=== PATIENT | female | born 1940 | race Caucasian/White ===

== ENCOUNTER 2017-03-09 05:43 | Day surgery (SDC) | payer OTHER ==
--- NOTE | 2017-02-06 14:12 | DIAGNOSTIC IMAGING REPORT ---
CHEST 2 VIEWS ROUTINE HISTORY: 76 years-old Female PAT preoperative exam. No acute chest complaints. COMPARISON: Chest radiographs 10/17/2012, CT abdomen and pelvis 11/22/2011 TECHNIQUE: PA and lateral views of the chest FINDINGS: Cardiomediastinal and hilar silhouettes are within normal limits. Small hiatal hernia. No pneumothorax or pleural effusion. Moderate right hemidiaphragmatic elevation unchanged with subsegmental right basilar atelectasis/scarring. Right shoulder arthroplasty. Increased kyphosis of the spine with demineralized appearance of the bones. IMPRESSION: No acute cardiopulmonary process. The above report was generated using voice recognition software. It may contain grammatical, syntax or spelling errors. Electronically signed by: Leandro Martinez M.D. 02/06/2017 2:10 PM Dictated Date/Time: 02/06/2017 2:09 PM
[2017-02-06 14:14] VITALS: BMI 34.0
[2017-02-06 14:15] LABS: BASO % 0.5 %; BASO ABS # 0.03 K/uL (0-0.2); EOS % 2.4 %; EOS ABS # 0.16 K/uL (0-0.5); HEMATOCRIT 39.7 % (37-47); HEMOGLOBIN 12.8 g/dL (12.0-16.0); IG# 0.02 K/uL (0.00-0.02); LYMPH % 31.1 %; LYMPH ABS # 2.05 K/uL (1.2-3.4); MEAN CORPUSCULAR HEMOGLOBIN 28.4 pg (25-34); MEAN CORPUSCULAR HGB CONC 32.2 g/dl (32-36); MEAN PLATELET VOLUME 10.5 fL (7.4-10.4); MONO % 10.5 %; MONO ABS # 0.69 K/uL (0.11-0.59); NEUT % 55.2 %; NEUT ABS # 3.65 K/uL (1.4-6.5); PLATELET COUNT 176 K/uL (130-400); RED CELL DISTRIBUTION WIDTH CV 15.3 % (11.5-14.5); RED CELL DISTRIBUTION WIDTH SD 49.3 fL (36.4-46.3)
--- NOTE | 2017-02-06 14:47 | PAT Medication Instructions ---
Service Date Feb 06, 2017. Current Home Medication List Amlodipine (Norvasc), 5 MG PO HS Citalopram Hydrobromide (Citalopram Hydrobromide), 40 MG PO QAM Ergocalciferol (Vitamin D 83894 Unit), 50,000 UNIT PO 2XWK Gabapentin (Neurontin), 300 MG PO BID Lisinopril (Lisinopril), 20 MG PO HS Meloxicam (Mobic), 15 MG PO QAM Omeprazole (Prilosec), 40 MG PO BID Oxybutynin Chloride (Oxybutynin Chloride), 5 MG PO BID Ranitidine Hcl (Zantac), 300 MG PO HS Trazodone Hcl (Trazodone), 50 MG PO HS Medication Instructions For Your Scheduled Surgery Continue as directed: Ergocalciferol (Vitamin D 02262 Unit), 50,000 UNIT PO 2XWK - Hold the following medications per your surgeon's instructions: Meloxicam (Mobic), 15 MG PO QAM - Hold the following medications the night before surgery: Lisinopril (Lisinopril), 20 MG PO HS - Take the following medications the morning of surgery with a sip of water: Oxybutynin Chloride (Oxybutynin Chloride), 5 MG PO BID Omeprazole (Prilosec), 40 MG PO BID Gabapentin (Neurontin), 300 MG PO BID Citalopram Hydrobromide (Citalopram Hydrobromide), 40 MG PO QAM - Take the following medications as scheduled the night before surgery: Ranitidine Hcl (Zantac), 300 MG PO HS Trazodone Hcl (Trazodone), 50 MG PO HS Oxybutynin Chloride (Oxybutynin Chloride), 5 MG PO BID Omeprazole (Prilosec), 40 MG PO BID Gabapentin (Neurontin), 300 MG PO BID Amlodipine (Norvasc), 5 MG PO HS If you have any questions please call us at [phone] or [phone] or [phone]
[2017-02-06 15:02] LABS: CALCIUM 8.4 mg/dl (8.5-10.1); CREATININE 0.78 mg/dl (0.60-1.20); POTASSIUM 4.5 mmol/L (3.5-5.1)
[~2017-03-09] VITALS: Ht 157.5 cm; Wt 84.8 kg
[~2017-03-09 05:43] MED LIST: AMLO-110 PO; CITA20TA4 PO; DTR5 PO; ERGO500037 PO; GABA-113 PO; LSN20 PO; MELO7.5T5 PO; PRLSR20 PO; RANI300T PO; TRAZ50TA35 PO
[2017-03-09] MEDS ORDERED: CEFAZOLIN 2000MG IV PUSH 10 ML IV SCH (06:00)
[2017-03-09] MEDS ORDERED: LACTATED RINGER'S 1000ML 1,000 ML IV SCH (06:00)
[2017-03-09 06:12] VITALS: BP 158/67; PULSE 64; TEMP 36.4; O2SAT 98; Ht 157.5 cm; Wt 84.8 kg
[2017-03-09] MEDS ORDERED: MIDAZOLAM HCL 1 MG/ML 2ML VIAL ONE (06:56)
[2017-03-09] MEDS ORDERED: LIDOCAINE HCL 2% 2 ML VIAL (20MG/ML) ONE (06:56)
[2017-03-09] MEDS ORDERED: DEXAMETHASONE SOD INJ 4 MG/ML VIAL ONE ×2 (06:56→09:40)
[2017-03-09] MEDS ORDERED: PROPOFOL IV EMULSION 10 MG/ML 20 ML VIAL IV ONE (06:56)
[2017-03-09] MEDS ORDERED: GLYCOPYRROLATE INJ 0.2 MG/ML VIAL ONE (06:56)
[2017-03-09] MEDS ORDERED: NEOSTIGMINE METHYLSULFATE 1 MG/ML 10ML VIAL ONE (06:56)
[2017-03-09] MEDS ORDERED: ONDANSETRON INJ 2 MG/ML 2 ML VIAL ONE ×2 (06:56→09:58)
[2017-03-09] MEDS ORDERED: FENTANYL CITRATE INJ 50 MCG/1 ML 2 ML VIAL ONE (06:57)
[2017-03-09] MEDS ORDERED: BACITRACIN 50000 UNIT VIAL ONE (07:04)
[2017-03-09] MEDS ORDERED: BUPIVACAINE/EPINEPHRINE 0.25% 1:200,000 30 ML VIAL ONE (07:04)
[2017-03-09] MEDS ORDERED: CEFAZOLIN SOD 2000MG/10 ML IV PUSH IV ONE (07:23)
--- NOTE | 2017-03-09 07:28 | History & Physical Bridge Note ---
H&P Re-Evaluation Bridge Note: I have examined the patient, reviewed the History & Physical and in the interval since the performance of the History & Physical I have noted the following changes of clinical significance: No changes noted
--- NOTE | 2017-03-09 07:29 | History and Physical ---
History & Physical Date Mar 09, 2017. Chief Complaint Right SI joint pain History of Present Illness The patient is a 76 year old female with complaints of chronic persistent right SI joint pain Past Medical/Surgical History Medical Problems: (1) ESOPHAGEAL REFLUX (2) Herpes zoster (3) LUMBAGO Additional History Hepatic Disease: No Endocrine Disorder: No Kidney Disease: No Hypertension: Yes Heart Disease: No Bleeding Tendencies: No Infectious Diseases: No Allergies Coded Allergies: Codeine (Verified Allergy, Intermediate, HIVES, 03/09/17) Tramadol (Verified Allergy, Intermediate, ITCHING, HIVES, 03/09/17) Cephalosporins (Verified Allergy, Unknown, rash, 03/09/17) Morphine (Verified Allergy, Unknown, vomit, 03/09/17) Nitrofurantoin (Verified Allergy, Unknown, rash, 03/09/17) Tetracycline (Verified Allergy, Unknown, rash, 03/09/17) Home Medications Scheduled Amlodipine (Norvasc), 5 MG PO HS Citalopram Hydrobromide (Citalopram Hydrobromide), 40 MG PO QAM Gabapentin (Neurontin), 300 MG PO BID Lisinopril (Lisinopril), 20 MG PO HS Meloxicam (Mobic), 15 MG PO QAM Omeprazole (Prilosec), 40 MG PO BID Oxybutynin Chloride (Oxybutynin Chloride), 5 MG PO BID Ranitidine Hcl (Zantac), 300 MG PO HS Trazodone Hcl (Trazodone), 50 MG PO HS Physical Examination Skin: warm/dry, no rash Eyes: normal inspection, EOMI, sclerae normal ENT: normal ENT inspection, pharynx normal Head: normocephalic, atraumatic Neck: supple, no adenopathy, trachea midline Respiratory/Chest: lungs clear, normal breath sounds, no respiratory distress Cardiovascular: regular rate, rhythm, no edema, no murmur Abdomen / GI: normal bowel sounds, non tender Back: normal inspection Extremities: normal inspection, normal range of motion Neurologic/Psych: no motor/sensory deficits, alert, normal reflexes, oriented x 3 Diagnosis Right sacroiliitis Plan of Treatment Right SI joint fusion
[2017-03-09] MEDS ORDERED: ROCURONIUM BROMIDE 10 MG/ML 5 ML VIAL IV ONE ×2 (08:21→09:57)
[2017-03-09] MEDS ORDERED: EpHEDrine SULFATE 50MG/5ML SYR ONE (08:21)
--- NOTE | 2017-03-09 08:35 | [facility] Operative Report ---
Operative Report Operative Date Mar 09, 2017. Pre-Operative Diagnosis Right sacroiliitis Post-Operative Diagnosis same as preop Procedure(s) Performed Right sacroiliac joint fusion Surgeon Dr. Quesada Chemical Equipment Controller Surgeon(s) Tanner Gutierrez PA-C Estimated Blood Loss 10 ml Findings Findings consistent with sacroiliitis Specimens none Description of Procedure Patient was met with preoperatively case discussed all questions addressed. After informed consent obtained patient was taken to the operative suite underwent intubation placed in a prone position the chest pads and hip bolsters. The right upper buttock was then prepped and draped in normal sterile fashion. With the assistance of fluoroscopy in lateral inlet and outlet views we identified the right SI joint. A incision was made along the right upper buttock in line with the posterior sacral slope. Sharp dissection was performed onto the fascia. The guidewire was then placed in the proximal portion of the SI joint verifying our position with fluoroscopy. Then overdrilled the 10 mm drill. We measured a 45 mm screw. It was then filled with locally harvested autograft and BMP. A 45 mm IRELAND-coated slotted screw was then placed. I felt excellent bite with the screw. The operative guide was then placed in a second distal guidewire was placed across SI joint again verifying our position with fluoroscopy. It was overdrilled and we placed a 40 mm IRELAND-coated slotted screw filled with locally harvested graft and DBM. Again excellent bite was appreciated. A third distal screw was also placed using the same technique. This screw was 35 mm in length. It was also slotted IRELAND-coated filled with locally harvested graft and DBM. It to demonstrated excellent bite along the outer table of the ilium. We final films were taken the Incision was in copious irrigated and closed with subcutaneous pains Vicryl and 4 Monocryl for final skin closure. Steri-Strips sterile dressings placed. Patient we can take PACU stable condition. Please note Zev record was present at the entire procedure involved in patient positioning complex portions of the surgery and final skin closure. I attest to the content of the Intraoperative Record and any orders documented therein. Any exceptions are noted below.
[2017-03-09] MEDS ORDERED: OXYC-57 PO (08:36)
--- NOTE | 2017-03-09 08:37 | Discharge Instructions ---
Discharge Instructions Date of Service Mar 09, 2017. Admission Reason for Admission: Sacroiliac Joint Dysfunction Discharge Discharge Diagnosis / Problem: sacralilitis Discharge Goals Goal(s): Decrease discomfort Activity Recommendations Activity Limitations: as noted below Lifting Limitations: no more than 10 pounds Exercise/Sports Limitations: rest today Shower/Bathe: may shower/bathe in 3 days Driving or Machine Use: resume 3 days after discharge Weightbearing Status: Right toe touch . Instructions / Follow-Up Instructions / Follow-Up Patient is to follow-up in our office in 2 weeks for x-ray. She is to use a walker and toe-touch weightbearing when ambulatory. Current Hospital Diet Patient's current hospital diet: Discharge Diet Recommended Diet: Regular Diet Procedures Procedures Performed: Right sacroiliac joint fusion Pending Studies Studies pending at discharge: no Medical Emergencies . Who to Call and When: Medical Emergencies: If at any time you feel your situation is an emergency, please call 911 immediately. . Non-Emergent Contact Non-Emergency issues call your: Primary Care Provider . "Provider Documentation" section prepared by Roberto Quesada. . VTE Core Measure Inpt VTE Proph given/why not?: Elizabeth Em, SCD's
[2017-03-09] MEDS ORDERED: HYDROmorphone INJ 1 MG/ML SYR IV PRN (08:45)
[2017-03-09] MEDS ORDERED: ACETAMINOPHEN 325 MG TAB PO PRN (08:45)
[2017-03-09] MEDS ORDERED: OXYCODONE/ACETAMINOPHEN 5-325 TAB PO PRN (08:45)
--- NOTE | 2017-03-09 08:53 | DIAGNOSTIC IMAGING REPORT ---
SACRUM CLINICAL HISTORY: RIGHT SACROILIAC JOINT FUSION COMPARISON STUDY: Lumbar spine radiographs July 11, 2014. Fluoroscopy time: 1 minute and 50 seconds. FINDINGS: 3 fluoroscopic images demonstrate 3 cannulated screws which extend across the right sacroiliac joint. Hardware is intact. No fracture or unexpected radiopaque foreign bodies identified. IMPRESSION: Expected findings following right sacroiliac joint fusion. Electronically signed by: Mauricio Rodrigues M.D. 03/09/2017 8:52 AM Dictated Date/Time: 03/09/2017 8:50 AM
[2017-03-09] MEDS ORDERED: ONDANSETRON INJ 2 MG/ML 2 ML VIAL IV PRN (09:00)
[2017-03-09] MEDS ORDERED: HYDROmorphone INJ 2 MG/ML SYR/VIAL IV PRN (09:00)
[2017-03-09] MEDS ORDERED: LABETALOL HCL IV 5 MG/ML 20ML IV PRN (09:00)
[2017-03-09] MEDS ORDERED: ATROPINE SULFATE 0.1 MG/ML 5ML SYR IV PRN (09:00)
[2017-03-09] MEDS ORDERED: HYDROmorphone INJ 0.5 MG/0.5 ML SYR ONE (09:04)
[2017-03-09 09:35] VITALS: BP 113/63; PULSE 79; TEMP 36.7; O2SAT 93
[2017-03-09] MEDS ORDERED: HYDROmorphone INJ 2 MG/ML SYR/VIAL ONE (09:39)
[2017-03-09] MEDS ORDERED: OXYCODONE/ACETAMINOPHEN 5-325 TAB ONE (09:44)
[2017-03-09 10:05] VITALS: BP 105/60; PULSE 70; O2SAT 94
--- NOTE | 2017-03-09 10:09 | Anesthesiology Progress Note ---
Anesthesia Post Op Note Date & Time Mar 09, 2017 at 10:08 Vital Signs Pain Intensity: 5.0 Vital Signs Past 12 Hours Date Time Temp Pulse Resp B/P (MAP) Pulse Ox O2 Delivery O2 Flow Rate FiO2 03/09/17 09:35 36.7 79 18 113/63 93 Room Air 03/09/17 09:26 36.5 03/09/17 09:25 82 20 95 03/09/17 09:25 82 20 03/09/17 09:23 118/62 03/09/17 09:20 84 24 03/09/17 09:20 84 24 95 03/09/17 09:16 122/59 03/09/17 09:15 84 18 93 03/09/17 09:15 86 18 03/09/17 09:12 Nasal Cannula 3 03/09/17 09:12 128/57 03/09/17 09:10 89 21 92 03/09/17 09:10 89 21 03/09/17 09:05 85 24 03/09/17 09:05 85 24 132/57 95 03/09/17 09:00 87 19 03/09/17 09:00 87 19 134/61 96 03/09/17 08:56 134/51 03/09/17 08:55 93 16 03/09/17 08:55 92 16 94 03/09/17 08:50 36.8 92 16 124/80 95 Oxymask 8 03/09/17 06:12 36.4 64 18 158/67 98 Room Air Notes Mental Status: alert / awake / arousable, participated in evaluation Pt Amnestic to Procedure: Yes Nausea / Vomiting: adequately controlled Pain: adequately controlled Airway Patency, RR, SpO2: stable & adequate BP & HR: stable & adequate Hydration State: stable & adequate Anesthetic Complications: no major complications apparent
[2017-03-09 10:35] VITALS: BP 111/50; PULSE 76; TEMP 36.7; O2SAT 94
== END 2017-03-09 11:08 | disposition home or self-care (01) ==
LOC: C.ACU 05:43
PROVIDERS: ATTEND Orthopaedic Surgery Orthopaedic Surgery of the Spine
DX: M46.1 Sacroiliitis, not elsewhere classified (principal); K21.9 Gastro-esophageal reflux disease without esophagitis; Z79.899 Other long term (current) drug therapy

== ENCOUNTER → 2017-05-17 | Outpatient (CLI) | payer OTHER ==
[~2017-05-17] MED LIST changes: -ERGO500037 PO
[2017-05-17 17:15] LABS: BLOOD UREA NITROGEN 24 mg/dl (7-18); CALCIUM 8.7 mg/dl (8.5-10.1); CARBON DIOXIDE 29 mmol/L (21-32); CHOLESTEROL 149 mg/dl (0-200); GLUCOSE 79 mg/dl (70-99); SODIUM 138 mmol/L (136-145)
[2017-05-17 17:18] LABS: LDL CHOLESTEROL CALCULATED 87 mg/dl
== END | disposition home or self-care (01) ==
LOC: C.LABPBG 12:42
PROVIDERS: ATTEND Family Medicine
DX: Z00.00 Encounter for general adult medical examination without abnormal findings (principal); E55.9 Vitamin D deficiency, unspecified; I10 Essential (primary) hypertension; Z13.220 Encounter for screening for lipoid disorders

== ENCOUNTER 2018-04-23 08:22 | Inpatient (IN) ==
--- NOTE | 2018-04-17 10:38 | Anesthesiology Consultation ---
Date of Service April 17, 2018 Assessment & Plan (1) Encounter for pre-operative examination: Chart Review Chart Review: Acceptable Risk for Surgery (PENDING PREOP EKG TO BE DONE AM DOS PER SURGEON) and Patient NOT seen in Pre Admission Testing History Surgery Operation Date: 04/23/18 07:45 Proposed Procedures p Revision Sacroiliac Joint Fusion, Possible Removal fo Sacroiliac Joint Screw - Roberto Quesada DO Height/Weight Height: 5 ft 2.5 in Weight: 83.915 kg Allergies Allergy/AdvReac Type Severity Reaction Status Date / Time codeine Allergy Intermediate HIVES Verified 04/12/18 14:49 tramadol Allergy Intermediate ITCHING, Verified 04/12/18 14:49 HIVES - SEE NOTES Cephalosporins Allergy Unknown rash Verified 04/12/18 14:49 nitrofurantoin Allergy Unknown rash Verified 04/12/18 14:49 tetracycline Allergy Unknown rash Verified 04/12/18 14:49 morphine AdvReac Unknown vomit Verified 04/17/18 10:33 Medications Home Medications Medication Instructions Recorded Confirmed Last Taken amlodipine 5 mg PO HS 04/12/18 04/12/18 04/11/18 celecoxib [Celebrex] 200 mg PO QAM 04/12/18 04/12/18 04/12/18 citalopram 20 mg PO QAM 04/12/18 04/12/18 04/12/18 gabapentin 400 mg PO TID 04/12/18 04/12/18 04/12/18 lisinopril 20 mg PO HS 04/12/18 04/12/18 04/11/18 omeprazole 40 mg PO QAM 04/12/18 04/12/18 04/12/18 ondansetron HCl 4 mg PO UD PRN 04/12/18 04/12/18 Unknown oxybutynin chloride 5 mg PO TID 04/12/18 04/12/18 04/12/18 oxycodone 5 mg PO Q12 PRN 04/12/18 04/12/18 Unknown ranitidine HCl 300 mg PO HS 04/12/18 04/12/18 04/11/18 trazodone 50 mg PO HS 04/12/18 04/12/18 04/11/18 Past Medical History Medical History Acid reflux Back problem DVT (deep venous thrombosis) LLE (CALF) 30+ YEARS AGO FELT 2/2 OCP Depression Hiatal hernia Hypertension Past Family History Family History Mother Family history of pancreatic cancer Father Family history of Hodgkin's lymphoma Past Surgical History Surgical History History of back surgery RIGHT SI JOINT FUSION= 03/09/17= GRADE VIEW 1, MAC 3, ETT 7.0 AT [facility] History of cardiac cath MANY YEARS AGO= NO STENTS History of colonoscopy History of laminectomy History of right shoulder replacement History of total right knee replacement History of PONV Yes (PER RECORDS) Social History Smoking Status: Never smoker Do You Dip or Chew Tobacco: No Hx Alcohol Use: Yes Alcohol type: wine alcohol intake frequency: holidays/special occasions only Hx Substance Use: No substance use type: does not use Testing Laboratory Results 04/16/18 WBC 6.13 H/H 11.9/39.0 PLATELETS 191 SODIUM 140 POTASSIUM 4.1 CHLORIDE 107 CO2 28 BUN 17 CREATININE 0.87 GLUCOSE 89 PT 10.7 INR 1.0 UA negative T&S A+Ab-
[~2018-04-23 08:22] MED LIST changes: +ACETAMINOPHEN 500 MG TAB PO SCH; -AMLO-110 PO; -CITA20TA4 PO; +CeleBREX 200 MG CAP PO SCH; -DTR5 PO; -GABA-113 PO; +GABAPENTIN 300 MG PO SCH; +LR 15ML/HR IV SCH; -LSN20 PO; -MELO7.5T5 PO; -PRLSR20 PO; -RANI300T PO; -TRAZ50TA35 PO
[2018-04-23] MEDS ORDERED: PROPOFOL IV EMULSION 10 MG/ML 20 ML VIAL IV ONE (10:30)
[2018-04-23] MEDS ORDERED: ROCURONIUM BROMIDE 10 MG/ML 5 ML VIAL ONE (10:31)
[2018-04-23] MEDS ORDERED: fentaNYL citrate 100 MCG/2 ML VIAL ONE (10:31)
[2018-04-23] MEDS ORDERED: MIDAZOLAM HCL 1 MG/ML 2ML VIAL ONE (10:31)
[2018-04-23] MEDS ORDERED: ONDANSETRON INJ 2 MG/ML 2 ML VIAL IV PRN (10:35)
[2018-04-23] MEDS ORDERED: ATROPINE SULFATE 0.1 MG/ML 10ML SYR IV PRN (10:35)
[2018-04-23] MEDS ORDERED: ePHEDrine sulfate 50 MG/ML AMP IV PRN (10:35)
[2018-04-23] MEDS ORDERED: HYDROmorphone INJ 1 MG/ML SYRINGE IV PRN (10:35)
--- NOTE | 2018-04-23 10:59 | History & Physical Bridge Note ---
Date of Service April 23, 2018 History & Physical Bridge Note I have examined the patient, reviewed the History & Physical and in the interval since the performance of the History & Physical I have noted the following changes of clinical significance: no changes noted
--- NOTE | 2018-04-23 11:00 | History & Physical Report ---
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 After failing extensive course of nonoperative care prevention. Allergies Allergy/AdvReac Type Severity Reaction Status Date / Time codeine Allergy Intermediate HIVES Verified 04/23/18 08:59 tramadol Allergy Intermediate ITCHING, Verified 04/23/18 08:59 HIVES - SEE NOTES Cephalosporins Allergy Unknown rash Verified 04/23/18 08:59 nitrofurantoin Allergy Unknown rash Verified 04/23/18 08:59 tetracycline Allergy Unknown rash Verified 04/23/18 08:59 morphine AdvReac Unknown vomit Verified 04/23/18 08:59 Home Medications Home Medications Medication Instructions Recorded Confirmed Type amlodipine 5 mg PO HS 04/12/18 04/23/18 History celecoxib [Celebrex] 200 mg PO QAM 04/12/18 04/23/18 History citalopram 20 mg PO QAM 04/12/18 04/23/18 History gabapentin 400 mg PO TID 04/12/18 04/23/18 History lisinopril 20 mg PO HS 04/12/18 04/23/18 History omeprazole 40 mg PO QAM 04/12/18 04/23/18 History ondansetron HCl 4 mg PO UD PRN 04/12/18 04/23/18 History oxybutynin chloride 5 mg PO TID 04/12/18 04/23/18 History oxycodone 5 mg PO Q12 PRN 04/12/18 04/23/18 History ranitidine HCl 300 mg PO HS 04/12/18 04/23/18 History trazodone 50 mg PO HS 04/12/18 04/23/18 History Past Med/Surg History Medical History Hypertension Depression Back problem Acid reflux DVT (deep venous thrombosis) LLE (CALF) 30+ YEARS AGO FELT 2/2 OCP Hiatal hernia Surgical History History of back surgery RIGHT SI JOINT FUSION= 03/09/17= GRADE VIEW 1, MAC 3, ETT 7.0 AT [facility] History of total right knee replacement History of right shoulder replacement History of laminectomy History of colonoscopy History of cardiac cath MANY YEARS AGO= NO STENTS Family History Mother Family history of pancreatic cancer Father Family history of Hodgkin's lymphoma Social History Current Living Situation: Alone Other Information That Helps Us Care for You: No Feels Safe at Home: Yes Smoking Status: Never smoker Do You Dip or Chew Tobacco: No Hx Alcohol Use: Yes Alcohol type: wine Alcohol Intake Frequency: holidays/ special occasions only Hx Substance Use: No Beliefs That Will Affect Care: None Preferred Language: Palestinian Communication Ability: Effective Motor Transport Inspector Required: No Physical Exam 2 Vital Signs (Past 24 Hours): Last Vital Signs Temp 37.3 C 04/23/18 09:08 Pulse 64 04/23/18 09:08 Resp 20 04/23/18 09:08 BP 113/61 04/23/18 09:08 Pulse Ox 94 04/23/18 09:08 Results & Data Medications Administered Acetaminophen (Tylenol) 1,000 mg PO PREOP RANJANA Stop: 04/23/18 18:00 Last Admin: 04/23/18 09:07 Dose: 1,000 mg Celecoxib (Celebrex) 200 mg PO PREOP RANJANA Stop: 04/23/18 18:00 Last Admin: 04/23/18 09:07 Dose: 200 mg Gabapentin (Neurontin) 300 mg PO PREOP RANJANA Stop: 04/23/18 18:00 Last Admin: 04/23/18 09:07 Dose: 300 mg Lactated Ringer's (Lr) 1,000 mls @ 15 mls/hr IV .Q24H RANJANA Stop: 04/24/18 05:59 Last Admin: 04/23/18 08:57 Dose: 15 mls/hr
[2018-04-23] MEDS ORDERED: CLINDAMYCIN 600 MG/54 ML D5W IV ONE (11:05)
[2018-04-23] MEDS ORDERED: BACITRACIN INJ 50,000 UNIT VIAL ONE (11:11)
[2018-04-23] MEDS ORDERED: BUPIVACAINE/EPINEPHRINE 0.5% MPF 1:200,000 30 ML VIAL ONE (11:11)
--- NOTE | 2018-04-23 12:29 | Operative Report ---
Post Operative Report Pre & Post Diagnosis Operation Date: 04/23/18 10:25 Pre-Op Diagnosis: Right Sacroiliac Joint Dysfunction Post-Op Diagnosis: Right Sacroiliac Joint Dysfunction Procedure Operation Date: 04/23/18 10:25 Actual Procedures #1 removal of SI joint screws. #2 open SI joint fusion. #3 placement of Prolixin 20 mm cortical allograft filled with infuse collagen sponge in the right SI joint. #3 placement of globus IRELAND-coated slotted screws across the right SI joint. Surgeon Roberto Quesada, Rubber Mold Maker Deisi Winters Estimated Blood Loss 20 Findings Consistent with Post-Op Diagnosis Specimens None Description of Procedure Patient was met with preoperatively case discussed all questions addressed. After informed consent obtained patient was taken to the operative suite underwent intubation and placed in a prone position on the Liam table chest padded bolsters. The right upper buttock was then prepped and draped in a normal sterile fashion. With the assistance of fluoroscopy identified the middle SI joint screw. It was removed without difficulty. I then proceeded to remove the distal SI joint screw. After this complete lipase a guidewire into the right SI joint with fluoroscopic visualization. Then opened up the joint for direct visualization. I passed a facilities manager into the joint followed by cannulated facilities manager and a box chisel to open up the joint. A 20 mm cortical allograft filled with infuse collagen sponge was then tapped into the SI joint. The working apparatus was removed and then proceeded to the screws and placed a new middle SI joint screw 40 mm in length IRELAND-coated filled with infuse collagen sponge followed by the distal 35 mm IRELAND-coated slotted screw. All screws demonstrated excellent fixation and fit. Verified our first positions with inlet outlet views lateral views and AP views of the SI joint. The incision was then copiously irrigated closed with subcutaneous Vicryl for Monocryl for final closure Steri-Strip sterile dressing placed. Patient will continue to PACU stable condition. These note Deisi Winters was present throughout the entire procedure involved in patient positioning complex portions of the surgery and final skin closure. I attest to the content of the Intraoperative Record and any orders documented therein. Any exceptions are noted below.
[2018-04-23] MEDS: fentaNYL citrate 100 MCG/2 ML VIAL IV PRN ×4 (12:53→13:08)
--- NOTE | 2018-04-23 12:55 | Fluoroscopy Report ---
FL sacrum CLINICAL HISTORY: REVISION SACROILIAC JOINT FUSION POSSIBLE HARDWARE REMOVAL COMPARISON STUDY: 03/09/2017 FLUOROSCOPY TIME: 1 minute 15 seconds NUMBER OF FLUOROSCOPIC IMAGES: 6 FINDINGS: Image intensifier was utilized for sacroiliac bolt revision and graft insertion. IMPRESSION: Sacroiliac bolt revision and graft insertion. The above report was generated using voice recognition software. It may contain grammatical, syntax or spelling errors. Electronically signed by: Romel Melvin M.D. 04/23/2018 12:54 PM
--- NOTE | 2018-04-23 13:20 | Anesthesiology Progress Note ---
Date of Service April 23, 2018 Anesthesia Post Procedure Vital Signs Vital Signs: Temp Pulse Pulse Resp BP BP Pulse Ox 04/23/18 13:15 81 16 115/60 96 04/23/18 13:05 82 16 103/50 L 96 04/23/18 12:55 85 16 107/58 L 98 04/23/18 12:45 36.5 C 96 H 16 145/67 H 96 04/23/18 09:08 37.3 C 64 20 113/61 94 Pain Intensity Right Lower Back: Pain Intensity: 6 Notes Mental Status: alert / awake / arousable and participated in evaluation Patient Amnestic to Procedure: Yes Nausea / Vomiting: adequately controlled Pain: adequately controlled Airway Patency, RR, SpO2: stable & adequate BP & HR: stable & adequate Hydration State: stable & adequate Anesthetic Complications: no major complications apparent and Pt Satisfied with anesthetic care Notes: Pt with some very mild bruising under both eyes - likely from prone positioning in prone view pillow during surgical procedure. Should resolve without intervention. Pt denying any eye pain or vision problems.
[2018-04-23] MEDS ORDERED: LORazepam 1 MG/2 ML VIAL IV PRN (13:55)
[2018-04-23] MEDS ORDERED: PROMETHAZINE HCL 12.5 MG in SODIUM CHLORIDE 0.9% 50 ML IV PRN (13:55)
[2018-04-23] MEDS ORDERED: LORazepam 1 MG TAB PO PRN (13:55)
[2018-04-23] MEDS ORDERED: OXYCODONE HCL IR 5 MG TAB (IMMEDIATE RELEASE) PO PRN (13:55)
[2018-04-23] MEDS ORDERED: ACETAMINOPHEN 325 MG TAB PO PRN (13:55)
[2018-04-23] MEDS ORDERED: ONDANSETRON 4 MG TAB PO PRN (13:55)
[2018-04-23] MEDS ORDERED: CYCLOBENZAPRINE HCL 10 MG TAB PO PRN (13:55)
[2018-04-23] MEDS: LACTATED RINGER'S 1,000 ML IV SCH (15:20)
[2018-04-23] MEDS ORDERED: COUGH DROP (SUGAR FREE) LOZ 24 LOZ/1 BOX BUCCAL PRN (17:23)
[2018-04-23] MEDS: CLINDAMYCIN 600 MG in DEXTROSE 5% 50 ML IV SCH (20:35)
[2018-04-23] MEDS: DOCUSATE SODIUM 100 MG CAP PO SCH (20:39)
[2018-04-23] MEDS: GABAPENTIN 400 MG CAP PO SCH (20:39)
[2018-04-23] MEDS: TRAZODONE HCL 50 MG TAB PO SCH (20:39)
[2018-04-23] MEDS: OXYBUTYNIN CHLORIDE 5 MG TAB PO SCH (20:40)
[2018-04-23] MEDS: LISINOPRIL 20 MG TAB PO SCH (20:40)
[2018-04-23] MEDS: AMLODIPINE BESYLATE 5 MG TAB PO SCH (20:40)
[2018-04-23] MEDS: OXYCODONE/ACETAMINOPHEN 5mg/325mg TAB PO PRN (20:44)
[2018-04-23] MEDS: ONDANSETRON INJ 2 MG/ML 2 ML VIAL IV PRN (20:44)
[2018-04-24] MEDS: CLINDAMYCIN 600 MG in DEXTROSE 5% 50 ML IV SCH ×2 (04:11→11:57)
[2018-04-24] MEDS: LACTATED RINGER'S 1,000 ML IV SCH ×2 (04:11→17:43)
[2018-04-24] MEDS ORDERED: CLINDAMYCIN 600 MG/54 ML BAG IV SCH (06:00)
--- NOTE | 2018-04-24 07:40 | Anesthesiology Progress Note ---
Date of Service April 24, 2018 Anesthesia Post Procedure Vital Signs Vital Signs: Temp Pulse Pulse Pulse Resp BP BP 04/24/18 04:32 37.6 C H 76 14 125/71 04/23/18 23:25 36.9 C 71 14 119/56 L 04/23/18 19:17 36.6 C 71 17 130/96 04/23/18 16:26 36.6 C 94 H 22 102/77 04/23/18 15:26 36.4 C L 72 22 98/76 L 04/23/18 14:55 36.4 C L 70 20 95/47 L 04/23/18 13:55 36.5 C 80 18 113/70 04/23/18 13:45 76 16 117/62 04/23/18 13:35 75 16 118/59 L 04/23/18 13:25 36.6 C 77 16 124/56 L 04/23/18 13:15 81 16 115/60 04/23/18 13:05 82 16 103/50 L 04/23/18 12:55 85 16 107/58 L 04/23/18 12:45 36.5 C 96 H 16 145/67 H 04/23/18 09:08 37.3 C 64 20 113/61 Pulse Ox 04/24/18 04:32 92 04/23/18 23:25 93 04/23/18 19:17 94 04/23/18 16:26 94 04/23/18 15:26 97 04/23/18 14:55 97 04/23/18 13:55 94 04/23/18 13:45 96 04/23/18 13:35 96 04/23/18 13:25 96 04/23/18 13:15 96 04/23/18 13:05 96 04/23/18 12:55 98 04/23/18 12:45 96 04/23/18 09:08 94 Pain Intensity Right Lower Back: Pain Intensity: 2 Notes Mental Status: alert / awake / arousable and participated in evaluation Nausea / Vomiting: adequately controlled Pain: adequately controlled Airway Patency, RR, SpO2: stable & adequate BP & HR: stable & adequate Hydration State: stable & adequate
[2018-04-24] MEDS: OXYCODONE/ACETAMINOPHEN 5mg/325mg TAB PO PRN ×3 (08:43→19:17)
[2018-04-24] MEDS: ONDANSETRON INJ 2 MG/ML 2 ML VIAL IV PRN ×2 (08:45→15:15)
[2018-04-24] MEDS: CITALOPRAM 20 MG TAB PO SCH (08:48)
[2018-04-24] MEDS: GABAPENTIN 400 MG CAP PO SCH ×3 (08:49→21:23)
[2018-04-24] MEDS: CeleBREX 200 MG CAP PO SCH (08:49)
[2018-04-24] MEDS: OXYBUTYNIN CHLORIDE 5 MG TAB PO SCH ×3 (08:49→21:23)
[2018-04-24] MEDS: DOCUSATE SODIUM 100 MG CAP PO SCH ×2 (08:50→21:23)
[2018-04-24] MEDS: PANTOprazole 40 MG TAB PO SCH (08:50)
--- NOTE | 2018-04-24 16:33 | Orthopedic Progress Note ---
Date of Service April 24, 2018 Assessment & Plan (1) Sacroiliitis: This time we will continue to monitor her pain and work with her ambulation and toe-touch weightbearing to the right lower extremity. Anticipate possible discharge home tomorrow. Present on Admission?: Yes Subjective Patient is quite comfortable. Preop symptoms are markedly improved. Physical Exam Vital Signs (Past 24 Hours): Last Vital Signs Temp 36.8 C 04/24/18 15:24 Pulse 77 04/24/18 15:24 Resp 17 04/24/18 15:24 BP 129/66 04/24/18 15:24 Pulse Ox 94 04/24/18 15:24 Physical Exam: On exam she is in the chair at the bedside. She is neurologically intact. She appears comfortable.
[2018-04-24] MEDS: LISINOPRIL 20 MG TAB PO SCH (21:22)
[2018-04-24] MEDS: AMLODIPINE BESYLATE 5 MG TAB PO SCH (21:23)
[2018-04-24] MEDS: TRAZODONE HCL 50 MG TAB PO SCH (21:31)
[2018-04-25] MEDS: LACTATED RINGER'S 1,000 ML IV SCH (05:23)
[2018-04-25 06:30] VITALS: BP 108/70; PULSE 78; TEMP 98.6; O2SAT 91
[2018-04-25] MEDS: CeleBREX 200 MG CAP PO SCH (08:24)
[2018-04-25] MEDS: PANTOprazole 40 MG TAB PO SCH (08:24)
[2018-04-25] MEDS: GABAPENTIN 400 MG CAP PO SCH ×2 (08:24→15:06)
[2018-04-25] MEDS: CITALOPRAM 20 MG TAB PO SCH (08:24)
[2018-04-25] MEDS: OXYBUTYNIN CHLORIDE 5 MG TAB PO SCH ×2 (08:24→15:06)
[2018-04-25] MEDS: DOCUSATE SODIUM 100 MG CAP PO SCH (08:24)
--- NOTE | 2018-04-25 14:51 | Discharge Summary ---
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 After failing extensive course of nonoperative care prevention. Principal Diagnosis Sacroiliitis Discharge Data Allergies Allergy/AdvReac Type Severity Reaction Status Date / Time codeine Allergy Intermediate HIVES Verified 04/23/18 08:59 tramadol Allergy Intermediate ITCHING, Verified 04/23/18 08:59 HIVES - SEE NOTES Cephalosporins Allergy Unknown rash Verified 04/23/18 08:59 nitrofurantoin Allergy Unknown rash Verified 04/23/18 08:59 tetracycline Allergy Unknown rash Verified 04/23/18 08:59 morphine AdvReac Unknown vomit Verified 04/23/18 08:59 Procedures Performed Operation Date: 04/23/18 10:25 Actual Procedures p Revision Right Sacroiliac Joint Fusion,(Right) - Roberto Quesada DO s Removal of Right Sacroiliac Joint Screw(Right) - Roberto Quesada DO Ordered Studies 04/23/18 10:25 FL fluoroscopy <1hr Routine FL sacrum Routine Hospital Course (1) Sacroiliitis: Patient underwent revision right SI joint fusion. She tolerated as well as taken the orthopedic floor postoperative. Postop day 1 she was tolerating physical therapy symptoms improved. She progressed appropriately through postop day #2 no subsequently discharged home. Discharge orders and instructions from the chart for further review. Total Time Total Time Spent Total Time Spent (In Minutes): Not applicable Discharge Plan Discharge Items Patient Disposition: Home - Self-Care Reason For Visit: SI Joint Dysfunction Discharge Diagnosis: SI joint dysfunction Discharge Goals: Decrease discomfort Activity: As commented below Lifting: No more than 5 pounds Bathing: May shower/bathe in 3 days Weightbearing: Right toe touch Non-emergency contact: Primary Care Provider Call non-emergency contact if: you have any medication questions Follow-up/Referrals: Zeynep Dawn MD [Primary Care Provider] - Diet: Regular Addtl Provider Instructions: Follow-up in 2 weeks as scheduled. Prescriptions: New oxycodone-acetaminophen [Percocet] 5-325 mg Tablet 1 tab PO Q4H PRN (Reason: Pain, Moderate) Qty: 20 RF: 0 Continued celecoxib [Celebrex] 200 mg Capsule 200 mg PO QAM RF: 0 citalopram 40 mg Tablet 20 mg PO QAM RF: 0 trazodone 50 mg Tablet 50 mg PO HS RF: 0 lisinopril 20 mg Tablet 20 mg PO HS RF: 0 gabapentin 400 mg Capsule 400 mg PO TID RF: 0 amlodipine 5 mg Tablet 5 mg PO HS RF: 0 omeprazole 40 mg Capsule,Delayed Release(Dr/Ec) 40 mg PO QAM RF: 0 ranitidine HCl 300 mg Capsule 300 mg PO HS RF: 0 oxybutynin chloride 5 mg Tablet 5 mg PO TID RF: 0 ondansetron HCl 4 mg Tablet 4 mg PO UD PRN (Reason: Nausea) RF: 0 oxycodone 5 mg Tablet 5 mg PO Q12 PRN (Reason: Pain) RF: 0 Stand-Alone Forms: [facility], [facility] Discharge Orders: Discharge Order (Routine); Ordered 04/25/18 Ordered By: Roberto Quesada Admission Data Admit Date/Time: 04/23/18 13:58 Attending Provider: Roberto Quesada Admit Provider: Roberto Quesada Primary Care Provider: Zeynep Dawn Service: Surgical Services Other Interventions: Discharge Summary Assessment (RN) Last Done: 04/25/18 14:04
== END 2018-04-25 15:15 | disposition home or self-care (01) | DRG 460 ==
LOC: ASU 08:22 → 3E 13:58

== ENCOUNTER 2021-01-28 10:09 | Inpatient (IN) ==
[2021-01-28] MEDS ORDERED: ACETAMINOPHEN 1,000 MG/100 ML VIAL IV STA (10:40)
[2021-01-28] MEDS ORDERED: ONDANSETRON INJ 2 MG/ML 2 ML VIAL IV STA (10:40)
--- NOTE | 2021-01-28 10:47 | Emergency Department Note ---
History of Present Illness General Chief complaint: Back Injury/Pain Stated complaint: FALL, LOWER BACK PAIN Time Seen by Provider: 01/28/21 10:21 Source: patient Mode of arrival: ambulatory Limitations: no limitations History of Present Illness Provider complaint: back pain, fall Onset (ago): hour(s) Location: back Radiation: non-radiation Maximum Pain Intensity: 9 Relieved By: + none Exacerbated By: + movement Associated symptoms: + denies other symptoms Treatments prior to arrival: other This is a 80-year-old female brought in by EMS due to increased back pain and fall this morning. Patient states she has a history of chronic low back pain and has had multiple surgeries. She states she is supposed to use a cane or a walker however this morning when she got up to go to the bathroom she did not. She states she became unsteady/off balance and fell landing on her back. Patient states she has most pain at the posterior aspect of her left hip. She states she was able to get back up and got back into bed, however pain is persistent. She did take a hydrocodone/acetaminophen which she has at home without any significant relief. Patient does already use topical agents as well as daily gabapentin. Patient does not routinely follow with Dr. Quesada or other pain management practitioners. Patient denies striking her head or losing consciousness. Denies any other concern for injury subsequent to the fall. Pt seen during a time of high acuity and national emergency pandemic while wearing PPE. Home Medications Medication Instructions Recorded Confirmed Type gabapentin 400 mg capsule 400 mg PO TID #270 cap 05/14/20 01/28/21 Rx celecoxib 200 mg capsule (Celebrex) 200 mg PO BID #180 cap 10/06/20 01/28/21 Rx amlodipine 5 mg tablet 5 mg PO HS #90 tab 11/03/20 01/28/21 Rx omeprazole 40 mg capsule,delayed 40 mg PO BID #180 cap 11/04/20 01/28/21 Rx release hydrocodone 5 mg-acetaminophen 325 1 tab PO Q6H PRN #30 tab 01/13/21 01/28/21 Rx mg tablet oxybutynin chloride 5 mg tablet 5 mg PO TID #90 tab 01/17/21 01/28/21 Rx citalopram 40 mg tablet 40 mg PO QAM 01/28/21 01/28/21 History lisinopril 20 mg tablet 20 mg PO QAM 01/28/21 01/28/21 History trazodone 50 mg tablet 50 mg PO HS 01/28/21 01/28/21 History Allergies Allergy/AdvReac Type Severity Reaction Status Date / Time Cephalosporins Allergy Mild rash Verified 01/28/21 12:23 codeine Allergy Mild Rash Verified 01/28/21 12:23 erythromycin base Allergy Mild Rash Verified 01/28/21 12:23 nitrofurantoin Allergy Mild rash Verified 01/28/21 12:23 tetracycline Allergy Mild rash Verified 01/28/21 12:23 morphine AdvReac Mild SICK TO Verified 01/28/21 12:23 STOMACH Past Med/Surg History Medical History Acid reflux Arthritis Depression DVT (deep venous thrombosis) LLE (CALF) 40+ YEARS AGO (WAS TAKING CONTROL PILLS) Foraminal stenosis of lumbar region Hamstring tear RT (KAT [facility]) History of vertebral compression fracture Hypertension Insomnia Overactive bladder Polio DX A CHILD Spinal stenosis of 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 neurogenic claudication Surgical History Family history of reaction to anesthesia SON>SLOW TO WAKE UP H/O hand surgery History of back surgery RIGHT SI JOINT FUSION= 03/09/17= GRADE VIEW 1, MAC 3, ETT 7.0 AT [facility] 2 TOTAL BACK SURGERIES History of bilateral tubal ligation History of breast biopsy History of cardiac cath OVER 12 YEARS AGO/NO STENTS History of carpal tunnel release LEFT History of cataract surgery RT/LEFT History of colonoscopy History of dilatation and curettage History of esophagogastroduodenoscopy (EGD) History of laminectomy X 2 (LUMBAR REGION) History of right shoulder replacement History of tooth extraction History of total right knee replacement Family History Mother Family history of pancreatic cancer Alcohol abuse Depression Father Family history of Hodgkin's lymphoma Hypertension Grandfather (Paternal) Myocardial infarction Sister Depression Hypertension Grandfather (Maternal) Myocardial infarction Denies family history of Ovarian cancer Prostate cancer Breast cancer Colorectal cancer Social History Smoking Status: Never smoker Second Hand Exposure: Yes ( A CHILD); Hx Alcohol Use: No Hx Substance Use: No Preferred Language: Polish Communication Ability: Effective Visual Impairment: No Limitations Hearing Ability: Normal Director Business Integration Required: No Beliefs That Will Affect Care: None marital status: / Current Living Situation: Alone current occupational status: retired Other Information That Helps Us Care for You: No Feels Safe at Home: Yes Safety Concerns: Feels Safe At This Time Dental Care, Regularly: No Physical Activity Frequency: Does not Exercise Seatbelt Use: sometimes Assistive Devices: None Review of Systems A total of 10 systems reviewed and were otherwise negative All systems reviewed & are unremarkable except as noted in HPI & below Physical Exam Vital Signs Vital Signs - 24 hr 01/28/21 10:09 01/28/21 13:00 Temperature 36.7 C Temperature Source Oral Pulse Rate 63 Pulse Rate [Finger] 85 Respiratory Rate 16 16 Blood Pressure 174/93 H Blood Pressure [Left Arm] 150/72 H Blood Pressure Mean 120 Blood Pressure Mean [Left Arm] 98 Pulse Oximetry 91 98 Oxygen Delivery Method Room Air Room Air Sepsis Recent Fever Within 48 Hours No Sepsis New/Unexplained Change in Mental Status No Sepsis Action Taken by Nursing No Action Required GENERAL: alert, well appearing, well nourished, no distress, non-toxic EYE EXAM: normal conjunctiva, PERRL and EOM's grossly intact OROPHARYNX: no exudate, no erythema, lips, buccal mucosa, and tongue normal and mucous membranes are moist NECK: supple, no nuchal rigidity, no adenopathy, non-tender LUNGS: Clear to auscultation. Normal chest wall mechanics, no w/r/r HEART: no murmurs, S1 normal and S2 normal ABDOMEN: abdomen soft, non-tender, normo-active bowel sounds, no masses, no rebound or guarding. BACK: Back is symmetrical on inspection and there is no deformity, no midline tenderness, no CVA tenderness. SKIN: no rashes and no bruising UPPER EXTREMITIES: upper extremities are grossly normal. FROM, nml pulses b/l. LOWER EXTREMITIES: No pitting edema. FROM, nml pulses b/l. NEURO EXAM: Normal sensorium, cranial nerves II-XII grossly intact, normal speech, no gross weakness of arms, no gross weakness of legs. Gross sensation intact. Course Course 1215: Patient updated on results. Pain is improved after medication. Daughter now bedside. 1322: Discussed with Dr. Quesada. 1336: Pt unable to even stand at bedside with assistance. Has increased pain and feels unsteady per her report. Administered Medications Hydrocodone Bitart/Acetaminophen (Hydrocodone/Acetaminophen 7.5/325mg Tab) 1 tab PO Q4H PRN PRN Reason: Pain Stop: 02/12/21 10:22 Last Admin: 01/29/21 14:13 Dose: 1 tab Documented by: [id number] Amlodipine Besylate (Amlodipine Besylate 5 Mg Tab) 5 mg PO HS RANJANA Stop: 02/27/21 22:44 Last Admin: 01/28/21 22:52 Dose: 5 mg Documented by: [id number] Calcitonin Kinzers (Calcitonin Kinzers Na 200 Iu/Ac 3.7 Ml Btl) 1 sprays NA DAILY RANJANA Stop: 02/28/21 10:29 Last Admin: 01/29/21 13:06 Dose: 1 sprays Documented by: [id number] Celecoxib (Celebrex 200 Mg Cap) 200 mg PO BID RANJANA Stop: 02/27/21 22:44 Last Admin: 01/29/21 08:58 Dose: 200 mg Documented by: [id number] Admin: 01/28/21 22:52 Dose: 200 mg Documented by: [id number] Citalopram Hydrobromide (Citalopram 40 Mg Tab) 40 mg PO QAM RANJANA Stop: 02/28/21 08:59 Last Admin: 01/29/21 08:59 Dose: 40 mg Documented by: [id number] Enoxaparin Sodium (Enoxaparin Inj 30 Mg/0.3 Ml Syr) 30 mg SQ HS RANJANA Stop: 02/27/21 22:59 Last Admin: 01/28/21 22:50 Dose: 30 mg Documented by: [id number] Gabapentin (Gabapentin 400 Mg Cap) 400 mg PO TID RANJANA Stop: 02/27/21 22:44 Last Admin: 01/29/21 14:13 Dose: 400 mg Documented by: [id number] Admin: 01/29/21 08:59 Dose: 400 mg Documented by: [id number] Admin: 01/28/21 22:51 Dose: 400 mg Documented by: [id number] Hydromorphone HCl (Hydromorphone Inj 0.5 Mg/0.5 Ml Syr) 0.5 mg IV Q1H PRN PRN Reason: Pain rated 7 to 10 Stop: 02/11/21 22:02 Last Admin: 01/29/21 13:03 Dose: 0.5 mg Documented by: [id number] Admin: 01/29/21 11:01 Dose: 0.5 mg Documented by: [id number] Admin: 01/29/21 08:03 Dose: 0.5 mg Documented by: [id number] Admin: 01/29/21 01:22 Dose: 0.5 mg Documented by: [id number] Admin: 01/28/21 22:39 Dose: 0.5 mg Documented by: [id number] Lidocaine (Lidocaine 5% 1 Patch) 1 patch TD [facility] Stop: 02/28/21 10:29 Last Admin: 01/29/21 13:06 Dose: 1 patch Documented by: [id number] Lisinopril (Lisinopril 20 Mg Tab) 20 mg PO [facility] Stop: 02/28/21 08:59 Last Admin: 01/29/21 08:58 Dose: 20 mg Documented by: [id number] Ondansetron HCl (Ondansetron Inj 2 Mg/Ml 2 Ml Vial) 4 mg IV Q6H PRN PRN Reason: Nausea Stop: 02/27/21 22:02 Last Admin: 01/29/21 12:58 Dose: 4 mg Documented by: [id number] Oxybutynin Chloride (Oxybutynin Chloride 5 Mg Tab) 5 mg PO TID [facility] Stop: 02/27/21 22:44 Last Admin: 01/29/21 14:13 Dose: 5 mg Documented by: [id number] Admin: 01/29/21 09:00 Dose: 5 mg Documented by: [id number] Admin: 01/28/21 22:52 Dose: 5 mg Documented by: [id number] Pantoprazole Sodium (Pantoprazole 40 Mg Tab) 40 mg PO BID [facility]; Protocol Stop: 02/27/21 22:44 Last Admin: 01/29/21 09:01 Dose: 40 mg Documented by: [id number] Admin: 01/28/21 22:51 Dose: 40 mg Documented by: [id number] Trazodone HCl (Trazodone Hcl 50 Mg Tab) 50 mg PO HS [facility] Stop: 02/27/21 22:44 Last Admin: 01/28/21 22:51 Dose: 50 mg Documented by: [id number] Discontinued Medications Hydrocodone Bitart/Acetaminophen (Hydrocodone/Acetamophen 5/325mg Tab) 1 tab PO NOW STA Stop: 01/28/21 12:19 Last Admin: 01/28/21 12:52 Dose: 1 tab Documented by: [id number] Fentanyl Citrate (Fentanyl Citrate 100 Mcg/2 Ml Vial) 50 mcg IV Q15M PRN PRN Reason: Pain Stop: 02/11/21 10:39 Last Admin: 01/28/21 20:15 Dose: 50 mcg Documented by: [id number] Admin: 01/28/21 15:17 Dose: 50 mcg Documented by: [id number] Sodium Chloride (Nss) 500 mls @ 125 mls/hr IV .Q4H RANJANA Stop: 02/27/21 10:44 Last Infusion: 01/28/21 22:30 Dose: 0 mls/hr Documented by: [id number] Admin: 01/28/21 19:22 Dose: 125 mls/hr Documented by: [id number] Infusion: 01/28/21 19:17 Dose: 125 mls/hr Documented by: [id number] Admin: 01/28/21 15:17 Dose: 125 mls/hr Documented by: [id number] Infusion: 01/28/21 15:03 Dose: 125 mls/hr Documented by: [id number] Admin: 01/28/21 11:03 Dose: 125 mls/hr Documented by: [id number] Acetaminophen (Ofirmev) 1,000 mg in 100 mls @ 400 mls/hr IV NOW STA Stop: 01/28/21 10:54 Last Infusion: 01/28/21 11:18 Dose: 0 mls/hr Documented by: [id number] Admin: 01/28/21 11:03 Dose: 400 mls/hr Documented by: [id number] Ondansetron HCl (Ondansetron Inj 2 Mg/Ml 2 Ml Vial) 4 mg IV NOW STA Stop: 01/28/21 10:41 Last Admin: 01/28/21 11:03 Dose: 4 mg Documented by: [id number] Medical Decision Making Differential Diagnosis Differential diagnoses include major intracranial, cervical, spinal, thoracic, abdominal, pelvic and neurologic injury. Fracture, contusion, sprain, strain, laceration, abrasions included as well. Medical Records Attestation: I reviewed the patient's medical records. Home Medications Current Medication List: was personally reviewed by me Laboratory Data Attestation: I reviewed the patient's lab results. Result diagrams: 01/29/21 06:11 01/29/21 06:11 Imaging Data Radiologist's Impression: Lumbar Spine CT 01/28/21 10:40 CT OF THE LUMBAR SPINE CLINICAL HISTORY: pain, trauma COMPARISON STUDY: Lumbar spine radiographs July 11, 2014. TECHNIQUE: Helical axial images of the lumbar spine were obtained. Sagittal and coronal reconstructions were viewed. Automated exposure control was utilized for the study. A dose lowering technique was utilized adhering to the principles of ALARA. FINDINGS: For purposes of numbering on this exam, the L5-S1 disc space is assigned to axial image [id number]. There is mild dextroscoliosis of the lumbar spine. Right sacroiliac joint fusion is noted. Bilateral sacral ala insufficiency fractures are noted. There is associated sclerosis. Fracture lines remains evident. There is subtle irregularity of the superior endplate of L2 with minimal loss of vertebral body height. This suggests an acute fracture. There is also wedging of the L1 vertebral body with loss of height of the inferior endplate. This is age indeterminate. Central canal and neural foramen are suboptimally assessed by CT. There is severe multilevel facet arthrosis. Note is made of moderate to severe multilevel disc space narrowing and oste ophytosis with vacuum disc phenomenon at several levels. IMPRESSION: 1. Suspected acute L2 compression fracture involving the superior endplate with minimal loss of vertebral body height. 2. Age indeterminate compression fracture of the inferior endplate of L1. 3. Bilateral sacral ala fractures which are likely subacute. These favor insufficiency fractures. 4. Severe multilevel facet arthrosis and moderate multilevel degenerative disc disease within the lumbar spine. ACT 112: Negative or not required by law. Electronically signed by: Mauricio Rodrigues M.D. 01/28/2021 11:[address] 01/28/21 10:40 CT pelvis wo con CLINICAL HISTORY: pain, trauma COMPARISON: 03/18/2018 TECHNIQUE: Standard CT of the Pelvis without intravenous contrast was performed. This CT exam was performed using one or more of the following dose reduction techniques: Automated exposure control, adjustment of the mA and/or kV according to patient size, or use of iterative reconstruction technique. CONTRAST: No nonionic intravenous contrast. The patient received oral contrast. FINDINGS: Osseous structures:Compared to the previous examination, the patient is again status post internal fixation of the right hemipelvis and SI joint related to o ld trauma. The bones are osteopenic with no acute trauma identified. Bowel: The bowel gas pattern is within normal limits without evidence for dilatation or obstruction.. There is sigmoid diverticulosis without evidence for diverticulitis. Bladder: There is distention of the urinary bladder with no focal bladder wall abnormality or calculus identified. : There is no evidence for pelvic mass or adenopathy. IMPRESSION: 1. Osteopenia of the bones with previous internal fixation from old pelvic trauma. No acute abnormality. 2. Diverticulosis without evidence for diverticulitis. 3. Distention of the urinary bladder. ACT 112: Negative or not required by law. Electronically signed by: Delgado Hardin M.D. 01/28/2021 11:43 AM MDM Narrative This is a 80-year-old female presents following a fall and increased low back pain and left hip pain at home. Patient with a history of chronic back problems multiple prior surgeries. Has previously seen Dr. Quesada. No anticoagulation, no other concern for injury. Patient sent for CT imaging which revealed L2 compression fracture. Radiology read chronic appearing sacral ala fractures however upon discussion with Dr. Quesada who knows the patient, he felt these were likely sacral insufficiency fractures contributing to her acute pain. Patient was given pain medication here both IV and then tried to transition to oral. At rest patient's pain is controlled but with any movement patient feels significant increase in pain and is unable to even stand at bedside to try and walk. Discussed with Dr. Quesada again and he was in agreement with plan for additional inpatient evaluation. Discussed with hospitalist. I do not suspect any acute spinal cord pathology. I do not suspect occult infection accompanying. I have a low suspicion for any additional occult traumatic injury. An order was placed for continuous cardiac monitoring. The monitor shows a rate of _80_ with _normal sinus__ rhythm. Impression & Plan Low back pain, Compression fx, lumbar spine, Fall Discharge Plan Visit Data Chief Complaint: Back Injury/Pain Stated Complaint: FALL, LOWER BACK PAIN ED Provider: Mónica Siddiqui Discharge Problem: Low back pain, Compression fx, lumbar spine, Fall Patient Disposition: Admitted As Inpatient Condition: Good Discharge Instructions Interventions: ED Discharge Assessment Last Done: 01/28/21 21:19 Discharge Problem: Low back pain Qualifiers: Chronicity: chronic Back pain laterality: bilateral Sciatica presence: without sciatica Qualified Code(s): M54.50 - Low back pain, unspecified Compression fx, lumbar spine Qualifiers: Encounter type: initial encounter Lumbar vertebra fracture level: L2 Qualified Code(s): S32.020A - Wedge compression fracture of second lumbar vertebra, initial encounter for closed fracture Fall Qualifiers: Encounter type: initial encounter Qualified Code(s): W19.XXXA - Unspecified fall, initial encounter
[2021-01-28] MEDS: SODIUM CHLORIDE 0.9% 500 ML IV SCH ×3 (11:03→19:22)
--- NOTE | 2021-01-28 11:44 | CT Scan Report ---
CT pelvis wo con CLINICAL HISTORY: pain, trauma COMPARISON: 03/18/2018 TECHNIQUE: Standard CT of the Pelvis without intravenous contrast was performed. This CT exam was performed using one or more of the following dose reduction techniques: Automated ex posure control, adjustment of the mA and/or kV according to patient size, or use of iterative reconst ruction technique. CONTRAST: No nonionic intravenous contrast. The patient received oral contrast. FINDINGS: Osseous structures:Compared to the previous examination, the patient is again status post internal fi xation of the right hemipelvis and SI joint related to old trauma. The bones are osteopenic with no a cute trauma identified. Bowel: The bowel gas pattern is within normal limits without evidence for dilatation or obstruction. . There is sigmoid diverticulosis without evidence for diverticulitis. Bladder: There is distention of the urinary bladder with no focal bladder wall abnormality or calculu s identified. : There is no evidence for pelvic mass or adenopathy. IMPRESSION: 1. Osteopenia of the bones with previous internal fixation from old pelvic trauma. No acute abnormali ty. 2. Diverticulosis without evidence for diverticulitis. 3. Distention of the urinary bladder. ACT 112: Negative or not required by law. Electronically signed by: Delgado Hardin M.D. 01/28/2021 11:43 AM
--- NOTE | 2021-01-28 11:52 | CT Scan Report ---
CT OF THE LUMBAR SPINE CLINICAL HISTORY: pain, trauma COMPARISON STUDY: Lumbar spine radiographs July 11, 2014. TECHNIQUE: Helical axial images of the lumbar spine were obtained. Sagittal and coronal reconstruct ions were viewed. Automated exposure control was utilized for the study. A dose lowering technique was utilized adhering to the principles of ALARA. FINDINGS: For purposes of numbering on this exam, the L5-S1 disc space is assigned to axial image [id number]. There is mild dextroscoliosis of the lumbar spine. Right sacroiliac joint fusion is noted. Bila teral sacral ala insufficiency fractures are noted. There is associated sclerosis. Fracture lines rem ains evident. There is subtle irregularity of the superior endplate of L2 with minimal loss of verteb ral body height. This suggests an acute fracture. There is also wedging of the L1 vertebral body with loss of height of the inferior endplate. This is age indeterminate. Central canal and neural foramen are suboptimally assessed by CT. There is severe multilevel facet arthrosis. Note is made of moderat e to severe multilevel disc space narrowing and osteophytosis with vacuum disc phenomenon at several levels. IMPRESSION: 1. Suspected acute L2 compression fracture involving the superior endplate with minimal loss of verte bral body height. 2. Age indeterminate compression fracture of the inferior endplate of L1. 3. Bilateral sacral ala fractures which are likely subacute. These favor insufficiency fractures. 4. Severe multilevel facet arthrosis and moderate multilevel degenerative disc disease within the lum bar spine. ACT 112: Negative or not required by law. Electronically signed by: Mauricio Rodrigues M.D. 01/28/2021 11:50 AM
[2021-01-28] MEDS ORDERED: HYDROCODONE/ACETAMOPHEN 5/325MG TAB PO STA (12:18)
[2021-01-28] MEDS: fentaNYL citrate 100 MCG/2 ML VIAL IV PRN ×2 (15:17→20:15)
--- NOTE | 2021-01-28 16:17 | History & Physical Report ---
Date of Service January 28, 2021 Assessment & Plan (1) Intractable low back pain: (2) Compression fracture of L2: (3) Spinal stenosis of 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 neurogenic claudication: (4) Foraminal stenosis of lumbar region: (5) Fall: Plan: Mrs. Brown is a 80 year old female with a history of Hypertension, GERD, Osteoarthritis, Overactive Bladder, Lumbar Spinal Stenosis s/p Multiple Lumbar Spinal Surgeries, and Foraminal Stenoses of Lumbar Spine who presents to the ER complaining of a Fall this morning resulting in an acute L2 compression fracture and she has bilateral sacral ala fractures and she now has Intractable Low Back Pain. She is too painful to attempt to get out of bed. She is unable to take care of herself in her home. She is being admitted for pain management, ortho consult with Dr. Frederick Quesada(patient well known to Dr. Quesada), and OT/PT evaluations. Recommend the following: -- Admit to Med-Surg Floor to Dr. Cummings's service. -- Opiate analgesics for pain control. -- Consult Dr. Quesada. -- Consult [facility] Pain Management. -- PT and OT evaluations. -- Ice packs. -- DVT prophylaxis with Lovenox 30 mg SQ inj q 24 hours, compression stockings. -- Case Management consult. History of Present Illness Chief Complaint: -- Intractable Back Pain. -- Fall. -- Acute L2 Compression Fracture. -- Bilateral Sacral Ala Fractures. Primary Care Provider: Zeynep Dawn MD Mrs. Brown is a 80 year old female with a history of Hypertension, GERD, Osteoarthritis, Overactive Bladder, Lumbar Spinal Stenosis s/p Multiple Lumbar Spinal Surgeries, and Foraminal Stenoses of Lumbar Spine who presents to the ER complaining of a Fall resulting in Intractable Low Back Pain. Patient has a history of chronic low back pain and has had multiple surgeries. She is supposed to use a cane or a walker to ambulate but this morning when she got up to go to the bathroom she did not use either accessory. She became somewhat unsteady and felt off balance and fell landing on her back. The majority of the pain is at the posterior aspect of her left hip. She was able to get back up and got back into bed -- however the pain persisted and then worsened. Patient denies any radiation of the pain into her legs or buttocks. She denies any focal weakness, numbness or tingling of her lower extremities. She always has some urinary incontinence and that has not changed or worsened. She denies any fecal incontinence. She denies any other injuries associated with this fall, She did not injure her head or neck. Patient took a Hydrocodone/Acetaminophen (which she has available at home) but did not achieve any significant relief. Patient is maintained on topical analgesics, NSAID, and Gabapentin. Allergies Allergy/AdvReac Type Severity Reaction Status Date / Time Cephalosporins Allergy Mild rash Verified 01/28/21 12:23 codeine Allergy Mild Rash Verified 01/28/21 12:23 erythromycin base Allergy Mild Rash Verified 01/28/21 12:23 nitrofurantoin Allergy Mild rash Verified 01/28/21 12:23 tetracycline Allergy Mild rash Verified 01/28/21 12:23 morphine AdvReac Mild SICK TO Verified 01/28/21 12:23 STOMACH Home Medications Medication Instructions Recorded Confirmed Type gabapentin 400 mg capsule 400 mg PO TID #270 cap 05/14/20 01/28/21 Rx celecoxib 200 mg capsule (Celebrex) 200 mg PO BID #180 cap 10/06/20 01/28/21 Rx amlodipine 5 mg tablet 5 mg PO HS #90 tab 11/03/20 01/28/21 Rx omeprazole 40 mg capsule,delayed 40 mg PO BID #180 cap 11/04/20 01/28/21 Rx release hydrocodone 5 mg-acetaminophen 325 1 tab PO Q6H PRN #30 tab 01/13/21 01/28/21 Rx mg tablet oxybutynin chloride 5 mg tablet 5 mg PO TID #90 tab 01/17/21 01/28/21 Rx citalopram 40 mg tablet 40 mg PO QAM 01/28/21 01/28/21 History lisinopril 20 mg tablet 20 mg PO QAM 01/28/21 01/28/21 History trazodone 50 mg tablet 50 mg PO HS 01/28/21 01/28/21 History Past Med/Surg History Medical History Acid reflux Arthritis Depression DVT (deep venous thrombosis) LLE (CALF) 40+ YEARS AGO (WAS TAKING CONTROL PILLS) Foraminal stenosis of lumbar region Hamstring tear RT (RENETTALTY GETTING PHYSICAL THERAPY) History of vertebral compression fracture Hypertension Insomnia Overactive bladder Polio DX A CHILD Spinal stenosis of 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 neurogenic claudication Surgical History Family history of reaction to anesthesia SON>SLOW TO WAKE UP H/O hand surgery History of back surgery RIGHT SI JOINT FUSION= 03/09/17= GRADE VIEW 1, MAC 3, ETT 7.0 AT [facility] 2 TOTAL BACK SURGERIES History of bilateral tubal ligation History of breast biopsy History of cardiac cath OVER 12 YEARS AGO/NO STENTS History of carpal tunnel release LEFT History of cataract surgery RT/LEFT History of colonoscopy History of dilatation and curettage History of esophagogastroduodenoscopy (EGD) History of laminectomy X 2 (LUMBAR REGION) History of right shoulder replacement History of tooth extraction History of total right knee replacement Family History Mother Family history of pancreatic cancer Alcohol abuse Depression Father Family history of Hodgkin's lymphoma Hypertension Grandfather (Paternal) Myocardial infarction Sister Depression Hypertension Grandfather (Maternal) Myocardial infarction Denies family history of Ovarian cancer Prostate cancer Breast cancer Colorectal cancer Social History Smoking Status: Never smoker Second Hand Exposure: Yes ( A CHILD); Hx Alcohol Use: No Hx Substance Use: No Preferred Language: Korean Communication Ability: Effective Visual Impairment: No Limitations Hearing Ability: Normal Tool Planner Required: No Beliefs That Will Affect Care: None marital status: / Current Living Situation: Alone current occupational status: retired Other Information That Helps Us Care for You: No Feels Safe at Home: Yes Safety Concerns: Feels Safe At This Time Dental Care, Regularly: No Physical Activity Frequency: Does not Exercise Seatbelt Use: sometimes Assistive Devices: Cane and Walker Review of Systems Review of Systems: All systems reviewed & are unremarkable except as noted in HPI & below Physical Exam Physical Exam: GENERAL: Patient appears uncomfortable, difficulty finding a comfortable position. HEENT: Head is atraumatic, normocephalic. EOM's intact. Facies symmetric. No perioral cyanosis. NECK: No JVD. Carotid upstrokes are + 2 bilaterally without bruits. CHEST/LUNGS: Clear to auscultation throughout all lung medina. No wheezes, rales, or crackles. CVS: S1 and S2 are regular without obvious murmurs, gallops, or rubs. PMI is nonpalpable. No lifts, heaves, or thrills. No abdominal aortic or renal bruits. ABDOMINAL EXAM: Bowel sounds are present. No masses, organomegaly, or tenderness. EXTREMITIES: No clubbing or cyanosis. No edema. Intact posterior tibial and radial pulses bilaterally. NEUROLOGIC EXAM: Patient is awake, alert, and oriented. Pleasant and cooperative. Answers questions appropriately. Speech is clear. Sensation intact to light touch over bilateral lower extremities. Strength equal and normal in the major muscle groups of bilateral lower extremities. MUSCULOSKELETAL EXAM: Lumbar spine without gross deformity, mildly tender to palpation over SI joints. Results & Data Results & Data ([facility]) Vital Signs (Past 12 Hours) Vital Signs Temp Pulse Pulse Resp BP BP Pulse Ox 01/28/21 15:30 70 21 150/92 H 97 01/28/21 15:16 62 22 88 L 01/28/21 13:00 85 16 150/72 H 98 01/28/21 10:09 36.7 C 63 16 174/93 H 91 Laboratory Results CBC with Diff and BMP are pending. Diagnostic Findings CT SCAN LUMBAR SPINE 01/28/21: FINDINGS: For purposes of numbering on this exam, the L5-S1 disc space is assigned to axial image [id number]. There is mild dextroscoliosis of the lumbar spine. Right sacroiliac joint fusion is noted. Bilateral sacral ala insufficiency fractures are noted. There is associated sclerosis. Fracture lines remains evident. There is subtle irregularity of the superior endplate of L2 with minimal loss of vertebral body height. This suggests an acute fracture. There is also wedging of the L1 vertebral body with loss of height of the inferior endplate. This is age indeterminate. Central canal and neural foramen are suboptimally assessed by CT. There is severe multilevel facet arthrosis. Note is made of moderate to severe multilevel disc space narrowing and osteophytosis with vacuum disc phenomenon at several levels. IMPRESSION: 1. Suspected acute L2 compression fracture involving the superior endplate with minimal loss of vertebral body height. 2. Age indeterminate compression fracture of the inferior endplate of L1. 3. Bilateral sacral ala fractures which are likely subacute. These favor insufficiency fractures. 4. Severe multilevel facet arthrosis and moderate multilevel degenerative disc disease within the lumbar spine. CT SCAN PELVIS 01/28/21: 1. Osteopenia of the bones with previous internal fixation from old pelvic tra uday. No acute abnormality. 2. Diverticulosis without evidence for diverticulitis. 3. Distention of the urinary bladder. . Medications Administered Medications gabapentin 400 mg capsule 400 mg PO TID #270 cap 05/14/20 [Rx Confirmed 01/28/21] celecoxib 200 mg capsule (Celebrex) 200 mg PO BID #180 cap 10/06/20 [Rx Confirmed 01/28/21] amlodipine 5 mg tablet 5 mg PO HS #90 tab 11/03/20 [Rx Confirmed 01/28/21] omeprazole 40 mg capsule,delayed release 40 mg PO BID #180 cap 11/04/20 [Rx Confirmed 01/28/21] hydrocodone 5 mg-acetaminophen 325 mg tablet 1 tab PO Q6H PRN #30 tab 01/13/21 [Rx Confirmed 01/28/21] oxybutynin chloride 5 mg tablet 5 mg PO TID #90 tab 01/17/21 [Rx Confirmed 01/28/21] citalopram 40 mg tablet 40 mg PO QAM 01/28/21 [History Confirmed 01/28/21] lisinopril 20 mg tablet 20 mg PO QAM 01/28/21 [History Confirmed 01/28/21] trazodone 50 mg tablet 50 mg PO HS 01/28/21 [History Confirmed 01/28/21] Home Medications Fentanyl Citrate (Fentanyl Citrate 100 Mcg/2 Ml Vial) 50 mcg IV Q15M PRN PRN Reason: Pain Stop: 02/11/21 10:39 Last Admin: 01/28/21 15:17 Dose: 50 mcg Documented by: Sodium Chloride (Nss) 500 mls @ 125 mls/hr IV .Q4H RANJANA Stop: 02/27/21 10:44 Last Admin: 01/28/21 15:17 Dose: 125 mls/hr Documented by: Code Status & VTE Plan Code Status DNR/DNI VTE Prophylaxis Plan VTE Prophylaxis will be ordered: Yes Supervising Physician Co-Signing Physician Notes During face to face encounter, a history and physical examination was obtained. I discussed plan of care with patient and ABHILASH Arango. All of patient's questions were answered. Reviewed above note and agree with it. Patient will have an ortho consult for back pain. Continue pain medicine as above. PG Care Time/CCT Total # of Minutes Spent Total Time Spent with Patient: Total time spent is greater than 50% in coordination of care (as documented) at patient's floor/unit and/or counseling patient:35 Coding Level of Care Code 49385 Initial Inpt Care Lvl 3 Diagnoses Intractable low back pain M54.59 Compression fracture of L2 S32.020A Spinal stenosis of 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 neurogenic claudication M48.061 Foraminal stenosis of lumbar region M99.83 Fall W19.XXXA Encounter type: initial encounter Time Spent (min) 60 (1) Fall Encounter type: initial encounter Qualified Code(s): W19.XXXA - Unspecified fall, initial encounter
[2021-01-28] MEDS ORDERED: MAGNESIUM HYDROXIDE SUSP 30 ML UDC PO PRN (22:03)
[2021-01-28] MEDS ORDERED: oxyCODONE HCL IR 5 MG TAB (IMMEDIATE RELEASE) PO PRN (22:03)
[2021-01-28] MEDS ORDERED: ALUMINUM/MAGNESIUM SUSP 30 ML UDC PO PRN (22:03)
[2021-01-28] MEDS ORDERED: HYDROCODONE/ACETAMOPHEN 5/325MG TAB PO PRN (22:03)
[2021-01-28] MEDS ORDERED: ZOLPIDEM TARTRATE 5 MG TAB PO PRN (22:03)
[2021-01-28] MEDS ORDERED: POLYETHYLENE (MIRALAX) 17 GM PACK PO PRN (22:03)
[2021-01-28] MEDS: HYDROmorphone INJ 0.5 MG/0.5 ML SYR IV PRN (22:39)
[2021-01-28] MEDS: ENOXAPARIN INJ 30 MG/0.3 ML SYR SQ SCH (22:50)
[2021-01-28] MEDS: traZODone HCL 50 MG TAB PO SCH (22:51)
[2021-01-28] MEDS: GABAPENTIN 400 MG CAP PO SCH (22:51)
[2021-01-28] MEDS: PANTOprazole 40 MG TAB PO SCH (22:51)
[2021-01-28] MEDS: CeleBREX 200 MG CAP PO SCH (22:52)
[2021-01-28] MEDS: amLODIPine BESYLATE 5 MG TAB PO SCH (22:52)
[2021-01-28] MEDS: OXYBUTYNIN CHLORIDE 5 MG TAB PO SCH (22:52)
[2021-01-29] MEDS: HYDROmorphone INJ 0.5 MG/0.5 ML SYR IV PRN ×4 (01:22→13:03)
[2021-01-29 06:34] LABS: Basophils # (auto) 0.02 K/uL (0-0.2); Basophils % (auto) 0.4 %; Eosinophils # (auto) 0.16 K/uL (0-0.5); Eosinophils % (auto) 3.1 %; Hematocrit (blood only) 38.4 % (37-47); Hemoglobin 11.7 g/dL (12.0-16.0); Immature Granulocytes # (auto) 0.01 K/uL (0.00-0.02); Immature Granulocytes % (auto) 0.2 %; Lymphocytes % (auto) 31.1 %; Mean Corpuscular Hgb Conc 30.5 g/dL (32-36); Mean Corpuscular Volume 88.5 fL (80-100); Mean Platelet Volume 10.3 fL (7.4-10.4); Monocytes % (auto) 9.7 %; Neutrophils # (auto) 2.86 K/uL (1.4-6.5); Neutrophils % (auto) 55.5 %; Platelet Count 150 K/uL (130-400); RDW Coefficient of Variation 14.4 % (11.5-14.5); RDW Standard Deviation 46.5 fL (36.4-46.3); Red Blood Count 4.34 M/uL (4.2-5.4); White Blood Count 5.15 K/uL (4.8-10.8)
[2021-01-29] MEDS ORDERED: [UNRECOGNIZED DRUG - OTHER] TOP SCH (07:00)
[2021-01-29 07:06] LABS: BUN Creatinine Ratio 14.8 (10-20); Calcium 8.4 mg/dl (8.5-10.1); Creatinine Clr Calc Pharmacy 80.4 ml/min; Est GFR (African American) 100.1 ml/min; Est GFR (Non-African American) 86.4 ml/min
[2021-01-29] MEDS: lisinopril 20 MG TAB PO SCH (08:58)
[2021-01-29] MEDS: CeleBREX 200 MG CAP PO SCH ×2 (08:58→20:40)
[2021-01-29] MEDS: GABAPENTIN 400 MG CAP PO SCH ×3 (08:59→20:39)
[2021-01-29] MEDS: CITALOPRAM 40 MG TAB PO SCH (08:59)
[2021-01-29] MEDS: OXYBUTYNIN CHLORIDE 5 MG TAB PO SCH ×3 (09:00→20:39)
[2021-01-29] MEDS: PANTOprazole 40 MG TAB PO SCH ×2 (09:01→20:39)
--- NOTE | 2021-01-29 09:05 | Orthopedic Consultation ---
Date of Consultation January 29, 2021 Assessment & Plan (1) Sacral insufficiency fracture: At this time would like to obtain an MRI of the pelvis. I suspect she has a sacral insufficiency fracture but I also like to rule out any other pathology. Make further conditions after review of scans. At this time bedrest is reasonable. History of Present Illness Reason for Consultation: Back and pelvic pain Attending Physician: Ata Yeung MD History of Present Illness This is a 72-year-old female known to me that unfortunately a fall yesterday morning. She was unable to ambulate and taken to the emergency room. She describes most of her pain on the left side of her lumbosacral junction. She denies any radicular complaints. Denies any numbness or tingling into the legs. She has been unable to ambulate secondary to pain. Attempt was made emergency room after a course of narcotic medication but she failed to tolerate any weightbearing. Allergies Allergy/AdvReac Type Severity Reaction Status Date / Time Cephalosporins Allergy Mild rash Verified 01/28/21 12:23 codeine Allergy Mild Rash Verified 01/28/21 12:23 erythromycin base Allergy Mild Rash Verified 01/28/21 12:23 nitrofurantoin Allergy Mild rash Verified 01/28/21 12:23 tetracycline Allergy Mild rash Verified 01/28/21 12:23 morphine AdvReac Mild SICK TO Verified 01/28/21 12:23 STOMACH Home Medications Medication Instructions Recorded Confirmed Type gabapentin 400 mg capsule 400 mg PO TID #270 cap 05/14/20 01/28/21 Rx celecoxib 200 mg capsule (Celebrex) 200 mg PO BID #180 cap 10/06/20 01/28/21 Rx amlodipine 5 mg tablet 5 mg PO HS #90 tab 11/03/20 01/28/21 Rx omeprazole 40 mg capsule,delayed 40 mg PO BID #180 cap 11/04/20 01/28/21 Rx release hydrocodone 5 mg-acetaminophen 325 1 tab PO Q6H PRN #30 tab 01/13/21 01/28/21 Rx mg tablet oxybutynin chloride 5 mg tablet 5 mg PO TID #90 tab 01/17/21 01/28/21 Rx citalopram 40 mg tablet 40 mg PO QAM 01/28/21 01/28/21 History lisinopril 20 mg tablet 20 mg PO QAM 01/28/21 01/28/21 History trazodone 50 mg tablet 50 mg PO HS 01/28/21 01/28/21 History Patient History Medical History Acid reflux Arthritis Depression DVT (deep venous thrombosis) LLE (CALF) 40+ YEARS AGO (WAS TAKING CONTROL PILLS) Foraminal stenosis of lumbar region Hamstring tear RT (CURRENLTY GETTING PHYSICAL THERAPY) History of vertebral compression fracture Hypertension Insomnia Overactive bladder Polio DX A CHILD Spinal stenosis of 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 neurogenic claudication Surgical History Family history of reaction to anesthesia SON>SLOW TO WAKE UP H/O hand surgery History of back surgery RIGHT SI JOINT FUSION= 03/09/17= GRADE VIEW 1, MAC 3, ETT 7.0 AT [facility] 2 TOTAL BACK SURGERIES History of bilateral tubal ligation History of breast biopsy History of cardiac cath OVER 12 YEARS AGO/NO STENTS History of carpal tunnel release LEFT History of cataract surgery RT/LEFT History of colonoscopy History of dilatation and curettage History of esophagogastroduodenoscopy (EGD) History of laminectomy X 2 (LUMBAR REGION) History of right shoulder replacement History of tooth extraction History of total right knee replacement Family History Mother Family history of pancreatic cancer Alcohol abuse Depression Father Family history of Hodgkin's lymphoma Hypertension Grandfather (Paternal) Myocardial infarction Sister Depression Hypertension Grandfather (Maternal) Myocardial infarction Denies family history of Ovarian cancer Prostate cancer Breast cancer Colorectal cancer Social History Smoking Status: Never smoker Second Hand Exposure: Yes ( A CHILD); Hx Alcohol Use: No Hx Substance Use: No Preferred Language: Bolivian Communication Ability: Effective Visual Impairment: No Limitations Hearing Ability: Normal Private Branch Exchange Repairer Required: No Beliefs That Will Affect Care: None marital status: / Current Living Situation: Alone current occupational status: retired Other Information That Helps Us Care for You: No Feels Safe at Home: Yes Safety Concerns: Feels Safe At This Time Dental Care, Regularly: No Physical Activity Frequency: Does not Exercise Seatbelt Use: sometimes Assistive Devices: None Physical Exam Physical Exam: On exam she prefers to lie supine. She has negative logroll. Has reasonable plantar flexion dorsiflexion bilateral extremities with sensory intact. She is exquisitely tender to palpation over the left SI joint. Nontender on the right. Results & Data ([facility]) Vital Signs (Past 12 Hours) Vital Signs Temp Pulse Resp BP Pulse Ox 01/29/21 07:38 36.8 C 70 18 138/71 90 01/28/21 22:00 36.9 C 64 16 146/50 H 92
[2021-01-29] MEDS ORDERED: bisacodyL 5 MG TABEC PO PRN (10:23)
--- NOTE | 2021-01-29 10:52 | Pain Management Consultation ---
Date of Consultation January 29, 2021 Assessment & Plan (1) Compression fracture of L2: (2) Sacral insufficiency fracture: (3) Fall: Encounter type: initial encounter Qualified Code(s): W19.XXXA - Unspecified fall, initial encounter (4) Spinal stenosis of 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 neurogenic claudication: (5) Foraminal stenosis of lumbar region: (6) Depression: (7) Intractable low back pain: 1. In addition to pelvis MRI recommend lumbar spine MRI to better delineate anatomy and assess for retropulsion and stenosis. Orders are written 2. Recommend utilization of Lidoderm patches, calcitonin 1 spray alternating nares every other day, increasing hydrocodone to 7.5/325 mg 1 every 4 hours as needed for pain. This was discussed with the patient and orders are written 3. Will consult orthotics for lumbar support brace. 4. No current role for interventional pain management at this time. 5. Thank you very much for this consultation. History of Present Illness Attending Physician: Ata Yeung MD History of Present Illness 80-year-old female with longstanding history of lumbar spinal stenosis status post 2 lumbar fusion surgeries and a right sacroiliac joint fusion who sustained a fall in the bathroom while not utilizing her walker. She states that her pain is 80% left sacral region to 20% axial low back pain. She denies distal radicular symptoms or true motor weakness at this time. She admits to small amount of perceived weakness. She states that her pain is deep aching cramping stabbing rating at 7 out of 10 at rest with escalation to 9-10 out of 10 with movement. She reports she is unable to stand secondary to extreme pain. She is however able to logroll in the bed with minimal discomfort. She states that her current regimen of hydrocodone 5/325 mg 1 every 6 hours is not sufficiently controlling her pain at this time. She previously utilized oxycodone with significant nausea and does not wish to utilize this medication. She denies s steven effects including constipation or mental sedation with her current opiate regimen. She denies saddle anesthesia, bowel or bladder incontinence, fever, chills, night sweats, and foot drop. In regards to her longstanding axial low back pain she reports she is currently a patient of Dr. Allen. He most recently performed sacroiliac joint injections in October 2020. She is previously had ischial bursa injections, lumbar medial branch radiofrequency ablations, trigger point injections. Pain Assessment Full Body Front + Back: 1. 2. [facility] Combined Pain Scale: 7-Severe - Pain prevents productive activity. Impossible to tolerate. Allergies Allergy/AdvReac Type Severity Reaction Status Date / Time Cephalosporins Allergy Mild rash Verified 01/28/21 12:23 codeine Allergy Mild Rash Verified 01/28/21 12:23 erythromycin base Allergy Mild Rash Verified 01/28/21 12:23 nitrofurantoin Allergy Mild rash Verified 01/28/21 12:23 tetracycline Allergy Mild rash Verified 01/28/21 12:23 morphine AdvReac Mild SICK TO Verified 01/28/21 12:23 STOMACH Home Medications Medication Instructions Recorded Confirmed Type gabapentin 400 mg capsule 400 mg PO TID #270 cap 05/14/20 01/28/21 Rx celecoxib 200 mg capsule (Celebrex) 200 mg PO BID #180 cap 10/06/20 01/28/21 Rx amlodipine 5 mg tablet 5 mg PO HS #90 tab 11/03/20 01/28/21 Rx omeprazole 40 mg capsule,delayed 40 mg PO BID #180 cap 11/04/20 01/28/21 Rx release hydrocodone 5 mg-acetaminophen 325 1 tab PO Q6H PRN #30 tab 01/13/21 01/28/21 Rx mg tablet oxybutynin chloride 5 mg tablet 5 mg PO TID #90 tab 01/17/21 01/28/21 Rx citalopram 40 mg tablet 40 mg PO QAM 01/28/21 01/28/21 History lisinopril 20 mg tablet 20 mg PO QAM 01/28/21 01/28/21 History trazodone 50 mg tablet 50 mg PO HS 01/28/21 01/28/21 History Patient History Medical History Acid reflux Arthritis Depression DVT (deep venous thrombosis) LLE (CALF) 40+ YEARS AGO (WAS TAKING CONTROL PILLS) Foraminal stenosis of lumbar region Hamstring tear RT (CURRENLTY GETTING PHYSICAL THERAPY) History of vertebral compression fracture Hypertension Insomnia Overactive bladder Polio DX A CHILD Spinal stenosis of 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 neurogenic claudication Surgical History Family history of reaction to anesthesia SON>SLOW TO WAKE UP H/O hand surgery History of back surgery RIGHT SI JOINT FUSION= 03/09/17= GRADE VIEW 1, MAC 3, ETT 7.0 AT [facility] 2 TOTAL BACK SURGERIES History of bilateral tubal ligation History of breast biopsy History of cardiac cath OVER 12 YEARS AGO/NO STENTS History of carpal tunnel release LEFT History of cataract surgery RT/LEFT History of colonoscopy History of dilatation and curettage History of esophagogastroduodenoscopy (EGD) History of laminectomy X 2 (LUMBAR REGION) History of right shoulder replacement History of tooth extraction History of total right knee replacement Family History Mother Family history of pancreatic cancer Alcohol abuse Depression Father Family history of Hodgkin's lymphoma Hypertension Grandfather (Paternal) Myocardial infarction Sister Depression Hypertension Grandfather (Maternal) Myocardial infarction Denies family history of Ovarian cancer Prostate cancer Breast cancer Colorectal cancer Social History Smoking Status: Never smoker Second Hand Exposure: Yes ( A CHILD); Hx Alcohol Use: No Hx Substance Use: No Preferred Language: Scottish Communication Ability: Effective Visual Impairment: No Limitations Hearing Ability: Normal 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 Recent memory appears grossly intact Eyes: Pupils are equally round and reactive to light with normal size pupils, eyelids appear normal Ear, nose, mouth, and throat: Moist nasal and oral membranes, lips and tongues appear normal, no external ear abnormalities are noted Neck: The trachea is midline without deviation and no thyromegaly is noted Respiratory: Normal respiratory effort without distress, no audible wheezes or rhonchi CV: Normal S1 and S2 Chest: Deferred Musculoskeletal: Head is normocephalic and atraumatic, patient is able to log roll in bed with minimal assistance. Gait was not observed Cervical: Lordotic curve: Normal Range of motion is normal with extension, flexion, side-bending, rotation Strength: Strength is grossly equal bilaterally with 5 out of 5 strength in all planes Thoracic: Kyphotic curve: Normal Range of motion is normal with extension, flexion, side-bending, rotation Myofascial spasm: No appreciable spasm. No discrete trigger points noted Lumbar: Lordotic curve: Complete loss of lumbar lordosis with a well-healed midline incision and incision over her right sacroiliac joint Range of motion is significantly decreased in all planes Tenderness: Mildly tender over the axial midline around L2-3 Facet provocation: Marginally positive bilaterally Straight leg raise: Negative bilaterally not worse with Achilles stretch Step-off injuries: None Strength: Strength is equal bilaterally with 5 out of 5 strength in all planes Sensation of lower extremities: Intact bilaterally Deep tendon reflexes: Rated at 2+ in left L4 and S1 and right S1, no appreciable reflex in right L4 secondary to prior TKA Myofascial spasm: Mild global spasm. No discrete trigger points noted Greater trochanters: Nontender bilaterally Sacroiliac joints: Exquisitely tender on the left negative on the right Fabere and Gaenslens: Not tested secondary to bilateral sacral ala fracture Pathologic reflexes noted: None Skin: No rashes, lesions, ulcers, or induration noted Neuro: No nystagmus noted, the tongue is midline, the patient is able to rotate their head bilaterally : Deferred Results (Pain Clinic) Diagnostic Review CT: non enhanced, reports reviewed and findings discussed with patient CT Findings: 01/28/21 CT OF THE LUMBAR SPINE CLINICAL HISTORY: pain, trauma COMPARISON STUDY: Lumbar spine radiographs July 11, 2014. TECHNIQUE: Helical axial images of the lumbar spine were obtained. Sagittal and coronal reconstructions were viewed. Automated exposure control was utilized for the study. A dose lowering technique was utilized adhering to the principles of ALARA. FINDINGS: For purposes of numbering on this exam, the L5-S1 disc space is assigned to axial image [id number]. There is mild dextroscoliosis of the lumbar spine. Right sacroiliac joint fusion is noted. Bilateral sacral ala insufficiency fractures are noted. There is associated sclerosis. Fracture lines remains evident. There is subtle irregularity of the superior endplate of L2 with minimal loss of vertebral body height. This suggests an acute fracture. There is also wedging of the L1 vertebral body with loss of height of the inferior endplate. This is age indeterminate. Central canal and neural foramen are suboptimally assessed by CT. There is severe multilevel facet arthrosis. Note is made of moderate to severe multilevel disc space narrowing and osteophytosis with vacuum disc phenomenon at several levels. IMPRESSION: 1. Suspected acute L2 compression fracture involving the superior endplate with minimal loss of vertebral body height. 2. Age indeterminate compression fracture of the inferior endplate of L1. 3. Bilateral sacral ala fractures which are likely subacute. These favor insufficiency fractures. 4. Severe multilevel facet arthrosis and moderate multilevel degenerative disc disease within the lumbar spine. 01/28/21 CT pelvis wo con CLINICAL HISTORY: pain, trauma COMPARISON: 03/18/2018 TECHNIQUE: Standard CT of the Pelvis without intravenous contrast was performed. This CT exam was performed using one or more of the following dose reduction techniques: Automated exposure control, adjustment of the mA and/or kV according to patient size, or use of iterative reconstruction technique. CONTRAST: No nonionic intravenous contrast. The patient received oral contrast. FINDINGS: Osseous structures:Compared to the previous examination, the patient is again status post internal fixation of the right hemipelvis and SI joint related to old trauma. The bones are osteopenic with no acute trauma identified. Bowel: The bowel gas pattern is within normal limits without evidence for dilatation or obstruction.. There is sigmoid diverticulosis without evidence for diverticulitis. Bladder: There is distention of the urinary bladder with no focal bladder wall abnormality or calculus identified. : There is no evidence for pelvic mass or adenopathy. IMPRESSION: 1. Osteopenia of the bones with previous internal fixation from old pelvic trauma. No acute abnormality. 2. Diverticulosis without evidence for diverticulitis. 3. Distention of the urinary bladder. Previous Records Review Previous Records: personally reviewed by pa Opioid Risk Assessment Opioid Risk Assessment: risk assessment performed and no issues identified
[2021-01-29] MEDS: ONDANSETRON INJ 2 MG/ML 2 ML VIAL IV PRN (12:58)
[2021-01-29] MEDS: LIDOCAINE 5% 1 PATCH TD SCH (13:06)
[2021-01-29] MEDS: CALCITONIN SALMON NA 200 IU/AC 3.7 ML BTL SCH (13:06)
--- NOTE | 2021-01-29 13:18 | Magnetic Resonance Report ---
MRI OF THE LUMBAR SPINE WITHOUT CONTRAST CLINICAL HISTORY: s/p fall, acute L2 comp fx assess for retropulsion COMPARISON STUDY: Lumbar spine CT January 28, 2021. TECHNIQUE: Utilizing a 1.5 Fabi magnet and dedicated coil, multiplanar, multiecho imaging of the [facility] spine was performed without IV contrast. FINDINGS: For purposes of numbering on this exam, the L5-S1 disc space is assigned to axial image 10 of 13 of t he lower T1 and T2 sequences. There is mild dextroscoliosis of the lumbar spine. Note is made of an a cute transverse fracture through the superior aspect of the L2 vertebral body which extends to the carrera perior endplate. There is minimal loss of vertebral body height. There is no retropulsion due to the fracture. No additional acute fractures are present. There is anterior wedging of L1 with mild loss o f height of the inferior endplate which is chronic. Right sacroiliac joint fusion is partially imaged . There is no intracanalicular mass or fluid collection. Conus terminates at the mid L1 level. Parave rtebral soft tissues are unremarkable. Moderate multilevel degenerative changes within the lumbar spi ne are present. L1-2: There is disc space narrowing with disc osteophyte complex. Facet arthrosis is present. The fin dings result in mild to moderate central canal stenosis as well as narrowing of both lateral recesses . There is moderate left and mild right neural foraminal stenosis. L2-3: There is marked disc space narrowing. There is facet arthrosis with ligamentous hypertrophy. Mi ld narrowing of the central canal and neural foramen is noted. L3-4: Disc space narrowing is noted. There is facet arthrosis and ligamentous hypertrophy. There is n o significant central canal stenosis. Moderate left and mild right neural foraminal stenosis is prese nt L4-5: There is disc space narrowing and central canal is patent. There is mild bilateral neural rocio inal stenosis L5-S1: Facet arthrosis is present. The disc space narrowing. Central canal is patent. There is mild t o moderate bilateral neural foraminal stenosis. IMPRESSION: 1. Acute transverse fracture through the superior aspect of the L2 vertebral body which extends to th e superior endplate. Slight loss of vertebral body height. No retropulsion. No additional acute lumba r spine fracture. 2. Moderate multilevel degenerative disc disease and facet arthrosis within the lumbar spine. Mild to moderate central canal stenosis at L1-L2. 3. Multilevel neural foraminal stenosis, as described above. ACT 112: Negative or not required by law. Electronically signed by: Mauricio Rodrigues M.D. 01/29/2021 1:17 PM
--- NOTE | 2021-01-29 13:24 | Magnetic Resonance Report ---
MR pelvis wo con CLINICAL HISTORY: Pelvic pain. COMPARISON STUDY: CT of the pelvis January 28, 2021. TECHNIQUE: Utilizing a 1.5 Fabi magnet and dedicated coil, multiplanar, multiecho imaging of the pel vis and hips was performed without intravenous contrast. FINDINGS: A right sacroiliac joint fusion is noted. There are bilateral sacral insufficiency fracture s. These are probably subacute. No additional fractures within the pelvis or hips are identified alth ough sensitivity is diminished on this examination given artifact. There is no edema identified withi n the proximal femurs. There is no evidence for avascular necrosis of the femoral heads. Trace bilate ral hip joint effusions are present. Bladder wall is irregular and trabeculated. No pelvic hematoma i s identified. Sigmoid diverticulosis is noted without evidence for acute diverticulitis within visual ized portions of the colon. The symphysis pubis is intact. IMPRESSION: 1. Bilateral sacral insufficiency fractures, likely subacute. 2. No additional fractures identified within the pelvis or hips although sensitivity diminished on th is exam due to artifact. No proximal femoral edema. 3. Status post right sacroiliac joint fusion. ACT 112: Negative or not required by law. Electronically signed by: Mauricio Rodrigues M.D. 01/29/2021 1:23 PM
[2021-01-29] MEDS: HYDROCODONE/ACETAMINOPHEN 7.5/325MG TAB PO PRN (14:13)
--- NOTE | 2021-01-29 15:15 | Hospitalist Progress Note ---
Date of Service January 29, 2021 Assessment & Plan (1) Intractable low back pain: Plan: Mrs. Brown is a 80 year old female with a history of Hypertension, GERD, Osteoarthritis, Overactive Bladder, Lumbar Spinal Stenosis s/p Multiple Lumbar Spinal Surgeries, and Foraminal Stenoses of Lumbar Spine who presents to the ER complaining of a Fall this morning resulting in an acute L2 compression fracture and she has bilateral sacral ala fractures and she now has Intractable Low Back Pain. She is too painful to attempt to get out of bed. She is unable to take care of herself in her home. She is being admitted for pain management, ortho consult with Dr. Frederick Quesada(patient well known to Dr. Quesada), and OT/PT evaluations. Intractable low back pain 2/2 compression fracture of L2 Orthopedics consulted. Recommend MRI of pelvis, suspect sacral insufficiency fracture. Additional recommendations pending, appreciate recommendations Pain management consulted. Recommend lumbar spine MRI in addition to pelvis MRI as above. Recommend addition of Lidoderm patches, calcitonin alternating spray, increase hydrocodone to 7.5 mg / 325 mg every 4 hours as needed. No role for interventional pain management at this time. Appreciate recommendations Discussed calcitonin with patient at bedside, agreeable, orders written by pain management Lumbar support brace Bedrest at this time DVT prophylaxis Lovenox Compression stockings Additional recommendations/planning based on imaging above (2) Anxiety with depression: Plan: Continue home citalopram 40 mg p.o. every morning Continue home trazodone 50 mg p.o. nightly as needed for sleep (3) Hypertension: Plan: Continue home lisinopril 20 mg p.o. every morning Continue amlodipine 5 mg p.o. nightly (4) Compression fracture of L2: Plan: See above (5) Spinal stenosis of 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 neurogenic claudication: Plan: See above (6) Foraminal stenosis of lumbar region: Plan: See above (7) Fall: Plan: See above Admission and Anticipated Discharge Date Admission Date: January 28, 2021 Subjective Patient seen at bedside. Patient reports she is continued to have severe pain in her low back and pelvis which is mostly left-sided. She is not able to move in bed or ambulate as the pain quickly jumps to a 10 out of 10. Has not been able to tolerate any weightbearing activity. OT saw prior to bedside visit, patient reported tolerated very poorly due to her pain. Denies saddle anesthesia, numbness, tingling. Patient concerned about pain in her back, otherwise no questions or concerns. Reports she has not had problems voiding. Review of Systems Review of Systems: 10 point review systems negative except as previously documented and in subjective Physical Exam Physical Exam: General: A&Ox3. NAD. Cooperative. HEENT: Atraumatic, normocephalic. Vision and hearing grossly intact. Pulm: CTAB A&P. -wheezes, -rales, -rhonchi. Symmetrical chest rise. No increase work of breathing. No respiratory distress. Cardiac: RRR, -mrg. Radial pulses intact and symmetrical. Abdominal: Nontender, nondistended, soft. BS present. Extremities: Tender to palpation at left hip, left lower mid back. Exam limited by patient discomfort with moving. Sensation to soft touch/temperature intact in feet bilaterally. Ankle dorsiflexion/plantar flexion 5/5 bilaterally. Surfboard Designer strength intact. Results & Data Results & Data ([facility]) Vital Signs (Past 12 Hours) Vital Signs Temp Pulse Resp BP Pulse Ox 01/29/21 07:38 36.8 C 70 18 138/71 90 PG Care Time/CCT Total # of Minutes Spent Total Time Spent with Patient: Total time spent is greater than 50% in coordination of care (as documented) at patient's floor/unit and/or counseling patient: Coding Level of Care Code 63521 Subseq Hosp Care Lvl 2 Diagnoses Intractable low back pain M54.59 Compression fracture of L2 S32.020A Spinal stenosis of 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 neurogenic claudication M48.061 Foraminal stenosis of lumbar region M99.83 Fall W19.XXXA Encounter type: initial encounter Anxiety with depression F41.8 Hypertension I10 (1) Fall Encounter type: initial encounter Qualified Code(s): W19.XXXA - Unspecified fall, initial encounter
[2021-01-29] MEDS: DOCUSATE SODIUM 100 MG CAP PO PRN (17:10)
[2021-01-29] MEDS: ACETAMINOPHEN 325 MG TAB PO PRN ×2 (17:49→22:33)
[2021-01-29] MEDS: ENOXAPARIN INJ 30 MG/0.3 ML SYR SQ SCH (20:38)
[2021-01-29] MEDS: amLODIPine BESYLATE 5 MG TAB PO SCH (20:40)
[2021-01-29] MEDS: traZODone HCL 50 MG TAB PO SCH (20:40)
[2021-01-30] MEDS: LIDOCAINE 5% 1 PATCH TD SCH (08:55)
[2021-01-30] MEDS: DOCUSATE SODIUM 100 MG CAP PO PRN (08:55)
[2021-01-30] MEDS: CALCITONIN SALMON NA 200 IU/AC 3.7 ML BTL SCH (08:55)
[2021-01-30] MEDS: GABAPENTIN 400 MG CAP PO SCH ×3 (08:56→20:16)
[2021-01-30] MEDS: PANTOprazole 40 MG TAB PO SCH ×2 (08:56→20:16)
[2021-01-30] MEDS: OXYBUTYNIN CHLORIDE 5 MG TAB PO SCH ×3 (08:57→20:15)
[2021-01-30] MEDS: CeleBREX 200 MG CAP PO SCH ×2 (08:57→20:15)
[2021-01-30] MEDS: CITALOPRAM 40 MG TAB PO SCH (08:58)
[2021-01-30] MEDS: lisinopril 20 MG TAB PO SCH (08:58)
[2021-01-30] MEDS: ACETAMINOPHEN 325 MG TAB PO PRN ×2 (10:40→16:57)
[2021-01-30 11:28] LABS: Basophils # (auto) 0.01 K/uL (0-0.2); Basophils % (auto) 0.2 %; Eosinophils # (auto) 0.12 K/uL (0-0.5); Eosinophils % (auto) 2.5 %; Hematocrit (blood only) 38.4 % (37-47); Hemoglobin 11.5 g/dL (12.0-16.0); Immature Granulocytes # (auto) 0.01 K/uL (0.00-0.02); Immature Granulocytes % (auto) 0.2 %; Lymphocytes # (auto) 0.99 K/uL (1.2-3.4); Lymphocytes % (auto) 20.4 %; Mean Corpuscular Hemoglobin 26.5 pg (25-34); Mean Corpuscular Hgb Conc 29.9 g/dL (32-36); Mean Corpuscular Volume 88.5 fL (80-100); Mean Platelet Volume 10.3 fL (7.4-10.4); Monocytes # (auto) 0.48 K/uL (0.11-0.59); Monocytes % (auto) 9.9 %; Neutrophils # (auto) 3.25 K/uL (1.4-6.5); Neutrophils % (auto) 66.8 %; Platelet Count 138 K/uL (130-400); RDW Coefficient of Variation 14.3 % (11.5-14.5); RDW Standard Deviation 47.1 fL (36.4-46.3); Red Blood Count 4.34 M/uL (4.2-5.4); White Blood Count 4.86 K/uL (4.8-10.8)
[2021-01-30 11:59] LABS: BUN Creatinine Ratio 19.3 (10-20); Calcium 8.4 mg/dl (8.5-10.1); Est GFR (African American) 103.5 ml/min; Est GFR (Non-African American) 89.3 ml/min; Potassium 3.9 mmol/L (3.5-5.1)
--- NOTE | 2021-01-30 12:33 | Orthopedic Progress Note ---
Date of Service January 30, 2021 Assessment & Plan (1) Sacral insufficiency fracture: Plan: LateralMRIs of the lumbar spine and pelvis available for review. They do demonstrate sacral insufficiency fractures as well as evidence of acute L2 lumbar fracture. On exam it does not appear that lumbar fractures contributing to her discomfort. It appears to be mostly in the pelvis related to the insufficiency fracture. I discussed with her again attempting transfers to the chair. We will see how she progresses today. Ultimately I think she would be a candidate for rehab once her pain is controlled. At this time I would have her ambulate with a walker if possible with limited weightbearing to the left lower extremity. Admission and Anticipated Discharge Date Admission Date: January 28, 2021 Subjective Patient continues to have significant pain. She did attempt to get to a chair yesterday but was not able to tolerate the discomfort. This morning she feels somewhat improved. Again she denies any numbness or tingling lower extremities or radicular complaints. Physical Exam Physical Exam: On exam she is able to roll over in bed on her own without marked discomfort. She is continues to have severe discomfort to palpation over the left SI joint. Palpation and percussion over the lumbar spine particularly at the L2 level demonstrates no pain or discomfort. She is excellent strength testing lower extremity and a negative logroll bilaterally. Results & Data ([facility]) Vital Signs (Past 12 Hours) Vital Signs Temp Pulse Resp BP Pulse Ox 01/30/21 07:58 37.2 C 66 18 152/76 H 95
--- NOTE | 2021-01-30 14:31 | Hospitalist Progress Note ---
Date of Service January 30, 2021 Assessment & Plan (1) Intractable low back pain: Plan: Mrs. Brown is a 80 year old female with a history of Hypertension, GERD, Osteoarthritis, Overactive Bladder, Lumbar Spinal Stenosis s/p Multiple Lumbar Spinal Surgeries, and Foraminal Stenoses of Lumbar Spine who presents to the ER complaining of a Fall this morning resulting in an acute L2 compression fracture and she has bilateral sacral ala fractures and she now has Intractable Low Back Pain. Patient reports severe pain which limits her ability to take care of herself at home. She was admitted for pain management with orthopedic consultation. She is known to Dr. Quesada in the past. Intractable low back pain 2/2 sacral insufficiency fractures, additionally noted compression fracture of L2 Orthopedics consulted. MRI:Acute transverse fracture through the superior aspect of the L2 vertebral body which extends to the superior endplate. Slight loss of vertebral body height. No retropulsion. No additional acute lumbar spine fracture. Bilateral sacral insufficiency fractures, likely subacute. Suspect pain is more from pelvic involvement then from a lumbar fracture. We will continue to follow for pain control and ultimately target rehab. Ambulate with walker, limited weightbearing to left lower extremity at this time. No surgical intervention recommended at this time. Pain management consulted. Recommend lumbar spine MRI in addition to pelvis MRI as above. Recommend addition of Lidoderm patches, calcitonin alternating spray, increase hydrocodone to 7.5 mg / 325 mg every 4 hours as needed. No role for interventional pain management at this time. Appreciate recommendations. Discussed calcitonin with patient at bedside, agreeable, orders written by pain management Lumbar support brace pending PT/OT consulted, anticipate rehab needs. PT saw 01/30, awaiting back brace for use when out of bed. Continue PT/OT with limited weightbearing of left lower extremity, continue to follow DVT prophylaxis Lovenox Compression stockings Vitamin D level 33, lower limit of normal. Vitamin D plus calcium supplementation added (2) Anxiety with depression: Plan: Continue home citalopram 40 mg p.o. every morning Continue home trazodone 50 mg p.o. nightly as needed for sleep (3) Hypertension: Plan: Continue home lisinopril 20 mg p.o. every morning Continue amlodipine 5 mg p.o. nightly (4) Compression fracture of L2: Plan: See above (5) Spinal stenosis of 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 neurogenic claudication: Plan: See above (6) Foraminal stenosis of lumbar region: Plan: See above (7) Fall: Plan: See above Admission and Anticipated Discharge Date Admission Date: January 28, 2021 Subjective Patient seen at the bedside today. Laying in bed, reports she worked to try to get up to the edge of the bed/commode and this quickly flared her pain to a near intolerable 10/10. She reports otherwise her pain ranges from painful but tolerable and about a 7/10 at rest. She reports it feels "good after sleeping, better in the morning ". She is not sure the medications from yesterday are helping, but notes that she does feel improved overall from yesterday. Reviewed MRI of the lumbar spine and pelvis with patient, to be seen by orthopedics today. Patient denies fever/chills/sweats/lower extremity numbness/tingling. No additional questions or concerns at time of visit. Peeing well today, no dysuria or difficulty voiding. Review of Systems Review of Systems: 10 point review systems negative except as otherwise noted in subjective. Physical Exam Physical Exam: General: A&Ox3. NAD. Cooperative. HEENT: Atraumatic, normocephalic. Pulm: CTAB A&P. -wheezes, -rales, -rhonchi. Symmetrical chest rise. No increase work of breathing. No respiratory distress. Cardiac: RRR, -mrg. Radial pulses intact and symmetrical. Abdominal: Nontender, nondistended, soft. BS present. Extremities: Tender palpation of left SI joint, mildly at left lateral hip, no midline spinal tenderness. Ankle dorsiflexion/plantarflexion intact bilaterally without asymmetry. Sensation to soft touch intact in feet. Results & Data Results & Data ([facility]) Vital Signs (Past 12 Hours) Vital Signs Temp Pulse Resp BP Pulse Ox 01/30/21 07:58 37.2 C 66 18 152/76 H 95 PG Care Time/CCT Total # of Minutes Spent Total Time Spent with Patient: Total time spent is greater than 50% in coordination of care (as documented) at patient's floor/unit and/or counseling patient: Coding Level of Care Code 80459 Subseq Hosp Care Lvl 2 Diagnoses Intractable low back pain M54.59 Anxiety with depression F41.8 Hypertension I10 Compression fracture of L2 S32.020A Spinal stenosis of 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 neurogenic claudication M48.061 Foraminal stenosis of lumbar region M99.83 Fall W19.XXXA Encounter type: initial encounter (1) Fall Encounter type: initial encounter Qualified Code(s): W19.XXXA - Unspecified fall, initial encounter
[2021-01-30] MEDS: ONDANSETRON INJ 2 MG/ML 2 ML VIAL IV PRN (20:14)
[2021-01-30] MEDS: HYDROCODONE/ACETAMINOPHEN 7.5/325MG TAB PO PRN (20:14)
[2021-01-30] MEDS: amLODIPine BESYLATE 5 MG TAB PO SCH (20:16)
[2021-01-30] MEDS: CALCIUM 600MG + VIT D 400 IU TAB PO SCH (20:16)
[2021-01-30] MEDS: traZODone HCL 50 MG TAB PO SCH (20:16)
[2021-01-30] MEDS: ENOXAPARIN INJ 30 MG/0.3 ML SYR SQ SCH (20:17)
[2021-01-31] MEDS: HYDROmorphone INJ 0.5 MG/0.5 ML SYR IV PRN ×3 (09:34→19:38)
[2021-01-31] MEDS: ONDANSETRON INJ 2 MG/ML 2 ML VIAL IV PRN (09:35)
[2021-01-31] MEDS: CALCITONIN SALMON NA 200 IU/AC 3.7 ML BTL SCH (09:35)
[2021-01-31] MEDS: PANTOprazole 40 MG TAB PO SCH ×2 (09:36→20:41)
[2021-01-31] MEDS: CALCIUM 600MG + VIT D 400 IU TAB PO SCH ×2 (09:36→20:42)
[2021-01-31] MEDS: CITALOPRAM 40 MG TAB PO SCH (09:36)
[2021-01-31] MEDS: CHOLECALCIFEROL 1,000 UNITS 25 MCG TAB PO SCH (09:36)
[2021-01-31] MEDS: lisinopril 20 MG TAB PO SCH (09:36)
[2021-01-31] MEDS: GABAPENTIN 400 MG CAP PO SCH ×3 (09:37→20:41)
[2021-01-31] MEDS: CeleBREX 200 MG CAP PO SCH ×2 (09:37→20:42)
[2021-01-31] MEDS: OXYBUTYNIN CHLORIDE 5 MG TAB PO SCH ×3 (09:38→20:40)
[2021-01-31] MEDS: LIDOCAINE 5% 1 PATCH TD SCH (09:38)
--- NOTE | 2021-01-31 11:12 | Orthopedic Progress Note ---
Date of Service January 31, 2021 Assessment & Plan (1) Sacral insufficiency fracture: Plan: At this time the patient's failed to improve despite attempt at therapy and pain management. Very concerned that this prolonged bedrest will just further exacerbate her weakness. Subsequently I am recommending an L2 and sacral kyphoplasty. Risk benefits pros cons alternatives were outlined in detail with the patient. At this time she elects proceed with surgery. We will make her n.p.o. after midnight plan for surgery tomorrow. Admission and Anticipated Discharge Date Admission Date: January 28, 2021 Subjective Patient continues to complain of incapacitating lumbosacral back pain. The only comfortable position is lying supine. Any transfers to the chair or attempt to stand produce significant pain. She continues to deny radiculopathy. Physical Exam Physical Exam: Patient is most comfortable supine. She continues to have marked tenderness palpation over the left SI joint. She is neurologically intact. Results & Data ([facility]) Vital Signs (Past 12 Hours) Vital Signs Temp Pulse Resp BP BP Pulse Ox 01/31/21 11:01 36.9 C 69 18 103/61 93 01/31/21 09:27 37 C 72 16 133/74 96
--- NOTE | 2021-01-31 17:56 | Hospitalist Progress Note ---
Date of Service January 31, 2021 Assessment & Plan (1) Intractable low back pain: Plan: Mrs. Brown is a 80 year old female with a history of Hypertension, GERD, Osteoarthritis, Overactive Bladder, Lumbar Spinal Stenosis s/p Multiple Lumbar Spinal Surgeries, and Foraminal Stenoses of Lumbar Spine who presents to the ER complaining of a Fall this morning resulting in an acute L2 compression fracture and she has bilateral sacral ala fractures and she now has Intractable Low Back Pain. Patient reports severe pain which limits her ability to take care of herself at home. She was admitted for pain management with orthopedic consultation. She is known to Dr. Quesada in the past. Intractable low back pain 2/2 sacral insufficiency fractures, additionally noted compression fracture of L2 Orthopedics consulted. MRI:Acute transverse fracture through the superior aspect of the L2 vertebral body which extends to the superior endplate. Slight loss of vertebral body height. No retropulsion. No additional acute lumbar spine fracture. Bilateral sacral insufficiency fractures, likely subacute. Suspect pain is more from pelvic involvement then from a lumbar fracture. We will continue to follow for pain control and ultimately target rehab. Pain management consulted. Recommended lumbar spine MRI in addition to pelvis MRI as above. Recommend addition of Lidoderm patches, calcitonin alternating spray, increase hydrocodone to 7.5 mg / 325 mg every 4 hours as needed. No role for interventional pain management at this time. Appreciate recommendations. Discussed calcitonin with patient at bedside, agreeable, orders written by pain management Lumbar support brace in room-patient unable to use severe pain DVT prophylaxis Lovenox Compression stockings Vitamin D level 33, lower limit of normal. Vitamin D plus calcium supplementation added Revisited by orthopedics today, patient with inadequate venous symptoms with therapy and pain management and with worsening anticipated due to bedrest. Her/benefits of surgical intervention were discussed between patient and orthopedic surgery, anticipate L2 and sacral kyphoplasty. Patient to be made n.p.o. at midnight. (2) Anxiety with depression: Plan: Continue home citalopram 40 mg p.o. every morning Continue home trazodone 50 mg p.o. nightly as needed for sleep (3) Hypertension: Plan: Lisinopril held in anticipation of surgery. Resume postop. Continue amlodipine 5 mg p.o. nightly (4) Compression fracture of L2: Plan: See above (5) Spinal stenosis of 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 neurogenic claudication: Plan: See above (6) Foraminal stenosis of lumbar region: Plan: See above (7) Fall: Plan: See above Admission and Anticipated Discharge Date Admission Date: January 28, 2021 Subjective Patient seen at bedside. She continues to have severe low back/left-sided hip pain which seems to worsen this morning. Severely limiting to her ability to roll in bed, transfer, and ambulate. Patient is part of her today, has not been able to attempt to use due to severe pain. Denies numbness/tingling/weakness/urinary symptoms, but is tearful and extremely frustrated by her pain and limitation. Patient reports discussed with Dr. Quesada today, may consider surgical intervention due to failure of therapy and pain management. 10/10 pain to palpation at left SI, 5/10 on right Review of Systems Review of Systems: 10 point review systems negative except as otherwise noted in subjective. Physical Exam Physical Exam: General: A&Ox3. NAD. Cooperative. HEENT: Atraumatic, normocephalic. Pulm: CTAB A&P. -wheezes, -rales, -rhonchi. Symmetrical chest rise. No increase work of breathing. No respiratory distress. Cardiac: RRR, -mrg. Radial pulses intact and symmetrical. Abdominal: Nontender, nondistended, soft. BS present. Extremities: Exquisitely tender at left SI joint, mildly at left lateral hip, no midline spinal tenderness. Ankle dorsiflexion/plantarflexion intact bilaterally without asymmetry. Sensation to soft touch intact in feet. Results & Data Results & Data ([facility]) Vital Signs (Past 12 Hours) Vital Signs Temp Pulse Resp BP BP Pulse Ox 01/31/21 15:37 36.6 C 63 18 130/65 95 01/31/21 11:01 36.9 C 69 18 103/61 93 01/31/21 09:27 37 C 72 16 133/74 96 PG Care Time/CCT Total # of Minutes Spent Total Time Spent with Patient: Total time spent is greater than 50% in coordination of care (as documented) at patient's floor/unit and/or counseling patient: Coding Level of Care Code 67171 Subseq Hosp Care Lvl 2 Diagnoses Intractable low back pain M54.59 Anxiety with depression F41.8 Hypertension I10 Compression fracture of L2 S32.020A Spinal stenosis of 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 neurogenic claudication M48.061 Foraminal stenosis of lumbar region M99.83 Fall W19.XXXA Encounter type: initial encounter (1) Fall Encounter type: initial encounter Qualified Code(s): W19.XXXA - Unspecified fall, initial encounter
[2021-01-31] MEDS: amLODIPine BESYLATE 5 MG TAB PO SCH (20:40)
[2021-01-31] MEDS: traZODone HCL 50 MG TAB PO SCH (20:42)
[2021-01-31] MEDS: ENOXAPARIN INJ 30 MG/0.3 ML SYR SQ SCH (20:43)
--- NOTE | 2021-02-01 07:01 | Anesthesiology Consultation ---
Date of Service February 01, 2021 Assessment & Plan Chart Review Chart Review: Acceptable Risk for Surgery and Patient NOT seen in Pre Admission Testing History Surgery Operation Date: 02/01/21 09:20 Proposed Procedures p L2 and S1 Kyphoplasty - Roberto Quesada DO Height/Weight Height: 5 ft 5 in Weight: 84.822 kg Allergies Allergy/AdvReac Type Severity Reaction Status Date / Time Cephalosporins Allergy Mild rash Verified 01/28/21 12:23 codeine Allergy Mild Rash Verified 01/28/21 12:23 erythromycin base Allergy Mild Rash Verified 01/28/21 12:23 nitrofurantoin Allergy Mild rash Verified 01/28/21 12:23 tetracycline Allergy Mild rash Verified 01/28/21 12:23 morphine AdvReac Mild SICK TO Verified 01/28/21 12:23 STOMACH Medications Home Medications Medication Instructions Recorded Confirmed Last Taken gabapentin 400 mg capsule 400 mg PO TID #270 cap 05/14/20 01/28/21 01/27/21 celecoxib 200 mg capsule (Celebrex) 200 mg PO BID #180 cap 10/06/20 01/28/21 01/27/21 amlodipine 5 mg tablet 5 mg PO HS #90 tab 11/03/20 01/28/21 01/27/21 omeprazole 40 mg capsule,delayed 40 mg PO BID #180 cap 11/04/20 01/28/21 01/27/21 release hydrocodone 5 mg-acetaminophen 325 1 tab PO Q6H PRN #30 tab 01/13/21 01/28/21 01/28/21 mg tablet oxybutynin chloride 5 mg tablet 5 mg PO TID #90 tab 01/17/21 01/28/21 01/27/21 citalopram 40 mg tablet 40 mg PO QAM 01/28/21 01/28/21 01/27/21 lisinopril 20 mg tablet 20 mg PO QAM 01/28/21 01/28/21 01/27/21 trazodone 50 mg tablet 50 mg PO HS 01/28/21 01/28/21 01/27/21 Active Medications Generic Name Dose Route Start Last Admin Trade Name Freq PRN Reason Stop Dose Admin Acetaminophen 650 mg 01/28/21 22:03 01/30/21 16:57 Acetaminophen 325 Mg Tab PO 02/27/21 22:02 650 mg Q4H PRN Administration pain/fever Hydrocodone Bitart/Acetaminophen 1 tab 01/29/21 10:23 01/30/21 20:14 Hydrocodone/Acetaminophen 7.5/325mg Tab PO 02/12/21 10:22 1 tab Q4H PRN Administration Pain Amlodipine Besylate 5 mg 01/28/21 22:45 01/31/21 20:40 Amlodipine Besylate 5 Mg Tab PO 02/27/21 22:44 5 mg HS RANJANA Administration Calcitonin [place] 1 sprays 01/29/21 10:30 01/31/21 09:35 Calcitonin [place] Na 200 Iu/Ac 3.7 Ml Btl NA 02/28/21 10:29 1 sprays DAILY RANJANA Administration Celecoxib 200 mg 01/28/21 22:45 01/31/21 20:42 Celebrex 200 Mg Cap PO 02/27/21 22:44 200 mg BID RANJANA Administration Citalopram Hydrobromide 40 mg 01/29/21 09:00 01/31/21 09:36 Citalopram 40 Mg Tab PO 02/28/21 08:59 40 mg QAM RANJANA Administration Docusate Sodium 100 mg 01/29/21 10:23 01/30/21 08:55 Docusate Sodium 100 Mg Cap PO 02/28/21 20:59 100 mg BID PRN Administration Constipation Enoxaparin Sodium 30 mg 01/28/21 23:00 01/31/21 20:43 Enoxaparin Inj 30 Mg/0.3 Ml Syr SQ 02/27/21 22:59 30 mg HS RANJANA Administration Gabapentin 400 mg 01/28/21 22:45 01/31/21 20:41 Gabapentin 400 Mg Cap PO 02/27/21 22:44 400 mg TID RANJANA Administration Hydromorphone HCl 0.5 mg 01/28/21 22:03 01/31/21 19:38 Hydromorphone Inj 0.5 Mg/0.5 Ml Syr IV 02/11/21 22:02 0.5 mg Q1H PRN Administration Pain rated 7 to 10 Lidocaine 1 patch 01/29/21 10:30 01/31/21 09:38 Lidocaine 5% 1 Patch TD 02/28/21 10:29 1 patch QAM RANJANA Administration Lisinopril 20 mg 01/29/21 09:00 01/31/21 09:36 Lisinopril 20 Mg Tab PO 02/28/21 08:59 20 mg QAM RANJANA Administration Miscellaneous 1 ea 01/29/21 21:00 01/31/21 20:43 Remove Lidoderm Patch N/A 02/28/21 20:59 1 ea DAILY@2100 RANJANA Administration Multivitamins/Minerals 1 tab 01/30/21 21:00 01/31/21 20:42 Calcium 600mg + Vit D 400 Iu Tab PO 03/01/21 20:59 1 tab BID RANJANA Administration Ondansetron HCl 4 mg 01/28/21 22:03 01/31/21 09:35 Ondansetron Inj 2 Mg/Ml 2 Ml Vial IV 02/27/21 22:02 4 mg Q6H PRN Administration Nausea Oxybutynin Chloride 5 mg 01/28/21 22:45 01/31/21 20:40 Oxybutynin Chloride 5 Mg Tab PO 02/27/21 22:44 5 mg TID RANJANA Administration Pantoprazole Sodium 40 mg 01/28/21 22:45 01/31/21 20:41 Pantoprazole 40 Mg Tab PO 02/27/21 22:44 40 mg BID RANJANA Administration Protocol Trazodone HCl 50 mg 01/28/21 22:45 01/31/21 20:42 Trazodone Hcl 50 Mg Tab PO 02/27/21 22:44 50 mg HS RANJANA Administration Vitamin D 1,000 units 01/31/21 09:00 01/31/21 09:36 Cholecalciferol 1,000 Units 25 Mcg Tab PO 03/02/21 08:59 1,000 units QAM RANJANA Administration NPO Date Last Intake of Fluids: 02/01/21 Time Last Intake of Fluids: 00:00 Past Medical History Medical History Acid reflux Arthritis Depression DVT (deep venous thrombosis) LLE (CALF) 40+ YEARS AGO (WAS TAKING CONTROL PILLS) Foraminal stenosis of lumbar region Hamstring tear RT [facility]) History of vertebral compression fracture Hypertension Insomnia Overactive bladder Polio DX A CHILD Spinal stenosis of 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 neurogenic claudication Past Family History Family History Mother Family history of pancreatic cancer Alcohol abuse Depression Father Family history of Hodgkin's lymphoma Hypertension Grandfather (Paternal) Myocardial infarction Sister Depression Hypertension Grandfather (Maternal) Myocardial infarction Denies family history of Ovarian cancer Prostate cancer Breast cancer Colorectal cancer Past Surgical History Surgical History Family history of reaction to anesthesia SON>SLOW TO WAKE UP H/O hand surgery History of back surgery RIGHT SI JOINT FUSION= 03/09/17= GRADE VIEW 1, MAC 3, ETT 7.0 AT [facility] 2 TOTAL BACK SURGERIES History of bilateral tubal ligation History of breast biopsy History of cardiac cath OVER 12 YEARS AGO/NO STENTS History of carpal tunnel release LEFT History of cataract surgery RT/LEFT History of colonoscopy History of dilatation and curettage History of esophagogastroduodenoscopy (EGD) History of laminectomy X 2 (LUMBAR REGION) History of right shoulder replacement History of tooth extraction History of total right knee replacement Social History Smoking Status: Never smoker Hx Alcohol Use: No Alcohol type: wine alcohol intake frequency: holidays/special occasions only Hx Substance Use: No substance use type: does not use Physical Exam Vital Signs Last Vital Signs Temp 36.6 C 01/31/21 22:24 Pulse 62 01/31/21 22:24 Resp 17 01/31/21 22:24 BP 113/56 L 01/31/21 22:24 Pulse Ox 95 01/31/21 22:24 Testing Laboratory Results 01/30/21 11:02 01/30/21 11:02 Electrocardiogram Date: 07/09/20 Findings: + NSR @
[2021-02-01 07:53] LABS: Basophils # (auto) 0.02 K/uL (0-0.2); Basophils % (auto) 0.5 %; Eosinophils # (auto) 0.18 K/uL (0-0.5); Eosinophils % (auto) 4.6 %; Hematocrit (blood only) 39.9 % (37-47); Hemoglobin 11.7 g/dL (12.0-16.0); Immature Granulocytes # (auto) 0.02 K/uL (0.00-0.02); Immature Granulocytes % (auto) 0.5 %; Lymphocytes # (auto) 1.22 K/uL (1.2-3.4); Lymphocytes % (auto) 31.2 %; Mean Corpuscular Hemoglobin 26.5 pg (25-34); Mean Corpuscular Hgb Conc 29.3 g/dL (32-36); Mean Corpuscular Volume 90.5 fL (80-100); Mean Platelet Volume 10.3 fL (7.4-10.4); Monocytes # (auto) 0.51 K/uL (0.11-0.59); Neutrophils # (auto) 1.96 K/uL (1.4-6.5); Neutrophils % (auto) 50.2 %; Platelet Count 144 K/uL (130-400); RDW Coefficient of Variation 14.4 % (11.5-14.5); RDW Standard Deviation 47.6 fL (36.4-46.3); Red Blood Count 4.41 M/uL (4.2-5.4); White Blood Count 3.91 K/uL (4.8-10.8)
[2021-02-01 08:25] LABS: BUN Creatinine Ratio 19.7 (10-20); Calcium 8.5 mg/dl (8.5-10.1); Creatinine Clr Calc Pharmacy 92.3 ml/min; Est GFR (African American) 104.8 ml/min; Est GFR (Non-African American) 90.4 ml/min; Potassium 4.2 mmol/L (3.5-5.1)
[2021-02-01] MEDS ORDERED: ONDANSETRON INJ 2 MG/ML 2 ML VIAL ONE (10:02)
[2021-02-01] MEDS ORDERED: GLYCOPYRROLATE 0.2 MG/ML VIAL ONE ×2 (10:02→12:27)
[2021-02-01] MEDS ORDERED: LIDOCAINE 2% 2 ML VIAL/AMP(20MG/ML) INFIL ONE (10:02)
[2021-02-01] MEDS ORDERED: fentaNYL citrate 100 MCG/2 ML VIAL ONE ×2 (10:02→11:55)
[2021-02-01] MEDS ORDERED: NEOSTIGMINE METHYLSULFATE 1 MG/ML 10ML VIAL ONE (10:02)
[2021-02-01] MEDS ORDERED: PROPOFOL IV EMULSION 10 MG/ML 20 ML VIAL IV ONE (10:02)
[2021-02-01] MEDS ORDERED: MIDAZOLAM HCL 1 MG/ML 2ML VIAL ONE (10:02)
[2021-02-01] MEDS ORDERED: DEXAMETHASONE SOD INJ 4 MG/ML VIAL ONE (10:02)
[2021-02-01] MEDS ORDERED: ROCURONIUM BROMIDE 10 MG/ML 5 ML VIAL IV ONE (10:03)
[2021-02-01] MEDS ORDERED: LARYING-O-JET KIT (LTA) ONE (10:03)
[2021-02-01] MEDS ORDERED: LACTATED RINGER'S 1,000 ML IV SCH (10:15)
--- NOTE | 2021-02-01 10:33 | History & Physical Bridge Note ---
Date of Service February 01, 2021 History & Physical Bridge Note I have examined the patient, reviewed the History & Physical and in the interval since the performance of the History & Physical I have noted the following changes of clinical significance: no changes noted Kyphoplasty with biopsy L2 and S1
[2021-02-01] MEDS ORDERED: ceFAZolin 2,000 MG/15 ML IV PUSH IV ONE (10:40)
[2021-02-01] MEDS ORDERED: ceFAZolin 2000MG 2,000 MG/15 ML SYR IV ONE (10:40)
[2021-02-01] MEDS ORDERED: EPINEPHrine INJ 1 MG/ML AMP ONE (10:52)
[2021-02-01] MEDS ORDERED: BUPIVACAINE 0.5 % 5 MG/1 ML MPF 30ML VIAL ONE (10:52)
[2021-02-01] MEDS ORDERED: ePHEDrine sulfate 50 MG/ML AMP ONE (11:54)
--- NOTE | 2021-02-01 12:19 | Operative Report ---
Post Operative Report Pre & Post Diagnosis Operation Date: 02/01/21 09:20 Pre-Op Diagnosis: L2 compression fracture with left sided sacral insufficiency fracture Post-Op Diagnosis: Same I identified the patient and participated in the time-out.: Yes Procedure Operation Date: 02/01/21 09:20 Actual Procedures #1 kyphoplasty of L2 vertebral body. #2 biopsy of L2 vertebral body. #3 left- sided sacral plasty Surgeon Roberto Quesada, [employer] Deisi Winters Estimated Blood Loss 5 Findings Consistent with Post-Op Diagnosis Specimens L2 vertebral body biopsy Indications This is a 72-year-old female presents with severe back pain status post fall. Despite attempts at pain management and physical therapy her pain is incapacita ting she is unable to ambulate. Subsequently elected undergo the above- mentioned procedure. Description of Procedure Patient was met with identified informed consent obtained. Patient was then taken to the operative suite underwent a patient placed in a prone position on the Liam table with chest padded bolsters. All bony prominences well-padded eyes inspected to ensure no external pressure placed upon them. At this point the thoracolumbar spine was prepped and draped in normal sterile fashion. The assistance of fluoroscopy in AP and lateral planes identified the L2 vertebral body and pedicles. 2 small incisions were created and 2 Kyphon working cannulas were placed by way of a transpedicular approach into the L2 vertebral body. 2 core biopsies were obtained and then inserted to 15 mm Kyphon balloons within the L2 vertebral body. These were sequentially inflated with fluoroscopic visualization. They were subsequently removed and I injected approximately 6 cc of Kyphon cement into the vertebral body. Demonstrated excellent interdigitation. After this complete the working apparatus was removed and I proceeded to place a small incision over the left posterior aspect of the sacral ala. I then placed a working cannula within the left sacral ala verifying position with AP and lateral planes. A 15 mm balloon was inserted and sequentially inflated. I then injected approximately 3 cc of Kyphon cement within the left sacral ala with fluoroscopic visualization. It again demonstrated excellent interdigitation and placement. The working apparatus was removed and all incisions closed with subcutaneous Monocryl Steri-Strips and a sterile dressing placed. Patient was awakened taken back in stable condition. Please note Deisi Winters was present at the entire procedure involved in patient positioning complex portions of the surgery and final skin closure. I attest to the content of the Intraoperative Record and any orders documented therein. Any exceptions are noted below.
--- NOTE | 2021-02-01 12:57 | Anesthesiology Progress Note ---
Date of Service February 01, 2021 Anesthesia Post Procedure Vital Signs Vital Signs: Temp Pulse Resp BP BP Pulse Ox 02/01/21 09:52 36.4 C L 66 20 145/65 H 96 02/01/21 07:55 37.0 C 77 16 157/75 H 99 01/31/21 22:24 36.6 C 62 17 113/56 L 95 01/31/21 15:37 36.6 C 63 18 130/65 95 Pain Intensity Back: Pain Intensity: 8 Transfer of Care Handoff Completed per policy Notes Mental Status: alert / awake / arousable and participated in evaluation Patient Amnestic to Procedure: Yes Nausea / Vomiting: adequately controlled Pain: adequately controlled Airway Patency, RR, SpO2: stable & adequate BP & HR: stable & adequate Hydration State: stable & adequate Anesthetic Complications: no major complications apparent and Pt Satisfied with anesthetic care
--- NOTE | 2021-02-01 13:09 | Fluoroscopy Report ---
FL lumbar spine 2-3V CLINICAL HISTORY: L2 AND S1 KYPHOPLASTY COMPARISON STUDY: MRI lumbar spine from 01/29/2021 FLUOROSCOPY TIME: 12 seconds. FLUOROSCOPIC IMAGES: 4 FINDINGS: Localization images were obtained for vertebral plasties. IMPRESSION: Status post vertebroplasty ACT 112: Negative or not required by law. Electronically signed by: Delgado Hardin M.D. 02/01/2021 1:08 PM
[2021-02-01] MEDS ORDERED: LORazepam 0.5 MG/1 ML VIAL IV PRN (13:36)
[2021-02-01] MEDS ORDERED: MAGNESIUM HYDROXIDE SUSP 30 ML UDC PO PRN (13:36)
[2021-02-01] MEDS ORDERED: ACETAMINOPHEN 1,000 MG/100 ML VIAL IV PRN (13:36)
[2021-02-01] MEDS ORDERED: hydrOXYzine HCl 25 MG TAB PO PRN (13:36)
[2021-02-01] MEDS ORDERED: DO NOT ADMINISTER PNEUMOCOCCAL VACCINE PRN (13:36)
[2021-02-01] MEDS ORDERED: bisacodyL 10 MG SUPP PR PRN (13:36)
[2021-02-01] MEDS ORDERED: HYDROCODONE/ACETAMOPHEN 5/325MG TAB PO PRN (13:36)
[2021-02-01] MEDS ORDERED: NALOXONE HCL 0.4 MG/1 ML VIAL/CARP IV PRN (13:36)
[2021-02-01] MEDS ORDERED: SOD PHOSPHATE/SOD BIPHOSPHATE ENEMA 132 ML BTL PR PRN (13:36)
[2021-02-01] MEDS ORDERED: FAMOTIDINE 20 MG TAB PO PRN (13:36)
[2021-02-01] MEDS ORDERED: LORazepam 0.5 MG TAB PO PRN (13:36)
[2021-02-01] MEDS ORDERED: ONDANSETRON INJ 2 MG/ML 2 ML VIAL IV PRN (13:36)
[2021-02-01] MEDS ORDERED: HYDROmorphone INJ 0.5 MG/0.5 ML SYR IV PRN (13:36)
[2021-02-01] MEDS ORDERED: ALUMINUM/MAGNESIUM SUSP 30 ML UDC PO PRN (13:36)
[2021-02-01] MEDS ORDERED: diphenhydrAMINE Capsule 25 MG CAP PO PRN (13:36)
[2021-02-01] MEDS ORDERED: DO NOT ADMINISTER FLU VACCINE PRN (13:36)
[2021-02-01] MEDS ORDERED: PROMETHAZINE HCL 12.5 MG in SODIUM CHLORIDE 0.9% 50 ML IV PRN (13:36)
[2021-02-01] MEDS ORDERED: METOCLOPRAMIDE HCL INJ 5 MG/ML 2 ML VIAL IV PRN (13:36)
[2021-02-01] MEDS ORDERED: ONDANSETRON 4 MG OD TAB PO PRN (13:36)
[2021-02-01] MEDS: CALCITONIN SALMON NA 200 IU/AC 3.7 ML BTL SCH (14:27)
[2021-02-01] MEDS: CITALOPRAM 40 MG TAB PO SCH (14:27)
[2021-02-01] MEDS: CeleBREX 200 MG CAP PO SCH ×2 (14:28→22:01)
[2021-02-01] MEDS: CALCIUM 600MG + VIT D 400 IU TAB PO SCH ×2 (14:28→22:01)
[2021-02-01] MEDS: GABAPENTIN 400 MG CAP PO SCH ×3 (14:29→22:02)
[2021-02-01] MEDS: LIDOCAINE 5% 1 PATCH TD SCH (14:30)
[2021-02-01] MEDS: PANTOprazole 40 MG TAB PO SCH ×2 (14:30→22:02)
[2021-02-01] MEDS: CHOLECALCIFEROL 1,000 UNITS 25 MCG TAB PO SCH (14:31)
[2021-02-01] MEDS: OXYBUTYNIN CHLORIDE 5 MG TAB PO SCH ×3 (14:31→22:02)
[2021-02-01] MEDS: LACTATED RINGER'S 1,000 ML IV SCH (14:32)
--- NOTE | 2021-02-01 17:15 | Hospitalist Progress Note ---
Date of Service February 01, 2021 Assessment & Plan (1) Intractable low back pain: Plan: Mrs. Brown is a 80 year old female with a history of Hypertension, GERD, Osteoarthritis, Overactive Bladder, Lumbar Spinal Stenosis s/p Multiple Lumbar Spinal Surgeries, and Foraminal Stenoses of Lumbar Spine who presents to the ER complaining of a Fall this morning resulting in an acute L2 compression fracture and she has bilateral sacral ala fractures and she now has Intractable Low Back Pain. Patient reports severe pain which limits her ability to take care of herself at home. She was admitted for pain management with orthopedic consultation. She is known to Dr. Quesada in the past. Intractable low back pain 2/2 sacral insufficiency fractures, additionally noted compression fracture of L2 Orthopedics consulted. MRI:Acute transverse fracture through the superior aspect of the L2 vertebral body which extends to the superior endplate. Slight loss of vertebral body height. No retropulsion. No additional acute lumbar spine fracture. Bilateral sacral insufficiency fractures, likely subacute. Suspect pain is more from pelvic involvement then from a lumbar fracture. We will continue to follow for pain control and ultimately target rehab. Pain management consulted. Recommended lumbar spine MRI in addition to pelvis MRI as above. Recommend addition of Lidoderm patches, calcitonin alternating spray, hydrocodone to 7.5 mg / 325 mg every 4 hours as needed. No role for interventional pain management at this time. Appreciate recommendations. continue calcitonin DVT prophylaxis Lovenox postoperative Compression stockings Vitamin D level 33, lower limit of normal. To need vitamin D plus calcium supplementation Status post kyphoplasty of L2, biopsy of L2 vertebral body, left-sided sacral plasty on 02/01 (2) Anxiety with depression: Plan: Continue home citalopram 40 mg p.o. every morning Continue home trazodone 50 mg p.o. nightly as needed for sleep (3) Hypertension: Plan: Lisinopril to be resumed postop if creatinine remains normal Continue amlodipine 5 mg p.o. nightly (4) Compression fracture of L2: Plan: See above (5) Spinal stenosis of 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 neurogenic claudication: Plan: See above (6) Foraminal stenosis of lumbar region: Plan: See above (7) Fall: Plan: See above Admission and Anticipated Discharge Date Admission Date: January 28, 2021 Subjective Patient seen briefly in route to ER. Patient on way to have kyphoplasty for co mpression fracture and left-sided insufficiency fracture. Patient continued to have discomfort/pain no clinical change. To follow-up following surgical intervention. Review of Systems Review of Systems: Brief review of systems negative as patient on way to our. Physical Exam Physical Exam: General: A&Ox3. NAD. Cooperative. HEENT: Atraumatic, normocephalic. Pulm: Symmetrical chest rise. No increase work of breathing. No respiratory distress. Cardiac: Radial pulses intact and symmetrical. Extremities: Sensation to soft touch intact in feet. Results & Data Results & Data ([facility]) Vital Signs (Past 12 Hours) Vital Signs Temp Pulse Pulse Resp BP BP Pulse Ox 02/01/21 16:30 36.9 C 77 16 131/62 91 02/01/21 15:30 36.6 C 77 16 135/72 94 02/01/21 14:34 36.6 C 71 16 128/56 L 91 02/01/21 14:00 37 C 69 16 132/72 92 02/01/21 13:30 37.2 C 93 H 16 133/76 3 L 02/01/21 13:20 72 16 135/63 95 02/01/21 13:10 36.5 C 74 15 134/59 L 94 02/01/21 13:00 79 18 141/73 H 93 02/01/21 12:50 84 17 120/79 95 02/01/21 12:41 36.5 C 88 18 157/66 H 94 02/01/21 09:52 36.4 C L 66 20 145/65 H 96 02/01/21 07:55 37.0 C 77 16 157/75 H 99 PG Care Time/CCT Total # of Minutes Spent Total Time Spent with Patient: Total time spent is greater than 50% in coordination of care (as documented) at patient's floor/unit and/or counseling patient: Coding Level of Care Code 12170 Subseq Hosp Care Lvl 1 Diagnoses Intractable low back pain M54.59 Anxiety with depression F41.8 Hypertension I10 Compression fracture of L2 S32.020A Spinal stenosis of 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 neurogenic claudication M48.061 Foraminal stenosis of lumbar region M99.83 Fall W19.XXXA Encounter type: initial encounter (1) Fall Encounter type: initial encounter Qualified Code(s): W19.XXXA - Unspecified fall, initial encounter
[2021-02-01] MEDS: CLINDAMYCIN 600 MG in DEXTROSE 5% 50 ML IV SCH (18:19)
[2021-02-01] MEDS: amLODIPine BESYLATE 5 MG TAB PO SCH (22:00)
[2021-02-01] MEDS: DOCUSATE SODIUM/SENNA 50/8.6MG TAB PO SCH (22:01)
[2021-02-01] MEDS: ENOXAPARIN INJ 30 MG/0.3 ML SYR SQ SCH (22:01)
[2021-02-01] MEDS: traZODone HCL 50 MG TAB PO SCH (22:03)
[2021-02-02] MEDS: LACTATED RINGER'S 1,000 ML IV SCH (03:19)
[2021-02-02] MEDS: CLINDAMYCIN 600 MG in DEXTROSE 5% 50 ML IV SCH (03:24)
[2021-02-02] MEDS: POLYETHYLENE (MIRALAX) 17 GM PACK PO SCH ×4 (05:44→23:03)
[2021-02-02 06:12] LABS: Basophils # (auto) 0.01 K/uL (0-0.2); Basophils % (auto) 0.2 %; Eosinophils # (auto) 0.02 K/uL (0-0.5); Eosinophils % (auto) 0.4 %; Hematocrit (blood only) 36.4 % (37-47); Immature Granulocytes # (auto) 0.01 K/uL (0.00-0.02); Immature Granulocytes % (auto) 0.2 %; Lymphocytes # (auto) 0.57 K/uL (1.2-3.4); Lymphocytes % (auto) 12.5 %; Mean Corpuscular Hemoglobin 26.8 pg (25-34); Mean Corpuscular Hgb Conc 30.2 g/dL (32-36); Mean Corpuscular Volume 88.6 fL (80-100); Mean Platelet Volume 10.3 fL (7.4-10.4); Monocytes # (auto) 0.43 K/uL (0.11-0.59); Monocytes % (auto) 9.4 %; Neutrophils # (auto) 3.53 K/uL (1.4-6.5); Neutrophils % (auto) 77.3 %; Platelet Count 150 K/uL (130-400); RDW Coefficient of Variation 14.5 % (11.5-14.5); RDW Standard Deviation 46.6 fL (36.4-46.3); Red Blood Count 4.11 M/uL (4.2-5.4); White Blood Count 4.57 K/uL (4.8-10.8)
[2021-02-02 06:45] LABS: BUN Creatinine Ratio 19.4 (10-20); Calcium 8.9 mg/dl (8.5-10.1); Creatinine Clr Calc Pharmacy 101.8 ml/min; Est GFR (African American) 108.2 ml/min; Est GFR (Non-African American) 93.3 ml/min; Potassium 3.9 mmol/L (3.5-5.1)
[2021-02-02] MEDS: CALCITONIN SALMON NA 200 IU/AC 3.7 ML BTL SCH (08:46)
[2021-02-02] MEDS: PANTOprazole 40 MG TAB PO SCH ×2 (08:47→22:07)
[2021-02-02] MEDS: CALCIUM 600MG + VIT D 400 IU TAB PO SCH ×2 (08:47→22:05)
[2021-02-02] MEDS: CeleBREX 200 MG CAP PO SCH ×2 (08:47→22:06)
[2021-02-02] MEDS: GABAPENTIN 400 MG CAP PO SCH ×3 (08:47→22:07)
[2021-02-02] MEDS: CITALOPRAM 40 MG TAB PO SCH (08:47)
[2021-02-02] MEDS: CHOLECALCIFEROL 1,000 UNITS 25 MCG TAB PO SCH (08:47)
[2021-02-02] MEDS: OXYBUTYNIN CHLORIDE 5 MG TAB PO SCH ×3 (08:47→22:07)
[2021-02-02] MEDS: LIDOCAINE 5% 1 PATCH TD SCH (12:42)
--- NOTE | 2021-02-02 15:46 | Orthopedic Progress Note ---
Date of Service February 02, 2021 Assessment & Plan (1) Sacral insufficiency fracture: Plan: At this time she seems to have some improvement of her bony pain but now some proximal gluteal pain. I will start a course of steroids to see if this calms down a component of inflammation. Like to begin transfers to a chair tomorrow if possible. Admission and Anticipated Discharge Date Admission Date: January 28, 2021 Subjective Patient notes some improvement of her back and sacroiliac pain but still markedly limited with sitting up secondary to left gluteal pain. Again she denies any radicular component to her pain any numbness or tingling into the lower extremities. Physical Exam Physical Exam: On exam she longer has any tenderness over the sacrum. She does have a significant tenderness palpation over the left upper buttock. She has no tension signs. She has excellent strength testing lower extremities. Negative logroll. Results & Data ([facility]) Vital Signs (Past 12 Hours) Vital Signs Temp Pulse Resp BP Pulse Ox 02/02/21 15:14 36.5 C 71 18 166/94 H 83 L
--- NOTE | 2021-02-02 17:01 | Hospitalist Progress Note ---
Date of Service February 02, 2021 Assessment & Plan (1) Intractable low back pain: Plan: Mrs. Brown is a 80 year old female with a history of Hypertension, GERD, Osteoarthritis, Overactive Bladder, Lumbar Spinal Stenosis s/p Multiple Lumbar Spinal Surgeries, and Foraminal Stenoses of Lumbar Spine who presents to the ER complaining of a Fall this morning resulting in an acute L2 compression fracture and she has bilateral sacral ala fractures and she now has Intractable Low Back Pain. Patient reports severe pain which limits her ability to take care of herself at home. She was admitted for pain management with orthopedic consultation. She is known to Dr. Quesada in the past. Intractable low back pain 2/2 sacral insufficiency fractures, additionally noted compression fracture of L2 Orthopedics consulted. MRI:Acute transverse fracture through the superior aspect of the L2 vertebral body which extends to the superior endplate. Slight loss of vertebral body height. No retropulsion. No additional acute lumbar spine fracture. Bilateral sacral insufficiency fractures, likely subacute. Suspect pain is more from pelvic involvement then from a lumbar fracture. We will continue to follow for pain control and ultimately target rehab. Pain management consulted. Recommended lumbar spine MRI in addition to pelvis MRI as above. Recommend addition of Lidoderm patches, calcitonin alternating spray, hydrocodone to 7.5 mg / 325 mg every 4 hours as needed. No role for interventional pain management at this time. Appreciate recommendations. continue calcitonin DVT prophylaxis Lovenox postoperative Compression stockings Vitamin D level 33, lower limit of normal. -Continue vitamin D and calcium Status post kyphoplasty of L2, biopsy of L2 vertebral body, left-sided sacral plasty on 02/01 Patient work with OT today, note that patient desires to return home but this is not feasible or safe at this time. Rehab is recommended, patient request she would like home health although this would require 18/09 care of a physically capable and competent caregiver if she were to return home without rehab. On follow-up with case management patient is agreeable to rehab at [facility]. Referral/placement pending -Patient without follow-up in several days. Docusate/senna plus MiraLAX added. Patient does not want a [place] formulation at this time. Continue to follow. (2) Anxiety with depression: Plan: Continue home citalopram 40 mg p.o. every morning Continue home trazodone 50 mg p.o. nightly as needed for sleep (3) Hypertension: Plan: Lisinopril to be resumed postop if creatinine remains normal Continue amlodipine 5 mg p.o. nightly (4) Compression fracture of L2: Plan: See above (5) Spinal stenosis of 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 neurogenic claudication: Plan: See above (6) Foraminal stenosis of lumbar region: Plan: See above (7) Fall: Plan: See above Admission and Anticipated Discharge Date Admission Date: January 28, 2021 Subjective Seen at bedside. Patient reports her pain is approximately 70% better, and she feels much better after surgery. She has some pain when moving, this is improved with Tylenol. She would like oxycodone rather than [place] so that she can use the maximum of Tylenol and then only use narcotics for breakthrough pain. Otherwise feels her strength in both legs is good/better. No chest pain, chest pressure, difficulty breathing, N/V. +constipation (does not want [place] meds, would like to continue Senna/Docusate and Miralax) Review of Systems Review of Systems: All systems reviewed & are unremarkable except as noted in Subjective Physical Exam Physical Exam: General: A&Ox3. NAD. Cooperative. HEENT: Atraumatic, normocephalic. Visual acuity and hearing grossly intact. Pulm: CTAB. Symmetrical chest rise. No increase work of breathing. No respiratory distress. Cardiac: Radial pulses intact and symmetrical. Regular rate and rhythm. Extremities: Sensation to soft touch intact in feet. Ankle dorsiflexion/plantar flexion intact with full strength. Results & Data Results & Data ([facility]) Vital Signs (Past 12 Hours) Vital Signs Temp Pulse Pulse Resp BP Pulse Ox 02/02/21 16:32 70 131/74 95 02/02/21 15:14 36.5 C 71 18 166/94 H 83 L PG Care Time/CCT Total # of Minutes Spent Total Time Spent with Patient: Total time spent is greater than 50% in coordination of care (as documented) at patient's floor/unit and/or counseling patient: Coding Level of Care Code 57343 Subseq Hosp Care Lvl 2 Diagnoses Intractable low back pain M54.59 Anxiety with depression F41.8 Hypertension I10 Compression fracture of L2 S32.020A Spinal stenosis of 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 neurogenic claudication M48.061 Foraminal stenosis of lumbar region M99.83 Fall W19.XXXA Encounter type: initial encounter (1) Fall Encounter type: initial encounter Qualified Code(s): W19.XXXA - Unspecified fall, initial encounter
[2021-02-02] MEDS: oxyCODONE HCL IR 5 MG TAB (IMMEDIATE RELEASE) PO PRN (17:13)
[2021-02-02] MEDS: dexAMETHasone 8 MG in SYRINGE 0 ML IV SCH (17:26)
[2021-02-02] MEDS: amLODIPine BESYLATE 5 MG TAB PO SCH (22:05)
[2021-02-02] MEDS: ENOXAPARIN INJ 30 MG/0.3 ML SYR SQ SCH (22:06)
[2021-02-02] MEDS: DOCUSATE SODIUM/SENNA 50/8.6MG TAB PO SCH (22:06)
[2021-02-02] MEDS: traZODone HCL 50 MG TAB PO SCH (22:08)
[2021-02-03] MEDS: oxyCODONE HCL IR 5 MG TAB (IMMEDIATE RELEASE) PO PRN ×2 (02:46→22:10)
[2021-02-03] MEDS: dexAMETHasone 8 MG in SYRINGE 0 ML IV SCH ×3 (05:48→21:44)
[2021-02-03] MEDS: POLYETHYLENE (MIRALAX) 17 GM PACK PO SCH ×3 (05:48→17:54)
[2021-02-03] MEDS: PANTOprazole 40 MG TAB PO SCH ×2 (08:09→21:43)
[2021-02-03] MEDS: CHOLECALCIFEROL 1,000 UNITS 25 MCG TAB PO SCH (08:09)
[2021-02-03] MEDS: OXYBUTYNIN CHLORIDE 5 MG TAB PO SCH ×3 (08:09→21:43)
[2021-02-03] MEDS: CALCITONIN SALMON NA 200 IU/AC 3.7 ML BTL SCH (08:09)
[2021-02-03] MEDS: CITALOPRAM 40 MG TAB PO SCH (08:09)
[2021-02-03] MEDS: GABAPENTIN 400 MG CAP PO SCH ×3 (08:10→21:43)
[2021-02-03] MEDS: CALCIUM 600MG + VIT D 400 IU TAB PO SCH ×2 (08:11→21:41)
[2021-02-03] MEDS: CeleBREX 200 MG CAP PO SCH ×2 (08:11→21:41)
[2021-02-03] MEDS: LIDOCAINE 5% 1 PATCH TD SCH (08:11)
[2021-02-03 08:24] LABS: Basophils # (auto) 0.01 K/uL (0-0.2); Basophils % (auto) 0.4 %; Eosinophils # (auto) 0.02 K/uL (0-0.5); Eosinophils % (auto) 0.7 %; Hematocrit (blood only) 37.6 % (37-47); Hemoglobin 11.4 g/dL (12.0-16.0); Immature Granulocytes # (auto) 0.01 K/uL (0.00-0.02); Immature Granulocytes % (auto) 0.4 %; Lymphocytes # (auto) 0.34 K/uL (1.2-3.4); Lymphocytes % (auto) 12.2 %; Mean Corpuscular Hemoglobin 26.9 pg (25-34); Mean Corpuscular Hgb Conc 30.3 g/dL (32-36); Mean Corpuscular Volume 88.7 fL (80-100); Mean Platelet Volume 10.1 fL (7.4-10.4); Monocytes # (auto) 0.22 K/uL (0.11-0.59); Monocytes % (auto) 7.9 %; Neutrophils # (auto) 2.19 K/uL (1.4-6.5); Neutrophils % (auto) 78.4 %; Platelet Count 139 K/uL (130-400); RDW Coefficient of Variation 14.8 % (11.5-14.5); RDW Standard Deviation 47.6 fL (36.4-46.3); Red Blood Count 4.24 M/uL (4.2-5.4); White Blood Count 2.79 K/uL (4.8-10.8)
[2021-02-03 08:42] LABS: Calcium 8.4 mg/dl (8.5-10.1); Est GFR (African American) 103.5 ml/min; Est GFR (Non-African American) 89.3 ml/min; Potassium 4.2 mmol/L (3.5-5.1)
[2021-02-03] MEDS: HYDROmorphone INJ 1 MG/ML SYRINGE IV PRN ×2 (10:05→18:12)
--- NOTE | 2021-02-03 11:23 | Orthopedic Progress Note ---
Date of Service February 03, 2021 Assessment & Plan (1) Sacral insufficiency fracture: Plan: At this time we will continue to advance physical therapy. Hopefully should be a candidate for [facility]. I believe she struggling with both muscular strain sprain as well as sacroiliitis contributing to her symptom complex. Admission and Anticipated Discharge Date Admission Date: January 28, 2021 Subjective Patient's left upper buttock pain is present but somewhat improved. She is able to tolerate sitting and standing to some but better degree today. Physical Exam Physical Exam: On exam she still has tenderness over the left SI joint and upper buttock. She was able to stand for me with assistance. She is excellent strength testing. Results & Data ([facility]) Vital Signs (Past 12 Hours) Vital Signs Temp Pulse Resp BP Pulse Ox 02/03/21 07:57 36.5 C 58 L 22 146/66 H 96
[2021-02-03] MEDS: ACETAMINOPHEN 500 MG TAB PO PRN (11:49)
--- NOTE | 2021-02-03 19:02 | Hospitalist Progress Note ---
Date of Service February 03, 2021 Assessment & Plan (1) Intractable low back pain: Plan: Mrs. Brown is a 80 year old female with a history of Hypertension, GERD, Osteoarthritis, Overactive Bladder, Lumbar Spinal Stenosis s/p Multiple Lumbar Spinal Surgeries, and Foraminal Stenoses of Lumbar Spine who presents to the ER complaining of a Fall this morning resulting in an acute L2 compression fracture and she has bilateral sacral ala fractures and she now has Intractable Low Back Pain. Patient reports severe pain which limits her ability to take care of herself at home. She was admitted for pain management with orthopedic consultation. She is known to Dr. Quesada in the past. Intractable low back pain 2/2 sacral insufficiency fractures, additionally noted compression fracture of L2 status post surgical intervention Orthopedics consulted. MRI:Acute transverse fracture through the superior aspect of the L2 vertebral body which extends to the superior endplate. Slight loss of vertebral body height. No retropulsion. No additional acute lumbar spine fracture. Bilateral sacral insufficiency fractures, likely subacute. Suspect pain is more from pelvic involvement then from a lumbar fracture. We will continue to follow for pain control and ultimately target rehab. Pain management consulted. Recommended lumbar spine MRI in addition to pelvis MRI as above. Recommend addition of Lidoderm patches, calcitonin alternating spray, hydrocodone to 7.5 mg / 325 mg every 4 hours as needed. No role for interventional pain management at this time. Appreciate recommendations. Calcitonin discontinued DVT prophylaxis Lovenox postoperative Compression stockings Vitamin D level 33, lower limit of normal. -Continue vitamin D and calcium Status post kyphoplasty of L2, biopsy of L2 vertebral body, left-sided sacral plasty on 02/01 Patient would prefer home, but understands potential need for rehab. Agreeable for several days of rehab with ultimate goal of returning home. Advancing physical therapy, per surgery candidate for [facility] doing well. Suspected muscular strain sprain contributing to her symptoms. Appreciate recommendations. Continue Tylenol with breakthrough oxycodone. Patient prefers to maximize Tylenol and minimize narcotics if possible, encouraged to continue this approach (2) Anxiety with depression: Plan: Continue home citalopram 40 mg p.o. every morning Continue home trazodone 50 mg p.o. nightly as needed for sleep (3) Hypertension: Plan: Lisinopril to be resumed postop if creatinine remains normal Continue amlodipine 5 mg p.o. nightly (4) Compression fracture of L2: Plan: See above (5) Spinal stenosis of 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 neurogenic claudication: Plan: See above (6) Foraminal stenosis of lumbar region: Plan: See above (7) Fall: Plan: See above Admission and Anticipated Discharge Date Admission Date: January 28, 2021 Subjective She continues to feel improved today. Some pain in the hip with movement/PT but vastly improved from prior. She reports her strength is good, and has no numbness or tingling. Urinating well. She would like to go home at discharge, but understands the need for a couple of days of short-term rehab. Anticipate being clear from a surgical perspective tomorrow. Review of Systems Review of Systems: Review of systems negative except as noted in subjective. Physical Exam Physical Exam: General: A&Ox3. NAD. Cooperative. HEENT: Atraumatic, normocephalic. Visual acuity and hearing grossly intact. Pulm: CTAB. Symmetrical chest rise. No increase work of breathing. No respiratory distress. Cardiac: Radial pulses intact and symmetrical. Regular rate and rhythm. Extremities: Sensation to soft touch intact in feet. Ankle dorsiflexion/plantar flexion intact with full strength. Results & Data Results & Data ([facility]) Vital Signs (Past 12 Hours) Vital Signs Temp Pulse Resp BP Pulse Ox 02/03/21 15:00 37.0 C 66 20 144/75 H 90 02/03/21 07:57 36.5 C 58 L 22 146/66 H 96 PG Care Time/CCT Total # of Minutes Spent Total Time Spent with Patient: Total time spent is greater than 50% in coordination of care (as documented) at patient's floor/unit and/or counseling patient: Coding Level of Care Code 47238 Subseq Hosp Care Lvl 1 Diagnoses Intractable low back pain M54.59 Anxiety with depression F41.8 Hypertension I10 Compression fracture of L2 S32.020A Spinal stenosis of 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 neurogenic claudication M48.061 Foraminal stenosis of lumbar region M99.83 Fall W19.XXXA Encounter type: initial encounter (1) Fall Encounter type: initial encounter Qualified Code(s): W19.XXXA - Unspecified fall, initial encounter
[2021-02-03] MEDS: amLODIPine BESYLATE 5 MG TAB PO SCH (21:41)
[2021-02-03] MEDS: ENOXAPARIN INJ 30 MG/0.3 ML SYR SQ SCH (21:42)
[2021-02-03] MEDS: DOCUSATE SODIUM/SENNA 50/8.6MG TAB PO SCH (21:42)
[2021-02-03] MEDS: traZODone HCL 50 MG TAB PO SCH (21:48)
[2021-02-04] MEDS: POLYETHYLENE (MIRALAX) 17 GM PACK PO SCH ×2 (01:04→06:06)
[2021-02-04] MEDS: dexAMETHasone 8 MG in SYRINGE 0 ML IV SCH ×2 (06:06→13:26)
[2021-02-04] MEDS: oxyCODONE HCL IR 5 MG TAB (IMMEDIATE RELEASE) PO PRN ×2 (09:13→18:02)
[2021-02-04] MEDS: ACETAMINOPHEN 500 MG TAB PO PRN ×2 (09:13→19:41)
[2021-02-04] MEDS: CeleBREX 200 MG CAP PO SCH ×2 (09:15→20:51)
[2021-02-04] MEDS: CALCITONIN SALMON NA 200 IU/AC 3.7 ML BTL SCH (09:15)
[2021-02-04] MEDS: PANTOprazole 40 MG TAB PO SCH ×2 (09:16→20:52)
[2021-02-04] MEDS: GABAPENTIN 400 MG CAP PO SCH ×3 (09:16→20:52)
[2021-02-04] MEDS: OXYBUTYNIN CHLORIDE 5 MG TAB PO SCH ×3 (09:16→20:53)
[2021-02-04] MEDS: CALCIUM 600MG + VIT D 400 IU TAB PO SCH ×2 (09:16→20:51)
[2021-02-04] MEDS: CITALOPRAM 40 MG TAB PO SCH (09:17)
[2021-02-04] MEDS: CHOLECALCIFEROL 1,000 UNITS 25 MCG TAB PO SCH (09:17)
[2021-02-04] MEDS: LIDOCAINE 5% 1 PATCH TD SCH (09:17)
[2021-02-04] MEDS: traMADol HCL 50 MG TABLET PO PRN ×2 (12:12→19:33)
--- NOTE | 2021-02-04 13:46 | Orthopedic Progress Note ---
Date of Service February 04, 2021 Assessment & Plan (1) Sacral insufficiency fracture: Plan: At this time she is failed to improve despite kyphoplasty and IV steroids. I suspect she has acute exacerbation of pre-existing sacroiliitis. We will consider interventional pain management recommendation for injection. Admission and Anticipated Discharge Date Admission Date: January 28, 2021 Subjective Patient complaining of severe left lumbosacral back pain. She is barely able to tolerate a few steps with physical therapy secondary to incapacitating pain. She denies any radicular component to this pain. Denies any lower extremity numbness tingling or weakness. Physical Exam Physical Exam: On exam she continues to demonstrate severe tenderness palpation of left SI joint. No tension signs extra strength testing and negative logroll. Results & Data ([facility]) Vital Signs (Past 12 Hours) Vital Signs Temp Pulse Resp BP Pulse Ox 02/04/21 12:16 91 02/04/21 07:00 37.0 C 58 L 20 190/81 H 88 L
--- NOTE | 2021-02-04 19:00 | Hospitalist Progress Note ---
Date of Service February 04, 2021 Assessment & Plan (1) Intractable low back pain: Plan: Mrs. Brown is a 80 year old female with a history of Hypertension, GERD, Osteoarthritis, Overactive Bladder, Lumbar Spinal Stenosis s/p Multiple Lumbar Spinal Surgeries, and Foraminal Stenoses of Lumbar Spine who presents to the ER complaining of a Fall this morning resulting in an acute L2 compression fracture and she has bilateral sacral ala fractures and she now has Intractable Low Back Pain. Patient reports severe pain which limits her ability to take care of herself at home. She was admitted for pain management with orthopedic consultation. She is known to Dr. Quesada in the past. Intractable low back pain 2/2 sacral insufficiency fractures, additionally noted compression fracture of L2 status post surgical intervention Orthopedics consulted. MRI:Acute transverse fracture through the superior aspect of the L2 vertebral body which extends to the superior endplate. Slight loss of vertebral body height. No retropulsion. No additional acute lumbar spine fracture. Bilateral sacral insufficiency fractures, likely subacute. Suspect pain is more from pelvic involvement then from a lumbar fracture. We will continue to follow for pain control and ultimately target rehab. Pain management consulted. Recommended lumbar spine MRI in addition to pelvis MRI as above. Recommend addition of Lidoderm patches, calcitonin alternating spray, hydrocodone to 7.5 mg / 325 mg every 4 hours as needed. No role for interventional pain management at this time. Appreciate recommendations. Calcitonin discontinued DVT prophylaxis Lovenox postoperative Compression stockings Vitamin D level 33, lower limit of normal. -Continue vitamin D and calcium Status post kyphoplasty of L2, biopsy of L2 vertebral body, left-sided sacral plasty on 02/01 Patient would prefer home, but understands potential need for rehab. Agreeable for several days of rehab with ultimate goal of returning home. Advancing physical therapy, per surgery candidate for [facility]. Suspected muscular strain sprain contributing to her symptoms. Appreciate recommendations. 02/04 continues to have severe pain which limits her ability to ambulate, interventional pain management consulted and anticipate injection tomorrow. (2) Anxiety with depression: Plan: Continue home citalopram 40 mg p.o. every morning Continue home trazodone 50 mg p.o. nightly as needed for sleep (3) Hypertension: Plan: Lisinopril resumed postoperatively, BMP daily Continue amlodipine 5 mg p.o. nightly (4) Compression fracture of L2: Plan: See above (5) Spinal stenosis of 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 neurogenic claudication: Plan: See above (6) Foraminal stenosis of lumbar region: Plan: See above (7) Fall: Plan: See above Admission and Anticipated Discharge Date Admission Date: January 28, 2021 Subjective Adequate pain control today. Continues to have pain focused in her left lower back, "tolerable "at rest, but which is intolerable with exertion and limits her ability to move. No radiating pain into the legs. No numbness/tingling. Denies other pain. Review of Systems Review of Systems: Review of systems negative except as noted in subjective. Physical Exam Physical Exam: General: A&Ox3. NAD. Cooperative. HEENT: Atraumatic, normocephalic. Visual acuity and hearing grossly intact. Pulm: CTAB. Symmetrical chest rise. No increase work of breathing. No respiratory distress. Cardiac: Radial pulses intact and symmetrical. Regular rate and rhythm. Extremities: Sensation to soft touch intact in feet. Ankle dorsiflexion/plantar flexion intact with full strength. Results & Data Results & Data ([facility]) Vital Signs (Past 12 Hours) Vital Signs Temp Pulse Resp BP Pulse Ox 02/04/21 15:00 37.1 C 57 L 20 159/78 H 90 02/04/21 12:16 91 02/04/21 07:00 37.0 C 58 L 20 190/81 H 88 L PG Care Time/CCT Total # of Minutes Spent Total Time Spent with Patient: Total time spent is greater than 50% in coordination of care (as documented) at patient's floor/unit and/or counseling patient: Coding Level of Care Code 00820 Subseq Hosp Care Lvl 1 Diagnoses Intractable low back pain M54.59 Anxiety with depression F41.8 Hypertension I10 Compression fracture of L2 S32.020A Spinal stenosis of 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 neurogenic claudication M48.061 Foraminal stenosis of lumbar region M99.83 Fall W19.XXXA Encounter type: initial encounter (1) Fall Encounter type: initial encounter Qualified Code(s): W19.XXXA - Unspecified fall, initial encounter
[2021-02-04] MEDS: amLODIPine BESYLATE 5 MG TAB PO SCH (20:51)
[2021-02-04] MEDS: traZODone HCL 50 MG TAB PO SCH (20:52)
[2021-02-04] MEDS: DOCUSATE SODIUM/SENNA 50/8.6MG TAB PO SCH (20:52)
[2021-02-04] MEDS: ENOXAPARIN INJ 30 MG/0.3 ML SYR SQ SCH (20:52)
[2021-02-05] MEDS: ACETAMINOPHEN 500 MG TAB PO PRN (04:30)
[2021-02-05] MEDS: oxyCODONE HCL IR 5 MG TAB (IMMEDIATE RELEASE) PO PRN ×2 (04:30→10:17)
[2021-02-05] MEDS: traMADol HCL 50 MG TABLET PO PRN ×3 (05:46→19:36)
[2021-02-05 06:45] LABS: BUN Creatinine Ratio 34.4 (10-20); Calcium 8.8 mg/dl (8.5-10.1); Creatinine Clr Calc Pharmacy 75.6 ml/min; Est GFR (African American) 98.1 ml/min; Est GFR (Non-African American) 84.6 ml/min; Potassium 4.3 mmol/L (3.5-5.1)
--- NOTE | 2021-02-05 08:31 | Orthopedic Progress Note ---
Date of Service February 05, 2021 Assessment & Plan (1) Sacral insufficiency fracture: Plan: At this time I believe she is struggling with severe sacroiliitis affecting the left side. I discussed this with pain management. We will trial a diagnostic therapeutic SI joint injection soon as possible. Admission and Anticipated Discharge Date Admission Date: January 28, 2021 Subjective Patient slept well last night. Continues to have left-sided lumbosacral back pain Physical Exam Physical Exam: Patient prefers to lie on her side. She is neurologically intact. Results & Data ([facility]) Vital Signs (Past 12 Hours) Vital Signs Temp Pulse Resp BP Pulse Ox 02/05/21 07:25 36.8 C 55 L 16 135/70 91 02/04/21 22:11 36.6 C 50 L 18 144/81 H 95
--- NOTE | 2021-02-05 08:54 | Hospitalist Progress Note ---
Date of Service February 05, 2021 Assessment & Plan (1) Intractable low back pain: Plan: Mrs. Bennett is a 80 year old female with a history of Hypertension, GERD, Osteoarthritis, Overactive Bladder, Lumbar Spinal Stenosis s/p Multiple Lumbar Spinal Surgeries, and Foraminal Stenoses of Lumbar Spine who presents to the ER complaining of a Fall this morning resulting in an acute L2 compression fracture and she has bilateral sacral ala fractures and she resents with intractable Low Back Pain. Patient reports severe pain which limits her ability to take care of herself at home. She was admitted for pain management with orthopedic consultation. She is known to Dr. Quesada in the past. Intractable low back pain 2/2 sacral insufficiency fractures, additionally noted compression fracture of L2 status post surgical intervention Orthopedics consulted. MRI:Acute transverse fracture through the superior aspect of the L2 vertebral body which extends to the superior endplate. Slight loss of vertebral body height. No retropulsion. No additional acute lumbar spine fracture. Bilateral sacral insufficiency fractures, likely subacute. Suspect pain is more from pelvic involvement then from a lumbar fracture. We will continue to follow for pain control and ultimately target rehab. Pain management consulted. Recommended lumbar spine MRI in addition to pelvis MRI as above. Recommend addition of Lidoderm patches, hydrocodone to 7.5 mg / 325 mg every 4 hours as needed. No role for interventional pain management at this time. Appreciate recommendations. Calcitonin discontinued DVT prophylaxis Lovenox postoperative Compression stockings Vitamin D level 33, lower limit of normal. -Continue vitamin D and calcium Status post kyphoplasty of L2, biopsy of L2 vertebral body, left-sided sacral plasty on 02/01 Patient would prefer home, but understands potential need for rehab. Agreeable for several days of rehab with ultimate goal of returning home. Advancing physical therapy, per surgery candidate for [facility] tomorrow [facility] if doing well. Suspected muscular strain sprain contributing to her symptoms. Appreciate recommendations. 02/04 continues to have severe pain which limits her ability to ambulate, interventional pain management consulted and anticipate injection tomorrow. (2) Anxiety with depression: Plan: Continue home citalopram 40 mg p.o. every morning Continue home trazodone 50 mg p.o. nightly as needed for sleep (3) Hypertension: Plan: Lisinopril resumed postoperatively, BMP daily Continue amlodipine 5 mg p.o. nightly (4) Compression fracture of L2: Plan: See above (5) Spinal stenosis of 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 neurogenic claudication: Plan: See above (6) Foraminal stenosis of lumbar region: Plan: See above (7) Fall: Plan: See above Admission and Anticipated Discharge Date Admission Date: January 28, 2021 Subjective pt with improved pain with increase oxycodone Review of Systems Review of Systems: Mild distress and fatigue moderate back pain no headache, no visual changes no speech or swallowing issues no chest pain, pressure or palpitations no shortness of breath, cough or wheezes no abdominal pain, nausea or vomiting, diarrhea or constipation no dysuria, hematuria or frequency no focal joint pain or swelling Nonradicular back pain but with positional back pain no bruising, bleeding or rashes no focal signs of weakness or numbness or altered sensation no complaints of anxiety or depression.. Physical Exam Physical Exam: The patient appeared well nourished and normally developed. Vital signs as documented. Head exam is normocephalic atraumatic Neck is without JVD, thyromegaly, or carotid bruits. Lungs are clear to auscultation, no focal loss of breath sounds Cardiac exam, Rhythm is regular.. Systolic ejection murmur Abdominal exam reveals normal bowel sounds, soft non tender, no masses Extremities are nonedematous and both pedal pulses are present Neurologic exam is alert and oriented, no focal loss of strength or sensation Skin is without bruises or rashes Psychologically is without concerns for anxiety or depression.. Results & Data Results & Data ([facility]) Vital Signs (Past 12 Hours) Vital Signs Temp Pulse Resp BP Pulse Ox 02/05/21 07:25 98.2 F 55 L 16 135/70 91 02/04/21 22:11 97.9 F 50 L 18 144/81 H 95 PG Care Time/CCT Total # of Minutes Spent Total Time Spent with Patient: Total time spent is greater than 50% in coordination of care (as documented) at patient's floor/unit and/or counseling patient: Coding Level of Care Code 77949 Subseq Hosp Care Lvl 2 Diagnoses Intractable low back pain M54.59 Anxiety with depression F41.8 Hypertension I10 Compression fracture of L2 S32.020A Spinal stenosis of 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 neurogenic claudication M48.061 Foraminal stenosis of lumbar region M99.83 Fall W19.XXXA Encounter type: initial encounter (1) Fall Encounter type: initial encounter Qualified Code(s): W19.XXXA - Unspecified fall, initial encounter
[2021-02-05] MEDS ORDERED: dexAMETHasone 8 MG in SYRINGE 0 ML IV SCH (09:00)
[2021-02-05] MEDS: CITALOPRAM 40 MG TAB PO SCH (09:07)
[2021-02-05] MEDS: CeleBREX 200 MG CAP PO SCH ×2 (09:07→20:48)
[2021-02-05] MEDS: lisinopril 20 MG TAB PO SCH (09:07)
[2021-02-05] MEDS: OXYBUTYNIN CHLORIDE 5 MG TAB PO SCH ×3 (09:08→20:49)
[2021-02-05] MEDS: PANTOprazole 40 MG TAB PO SCH ×2 (09:08→20:48)
[2021-02-05] MEDS: CALCIUM 600MG + VIT D 400 IU TAB PO SCH ×2 (09:08→20:49)
[2021-02-05] MEDS: CHOLECALCIFEROL 1,000 UNITS 25 MCG TAB PO SCH (09:09)
[2021-02-05] MEDS: LIDOCAINE 5% 1 PATCH TD SCH (09:09)
[2021-02-05] MEDS: GABAPENTIN 400 MG CAP PO SCH ×3 (09:09→20:47)
[2021-02-05] MEDS: CALCITONIN SALMON NA 200 IU/AC 3.7 ML BTL SCH (09:12)
[2021-02-05] MEDS: HYDROmorphone INJ 1 MG/ML SYRINGE IV PRN (09:26)
[2021-02-05] MEDS: dexAMETHasone 6 MG in SYRINGE 0 ML IV SCH (10:12)
[2021-02-05] MEDS: ACETAMINOPHEN 500 MG TAB PO SCH ×2 (13:21→21:32)
[2021-02-05] MEDS: ENOXAPARIN INJ 30 MG/0.3 ML SYR SQ SCH (20:48)
[2021-02-05] MEDS: traZODone HCL 50 MG TAB PO SCH (20:49)
[2021-02-05] MEDS: DOCUSATE SODIUM/SENNA 50/8.6MG TAB PO SCH (20:49)
[2021-02-05] MEDS: amLODIPine BESYLATE 5 MG TAB PO SCH (20:49)
[2021-02-06] MEDS: oxyCODONE HCL IR 5 MG TAB (IMMEDIATE RELEASE) PO PRN ×3 (04:59→23:15)
[2021-02-06] MEDS: ACETAMINOPHEN 500 MG TAB PO SCH ×3 (05:00→21:37)
--- NOTE | 2021-02-06 08:25 | Pain Management Progress Note ---
Date of Service February 06, 2021 Assessment & Plan (1) Sacroiliitis: (2) Sacral insufficiency fracture: (3) Compression fx, lumbar spine: Encounter type: initial encounter Lumbar vertebra fracture level: L2 Qualified Code(s): S32.020A - Wedge compression fracture of second lumbar vertebra, initial encounter for closed fracture (4) Intractable low back pain: (5) Spinal stenosis of 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 neurogenic claudication: (6) Anxiety with depression: Plan: 1. Patient has failed conservative measures and has persistent pain over her left sacroiliac joint status post L2 and S1 kyphoplasties on 02/01/2021. At this point recommend left sacroiliac joint injection to minimize pain and allow for improvement in ambulation. We discussed the risk, benefits, expectations and patient agrees to proceed. Patient will be made n.p.o. for injection. 2. Recommend continued utilization of Lidoderm patches, LSO support brace, calcitonin 1 spray alternating nares every other day, oxycodone, tramadol, IV Dilaudid. 3. We will continue to follow with the patient. Admission and Anticipated Discharge Date Admission Date: January 28, 2021 Subjective 80-year-old female with longstanding history of lumbar spinal stenosis status post 2 lumbar fusion surgeries and a right sacroiliac joint fusion who sustained a fall in the bathroom while not utilizing her walker on 01/28/2021. She was noted to have an acute L2 compression fracture and subacute bilateral sacral insufficiency fractures. She was seen by pain management on 01/29/2021 and subsequently had a L2 and S1 kyphoplasty performed by Dr. Quesada on 02/01/2021. She reports that her current pain is 90% left sacral region to 10% axial low back pain worse with standing and turning in bed and improved with rest. Prior to her kyphoplasty she was unable to stand for even short periods of time. She is now able to stand for short periods of times but she states she has extreme pain over her left buttock when standing. Pain is characterized as deep aching, sharp shooting radiating towards her left groin ranging between 0-9 out of 10. She denies further distal radicular symptoms. She has utilize oxycodone 10 mg x 2, tramadol 100 mg x 2, and hydromorphone 1 mg IV x1 over the last 24 hours without significant relief of her pain. She has an LSO support brace at bedside but states it is too painful yet to put on her body. She denies side effects including constipation or mental sedation with her current opiate regimen. She denies saddle anesthesia, motor weakness bowel or bladder incontinence, fever, chills, night sweats, and foot drop. In regards to her longstanding axial low back pain she reports she is currently a patient of Dr. Allen. He most recently performed sacroiliac joint injections in October 2020. She is previously had ischial bursa injections, lumbar medial branch radiofrequency ablations, trigger point injections, L2 and S1 kyphoplasty. Pain Assessment Pain Assessment Full Body Front + Back: 1. 2. 3. [facility] Combined Pain Scale: 9-Agonizing - Cannot function. Uncontrolled screaming. Pain scale - at its best (0-10): 0 Pain scale - at its worst (0-10): 10 Physical Exam Physical Exam: Constitutional: Well-developed, well-nourished, healthy-appearing, normal weight Psych: Awake, alert, and oriented 3 with normal affect and mood. Recent memory appears grossly intact Eyes: Pupils are equally round and reactive to light with normal size pupils, eyelids appear normal Ear, nose, mouth, and throat: Moist nasal and oral membranes, lips and tongues appear normal, no external ear abnormalities are noted Neck: The trachea is midline without deviation and no thyromegaly is noted Respiratory: Normal respiratory effort without distress, no audible wheezes or rhonchi CV: Normal S1 and S2 Chest: Deferred Musculoskeletal: Head is normocephalic and atraumatic, patient is able to logroll in bed with minimal assistance. Gait was not observed Cervical: Lordotic curve: Normal Range of motion is normal with extension, flexion, side-bending, rotation Strength: Strength is grossly equal bilaterally with 5 out of 5 strength in all planes Thoracic: Kyphotic curve: Normal Range of motion is normal with extension, flexion, side-bending, rotation Myofascial spasm: No appreciable spasm. No discrete trigger points noted Lumbar: Lordotic curve: Complete loss of lumbar lordosis with a well-healed midline incision and incision over her right sacroiliac joint Range of motion is significantly decreased in all planes Tenderness: Non tender over the axial midline, kyphoplasty incisions healing well Facet provocation: Marginally positive bilaterally Straight leg raise: Negative bilaterally not worse with Achilles stretch Step-off injuries: None Strength: Strength is equal bilaterally with 5 out of 5 strength in all planes Sensation of lower extremities: Intact bilaterally Deep tendon reflexes: Rated at 2+ in left L4 and S1 and right S1, no appreciable reflex in right L4 secondary to prior TKA Myofascial spasm: Mild global spasm. No discrete trigger points noted Greater trochanters: Nontender bilaterally Sacroiliac joints: Exquisitely tender on the left negative on the right Thigh thrust, Fabere and Gaenslens: Positive on the left negative on the right Pathologic reflexes noted: None Skin: No rashes, lesions, ulcers, or induration noted Neuro: No nystagmus noted, the tongue is midline, the patient is able to rotate their head bilaterally : Deferred Results ([facility]) Diagnostic Review MRI: non enhanced, reports reviewed and findings discussed with patient MRI Findings: 01/29/21 MRI OF THE LUMBAR SPINE WITHOUT CONTRAST CLINICAL HISTORY: s/p fall, acute L2 comp fx assess for retropulsion COMPARISON STUDY: Lumbar spine CT January 28, 2021. TECHNIQUE: Utilizing a 1.5 Fabi magnet and dedicated coil, multiplanar, multiecho imaging of the lumbar spine was performed without IV contrast. FINDINGS: For purposes of numbering on this exam, the L5-S1 disc space is assigned to axial image 10 of 13 of the lower T1 and T2 sequences. There is mild dextroscol iosis of the lumbar spine. Note is made of an acute transverse fracture through the superior aspect of the L2 vertebral body which extends to the superior endplate. There is minimal loss of vertebral body height. There is no retropulsion due to the fracture. No additional acute fractures are present. There is anterior wedging of L1 with mild loss of height of the inferior endplate which is chronic. Right sacroiliac joint fusion is partially imaged. There is no intracanalicular mass or fluid collection. Conus terminates at the mid L1 level. Paravertebral soft tissues are unremarkable. Moderate multilevel degenerative changes within the lumbar spine are present. L1-2: There is disc space narrowing with disc osteophyte complex. Facet arthrosis is present. The findings result in mild to moderate central canal stenosis as well as narrowing of both lateral recesses. There is moderate left and mild right neural foraminal stenosis. L2-3: There is marked disc space narrowing. There is facet arthrosis with ligamentous hypertrophy. Mild narrowing of the central canal and neural foramen is noted. L3-4: Disc space narrowing is noted. There is facet arthrosis and ligamentous hypertrophy. There is no significant central canal stenosis. Moderate left and mild right neural foraminal stenosis is present L4-5: There is disc space narrowing and central canal is patent. There is mild bilateral neural foraminal stenosis L5-S1: Facet arthrosis is present. The disc space narrowing. Central canal is patent. There is mild to moderate bilateral neural foraminal stenosis. IMPRESSION: 1. Acute transverse fracture through the superior aspect of the L2 vertebral body which extends to the superior endplate. Slight loss of vertebral body height. No retropulsion. No additional acute lumbar spine fracture. 2. Moderate multilevel degenerative disc disease and facet arthrosis within the lumbar spine. Mild to moderate central canal stenosis at L1-L2. 3. Multilevel neural foraminal stenosis, as described above MR pelvis wo con CLINICAL HISTORY: Pelvic pain. COMPARISON STUDY: CT of the pelvis January 28, 2021. TECHNIQUE: Utilizing a 1.5 Fabi magnet and dedicated coil, multiplanar, mul tiecho imaging of the pelvis and hips was performed without intravenous contrast. FINDINGS: A right sacroiliac joint fusion is noted. There are bilateral sacral insufficiency fractures. These are probably subacute. No additional fractures within the pelvis or hips are identified although sensitivity is diminished on this examination given artifact. There is no edema identified within the proximal femurs. There is no evidence for avascular necrosis of the femoral heads. Trace bilateral hip joint effusions are present. Bladder wall is irregular and trabeculated. No pelvic hematoma is identified. Sigmoid diverticulosis is noted without evidence for acute diverticulitis within visualized portions of the colon. The symphysis pubis is intact. IMPRESSION: 1. Bilateral sacral insufficiency fractures, likely subacute. 2. No additional fractures identified within the pelvis or hips although s ensitivity diminished on this exam due to artifact. No proximal femoral edema. 3. Status post right sacroiliac joint fusion.
--- NOTE | 2021-02-06 08:40 | Orthopedic Progress Note ---
Date of Service February 06, 2021 Assessment & Plan (1) Sacroiliitis: Plan: Agree with pain management consult and recommendations. (2) Compression fracture of L2: Plan: Ambulate ad robles. Continue with pain control Admission and Anticipated Discharge Date Admission Date: January 28, 2021 Subjective He is status post left-sided sacral plasty and L2 kyphoplasty performed by Dr. Quesada on February 01. Postoperatively she has had a bout of left-sided sacroiliitis. Dr. Puri from pain management consulted on the patient this morning. LSO bracing has been ordered by Dr. Puri.The patient is hopeful she is able to have a left-sided SI joint injection by Dr. Puri. There is no radicular component to this. Review of Systems Review of Systems: All systems reviewed & are unremarkable except as noted in HPI & below Physical Exam Physical Exam: Patient is in bed lying on her right side. Surgical dressings are clean dry and intact Alert and oriented x3 No acute distress Well-healed midline lumbar incision She is tender to palpation over the left sciatic notch Strength is intact bilateral lower extremities Results & Data ([facility]) Vital Signs (Past 12 Hours) Vital Signs Temp Pulse Resp BP Pulse Ox 02/06/21 07:28 36.7 C 54 L 16 158/89 H 94 02/05/21 22:18 36.9 C 54 L 16 133/74 95
[2021-02-06] MEDS ORDERED: LIDOCAINE 2% LOCAL 50 ML VIAL ONE (08:52)
[2021-02-06] MEDS ORDERED: TRIAMCINOLONE ACET 40 MG/ML VIAL ONE (08:52)
[2021-02-06] MEDS: CITALOPRAM 40 MG TAB PO SCH (08:53)
[2021-02-06] MEDS: CeleBREX 200 MG CAP PO SCH (08:53)
[2021-02-06] MEDS: OXYBUTYNIN CHLORIDE 5 MG TAB PO SCH ×3 (08:53→19:50)
[2021-02-06] MEDS ORDERED: LIDOCAINE 2% MPF LOCAL 5 ML VIAL INFIL ONE ×2 (08:53→09:49)
[2021-02-06] MEDS: CALCITONIN SALMON NA 200 IU/AC 3.7 ML BTL SCH (08:53)
[2021-02-06] MEDS: CALCIUM 600MG + VIT D 400 IU TAB PO SCH ×2 (08:53→19:48)
[2021-02-06] MEDS: lisinopril 20 MG TAB PO SCH (08:53)
[2021-02-06] MEDS ORDERED: ROPIVACAINE 0.5% 5 MG/ML 30 ML VIAL ONE (08:53)
[2021-02-06] MEDS: CHOLECALCIFEROL 1,000 UNITS 25 MCG TAB PO SCH (08:53)
[2021-02-06] MEDS: LIDOCAINE 5% 1 PATCH TD SCH (08:54)
[2021-02-06] MEDS: dexAMETHasone 6 MG in SYRINGE 0 ML IV SCH (08:54)
[2021-02-06] MEDS: GABAPENTIN 400 MG CAP PO SCH ×3 (08:54→19:48)
[2021-02-06] MEDS: PANTOprazole 40 MG TAB PO SCH ×2 (08:54→19:48)
--- NOTE | 2021-02-06 09:07 | History & Physical Bridge Note ---
Date of Service February 06, 2021 History & Physical Bridge Note I have examined the patient, reviewed the History & Physical and in the interval since the performance of the History & Physical I have noted the following changes of clinical significance: no changes noted
--- NOTE | 2021-02-06 09:33 | Operative Report ---
Post Operative Report Pre & Post Diagnosis Operation Date: 02/01/21 09:20 Pre-Op Diagnosis: FALL, HIP PAIN, sacroiliitis Post-Op Diagnosis: FALL, HIP PAIN, sacroiliitis Operation Date: 02/06/21 09:00 <No data on this case meets the specified criteria> I identified the patient and participated in the time-out.: Yes Procedure Operation Date: 02/06/21 09:00 Left sacroiliac joint injection Surgeon Bisi Puri DO Program Director [employer]outing None Estimated Blood Loss 0 Findings Consistent with Post-Op Diagnosis Fluids None Specimens None Drains None Anesthesia Type Local Complications none Disposition Accompanied Patient To Recovery: No Disposition: Recovery Room (Patient went back to hospital room. Report given to floor RN) Indications Sacroiliitis Description of Procedure SACROILIAC JOINT INJECTION Diagnosis: Inflammatory Sacroiliitis and Lumbago Side: Left Anesthesia: local Material forwarded to lab: none Prior to starting, the Patients diagnosis and the procedure were reviewed with the patient in detail. Possible risks, complications and alternative therapies were also reviewed. Diagnostic nature of the procedure was discussed. Patients questions were answered. Informed consent was obtained. Allergies and medication list was reviewed. The patient was brought to the operating room and placed in prone position on the table. Immediately prior to starting the procedure, a ``time out was conducted with the staff and the patient where the patient was identified, proposed procedure was verified, consent was reviewed and the proper site for the planned procedure was identified. Fluoroscopy was utilized in performing the procedure to assist in placement of the needle, to evaluate the final position on the needle prior to injection and to avoid intravascular injection. Monitors used included intermittent blood pressure with an automated device, continuous pulse oximetry and level of consciousness. Patient was not given any intravenous sedation and constant verbal contact was maintained throughout the procedure. The sacral area was cleansed with duraprep and sterile drapes were applied. Posterior superior iliac spine was identified by palpation and under fluoroscopy. Fluoroscope was rotated in the axial plane to obtain an ideal view if the inferior portion of the posterior aspect of the sacroiliac joint. Fluoroscope was then angled in a slight caudal direction. Skin and subcutaneous tissues were infiltrated with 3 mL of 2% lidocaine and a 22 gauge 3.5 inch Quincke point spinal needle with approximately 15 degree curve was advanced through the skin and subcutaneous tissues towards the sacroiliac joint under direct fluoroscopic guidance into the affected joint. Needle position was verified to be in the joint in a lateral view. 0.5 cc of Isovue nonionic contrast was injected via the needle and the contrast was noted to confirm intra-articular needle placement. Next, a solution containing 40 mg of Kenalog and 1.5cc of 0.5% Ropivacaine-MPF was injected. Needle was then flushed with 0.5 cc of the local anesthetic and withdrawn. Adequate hemostasis was noted. A sterile band aid was applied at the injection site. The patient was taken back to her floor bed and report was given to the floor RN. I attest to the content of the Intraoperative Record and any orders documented therein. Any exceptions are noted below.
[2021-02-06] MEDS ORDERED: ROPIVACAINE 0.5% 5 MG/ML 30 ML VIAL INFIL ONE (09:50)
[2021-02-06] MEDS ORDERED: IOPAMIDOL INJ 61% 15 ML VIAL INJ ONE (09:55)
--- NOTE | 2021-02-06 18:37 | Hospitalist Progress Note ---
Date of Service February 06, 2021 Assessment & Plan (1) Intractable low back pain: Plan: Mrs. Bennett is a 80 year old female with a history of Hypertension, GERD, Osteoarthritis, Overactive Bladder, Lumbar Spinal Stenosis s/p Multiple Lumbar Spinal Surgeries, and Foraminal Stenoses of Lumbar Spine who presents to the ER complaining of a Fall this morning resulting in an acute L2 compression fracture and she has bilateral sacral ala fractures and she resents with intractable Low Back Pain. Patient reports severe pain which limits her ability to take care of herself at home. She was admitted for pain management with orthopedic consultation. She is known to Dr. Quesada in the past. Intractable low back pain 2/2 sacral insufficiency fractures, additionally noted compression fracture of L2 status post surgical intervention Orthopedics consulted. MRI:Acute transverse fracture through the superior aspect of the L2 vertebral body which extends to the superior endplate. Slight loss of vertebral body height. No retropulsion. No additional acute lumbar spine fracture. Bilateral sacral insufficiency fractures, likely subacute. Suspect pain is more from pelvic involvement then from a lumbar fracture. We will continue to follow for pain control and ultimately target rehab. Pain management consulted. R Current pain medicine included, Lidoderm patches, oxycodone celebrex, and scheduled tylenol Calcitonin nasal spray DVT prophylaxis Lovenox postoperative Compression stockings Vitamin D level 33, lower limit of normal. -Continue vitamin D and calcium Status post kyphoplasty of L2, biopsy of L2 vertebral body, left-sided sacral plasty on 02/01 Patient would prefer home, but understands potential need for rehab. Agreeable for several days of rehab with ultimate goal of returning home. Advancing physical therapy, per surgery candidate for [facility] tomorrow [facility] if doing well. Suspected muscular strain sprain contributing to her symptoms 02/04 continues to have severe pain which limits her ability to ambulate, interventional pain management consulted and injection SI area 02/06/21 (2) Anxiety with depression: Plan: Continue home citalopram 40 mg p.o. every morning Continue home trazodone 50 mg p.o. nightly as needed for sleep (3) Hypertension: Plan: Lisinopril resumed postoperatively, Continue amlodipine 5 mg p.o. nightly (4) Compression fracture of L2: Plan: See above (5) Spinal stenosis of 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 neurogenic claudication: Plan: See above (6) Foraminal stenosis of lumbar region: Plan: See above (7) Fall: Plan: See above Admission and Anticipated Discharge Date Admission Date: January 28, 2021 Subjective He is status post left-sided sacral plasty and L2 kyphoplasty performed by Dr. Quesada on February 01. Postoperatively she has had a bout of left-sided sacroiliitis. Dr. Puri from pain management consulted on the patient this morning. LSO bracing has been ordered by Dr. Puri.The patient now s/p left- sided SI joint injection by Dr. Puri. There is no radicular component to her pain at this time but significant pain with movement Review of Systems Review of Systems: Mild distress and fatigue moderate back pain no headache, no visual changes no speech or swallowing issues no chest pain, pressure or palpitations no shortness of breath, cough or wheezes no abdominal pain, nausea or vomiting, diarrhea or constipation no dysuria, hematuria or frequency no focal joint pain or swelling Nonradicular back pain but with positional back pain no bruising, bleeding or rashes no focal signs of weakness or numbness or altered sensation no complaints of anxiety or depression.. Physical Exam Physical Exam: The patient appeared well nourished and normally developed. Vital signs as documented. Head exam is normocephalic atraumatic Neck is without JVD, thyromegaly, or carotid bruits. Lungs are clear to auscultation, no focal loss of breath sounds Cardiac exam, Rhythm is regular.. Systolic ejection murmur Abdominal exam reveals normal bowel sounds, soft non tender, no masses Extremities are nonedematous and both pedal pulses are present Neurologic exam is alert and oriented, no focal loss of strength or sensation Skin is without bruises or rashes Psychologically is without concerns for anxiety or depression.. Results & Data Results & [facility] Vital Signs (Past 12 Hours) Vital Signs Temp Pulse Resp BP BP Pulse Ox 02/06/21 14:38 98.1 F 59 L 16 164/67 H 91 02/06/21 09:22 55 L 16 160/72 H 93 02/06/21 09:19 55 L 18 160/76 H 94 02/06/21 09:16 54 L 16 156/77 H 94 02/06/21 09:13 56 L 16 159/70 H 92 02/06/21 07:28 98.1 F 54 L 16 158/89 H 94 PG Care Time/CCT Total # of Minutes Spent Total Time Spent with Patient: Total time spent is greater than 50% in coordination of care (as documented) at patient's floor/unit and/or counseling patient: Coding Level of Care Code 29264 Subseq Hosp Care Lvl 2 Diagnoses Intractable low back pain M54.59 Anxiety with depression F41.8 Hypertension I10 Compression fracture of L2 S32.020A Spinal stenosis of 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 neurogenic claudication M48.061 Foraminal stenosis of lumbar region M99.83 Fall W19.XXXA Encounter type: initial encounter (1) Fall Encounter type: initial encounter Qualified Code(s): W19.XXXA - Unspecified fall, initial encounter
[2021-02-06] MEDS: amLODIPine BESYLATE 5 MG TAB PO SCH (19:48)
[2021-02-06] MEDS: FAMOTIDINE 20 MG TAB PO SCH (19:48)
[2021-02-06] MEDS: DOCUSATE SODIUM/SENNA 50/8.6MG TAB PO SCH (19:49)
[2021-02-06] MEDS: ENOXAPARIN INJ 30 MG/0.3 ML SYR SQ SCH (19:49)
[2021-02-06] MEDS: CELECOXIB 100 MG CAP PO SCH (19:51)
[2021-02-06] MEDS: traZODone HCL 50 MG TAB PO SCH (20:29)
[2021-02-06] MEDS: traMADol HCL 50 MG TABLET PO PRN (20:30)
[2021-02-07] MEDS: ACETAMINOPHEN 500 MG TAB PO SCH ×3 (05:02→20:35)
[2021-02-07] MEDS: FAMOTIDINE 20 MG TAB PO SCH ×2 (06:01→18:46)
[2021-02-07] MEDS: DOCUSATE SODIUM 100 MG CAP PO PRN (08:23)
[2021-02-07] MEDS: CITALOPRAM 40 MG TAB PO SCH (08:24)
[2021-02-07] MEDS: CELECOXIB 100 MG CAP PO SCH ×2 (08:24→20:26)
[2021-02-07] MEDS: PANTOprazole 40 MG TAB PO SCH ×2 (08:24→20:28)
[2021-02-07] MEDS: CALCIUM 600MG + VIT D 400 IU TAB PO SCH ×2 (08:24→20:28)
[2021-02-07] MEDS: lisinopril 20 MG TAB PO SCH (08:25)
[2021-02-07] MEDS: OXYBUTYNIN CHLORIDE 5 MG TAB PO SCH ×3 (08:25→20:28)
[2021-02-07] MEDS: CHOLECALCIFEROL 1,000 UNITS 25 MCG TAB PO SCH (08:25)
[2021-02-07] MEDS: LIDOCAINE 5% 1 PATCH TD SCH (08:26)
--- NOTE | 2021-02-07 08:26 | Pain Management Progress Note ---
Date of Service February 07, 2021 Assessment & Plan (1) Sacroiliitis: (2) Sacral insufficiency fracture: (3) Compression fx, lumbar spine: Encounter type: initial encounter Lumbar vertebra fracture level: L2 Qualified Code(s): S32.020A - Wedge compression fracture of second lumbar vertebra, initial encounter for closed fracture (4) Intractable low back pain: (5) Spinal stenosis of 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 neurogenic claudication: (6) Anxiety with depression: Plan: 1. Discussed with the patient that it can take up to 10 to 14 days for maximal effect after a sacroiliac joint injection. 2. Recommend continued utilization of Lidoderm patches, LSO support brace, calcitonin 1 spray alternating nares every other day, oxycodone, tramadol, judicious IV Dilaudid. Will increase gabapentin to 600 mg p.o. 3 times daily. 3. Feel that patient has reached maximal benefit from pain management at this time. Recommend consideration of short-term rehab post discharge. 4. We will sign off at this time. Please call with any questions. Admission and Anticipated Discharge Date Admission Date: January 28, 2021 Subjective 80-year-old female with longstanding history of lumbar spinal stenosis status post 2 lumbar fusion surgeries and a right sacroiliac joint fusion who sustained a fall in the bathroom while not utilizing her walker on 01/28/2021. She was noted to have an acute L2 compression fracture and subacute bilateral sacral insufficiency fractures. She had a L2 and S1 kyphoplasty performed by Dr. Quesada on 02/01/2021. She reports that her current pain is 100% left sacral region with standing and turning in bed and improved with rest. Prior to her kyphoplasty she was unable to stand for even short periods of time. She is now able to stand for short periods of time and pivot for personal care. Pain is characterized as deep aching, sharp ranging between 0-7 out of 10. She denies further distal radicular symptoms. She has utilized oxycodone 10 mg x 2 and tramadol 100 mg x 1 since her injection. She has an LSO support brace at bedside. She denies side effects including constipation or mental sedation with her current opiate regimen. She denies saddle anesthesia, motor weakness bowel or bladder incontinence, fever, chills, night sweats, and foot drop. In regards to her longstanding axial low back pain she reports she is currently a patient of Dr. Allen. She has previously had sacroiliac joint injections, ischial bursa injections, lumbar medial branch radiofrequency ablations, trigger point injections, L2 and S1 kyphoplasty. Pain Assessment Pain Assessment Full Body Front + Back: 1. [facility] Combined Pain Scale: 7-Severe - Pain prevents productive activity. Impossible to tolerate. Pain scale - at its best (0-10): 0 Pain scale - at its worst (0-10): 7 Physical Exam Physical Exam: Constitutional: Well-developed, well-nourished, healthy- appearing, normal weight Psych: Awake, alert, and oriented 3 with normal affect and mood. Slightly confused this morning Eyes: Pupils are equally round and reactive to light with normal size pupils, eyelids appear normal Ear, nose, mouth, and throat: Moist nasal and oral membranes, lips and tongues appear normal, no external ear abnormalities are noted Neck: The trachea is midline without deviation and no thyromegaly is noted Respiratory: Normal respiratory effort without distress, no audible wheezes or rhonchi CV: Normal S1 and S2 Chest: Deferred Musculoskeletal: Head is normocephalic and atraumatic, patient is able to logroll in bed without assistance. Gait was not observed Cervical: Lordotic curve: Normal Range of motion is normal with extension, flexion, side-bending, rotation Strength: Strength is grossly equal bilaterally with 5 out of 5 strength in all planes Thoracic: Kyphotic curve: Normal Range of motion is normal with extension, flexion, side-bending, rotation Myofascial spasm: No appreciable spasm. No discrete trigger points noted Lumbar: Lordotic curve: Complete loss of lumbar lordosis with a well-healed midline incision and incision over her right sacroiliac joint Range of motion is significantly decreased in all planes Tenderness: Non tender over the axial midline, kyphoplasty incisions healing we ll Facet provocation: Marginally positive bilaterally Straight leg raise: Negative bilaterally Step-off injuries: None Strength: Strength is equal bilaterally with 5 out of 5 strength in all planes Sensation of lower extremities: Intact bilaterally Myofascial spasm: No spasm. No discrete trigger points noted Greater trochanters: Nontender bilaterally Sacroiliac joints: Moderately on the left negative on the right Pathologic reflexes noted: None Skin: No rashes, lesions, ulcers, or induration noted. Injection site well- healed Neuro: No nystagmus noted, the tongue is midline, the patient is able to rotate their head bilaterally : Deferred
[2021-02-07] MEDS: CALCITONIN SALMON NA 200 IU/AC 3.7 ML BTL SCH (08:27)
--- NOTE | 2021-02-07 08:33 | Orthopedic Progress Note ---
Date of Service February 07, 2021 Assessment & Plan (1) Sacroiliitis: Plan: At this time she is successfully undergone an injection. We are still waiting for results. She is a candidate for rehab and hopefully be able to be discharged to rehab today. Admission and Anticipated Discharge Date Admission Date: January 28, 2021 Subjective Patient still noting some discomfort at the left SI joint. She is status post left SI joint injection yesterday. Physical Exam Physical Exam: On exam she does move about the bed with out gross discomfort. She back tender fourdrinier to palpation over the left SI joint. No tension signs bilaterally. Excellent strength testing. Results & Data ([facility]) Vital Signs (Past 12 Hours) Vital Signs Temp Pulse Resp BP BP Pulse Ox 02/07/21 07:35 36.9 C 56 L 18 173/79 H 94 02/06/21 23:10 36.8 C 52 L 18 167/96 H
[2021-02-07] MEDS: HYDROmorphone INJ 1 MG/ML SYRINGE IV PRN (08:44)
[2021-02-07] MEDS: GABAPENTIN 600 MG TAB PO SCH ×3 (10:55→20:27)
[2021-02-07] MEDS ORDERED: HYDROmorphone INJ 0.5 MG/0.5 ML SYR IV STA (12:32)
[2021-02-07] MEDS ORDERED: LORazepam 0.5 MG/1 ML VIAL IV STA (13:37)
[2021-02-07] MEDS: amLODIPine BESYLATE 5 MG TAB PO SCH (20:26)
[2021-02-07] MEDS: ENOXAPARIN INJ 30 MG/0.3 ML SYR SQ SCH (20:27)
[2021-02-07] MEDS: traZODone HCL 50 MG TAB PO SCH (20:35)
[2021-02-07] MEDS: DOCUSATE SODIUM/SENNA 50/8.6MG TAB PO SCH (20:35)
[2021-02-08] MEDS: ACETAMINOPHEN 500 MG TAB PO SCH ×2 (04:42→14:21)
[2021-02-08] MEDS: FAMOTIDINE 20 MG TAB PO SCH (06:24)
[2021-02-08] MEDS: CALCIUM 600MG + VIT D 400 IU TAB PO SCH (08:12)
[2021-02-08] MEDS: PANTOprazole 40 MG TAB PO SCH (08:12)
[2021-02-08] MEDS: GABAPENTIN 600 MG TAB PO SCH ×2 (08:13→14:19)
[2021-02-08] MEDS: lisinopril 20 MG TAB PO SCH (08:13)
[2021-02-08] MEDS: OXYBUTYNIN CHLORIDE 5 MG TAB PO SCH ×2 (08:13→14:19)
[2021-02-08] MEDS: CITALOPRAM 40 MG TAB PO SCH (08:14)
[2021-02-08] MEDS: CHOLECALCIFEROL 1,000 UNITS 25 MCG TAB PO SCH (08:14)
[2021-02-08] MEDS: CELECOXIB 100 MG CAP PO SCH (08:14)
[2021-02-08] MEDS: LIDOCAINE 5% 1 PATCH TD SCH (08:15)
[2021-02-08] MEDS: CALCITONIN SALMON NA 200 IU/AC 3.7 ML BTL SCH (08:15)
--- NOTE | 2021-02-08 08:33 | Orthopedic Progress Note ---
Date of Service February 08, 2021 Assessment & Plan (1) Sacroiliitis: Plan: Patient continues to have significant sacroiliitis but seems to be improving status post injection and Lidoderm patch over the affected area. There is been some concern regarding her narcotic utilization and recommended that she avoid oxycodone and Dilaudid and stick with tramadol only. Patient stands agrees. Hopefully she will transfer to [facility] today. Admission and Anticipated Discharge Date Admission Date: January 28, 2021 Subjective Patient is in the chair at the bedside. She does believe her symptoms have improved. Physical Exam Physical Exam: Patient is in the chair at the bedside. She has good strength testing. Results & Data ([facility]) Vital Signs (Past 12 Hours) Vital Signs Temp Pulse Pulse Resp BP Pulse Ox 02/08/21 06:56 37.0 C 61 18 181/78 H 92 02/07/21 23:40 36.8 C 64 16 133/77 91
[2021-02-08] MEDS ORDERED: traMADol HCL 50 MG TABLET PO SCH (09:00)
--- NOTE | 2021-02-08 19:40 | Discharge Summary ---
Date of Service February 08, 2021 Admission HPI Per Admitting Provider Mrs. Brown is a 80 year old female with a history of Hypertension, GERD, Osteoarthritis, Overactive Bladder, Lumbar Spinal Stenosis s/p Multiple Lumbar Spinal Surgeries, and Foraminal Stenoses of Lumbar Spine who presents to the ER complaining of a Fall resulting in Intractable Low Back Pain. Patient has a history of chronic low back pain and has had multiple surgeries. She is supposed to use a cane or a walker to ambulate but this morning when she got up to go to the bathroom she did not use either accessory. She became somewhat unsteady and felt off balance and fell landing on her back. The majority of the pain is at the posterior aspect of her left hip. She was able to get back up and got back into bed -- however the pain persisted and then worsened. Patient denies any radiation of the pain into her legs or buttocks. She denies any focal weakness, numbness or tingling of her lower extremities. She always has some urinary incontinence and that has not changed or worsened. She denies any fecal incontinence. She denies any other injuries associated with this fall, She did not injure her head or neck. Patient took a Hydrocodone/Acetaminophen (which she has available at home) but did not achieve any significant relief. Patient is maintained on topical analgesics, NSAID, and Gabapentin. Principal Diagnosis l2, S1 kyphoplasty, s/p kyphoplasty sacroiliitis sacroiliac joint injection Discharge Exam The patient appeared with reasonable pain control Vital signs as documented. Lungs are clear to auscultation and appear unlabored Cardiac exam, Rhythm is regular.. No murmurs, rubs or gallops. Abdominal exam reveals normal bowel sounds, soft non tender, no masses Extremities are nonedematous and both pedal pulses are normal. Neurologic exam is alert and oriented, no focal loss of strength or sensation no radicular loss of strength or sensation Persistent positional back pain does achieve pain control at rest Skin is without bruises or rashes Psychologically is without concerns for anxiety or depression. Discharge Data Allergies Allergy/AdvReac Type Severity Reaction Status Date / Time Cephalosporins Allergy Mild rash Verified 01/28/21 12:23 codeine Allergy Mild Rash Verified 01/28/21 12:23 erythromycin base Allergy Mild Rash Verified 01/28/21 12:23 nitrofurantoin Allergy Mild rash Verified 01/28/21 12:23 tetracycline Allergy Mild rash Verified 01/28/21 12:23 morphine AdvReac Mild SICK TO Verified 01/28/21 12:23 STOMACH Consultations 01/28/21 15:24 ED Decision to Admit Stat 01/28/21 22:03 Consult Orthopedic Surgery Routine Consult Pain Management Routine 02/05/21 08:29 Consult Pain Management Routine Procedures Performed Operation Date: 02/01/21 09:20 Actual Procedures p L2 and S1 Kyphoplasty(Left) - Roberto Quesada DO Operation Date: 02/06/21 09:00 Actual Procedures p Left Sacroiliac Joint Injection(Left) - Bisi Puri DO Ordered Studies 01/28/21 10:40 CT lumbar spine wo con Stat CT pelvis wo con Stat 01/29/21 09:03 MR pelvis wo con Routine 01/29/21 10:21 MR lumbar spine wo con Routine 02/01/21 FL lumbar spine 2-3V Routine 02/06/21 09:00 FL fluoro for pain procedure Routine 02/06/21 09:34 FL fluoro for pain procedure Routine Hospital Course (1) Intractable low back pain: Mrs. Bennett is a 80 year old female with a history of Hypertension, GERD, Osteoarthritis, Overactive Bladder, Lumbar Spinal Stenosis s/p Multiple Lumbar Spinal Surgeries, and Foraminal Stenoses of Lumbar Spine who presents to the ER complaining of a Fall this morning resulting in an acute L2 compression fracture and she has bilateral sacral ala fractures and she resents with intractable Low Back Pain. Patient reports severe pain which limits her ability to take care of herself at home. She was admitted for pain management with orthopedic consultation. She is known to Dr. Quesada in the past. Intractable low back pain 2/2 sacral insufficiency fractures, additionally noted compression fracture of L2 status post surgical intervention Orthopedics consulted. MRI:Acute transverse fracture through the superior aspect of the L2 vertebral body which extends to the superior endplate. Slight loss of vertebral body height. No retropulsion. No additional acute lumbar spine fracture. Bilateral sacral insufficiency fractures, likely subacute. Suspect pain is more from pelvic involvement then from a lumbar fracture. We will continue to follow for pain control and ultimately target rehab. Pain management consulted. Follow-up as an outpatient with Dr. Sánchez Current pain medicine included, Lidoderm patches, oxycodone celebrex, and scheduled tylenol Calcitonin nasal spray DVT prophylaxis Lovenox postoperative may consider continue this at the rehab center Status post kyphoplasty of L2, biopsy of L2 vertebral body, left-sided sacral plasty on 02/01 Patient would prefer home, but understands potential need for rehab. Agreeable for several days of rehab with ultimate goal of returning home. (2) Anxiety with depression: Continue home citalopram 40 mg p.o. every morning Continue home trazodone 50 mg p.o. nightly as needed for sleep (3) Hypertension: Lisinopril resumed postoperatively, Continue amlodipine 5 mg p.o. nightly (4) Compression fracture of L2: See above (5) Spinal stenosis of 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 neurogenic claudication: See above (6) Foraminal stenosis of lumbar region: See above (7) Fall: See above Total Time Total Time Spent Total Time Spent (In Minutes): It required greater than 30 minutes to prepare this patient for discharge Discharge Plan Discharge Items Patient Disposition: Transfer Inpatient Rehab Fac Reason For Visit: FALL, HIP PAIN Discharge Diagnosis: L2-S1 fracture s/p kyphoplasty 02/01/21 Sacroiliitis, s/p pain management injection 02/06/21 Condition on Discharge: Good Activity: Per Instructions section Activity Comment: Per PT/OT evaluation Non-emergency contact: Primary Care Provider, Surgeon and Specialist Call non-emergency contact if: your symptoms worsen and you have a fever Follow-up/Referrals: Zeynep Dawn MD [Primary Care Provider] - Diet: Regular Addtl Attending Provider Instructions: please continue to work on pain control, at the time of discharge her bid ultram will be reduced due to drowsiness from 100 bid to 50 bid but certainly her pain may increase with increased PT and meds may need adjustment Pending Studies at Discharge: No Stand-Alone Forms: My [facility] [employer] Skilled Items Patient informed of condition?: Yes DNR: Yes Discharge Level of Care: Acute rehab Communicable Disease: No Discharge Prognosis: Improving Lines: None Urinary Catheter: No Medications and DC Order Prescriptions: New sennosides-docusate sodium [Senokot-S] 8.6-50 mg Tablet 2 tab PO HS Qty: 60 RF: 0 tramadol 50 mg Tablet 50 mg PO BID Qty: 30 RF: 0 acetaminophen [Tylenol Extra Strength] 500 mg Tablet 1,000 mg PO Q8 Qty: 90 RF: 0 calcitonin (salmon) 200 unit/actuation [place],Non-Aerosol 1 spray NA DAILY Qty: 1 RF: 0 lidocaine 5 % Adhesive Patch,Medicated 1 patch transdermal QAM Qty: 10 RF: 0 oxycodone 5 mg Tablet 10 mg PO Q6H PRN (Reason: pain) Qty: 20 RF: 0 cholecalciferol (vitamin D3) 25 mcg (1,000 unit) Capsule 1,000 unit PO QAM Qty: 30 RF: 0 enoxaparin [Lovenox] 30 mg/0.3 mL Syringe 30 mg subcut HS Qty: 30 RF: 0 Continued gabapentin 400 mg capsule 400 mg PO TID Qty: 270 RF: 1 celecoxib [Celebrex] 200 mg capsule 200 mg PO BID Qty: 180 RF: 3 amlodipine 5 mg tablet 5 mg PO HS Qty: 90 RF: 3 omeprazole 40 mg capsule,delayed release(DR/EC) 40 mg PO BID Qty: 180 RF: 1 oxybutynin chloride 5 mg tablet 5 mg PO TID Qty: 90 RF: 2 citalopram 40 mg tablet 40 mg PO QAM RF: 0 trazodone 50 mg tablet 50 mg PO HS RF: 0 lisinopril 20 mg tablet 20 mg PO QAM RF: 0 Discontinued hydrocodone-acetaminophen 5-325 mg tablet 1 tab PO Q6H PRN (Reason: pain) Qty: 30 RF: 0 Discharge Orders: Discharge Order (Routine); Ordered 02/08/21 Ordered By: Sanford De La Cruz/Other Patient Handouts: Preventing Falls Moving Safely ... Admission Data Admit Date/Time: 01/28/21 16:12 Attending Provider: Sanford Fleming Admit Provider: Rober Cummings Primary Care Provider: Zeynep Dawn Other Providers: [facility] ; Rober Cummings ; Roberto Quesada ; Damon Bills ; Bisi Puri ; Alexsander Yoon ; Ct Dow Other Interventions: Discharge Summary Assessment (RN) Last Done: 02/08/21 12:45 Coding Level of Care Code D/C DAY MANAGEMENT >30 MINS Diagnoses Intractable low back pain M54.59 Anxiety with depression F41.8 Hypertension I10 Compression fracture of L2 S32.020A Spinal stenosis of 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 neurogenic claudication M48.061 Foraminal stenosis of lumbar region M99.83 Fall W19.XXXA Encounter type: initial encounter
== END 2021-02-08 15:09 | DRG 478 ==
LOC: ED 10:09 → SUATTDRO 16:12 → 3W 16:12 → 3E 02-04 15:44 → 3N 02-06 20:25
DX: N32.81 Overactive bladder; Y92.009 Unspecified place in unspecified non-institutional (private) residence as the place of occurrence of the external cause; F41.8 Other specified anxiety disorders; Z86.718 Personal history of other venous thrombosis and embolism; M46.1 Sacroiliitis, not elsewhere classified; Z88.5 Allergy status to narcotic agent; Z86.12 Personal history of poliomyelitis; Z96.619 Presence of unspecified artificial shoulder joint; Z88.1 Allergy status to other antibiotic agents; S32.020A Wedge compression fracture of second lumbar vertebra, initial encounter for closed fracture; W19.XXXA Unspecified fall, initial encounter; Z96.659 Presence of unspecified artificial knee joint; I10 Essential (primary) hypertension; M80.08XA Age-related osteoporosis with current pathological fracture, vertebra(e), initial encounter for fracture; M48.061 Spinal stenosis, 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 neurogenic claudication

== ENCOUNTER 2023-06-27 06:20 | Observation (INO) ==
--- NOTE | 2023-06-08 11:46 | History & Physical Report ---
Date of Service June 08, 2023 date of surgery: 06/27/23 Procedure: Left Total Knee Arthroplasty Surgeon: Sanford Eubanks, Assessment & Plan (1) Arthritis of knee, left: Plan: Patient presented for preop evaluation prior to upcoming left total knee arthroplasty, Patient is however states her daughter will be coming to stay with her for a few weeks after the surgery. Risk and benefits of the procedure were discussed she wishes to proceed with left total knee arthroplasty. Will place her on aspirin 81 mg twice a day for 1 month postop DVT prophylaxis. Follow-up in the office 2 weeks after surgery or sooner if she had any issues. The risks and benefits have been discussed including, but not limited to, risk of infection, nerve injury, stiffness, loss of motion, failure to improve, etc. Reasonable outcomes and options of treatment were discussed. An explanation of appropriate alternatives to the procedure that may be advantageous were discussed and their risks and benefits, as well as the risks and benefits of not proceeding with treatment. I offered to answer any additional inquiries concerning the treatment involved. All the patient's questions were answered. The patient is agreeable, understanding of the treatment plan and alternatives, and wishes to proceed with the treatment plan. History of Present Illness Chief Complaint: left knee pain Primary Care Provider: Zeynep Dawn MD Patti is an 82-year-old female who presented for preop evaluation prior to upcoming left total knee replacement. She is a longstanding history of left knee pain which gradually worsened and is now affecting her daily activities including walking standing using stairs. She has tried oral anti-inflammatories and Tylenol with no improvement. She is undergone previous injections including corticosteroid and viscosupplementation. At this point time she has failed conservative measures and wishes to proceed with a left total knee replacement Allergies Allergy/AdvReac Type Severity Reaction Status Date / Time Cephalosporins Allergy Mild rash Verified 06/07/23 12:47 codeine Allergy Mild Rash Verified 06/07/23 12:47 erythromycin base Allergy Mild Rash Verified 06/07/23 12:47 nitrofurantoin Allergy Mild rash Verified 06/07/23 12:47 tetracycline Allergy Mild rash Verified 06/07/23 12:47 hydromorphone [From Dilaudid] AdvReac Intermediate mental Verified 06/07/23 12:47 change morphine AdvReac Mild SICK TO Verified 06/07/23 12:47 STOMACH Home Medications Medication Instructions Recorded Confirmed Type cholecalciferol (vitamin D3) 25 1,000 unit PO QAM #30 caps 02/08/21 06/07/23 Rx mcg (1,000 unit) capsule lisinopril 20 mg tablet 20 mg PO QPM 09/15/22 06/07/23 History trazodone 50 mg tablet See Rx Instructions .Route 03/05/23 06/07/23 Rx .COMPLEX #90 tabs citalopram 40 mg tablet See Rx Instructions .Route 04/30/23 06/07/23 Rx .COMPLEX #90 tabs gabapentin 600 mg tablet See Rx Instructions .Route 04/30/23 06/07/23 Rx .COMPLEX #270 tabs celecoxib 200 mg capsule See Rx Instructions .Route 05/07/23 06/07/23 Rx .COMPLEX #180 caps omeprazole 40 mg capsule,delayed See Rx Instructions .Route 05/14/23 06/07/23 Rx release .COMPLEX #180 caps multivitamin 1 tab PO QAM 06/07/23 06/07/23 History Past Med/Surg History Medical History Anxiety Arthritis 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 Liver lesion, left lobe to have MRI done 06/07/23 @ [place] Torn rotator cuff left; steroid injection Q 3 mos, last one 04/2023 w/ Dr Laws Meningioma determined by biopsy of brain s/p craniotomy and meningioma resection 08/03/22 (frontal lobe resection); stable meningioma long the left anteroinferior interhemispheric falx/roxana reji per most recent brain MRI 08/12/22 History of DVT (deep vein thrombosis) LLE (CALF) 40+ YEARS AGO (WAS TAKING CONTROL PILLS) Polio DX A CHILD Spinal stenosis of 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 neurogenic claudication Overactive bladder Insomnia History of vertebral compression fracture Acid reflux Depression Hypertension Surgical History History of partial mastectomy of right breast (09/15/22) Right 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(Right) - Gladys Woods DO S/P craniotomy 07/2022- [facility] History of kyphoplasty L2 and S1 02/01/2021 H/O hand surgery left Family history of reaction to anesthesia SON>SLOW TO WAKE UP History of cataract surgery RT/LEFT History of bilateral tubal ligation History of dilatation and curettage History of breast biopsy left negative > right/ reason for up coming procedure History of carpal tunnel release bilat History of esophagogastroduodenoscopy (EGD) History of tooth extraction History of cardiac cath OVER 14 YEARS AGO/NO STENTS History of colonoscopy History of laminectomy X 2 (LUMBAR REGION) History of right shoulder replacement History of total right knee replacement History of back surgery RIGHT SI JOINT FUSION= 03/09/17= GRADE VIEW 1, MAC 3, ETT 7.0 AT [facility] 2 TOTAL BACK SURGERIES Family History Mother Family history of pancreatic cancer Alcohol abuse Depression Father Family history of Hodgkin's lymphoma Hypertension Grandfather (Paternal) Myocardial infarction Sister Depression Hypertension Grandfather (Maternal) Myocardial infarction Denies family history of Ovarian cancer Prostate cancer Breast cancer Colorectal cancer Social History Smoking Status: Never smoker Second Hand Exposure: Yes (as child); Do You Dip or Chew Tobacco: No; Hx Alcohol Use: Yes (~once at year) Alcohol type: wine Hx Substance Use: No Preferred Language: Gibraltarian Communication Ability: Effective Visual Impairment: No Limitations Hearing Ability: Normal 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 Beliefs That Will Affect Care: None marital status: / Current Living Situation: Alone current occupational status: retired Feels Safe at Home: Yes Childhood Exposure to Second-Hand Smoke: Yes Diet: regular Dental Care, Regularly: No Physical Activity Frequency: Does not Exercise Seatbelt Use: sometimes Sunscreen Use: No Assistive Devices: Cane, Denture - Upper, Denture - Lower, Glasses and Walker Review of Systems Review of Systems: All systems reviewed & are unremarkable except as noted in HPI & below Constitutional: no fever, no chills and no sweats Respiratory: no cough and no dyspnea Cardiovascular: no chest pain, no dyspnea and no orthopnea Gastrointestinal: no abdominal pain, no nausea and no vomiting Musculoskeletal: as per Subjective / HPI Physical Exam Physical Exam: HT: 5ft 1in WT: 80.74kg Constitutional: WD/WN, vitals as above no acute distress Respiratory: normal respiratory effort, lungs clear to auscultation no respiratory distress, no labored breathing and does not use accessory muscles Cardiovascular: RRR, no murmur, no edema Gastrointestinal (Abdomen): normal bowel sounds, soft, nontender, no hepatosplenomegaly Musculoskeletal: Knee: + knee abnormal to inspection (LEFT KNEE), + effusion (+1 effusion), + limited ROM of knee (ROM 0/3/110), + knee ROM with crepitation, + joint line tenderness (medial joint line) and + Celso's sign positive; no deformity, no skin erythema, no ecchymosis, no valgus laxity, no varus laxity, anterior drawer test negative, Carmen's sign negative and pivot shift test negative Results & Data Results & Data Diagnostic Findings Left Knee X-ray: left knee series confirm advanced degenerative changes to the left knee, greatest medial compartments and patellofemoral joint, showing joint space narrowing, osteophyte formation and subchondral sclerosis. no acute bony pathology noted.
--- NOTE | 2023-06-12 09:19 | PAT Medication Instructions ---
Medication Instructions Date of Service June 12, 2023 Home Medications Medication Instructions Recorded cholecalciferol (vitamin D3) 25 1,000 unit PO QAM #30 caps 02/08/ mcg (1,000 unit) capsule trazodone 50 mg tablet See Rx Instructions .Route 03/05/23 .COMPLEX #90 tabs citalopram 40 mg tablet See Rx Instructions .Route 04/30/23 .COMPLEX #90 tabs gabapentin 600 mg tablet See Rx Instructions .Route 04/30/23 .COMPLEX #270 tabs celecoxib 200 mg capsule See Rx Instructions .Route 05/07/23 .COMPLEX #180 caps omeprazole 40 mg capsule,delayed See Rx Instructions .Route 05/14/23 release .COMPLEX #180 caps cholecalciferol (vitamin D3) 25 mcg (1,000 unit) capsule 1,000 unit PO QAM lisinopril 20 mg tablet 20 mg PO QPM trazodone 50 mg tablet See Rx Instructions .Route .COMPLEX citalopram 40 mg tablet See Rx Instructions .Route .COMPLEX gabapentin 600 mg tablet See Rx Instructions .Route .COMPLEX celecoxib 200 mg capsule See Rx Instructions .Route .COMPLEX omeprazole 40 mg capsule,delayed release See Rx Instructions .Route .COMPLEX multivitamin 1 tab PO QAM Continue as directed trazodone 50 mg tablet See Rx Instructions .Route .COMPLEX citalopram 40 mg tablet See Rx Instructions .Route .COMPLEX gabapentin 600 mg tablet See Rx Instructions .Route .COMPLEX omeprazole 40 mg capsule,delayed release See Rx Instructions .Route .COMPLEX ASK your surgeon for instructions celecoxib 200 mg capsule See Rx Instructions .Route .COMPLEX DO NOT take the morning of surgery cholecalciferol (vitamin D3) 25 mcg (1,000 unit) capsule 1,000 unit PO QAM multivitamin 1 tab PO QAM Take evening before surgery lisinopril 20 mg tablet 20 mg PO QPM Other Notes NOTHING TO EAT OR DRINK AFTER MIDNIGHT. If you have any questions please call us at [phone] or [phone] or [phone] or [phone]
--- NOTE | 2023-06-13 10:50 | Anesthesiology Consultation ---
Date of Service June 13, 2023 Assessment & Plan (1) Encounter for pre-operative examination: Chart Review Chart Review: Acceptable Risk for Surgery and Patient seen in Pre Admission Testing - Patient is NOT an OPJ candidate; patient states she is scheduled as 23 hour observation (surgeon's office informed) Per PAT appt on 06/13/23, no recent illness/disease exposures, illness related symptoms, or recent illness/disease positive tests. Will leave to surgeon's discretion if preop Covid testing needed Patient seen by neurosurgery 03/01/23= patient seen for follow up. Patient having issues with back affecting quality of life. Getting headaches similar prior to tumor removal. Had MRI scan done 02/22/23. Denies any other new neurological symptoms. Reviewed MRI. Patient is s/p right craniotomy for small symptomatic small atypical meningioma. No recurrence. Not clear what her current headache syndrome is from. No adjuvant XRT was done. Will observe with new scan in six months. (Headaches improved as of PAT visit 06/13/23) Right Breast Partial Mastectomy with Liyah 09/15/22= Done under [facility] with LMA #4. Teaching & Discussion Pre-Anesthesia Teaching/Discussion Notes: Instructed NPO after midnight before surgery,except medications with 15 cc of water. Medication instructions provided according to the PAT guidelines. History Surgery Operation Date: 06/27/23 10:10 Proposed Procedures p Left Total Knee Arthroplasty - Sanford Eubanks DO Height/Weight Height: 5 ft 1 in Weight: 79.2 kg Allergies Allergy/AdvReac Type Severity Reaction Status Date / Time Cephalosporins Allergy Mild rash Verified 06/07/23 12:47 codeine Allergy Mild Rash Verified 06/07/23 12:47 erythromycin base Allergy Mild Rash Verified 06/07/23 12:47 nitrofurantoin Allergy Mild rash Verified 06/07/23 12:47 tetracycline Allergy Mild rash Verified 06/07/23 12:47 hydromorphone [From Dilaudid] AdvReac Intermediate mental Verified 06/07/23 12:47 change morphine AdvReac Mild SICK TO Verified 06/07/23 12:47 STOMACH Medications Home Medications Medication Instructions Recorded Confirmed Last Taken cholecalciferol (vitamin D3) 25 1,000 unit PO QAM #30 caps 02/08/21 06/07/23 09/14/22 08:00 mcg (1,000 unit) capsule lisinopril 20 mg tablet 20 mg PO QPM 09/15/22 06/07/23 09/14/22 20:00 trazodone 50 mg tablet See Rx Instructions .Route 03/05/23 06/07/23 Unknown .COMPLEX #90 tabs citalopram 40 mg tablet See Rx Instructions .Route 04/30/23 06/07/23 Unknown .COMPLEX #90 tabs gabapentin 600 mg tablet See Rx Instructions .Route 04/30/23 06/07/23 Unknown .COMPLEX #270 tabs celecoxib 200 mg capsule See Rx Instructions .Route 05/07/23 06/07/23 Unknown .COMPLEX #180 caps omeprazole 40 mg capsule,delayed See Rx Instructions .Route 05/14/23 06/07/23 Unknown release .COMPLEX #180 caps multivitamin 1 tab PO QAM 06/07/23 06/07/23 Unknown Past Medical History Medical History (Updated 06/13/23 @ 16:10 by Luz Maria Eller PA-C) Acid reflux Well controlled and stable Anxiety Depression Hiatal hernia History of DVT (deep vein thrombosis) LLE (CALF) 40+ YEARS AGO (WAS TAKING CONTROL PILLS) History of vertebral compression fracture Around - s/p kyphoplasty Hypertension Insomnia 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 Liver lesion, left lobe MRI 06/07/23 showed liver to be unremarkable; probable liver cyst (4mm hyperintense lesion (too small to characterize) Meningioma determined by biopsy of brain Symptomatic small atypical meningioma (s/p craniotomy- 07/2022) Last seen by neuro surgery 02/2023 (stable at that time- no evidence of recurrence of operated tumor) Headache significantly improved Overactive bladder Polio During childhood 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 Spinal stenosis of 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 neurogenic claudication Torn rotator cuff left; steroid injection Q 3 mos, last one 04/2023 w/ Dr Laws Exercise / Class Metabolic Activity III < 4 Walking/Shop/Light housework (no chest pain or SOB with flat surface, short distance ambulation - uses cane/walker ) Past Family History Family History Mother Family history of pancreatic cancer Alcohol abuse Depression Father Family history of Hodgkin's lymphoma Hypertension Grandfather (Paternal) Myocardial infarction Sister Depression Hypertension Grandfather (Maternal) Myocardial infarction Denies family history of Ovarian cancer Prostate cancer Breast cancer Colorectal cancer Past Surgical History Surgical History Family history of reaction to anesthesia SON>SLOW TO WAKE UP H/O hand surgery left History of back surgery RIGHT SI JOINT FUSION= 03/09/17= GRADE VIEW 1, MAC 3, ETT 7.0 AT [facility] 2 TOTAL BACK SURGERIES History of bilateral tubal ligation History of breast biopsy left negative > right/ reason for up coming procedure History of cardiac cath OVER 14 YEARS AGO/NO STENTS History of carpal tunnel release bilat History of cataract surgery RT/LEFT History of colonoscopy History of dilatation and curettage History of esophagogastroduodenoscopy (EGD) History of kyphoplasty L2 and S1 02/01/2021 History of laminectomy X 2 (LUMBAR REGION) History of partial mastectomy of right breast (09/15/22) 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(Right) - Gladys Woods DO History of right shoulder replacement History of tooth extraction History of total right knee replacement S/P craniotomy 07/2022- [facility] Past Anesthesia History No Hx of Anesthesia Complications and No Family Hx of Anesthesia Complications (with exception to son- slow to wake - just groggy - no reintubation or ICU stay ) History of PONV No Hx of PONV and Hx of Motion Sickness Social History Smoking Status: Never smoker Do You Dip or Chew Tobacco: No Hx Alcohol Use: Yes (~once at year) Alcohol type: wine alcohol intake frequency: holidays/special occasions only Hx Substance Use: No substance use type: does not use Review of Systems - Hx of blood transfusion (s/p shoulder transfusion- around 2007) Patient denies chest pain, shortness of breath at rest, cough, wheezing, palpitations. No hx of seizures, stroke, OR, apnea/snoring. Physical Exam VITALS BP 145/79 P 56 TEMP 98.2 SP02 95% RESP 16 Constitutional no acute distress ENMT Mouth: no TMJ clicking Thyromental Distance: > or= 3.5 Finger Breadths (3.5) Mallampati Class: III Full dentures on top and bottom Neck + limited neck extension Respiratory normal respiratory effort; no respiratory distress Auscultation: lungs clear to auscultation bilaterally; no wheezes Cardiovascular Rate/Rhythm: regular rate and regular rhythm Heart Sounds: no murmur Vessels: no carotid bruit Heart sounds mildly diminished throughout Musculoskeletal Spine: + pain with cervical ROM Extremities: extremities normal to inspection Psychiatric Orientation: alert Lab Results Anesthesia Preop Results Results Anesthesia Widget: WBC 5.00 K/ul (4.8-10.8) 06/13/23 Hgb 12.2 g/dl (12.0-16.0) 06/13/23 Hct 40.3 % (37.0-47.0) 06/13/23 Plt 191 K/uL (130-400) 06/13/23 Na 140 mmol/L (136-145) 06/13/23 K 4.9 mmol/L (3.5-5.1) 06/13/23 Cl 104 mmol/L (98-107) 06/13/23 CO2 33 mmol/L (21-32) H 06/13/23 BUN 14 mg/dl (6-23) 06/13/23 Creat 0.66 mg/dl (0.6-1.2) 06/13/23 Glucose Level 89 mg/dl (70-99(Fasting)) 06/13/23 PT 10.9 Seconds (9.0-12.0) 06/13/23 PTT 30 Seconds (21-31) 06/13/23 INR 1.0 (0.9-1.1) 06/13/23 HA1c 5.8 % (4.5-5.6) H 06/13/23 Blood Type A Positive 06/13/23 Antibody Screen NEGATIVE 06/13/23 Testing Electrocardiogram Date: 04/12/23 Findings: + NSR @ (61bpm) Low voltage QRS When compared to EKG from May 26, 2022- questionable change in QRS axis per cardio Stress Test Date: 03/20/23 Type: DSE Resting EF: 69.3% Negative DSE and stress EKG for myocardial ischemia at MPHR 93%. No Dobutamine induced chest pain Baseline ECHO notes normal LV function. Mild MR. Other Testing Brain MRI 02/22/23= No evidence of recurrent or residual meningioma underlying previous right craniotomy with stable small amount of overlying right frontal encephalomalacia. Unchanged size of additional presumed meningioma along the floor of the anterior cranial fossa. No acute intracranial abnormality. Chronic white matter changes and parenchymal volume loss are similar to prior imaging.
[~2023-06-27 06:20] MED LIST changes: -ACETAMINOPHEN 500 MG TAB PO SCH; +BUPIVACAINE 0.5 % 5 MG/1 ML PF 10ML VIAL ONE; -CeleBREX 200 MG CAP PO SCH; -GABAPENTIN 300 MG PO SCH; -LR 15ML/HR IV SCH; +ROPIVACAINE 0.5% 5 MG/ML 30 ML VIAL ONE
--- NOTE | 2023-06-27 07:04 | History & Physical Bridge Note ---
Date of Service June 27, 2023 History & Physical Bridge Note I have examined the patient, reviewed the History & Physical and in the interval since the performance of the History & Physical I have noted the following changes of clinical significance: no changes noted
[2023-06-27] MEDS: CeleBREX 200 MG CAP PO SCH (07:15)
[2023-06-27] MEDS: ACETAMINOPHEN 500 MG TAB PO SCH ×2 (07:15→14:13)
[2023-06-27] MEDS: dexAMETHasone**PF** 10 MG/ML VIAL IV SCH (07:15)
[2023-06-27] MEDS: LR 500ML BOLUS, THEN 15ML/HR IV SCH (07:16)
[2023-06-27] MEDS: LR 60ML/HR IV SCH (07:16)
[2023-06-27] MEDS: GABAPENTIN 300 MG CAP PO SCH (07:16)
[2023-06-27] MEDS: oxyCODONE HCL 10 MG TABCR (OxyCONTIN) PO SCH (07:16)
[2023-06-27] MEDS: METOCLOPRAMIDE HCL 10 MG TABLET PO SCH (07:16)
[2023-06-27] MEDS: FAMOTIDINE 20 MG TAB PO SCH (07:16)
[2023-06-27] MEDS ORDERED: ATROPINE SULFATE 0.1 MG/ML 10ML SYR IV PRN (07:34)
[2023-06-27] MEDS ORDERED: HYDROmorphone INJ 2 MG/ML SYR/VIAL IV PRN (07:34)
[2023-06-27] MEDS ORDERED: fentaNYL citrate PF 100 MCG/2 ML VIAL IV PRN (07:34)
[2023-06-27] MEDS ORDERED: ONDANSETRON INJ 2 MG/ML 2 ML VIAL IV PRN ×2 (07:34→11:40)
[2023-06-27] MEDS ORDERED: ePHEDrine sulfate 50 MG/ML AMP IV PRN (07:34)
[2023-06-27] MEDS ORDERED: PROMETHAZINE HCL 6.25 MG in SODIUM CHLORIDE 0.9% 50 ML IV PRN (07:34)
[2023-06-27] MEDS ORDERED: LIDOCAINE 2% 2 ML VIAL/AMP(20MG/ML) INFIL ONE (07:47)
[2023-06-27] MEDS ORDERED: PROPOFOL IV EMULSION 10 MG/ML 20 ML VIAL IV ONE ×6 (07:47→07:48)
[2023-06-27] MEDS ORDERED: MIDAZOLAM HCL 1 MG/ML 2ML VIAL ONE (07:47)
[2023-06-27] MEDS: TRANEXAMIC ACID 1,000 MG **IV Pre-op IV SCH (08:05)
[2023-06-27] MEDS ORDERED: CLINDAMYCIN/D5W 300 MG/50 ML BAG IV ONE (08:35)
[2023-06-27] MEDS: CLINDA 900 MG **Premixed Bag IV SCH (08:45)
[2023-06-27] MEDS: ceFAZolin 2000MG 2,000 MG/15 ML SYR IV SCH (08:46)
[2023-06-27] MEDS: TRANEXAMIC ACID 1,000 MG **IV Intra-op IV SCH (09:22)
[2023-06-27] MEDS: ROPIV 0.5% 246mg, Ketorolac 30mg, EPINEPHrine 0.5mg in NSS INFIL SCH (09:30)
[2023-06-27] MEDS: ORTHO JOINT ANESTHETIC ONE (09:35)
--- NOTE | 2023-06-27 09:35 | Operative Report ---
Post Operative Report Pre & Post Diagnosis Operation Date: 06/27/23 08:00 Pre-Op Diagnosis: Left Knee Osteoarthritis Post-Op Diagnosis: Left Knee Osteoarthritis I identified the patient and participated in the time-out.: Yes Procedure Operation Date: 06/27/23 08:00 Actual Procedures p Left Total Knee Arthroplasty(Left)Utilizing utilizing [employer] journey 2 patient-matched femur 6 tibia 4 poly 11 patella 29 quoc - Sanford Eubanks DO Surgeon Sanford Eubanks DO Test Director Romel KILPATRICK Estimated Blood Loss 5 Findings Consistent with Post-Op Diagnosis Patient presents with severe end-stage tricompartmental degenerative joint disease varus alignment subchondral sclerosis marginal osteophytes eburnated [id number] subchondral cystic changes with a moderate to large effusion Specimens Bone and cartilage Drains Medium bore Hemovac Anesthesia Type MAC Spinal Regional Complications none Disposition Accompanied Patient To Recovery: No Disposition: Recovery Room Indications Patient presents with severe end-stage tricompartmental DJD eburnated [id number] after failed attempted corticosteroid injection viscosupplementation relative rest activity modification above intraoperative findings were noted Description of Procedure After proper prepping and draping of the left lower extremity anterior midline incision was made over the region of the extensor extensor mechanism after meticulous hemostasis was obtained and maintained in subcutaneous tissues a medial parapatellar incision was made The patella was subluxed lateralward the medial lateral gutter were cleaned from any hypertrophic synovitis and scar tissue of the distal femoral block was placed and the distal femoral osteotomy cut was made subsequently the chamfers anterior and posterior osteotomy cuts were made utilizing the 4-in-1 block the tibia was subsequently subluxed anteriorward medial and ateral meniscal remnants were excised in their entirety remnants of the anterior and posterior cruciate ligaments were excised in their entirety excellent exposure of the proximal tibia was obtained the tibial o steotomy guide was placed on the proximal tibial osteotomy cut was made once again the knee was irrigated with copious amounts of sterile saline solution the patella was subsequently everted lateralward thickened scar tissue around the patella was removed the patella was subsequently cut utilizing a freehand technique and was drilled prepared for final preparation and placement of patella socially flexion-extension gaps were checked and the equal and symmetric trials were placed to the appropriate femoral and tibial trials with poly-spacer being placed for equal flexion and extension gaps and full range of motion including extension to 0 and flexion to 140 the trial components after having been taken to recovery range of motion was subsequently removed meticulous hemostasis was obtained and maintained subsequently a knee block injection of joint cocktail including ropivacaine 0.5% 150 mg. Bupivacaine 0.5% epinephrine 1-200,030 mL's toradol 30 mg dexamethasone 4 mg ketamine 10 mg clonidine 100 micrograms normal saline solution 30 mg was infiltrated into the soft tissues of the posterior knee medial lateral gutters and periosteal synovium special attention was paid to protect neurovascular structures at all times subsequently trial components having been removed the knee was irrigated with sterile saline solution. debris was removed the proximal tibia was subsequently prepared and was made ready for the placement of the tibial component tibial component was also cemented and tamped into position the femoral component was subsequently placed and cemented in the position the patellar component was subsequently cemented in position because hemostasis once again obtained and maintained wound having been thoroughly irrigated with debridement and debridement lavage was performed as well as a medial parapatellar incision closed with #1 Vicryl in interrupted fashion subcutaneous was closed with #2 Vicryl skin was closed with skin clips. PA-C was necessary for prepping and drapping as well as wound closure of deep fascia Sub cutaneous tissue and skin and was necessary for the case. A sterile compressive dressing was placed patient was taken to recovery in stable condition of report dictated by Raimundo I attest to the content of the Intraoperative Record and any orders documented therein. Any exceptions are noted below.Due to the complex nature of the p rocedure, the entire surgery was performed with the operational assistance ofSHONNA Kitchen. The assistant art director, under direct supervision, was involved in the actual performance of all aspects of the surgical procedure including hemostasis, tissue retraction and incision, instrument management, patient positioning, and wound closure. I attest to the content of the Intraoperative Record and any orders documented therein. Any exceptions are noted below.
[2023-06-27] MEDS ORDERED: MEPERIDINE HCL 25 MG/ML CARP/VIAL IV PRN (10:08)
--- NOTE | 2023-06-27 11:09 | Anesthesiology Progress Note ---
Date of Service June 27, 2023 Anesthesia Post Procedure Vital Signs Vital Signs: Temp Pulse Pulse Resp BP Pulse Ox O2 Del Method 06/27/23 11:00 64 19 142/77 H 94 Nasal Cannula 06/27/23 10:50 63 16 138/71 94 Nasal Cannula 06/27/23 10:40 63 15 109/55 L 96 Nasal Cannula 06/27/23 10:30 63 13 131/56 L 93 Nasal Cannula 06/27/23 10:20 61 18 123/78 94 Room Air 06/27/23 10:10 64 19 114/60 99 Oxymask 06/27/23 10:00 36.2 C L 70 13 115/57 L 94 Oxymask 06/27/23 06:52 36.5 C 65 20 165/73 H 95 Room Air O2 Flow Rate 06/27/23 11:00 2 06/27/23 10:50 2 06/27/23 10:40 2 06/27/23 10:30 2 06/27/23 10:20 06/27/23 10:10 14 06/27/23 10:00 14 06/27/23 06:52 Pain Intensity Back: Pain Intensity: 3 Transfer of Care Handoff Completed per policy Notes Mental Status: alert / awake / arousable and participated in evaluation Nausea / Vomiting: adequately controlled Pain: adequately controlled Airway Patency, RR, SpO2: stable & adequate BP & HR: stable & adequate Hydration State: stable & adequate Neuraxial Anesthesia: was administered and sensory block is resolving Anesthetic Complications: no major complications apparent and Pt Satisfied with anesthetic care
--- NOTE | 2023-06-27 11:24 | XRay Report ---
LEFT KNEE 2 VIEWS History: Left total knee arthroplasty. Degenerative arthritis. Postop. FINDINGS: The patient is status post a left total knee arthroplasty. The hardware is intact. No fract ure or dislocation. Skin christina and surgical drains are in place. IMPRESSION: Left total knee arthroplasty. No evidence for hardware complication. ACT 112: Negative or not required by law. Electronically signed by: Radhames Bruno M.D. 06/27/2023 11:22 AM
[2023-06-27] MEDS ORDERED: traMADol HCL 50 MG TABLET PO PRN (11:40)
[2023-06-27] MEDS ORDERED: MAGNESIUM HYDROXIDE SUSP 30 ML UDC PO PRN (11:40)
[2023-06-27] MEDS ORDERED: bisacodyL 10 MG SUPP PR PRN (11:40)
[2023-06-27] MEDS ORDERED: METOCLOPRAMIDE HCL INJ 5 MG/ML 2 ML VIAL IV PRN (11:40)
[2023-06-27] MEDS ORDERED: diphenhydrAMINE Capsule 25 MG CAP PO PRN (11:40)
[2023-06-27] MEDS ORDERED: NALOXONE HCL 0.4 MG/1 ML VIAL/CARP IV PRN (11:40)
[2023-06-27] MEDS: SODIUM CHLORIDE 0.9% 1,000 ML IV SCH (12:21)
[2023-06-27] MEDS: GABAPENTIN 600 MG TAB PO SCH (14:13)
[2023-06-27] MEDS ORDERED: oxyCODONE HCL IR 5 MG TAB (IMMEDIATE RELEASE) PO PRN (14:27)
[2023-06-27] MEDS: oxyCODONE HCL IR 5 MG TAB (IMMEDIATE RELEASE) PO PRN (15:52)
[2023-06-27] MEDS: CLINDAMYCIN/D5W 600 MG/50 ML BAG IV SCH (15:54)
[2023-06-27] MEDS: SENNA 8.6 MG TAB PO SCH (19:47)
[2023-06-27] MEDS: lisinopril 20 MG TAB PO SCH (19:47)
[2023-06-27] MEDS: PANTOprazole 40 MG TAB PO SCH (19:48)
[2023-06-27] MEDS: DOCUSATE SODIUM 100 MG CAP PO SCH (19:49)
[2023-06-27] MEDS: traZODone HCL 50 MG TAB PO PRN (21:08)
[2023-06-28 06:18] LABS: Hematocrit (blood only) 31.7 % (37.0-47.0); Hemoglobin 10.2 g/dl (12.0-16.0); Mean Corpuscular Hemoglobin 27.6 pg (25.0-34.0); Mean Corpuscular Hgb Conc 32.2 g/dL (32.0-36.0); Mean Corpuscular Volume 85.9 fL (80.0-100.0); Platelet Count 162 K/uL (130-400); RDW Coefficient of Variation 15.9 % (11.5-14.5); RDW Standard Deviation 49.8 fL (36.4-46.3); Red Blood Count 3.69 M/uL (4.20-5.40); White Blood Count 8.86 K/ul (4.8-10.8)
--- NOTE | 2023-06-28 06:51 | Orthopedic Progress Note ---
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 will start her on ASA for dvt proph CM consult for poss rehab placement Admission and Anticipated Discharge Date Admission Date: June 27, 2023 Subjective POD #1 s/p Left TKA Review of Systems Constitutional: no fever, no chills and no sweats Respiratory: no cough and no dyspnea Cardiovascular: no chest pain and no dyspnea Gastrointestinal: no abdominal pain, no nausea and no vomiting Physical Exam Physical Exam: Vital Signs Temp Pulse Pulse Resp BP Pulse Ox O2 Del Method 06/28/23 04:17 36.5 C 61 16 147/71 H 91 Room Air 06/27/23 23:10 36.6 C 57 L 123/63 92 Room Air 06/27/23 19:08 36.7 C 60 16 132/70 92 Room Air 06/27/23 14:43 36.4 C L 72 16 134/67 93 Room Air 06/27/23 13:22 36.6 C 73 14 142/73 H 94 Room Air 06/27/23 11:55 36.4 C L 67 16 147/81 H 95 Nasal Cannula 06/27/23 11:25 36.3 C L 70 14 134/65 92 Nasal Cannula 06/27/23 11:25 Nasal Cannula 06/27/23 11:10 36.3 C L 63 12 125/67 94 Nasal Cannula 06/27/23 11:00 64 19 142/77 H 94 Nasal Cannula 06/27/23 10:50 63 16 138/71 94 Nasal Cannula 06/27/23 10:40 63 15 109/55 L 96 Nasal Cannula 06/27/23 10:30 63 13 131/56 L 93 Nasal Cannula 06/27/23 10:20 61 18 123/78 94 Room Air 06/27/23 10:10 64 19 114/60 99 Oxymask 06/27/23 10:00 36.2 C L 70 13 115/57 L 94 Oxymask 06/27/23 06:52 36.5 C 65 20 165/73 H 95 Room Air O2 Flow Rate 06/28/23 04:17 06/27/23 23:10 06/27/23 19:08 06/27/23 14:43 06/27/23 13:22 06/27/23 11:55 06/27/23 11:25 2 06/27/23 11:25 2 06/27/23 11:10 2 06/27/23 11:00 2 06/27/23 10:50 2 06/27/23 10:40 2 06/27/23 10:30 2 06/27/23 10:20 06/27/23 10:10 14 06/27/23 10:00 14 06/27/23 06:52 Intake and Output 06/27/23 06/27/23 06/28/23 14:59 22:59 06:59 Intake Total 1200 / 2826.667 926.667 / 2826.667 700 / 2826.667 Output Total 85 / 95 10 / 95 Balance 1115 / 2731.667 926.667 / 2731.667 690 / 2731.667 Intake: IV 250 / 1226.667 926.667 / 1226.667 50 / 1226.667 Clindamycin/D5 w 600 mg In 50 ml 50 / 100 50 / 100 @ 100 mls/hr I V Q8H RANJANA Rx#: [id number] Clindamycin/D5 w 900 mg In 50 ml 50 / 50 @ 100 mls/hr I V PREOP RANJANA Rx#: [id number] Lactated Ringe r's 1,000 ml @ 15 0 / 0 mls/hr IV .Q24 H RANJANA Rx#: [id number] Sodium Chlorid e 0.9% 1,000 ml @ 876.667 / 876.667 100 mls/hr IV .Q10H RANJANA Rx#: [id number] Tranexamic Aci d / 0.7% NaCl 1, 200 / 200 000 mg In 100 ml @ 600 mls/hr IV TODAY@0600 RANJANA Rx#:[id number] IV Perioperative 950 / 950 Oral 650 / 650 Output: Estimated Blood Loss 5 / 5 Drain Output 80 / 90 10 / 90 Left Knee Hemo vac 80 / 90 10 / 90 Other: # Unmeasured Voi ds 1 1 Weight 80 kg Patient Weight 06/28/23 06:59 Weight 80 kg Musculoskeletal: Left Leg: NVDI, calf SNT, negative armen sign. DP palpable, + foot drop, 5/5 plantar flexion Results & Data Vital Signs (Past 12 Hours) Vital Signs Temp Pulse Resp BP Pulse Ox O2 Del Method 06/28/23 04:17 36.5 C 61 16 147/71 H 91 Room Air 06/27/23 23:10 36.6 C 57 L 123/63 92 Room Air 06/27/23 19:08 36.7 C 60 16 132/70 92 Room Air
[2023-06-28 07:17] LABS: BUN Creatinine Ratio 27.3 (10-20); Calcium 8.3 mg/dl (8.6-10.3); Creatinine Clr Calc Pharmacy 65.1 ml/min; Est GFR (African American) 96.7 ml/min; Est GFR (Non-African American) 83.4 ml/min; Potassium 4.2 mmol/L (3.5-5.1)
[2023-06-28] MEDS: MULTIVITAMIN TAB PO SCH (08:58)
[2023-06-28] MEDS: CITALOPRAM 40 MG TAB PO SCH (08:58)
[2023-06-28] MEDS: CHOLECALCIFEROL 25 MCG (1000 UNITS) TAB PO SCH (08:58)
[2023-06-28] MEDS ORDERED: RIVAROXABAN 10 MG TABLET PO SCH (09:00)
[2023-06-28] MEDS: ASPIRIN 81 MG ECTAB PO SCH (12:20)
--- NOTE | 2023-06-30 13:23 | Discharge Summary ---
Date of Service date of discharge: June 28, 2023 date of admission: 06/27/23 Admission HPI Per Admitting Provider Patti is an 82-year-old female who presented for preop evaluation prior to upcoming left total knee replacement. She is a longstanding history of left knee pain which gradually worsened and is now affecting her daily activities including walking standing using stairs. She has tried oral anti-inflammatories and Tylenol with no improvement. She is undergone previous injections including corticosteroid and viscosupplementation. At this point time she has failed conservative measures and wishes to proceed with a left total knee replacement Principal Diagnosis left total knee replacement Discharge Exam Musculoskeletal Left Knee: NVDI, calf SNT, negative armen sign. DP palpable, able to wiggle toes/ankle movement without difficulty. JOSE dressing clean dry and intact. expected post-operative bruising noted. Discharge Data Allergies Allergy/AdvReac Type Severity Reaction Status Date / Time Cephalosporins Allergy Mild rash Verified 06/27/23 06:48 codeine Allergy Mild Rash Verified 06/27/23 06:48 erythromycin base Allergy Mild Rash Verified 06/27/23 06:48 nitrofurantoin Allergy Mild rash Verified 06/27/23 06:48 tetracycline Allergy Mild rash Verified 06/27/23 06:48 tramadol Allergy Mild Itching Verified 06/27/23 14:32 hydromorphone [From Dilaudid] AdvReac Intermediate mental Verified 06/27/23 06:48 change morphine AdvReac Mild SICK TO Verified 06/27/23 06:48 STOMACH Procedures Performed Operation Date: 06/27/23 08:00 Actual Procedures p Left Total Knee Arthroplasty(Left) - Sanford Redmond DO Ordered Studies 06/27/23 05:00 US - OR guided needle placemen Routine Hospital Course (1) History of total left knee replacement: POD #1 s/p Left TKA pt/ot dvt proph with JANE/SCD/ASA, 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 will start her on ASA for dvt proph CM consult for poss rehab placement Total Time Total Time Spent Total Time Spent (In Minutes): 20 Discharge Plan Discharge Items Patient Disposition: Transfer Inpatient Rehab Fac Reason For Visit: Left Knee Osteoarthritis Discharge Diagnosis: LEFT TOTAL KNEE REPLACEMENT Activity: Per Instructions section Weightbearing Comment: WBAT WITH WALKER Non-emergency contact: Surgeon Call non-emergency contact if: you have any medication questions, your temperature is above 101, your wound has increased redness, your wound has increased drainage and your wound pain has increased Follow-up/Referrals: Zeynep Dawn MD [Primary Care Provider] - Diet: Regular Addtl Attending Provider Instructions: ACTIVITY RECOMMENDATIONS: SELF CARE INSTRUCTIONS AFTER TOTAL KNEE REPLACEMENT A. You may need to continue a physical therapy program after discharge from the hospital. There are several options available to you. Your doctor will assist you in selecting the best one for you. 1. An out-patient facility 2 to 3 times a week for therapy or home therapy. 2. Continue working on all exercises taught to you in the hospital. Your goals should be to increase bending of your knee to 90 degrees and beyond and to fully straighten your knee. B. You may progress at your own pace from walking with a walker or crutches to a cane; then to no assistive devices. C. Make walking a part of your daily routine. Be up as much as comfortable with rest periods throughout the day. Rest with leg elevation is very important. Use the ice wrap frequently for the first 3-4 weeks. D. There are no restrictions on activities. You may ride in a car, shop, participate in shank skinner and all social activities. E. Wear the long elastic stockings (JANE hose) 20 hours a day for 2 weeks after surgery. They can be removed several times a day for laundering and for a bath. F. You may shower, no tub baths until cleared by your doctor. SPECIAL CARE INSTRUCTIONS: VERY IMPORTANT TO READ AND REVIEW A. There are a few signs you need to watch for after you are home. Call [facility] if you notice any of the followin. Increased severe knee pain. Some pain is expected especially when you exercise. 2. Increased swelling in your leg or knee; pain or swelling of the calf muscle in either lower leg. 3. Any fluid drainage from the incision. 4. Shortness of breath or chest pain. B. Please call [facility] at if you have any concerns or questions about your operation or recovery. The doctor or his nurse will return your call promptly. C. You must take antibiotics before dental work, bladder, bowel or other surgery. Your doctor will provide you with a permanent care to carry describing this precaution. IMPORTANT: * REMEMBER TO TAKE ASPIRIN, 81 MG, TWICE DAILY FOR 4 WEEKS UNLESS OTHERWISE DIRECTED. THIS IS YOUR BLOOD THINNER. * HIGH RISK PATIENTS MAY BE PRESCRIBED A STRONGER BLOOD THINNER. THIS WILL BE PROVIDED AT DISCHARGE. * CALL IF INCREASED PAIN, REDNESS, DRAINAGE OR FEVER GREATER THAT 101. * WEAR JANE HOSE 20 HOURS PER DAY FOR 2 WEEKS. JOSE Dressing- This is a large suction dressing covering your incision. This will help pull any excess drainage from the wound and allow your incision to heal properly. You may shower with this if you can keep the unit outside of the shower. If any bleeding or leakage is noted please call your doctor's office. This will remain on your incision for 7 days and then should be removed. This can be done yourself or by the home nursing staff if applicable. The entire unit is disposable once removed. Once removed, keep incision clean and dry. If redness or drainage is noted, please call your surgeon. FOLLOW UP VISIT: If appointment is not already scheduled: Please call [facility] to make a follow-up appointment for 2 weeks after your surgery at . Pending Studies at Discharge: No Stand-Alone Forms: My [facility] Skilled Items Patient informed of condition?: Yes DNR: No Discharge Level of Care: Acute rehab Communicable Disease: No Discharge Prognosis: Stable Lines: None Urinary Catheter: No Medications and DC Order Prescriptions: New aspirin 81 mg Tablet,Delayed Release (Dr/Ec) 81 mg PO BID 30 Days Qty: 60 0RF acetaminophen 500 mg tablet 1,000 mg PO Q8 21 Days Qty: 126 0RF clindamycin HCl 300 mg capsule 300 mg PO TID 7 Days Qty: 21 0RF oxycodone 5 mg tablet 5 - 10 mg PO Q6H PRN (Reason: pain) Qty: 30 0RF Rx Instructions: ongoing therapy, supervising dr micky redmond. max 6 tabs in 24 hours Continued trazodone 50 mg tablet See Rx Instructions .ROUTE .COMPLEX Qty: 90 1RF Dose Instruction: TAKE 1 TABLET AT BEDTIME NEEDED FOR INSOMNIA Rx Instructions: TAKE 1 TABLET AT BEDTIME NEEDED FOR INSOMNIA- pt stated takes one every evening gabapentin 600 mg tablet See Rx Instructions .ROUTE .COMPLEX Qty: 270 3RF Dose Instruction: TAKE 1 TABLET THREE TIMES DAILY Rx Instructions: TAKE 1 TABLET THREE TIMES DAILY citalopram 40 mg tablet See Rx Instructions .ROUTE .COMPLEX Qty: 90 3RF Dose Instruction: TAKE 1 TABLET EVERY MORNING Rx Instructions: TAKE 1 TABLET EVERY MORNING celecoxib 200 mg capsule See Rx Instructions .ROUTE .COMPLEX Qty: 180 3RF Dose Instruction: TAKE 1 CAPSULE TWICE DAILY Rx Instructions: TAKE 1 CAPSULE TWICE DAILY omeprazole 40 mg capsule,delayed release(DR/EC) See Rx Instructions .ROUTE .COMPLEX Qty: 180 1RF Dose Instruction: TAKE 1 CAPSULE TWICE DAILY Rx Instructions: TAKE 1 CAPSULE TWICE DAILY cholecalciferol (vitamin D3) 25 mcg (1,000 unit) Capsule 1,000 unit PO QAM Qty: 30 0RF lisinopril 20 mg tablet 20 mg PO QPM Patient Comments: QHS multivitamin Tablet 1 tab PO QAM Discharge Orders: Discharge Order (Routine); Ordered 06/28/23 Ordered By: Romel De La Cruz/Other Patient Handouts: Oxycodone Oral Tablet, Knee Replacement Total Dc Admission Data Admit Date/Time: 06/27/23 10:04 Attending Provider: Sanford Redmond Admit Provider: Sanford Redmond Primary Care Provider: Zeynep Dawn Other Providers: [facility] Other Interventions: Discharge Summary Assessment (RN) Last Done: 06/28/23 12:27
== END 2023-06-28 14:46 ==
LOC: 3E 06:20 → ASU 06:20

== ENCOUNTER 2023-07-25 16:08 | Inpatient (IN) ==
--- NOTE | 2023-07-25 16:43 | Emergency Department Note ---
Impression & Plan Postoperative infection of knee ADMIT ED Provider Note HPI: History obtained from patient and daughter at bedside The patient is a 82-year-old female who presents the emergency department with her daughter at the bedside over concern for left knee pain. Patient had knee replacement surgery done with Dr. Eubanks of orthopedics on 06/26. She was subsequently seen in the emergency department by myself on 07/17 and diagnosed with serosanguineous drainage from the proximal aspect of her left knee surgical wound. Patient states that she did contact the orthopedic office, and per patient she was told that they did not need to see her for wound evaluation as this type of drainage was normal postoperatively. Patient states she had been doing fine at home up until 2 days ago when she got up and bumped her knee against a kitchen table. According to her daughter there was some bloody drainage at that time that did not appear serosanguineous. Patient had some pain in her knee since then and then today had some redness around her wound and some yellow-tinged drainage from the proximal aspect of the wound. On arrival here to the ED, the patient is hemodynamically stable. She is afebrile on arrival. Patient states that she has pain in her left knee to the point where she cannot ambulate on it today. ROS: - Per HPI Differential Diagnosis: Septic arthritis/infected prosthesis, superficial wound cellulitis, abscess, seroma, DVT, amongst other potential pathologies. *Outpatient medications and allergy history reviewed. PE: General: Alert HEENT: Normocephalic, trachea midline Eyes: Extraocular eye movement is intact, no scleral erythema Pulmonary: Clear to auscultation bilaterally, no wheezing Cardio: Regular rate and rhythm GI: Abdomen is soft to palpation : No suprapubic tenderness MSK: Mild swelling of the left knee with overlying surgical wound with surrounding erythema and proximal dehiscence of the wound with some overlying crusting without active drainage from the wound, range of motion is limited secondary to pain Skin: No evidence of rash Neuro: Alert, no focal deficits Psychiatric: Cooperative INDEPENDENT INTERPRETATIONS: An order was placed for continuous cardiac monitoring: -Per my interpretation patient was noted to be in sinus rhythm with a rate of 90 Interventions provided in ED: -IV morphine, IV Zofran, IV ceftriaxone, IV vancomycin Medical Decision Making: IV was established and lab work obtained, patient was placed on assistant district attorney. Lab work shows no leukocytosis, hemoglobin is stable at 10.1, platelet count is normal, CMP does not show any critical findings. X-ray imaging of the prosthesis does not show any evidence of fracture or dislocation, joint effusion is noted by the interpreting radiologist. Ultrasound imaging does not show any evidence of DVT. Nonspecific fluid collection is noted consistent with either Dickinson's cyst or postsurgical seroma/hematoma. Stability cannot be assessed by ultrasound imaging per the interpreting radiologist. I discussed the patient's presentation with on-call orthopedics, Dr. Cotton, who did evaluate the patient at the bedside. Aspiration of the joint was performed by Dr. Cotton, recommendation was made for initiation of IV antibiotics and admission. Patient was in agreement to this plan as were her 2 daughters at the bedside. Patient was started on IV vancomycin and IV ceftriaxone. Case was discussed with the on-call hospitalist, Dr. Baires, and the patient was placed for admission in stable condition for further care. Consultants/Discussions held with other healthcare providers: -Orthopedics, Dr. Cotton -Hospitalist, Dr. Baires Disposition discussion held by myself with: -Patient and daughters at bedside Diagnosis: 1. Postoperative wound infection, left knee, acute 2. Wound dehiscence, left knee, subacute 3. 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, estrogen receptor positive (Chronic 08/02/22) Lumbar facet joint syndrome Urge incontinence Carpal tunnel syndrome of right wrist Anxiety with depression Sacral insufficiency fracture Status post kyphoplasty 02/01/2021 Compression fracture of L2 Status post kyphoplasty 02/01/2021 Low back pain (Acute) CMC arthritis Rotator cuff tear, left Impingement syndrome of left shoulder Foraminal stenosis of lumbar region (Chronic) Arthritis (Chronic) 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 Liver lesion, left lobe MRI 06/07/23 showed liver to be unremarkable; probable liver cyst (4mm hyperintense lesion (too small to characterize) History of back surgery RIGHT SI JOINT FUSION= 03/09/17= GR[facility] 1, MAC 3, ETT 7.0 AT [facility] 2 TOTAL BACK SURGERIES 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) Overactive bladder (Chronic) Insomnia (Chronic) Hypertension (Chronic) Depression (Chronic) Acid reflux (Chronic) Well controlled and stable Medical History (Updated 07/25/23 @ 22:38 by Romel Westbrook DO) Arthritis of knee, left Hiatal hernia Anxiety Torn rotator cuff left; steroid injection Q 3 mos, last one 04/2023 w/ Dr Laws Meningioma determined by biopsy of brain Symptomatic small atypical meningioma (s/p craniotomy- 07/2022) Last seen by neuro surgery 02/2023 (stable at that time- no evidence of recurrence of operated tumor) Headache significantly improved History of DVT (deep vein thrombosis) LLE (CALF) 40+ YEARS AGO (WAS TAKING CONTROL PILLS) Polio During childhood 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 History of vertebral compression fracture Around - s/p kyphoplasty Surgical History (Updated 07/08/23 @ 00:08 by Bety Petty) History of partial mastectomy of right breast (09/15/22) Right Breast Partial Mastectomy with [facility] [employer] Helper Localization(Right) - Gladys Woods DO S/P craniotomy 07/2022- STEFANIE Mercer History of kyphoplasty L2 and S1 02/01/2021 H/O hand surgery left Family history of reaction to anesthesia SON>SLOW TO WAKE UP History of cataract surgery RT/LEFT History of bilateral tubal ligation History of dilatation and curettage History of breast biopsy left negative > right/ reason for up coming procedure History of carpal tunnel release bilat History of esophagogastroduodenoscopy (EGD) History of tooth extraction History of cardiac cath OVER 14 YEARS AGO/NO STENTS History of colonoscopy History of laminectomy X 2 (LUMBAR REGION) History of right shoulder replacement History of total right knee replacement Family History Mother Family history of pancreatic cancer Alcohol abuse Depression Father Family history of Hodgkin's lymphoma Hypertension Grandfather (Paternal) Myocardial infarction Sister Depression Hypertension Grandfather (Maternal) Myocardial infarction Denies family history of Ovarian cancer Prostate cancer Breast cancer Colorectal cancer Social History Smoking Status: Never smoker Second Hand Exposure: Yes (as child); Do You Dip or Chew Tobacco: No; Hx Alcohol Use: Yes (~once at year) Alcohol type: wine Hx Substance Use: No Preferred Language: [place] Communication Ability: Effective Visual Impairment: No Limitations Hearing Ability: Normal Assistant Required: No Beliefs That Will Affect Care: None marital status: / Current Living Situation: Alone current occupational status: retired Feels Safe at Home: Yes Childhood Exposure to Second-Hand Smoke: Yes Diet: regular Dental Care, Regularly: No Physical Activity Frequency: Does not Exercise Seatbelt Use: sometimes Sunscreen Use: No Assistive Devices: Walker Allergies Allergies Allergy/AdvReac Type Severity Reaction Status Date / Time Cephalosporins Allergy Mild rash Verified 07/18/23 23:46 codeine Allergy Mild Rash Verified 07/18/23 23:46 erythromycin base Allergy Mild Rash Verified 07/18/23 23:46 nitrofurantoin Allergy Mild rash Verified 07/18/23 23:46 tetracycline Allergy Mild rash Verified 07/18/23 23:46 tramadol Allergy Mild Itching Verified 07/18/23 23:46 hydromorphone [From Dilaudid] AdvReac Intermediate mental Verified 07/18/23 23:46 change morphine AdvReac Mild SICK TO Verified 07/18/23 23:46 STOMACH Home Meds Home Medications Medication Instructions Recorded Confirmed lisinopril 20 mg tablet 20 mg PO QPM 09/15/22 07/25/23 multivitamin 1 tab PO QAM 06/07/23 07/25/23 celecoxib 200 mg capsule 200 mg PO BID 07/18/23 07/25/23 citalopram 40 mg tablet 40 mg PO QAM 07/18/23 07/25/23 gabapentin 600 mg tablet 600 mg PO TID 07/18/23 07/25/23 omeprazole 40 mg capsule,delayed 40 mg PO BID 07/18/23 07/25/23 release trazodone 50 mg tablet 50 mg PO HS PRN Insomnia 07/18/23 07/25/23 Previous Rx's Medication Instructions Recorded cholecalciferol (vitamin D3) 25 1,000 unit PO QAM #30 caps 02/08/21 mcg (1,000 unit) capsule oxycodone 5 mg tablet 5 - 10 mg (1 - 2 x 5 mg) PO Q6H 06/28/23 PRN pain #30 tabs fesoterodine 4 mg tablet,extended 4 mg PO DAILY #90 tabs 07/24/23 release 24 hr ([place]) Results & Data (ED) Vital Signs Vital Signs - 24 hr 07/25/23 16:15 07/25/23 16:19 07/25/23 16:23 Temperature 36.5 C Temperature Source Temporal Artery Scan Pulse Rate 82 Pulse Rate [Apical] Respiratory Rate 17 Blood Pressure 119/47 L Blood Pressure [Left Arm] Blood Pressure Mean 71 Blood Pressure Mean [Left Arm] Pulse Oximetry 88 L 94 Oxygen Delivery Method Room Air Nasal Cannula Oxygen Flow Rate 2 Sepsis Recent Fever Within 48 Hours No Sepsis New/Unexplained Change in Mental Status N/A Sepsis Action Taken by Nursing No Action Required 07/25/23 16:52 07/25/23 17:19 07/25/23 18:33 Temperature Temperature Source Pulse Rate 83 Pulse Rate [Apical] 80 Respiratory Rate 17 Blood Pressure Blood Pressure [Left Arm] 114/98 Blood Pressure Mean Blood Pressure Mean [Left Arm] 103 Pulse Oximetry 95 99 Oxygen Delivery Method Nasal Cannula Nasal Cannula Oxygen Flow Rate 2 2 Sepsis Recent Fever Within 48 Hours Sepsis New/Unexplained Change in Mental Status Sepsis Action Taken by Nursing Laboratory Data 07/25/23 16:53 07/25/23 16:53 Lab Results 07/25/23 07/25/23 Range/Units 16:53 17:49 WBC 6.30 (4.8-10.8) K/ul RBC 3.74 L (4.20-5.40) M/uL Hgb 10.1 L (12.0-16.0) g/dl Hct 32.7 L (37.0-47.0) % MCV 87.4 (80.0-100.0) fL MCH 27.0 (25.0-34.0) pg MCHC 30.9 L (32.0-36.0) g/dL RDW Std Deviation 50.8 H (36.4-46.3) fL RDW Coeff of [place] 15.9 H (11.5-14.5) % Plt Count 195 (130-400) K/uL MPV 9.6 (9.4-12.4) fL Immature Gran % (Auto) 0.5 % Neut % (Auto) 71.7 % Lymph % (Auto) 12.9 % Colbert % (Auto) 13.3 % Eos % (Auto) 1.3 % Baso % (Auto) 0.3 % Neut # (Auto) 4.52 (1.40-6.50) K/uL Lymph # (Auto) 0.81 L (1.20-3.40) K/uL Colbert # (Auto) 0.84 H (0.11-0.59) K/uL Eos # (Auto) 0.08 (0.00-0.50) K/uL Baso # (Auto) 0.02 (0.00-0.20) K/uL Immature Gran # (Auto) 0.03 (0.01-0.20) K/uL ESR 29 (0-30) mm/hr Sodium 136 (136-145) mmol/L Potassium 4.1 (3.5-5.1) mmol/L Chloride 103 (98-107) mmol/L Carbon Dioxide 29 (21-32) mmol/L Anion Gap 4 (3-11) BUN 14 (6-23) mg/dl Creatinine 0.57 L (0.6-1.2) mg/dl Est Cr Clr Drug Dosing 84.0 ml/min Est GFR ( Amer) 101.5 ml/min Est GFR (Non-Af Amer) 87.6 ml/min BUN/Creatinine Ratio 24.6 H (10-20) Glucose 102 H (70-99(Fasting)) mg/dl Calcium 8.8 (8.6-10.3) mg/dl Total Bilirubin 0.6 (0.2-1.0) mg/dl AST 18 (13-39) U/L ALT 10 (7-52) U/L Alkaline Phosphatase 58 (34-104) U/L C-Reactive Protein 6.33 H (0-0.5) mg/dl Total Protein 6.2 (6.0-8.3) gm/dl Albumin 3.6 (3.4-5.0) gm/dl Globulin 2.6 (2.5-4.0) gm/dl Albumin/Globulin Ratio 1.4 (0.9-2) Fluid Comment Synovial Source Knee Synovial Color Katarzyna Synovial Appearance Cloudy Synovial WBC (Auto) 67561 H (0-200) /ul Synovial RBC (Auto) 21343 /uL Synovial Polynuclear % 94.8 % Synovial Mononuclear % 5.2 % Administered Medications Potassium Chloride/Sodium Chloride (Normal Saline W/20 Meq Kcl) 20 meq in 1,000 mls @ 80 mls/hr IV .[id number] [facility]; Protocol Stop: 07/26/23 21:14 Last Admin: 07/25/23 21:08 Dose: 80 mls/hr Documented By: NAHUN Discontinued Medications Gabapentin (Gabapentin 600 Mg Tab) 600 mg PO NOW STA Stop: 07/25/23 20:10 Last Admin: 07/25/23 21:08 Dose: 600 mg Documented By: NAHUN Cefepime HCl 1,000 mg/ Syringe 10 mls @ 5 mls/min IV NOW STA; Protocol Stop: 07/25/23 16:51 Last Admin: 07/25/23 17:13 Dose: Not Given Documented By: NJ Ceftriaxone Sodium (Rocephin) 2,000 mg in 50 mls @ 100 mls/hr IV NOW STA Stop: 07/25/23 18:54 Last Infusion: 07/25/23 19:04 Dose: Infused Documented By: Admin: 07/25/23 18:33 Dose: 100 mls/hr Documented By: NJ Vancomycin HCl 1,500 mg/ (Sodium Chloride) 530 mls @ 200 mls/hr IV NOW ONE Stop: 07/25/23 21:03 Last Infusion: 07/25/23 22:02 Dose: Infused Documented By: Admin: 07/25/23 19:14 Dose: 200 mls/hr Documented By: NAHUN Pantoprazole Sodium 40 mg/ (Syringe) 10 mls @ 5 mls/min IV NOW ONE Stop: 07/25/23 20:28 Last Admin: 07/25/23 21:08 Dose: 5 mls/min Documented By: NAHUN Morphine Sulfate (Morphine Sulfate 4 Mg/Ml 1 Ml Carp\Vial) 4 mg IV NOW STA Stop: 07/25/23 16:42 Last Admin: 07/25/23 17:05 Dose: 4 mg Documented By: NJ Morphine Sulfate (Morphine Sulfate 4 Mg/Ml 1 Ml Carp\Vial) 4 mg IV NOW STA Stop: 07/25/23 20:02 Last Admin: 07/25/23 20:06 Dose: 4 mg Documented By: NAHUN Ondansetron HCl (Ondansetron Inj 2 Mg/Ml 2 Ml Vial) 4 mg IV NOW STA Stop: 07/25/23 16:42 Last Admin: 07/25/23 17:05 Dose: 4 mg Documented By: NJ Imaging Data Radiologist's Impression: Knee X-Ray 07/25/23 16:41 LEFT KNEE 3 VIEWS CLINICAL HISTORY: Left knee pain. Infection. FINDINGS: AP, lateral, and sunrise views of the left knee are compared to study dated 06/27/2023. The skeletal structures are osteopenic. No fracture is seen. A left knee arthroplasty is in near anatomic alignment. There has been undersurface remodeling of the patella. There is a joint effusion. Soft tissue edema is seen around the knee. Atherosclerotic calcification is noted in the popliteal artery. IMPRESSION: 1. Soft tissue swelling and joint effusion with no acute bony abnormality identified. 2. A left knee arthroplasty is in near anatomic alignment. Electronically signed by: Joe Lowe M.D. 07/25/2023 6:21 PM Venous Doppler Study 07/25/23 16:44 ULTRASOUND LEFT LOWER EXTREMITY VENOUS CLINICAL HISTORY: Left leg swelling. Recent surgery. COMPARISON STUDY: No priors. TECHNIQUE: Real-time, grayscale, and color Doppler sonography of the deep veins of the left lower extremity was performed from the inguinal crease to the calf. Compression and augmentation were utilized. FINDINGS: There is no sonographic evidence of deep venous thrombosis identified in the left lower extremity. The common femoral, superficial femoral, and popliteal veins are patent and normally compressible. The greater saphenous vein and the profunda femoris vein at the junction with the common femoral vein are clear. The visualized calf veins are patent. A complex nonvascular fluid collection in the popliteal fossa measures up to 6.7 cm. IMPRESSION: 1. There is no sonographic evidence of deep venous thrombosis identified in the left lower extremity. 2. A complex nonvascular fluid collection within the medial popliteal fossa measures up to 6.7 cm. This could represent a Dickinson's cyst or postsurgical seroma/hematoma. The sterility of this fluid cannot be assessed by imaging and clinical correlation will be required. ACT 112: Negative or not required by law. Electronically signed by: Joe Lowe M.D. 07/25/2023 6:34 PM Discharge Plan Visit Data Chief Complaint: Knee Injury/Pain ED Provider: Romel Westbrook Discharge Problem: Postoperative infection of knee Discharge Instructions Interventions: ED Discharge Assessment Last Done: 07/25/23 22:41
[2023-07-25] MEDS: MoRPHine SULFATE 4 MG/ML 1 ML CARP\\VIAL IV STA ×2 (17:05→20:06)
[2023-07-25] MEDS: ONDANSETRON INJ 2 MG/ML 2 ML VIAL IV STA (17:05)
[2023-07-25] MEDS: CEFEPIME 1,000 MG in SYRINGE 0 ML IV STA (17:13)
[2023-07-25 17:21] LABS: Basophils # (auto) 0.02 K/uL (0.00-0.20); Basophils % (auto) 0.3 %; Eosinophils # (auto) 0.08 K/uL (0.00-0.50); Eosinophils % (auto) 1.3 %; Hematocrit (blood only) 32.7 % (37.0-47.0); Hemoglobin 10.1 g/dl (12.0-16.0); Immature Granulocytes # (auto) 0.03 K/uL (0.01-0.20); Immature Granulocytes % (auto) 0.5 %; Lymphocytes # (auto) 0.81 K/uL (1.20-3.40); Lymphocytes % (auto) 12.9 %; Mean Corpuscular Hgb Conc 30.9 g/dL (32.0-36.0); Mean Corpuscular Volume 87.4 fL (80.0-100.0); Mean Platelet Volume 9.6 fL (9.4-12.4); Monocytes # (auto) 0.84 K/uL (0.11-0.59); Monocytes % (auto) 13.3 %; Neutrophils # (auto) 4.52 K/uL (1.40-6.50); Neutrophils % (auto) 71.7 %; Platelet Count 195 K/uL (130-400); RDW Coefficient of Variation 15.9 % (11.5-14.5); RDW Standard Deviation 50.8 fL (36.4-46.3); Red Blood Count 3.74 M/uL (4.20-5.40)
[2023-07-25 17:36] LABS: Albumin Globulin Ratio 1.4 (0.9-2); Albumin Level 3.6 gm/dl (3.4-5.0); BUN Creatinine Ratio 24.6 (10-20); Bilirubin,Total 0.6 mg/dl (0.2-1.0); Calcium 8.8 mg/dl (8.6-10.3); Est GFR (African American) 101.5 ml/min; Est GFR (Non-African American) 87.6 ml/min; Globulin 2.6 gm/dl (2.5-4.0); Potassium 4.1 mmol/L (3.5-5.1); Total Protein 6.2 gm/dl (6.0-8.3)
[2023-07-25 18:24] LABS: C Reactive Protein 6.33 mg/dl (0-0.5)
--- NOTE | 2023-07-25 18:24 | XRay Report ---
LEFT KNEE 3 VIEWS CLINICAL HISTORY: Left knee pain. Infection. FINDINGS: AP, lateral, and sunrise views of the left knee are compared to study dated 06/27/2023. The s keletal structures are osteopenic. No fracture is seen. A left knee arthroplasty is in near anatomic alignment. There has been undersurface remodeling of the patella. There is a joint effusion. Soft tis emile edema is seen around the knee. Atherosclerotic calcification is noted in the popliteal artery. IMPRESSION: 1. Soft tissue swelling and joint effusion with no acute bony abnormality identified. 2. A left knee arthroplasty is in near anatomic alignment. Electronically signed by: Joe Lowe M.D. 07/25/2023 6:21 PM
[2023-07-25] MEDS ORDERED: VANCOMYCIN CONSULT ACTIVE PRN (18:25)
[2023-07-25] MEDS: cefTRIAXone SODIUM 2,000 MG/50 ML BAG IV STA (18:33)
--- NOTE | 2023-07-25 18:35 | Ultrasound Report ---
ULTRASOUND LEFT LOWER EXTREMITY VENOUS CLINICAL HISTORY: Left leg swelling. Recent surgery. COMPARISON STUDY: No priors. TECHNIQUE: Real-time, grayscale, and color Doppler sonography of the deep veins of the left lower ext remity was performed from the inguinal crease to the calf. Compression and augmentation were utilized . FINDINGS: There is no sonographic evidence of deep venous thrombosis identified in the left lower ext remity. The common femoral, superficial femoral, and popliteal veins are patent and normally compress ible. The greater saphenous vein and the profunda femoris vein at the junction with the common femora l vein are clear. The visualized calf veins are patent. A complex nonvascular fluid collection in the popliteal fossa measures up to 6.7 cm. IMPRESSION: 1. There is no sonographic evidence of deep venous thrombosis identified in the left lower extremity. 2. A complex nonvascular fluid collection within the medial popliteal fossa measures up to 6.7 cm. Th is could represent a Dickinson's cyst or postsurgical seroma/hematoma. The sterility of this fluid cannot be assessed by imaging and clinical correlation will be required. ACT 112: Negative or not required by law. Electronically signed by: Joe Lowe M.D. 07/25/2023 6:34 PM
[2023-07-25] MEDS: VANCOMYCIN HCL 1,500 MG in SODIUM CHLORIDE 0.9% 500 ML IV ONE (19:14)
--- NOTE | 2023-07-25 19:21 | Orthopedic Consultation ---
Date of Consultation July 25, 2023 Assessment & Plan (1) History of total left knee replacement: Findings discussed with patient and daughters. Recommend aspiration of the knee joint to evaluate for the possibility of deep infection. Also a culture superficially. She should be admitted to the hospital and placed on intravenous antibiotics. She was on Bactrim until about a week ago. She has not been started on any IV antibiotics here. N.p.o. after midnight. Will inform Dr. Eubanks and hopefully he can assume her care tomorrow. With patient's permission I prepped the lateral knee with alcohol and ChloraPrep away from any erythema and marked the area with my initials and in the presence of the nurse and after doing a verbal timeout I aspirated 10 cc of serosanguineous fluid from the knee joint. I could feel the metal with the needle. This was sent for periprosthetic culture and a cell count differential. I then in a likewise fashion prepped the open area of the proximal incision and inserted a culture swab and sent this for routine C&S. The intra-articular fluid is labeled #1. The wound culture was labeled #2. Upon entering the wound approximately 15 cc of serosanguineous fluid was spontaneously expressed. Treatment options risks benefits reviewed. (2) Wound cellulitis after surgery: History of Present Illness History of Present Illness Patti is [address] Eubanks did a left total knee replacement on her June 26. She reported some problems with her wound and came to the ER July 17. She was felt to have a seroma and was to return to see her surgeon. She has had some intermittent drainage over the past week. In the last day or 2 she has noted some chills. No fever. Increased left knee pain with difficulty bending and increased pain and redness and swelling. Allergies Allergy/AdvReac Type Severity Reaction Status Date / Time Cephalosporins Allergy Mild rash Verified 07/18/23 23:46 codeine Allergy Mild Rash Verified 07/18/23 23:46 erythromycin base Allergy Mild Rash Verified 07/18/23 23:46 nitrofurantoin Allergy Mild rash Verified 07/18/23 23:46 tetracycline Allergy Mild rash Verified 07/18/23 23:46 tramadol Allergy Mild Itching Verified 07/18/23 23:46 hydromorphone [From Dilaudid] AdvReac Intermediate mental Verified 07/18/23 23:46 change morphine AdvReac Mild SICK TO Verified 07/18/23 23:46 STOMACH Home Medications Medication Instructions Recorded Confirmed Type cholecalciferol (vitamin D3) 25 1,000 unit PO QAM #30 caps 02/08/21 07/25/23 Rx mcg (1,000 unit) capsule lisinopril 20 mg tablet 20 mg PO QPM 09/15/22 07/25/23 History multivitamin 1 tab PO QAM 06/07/23 07/25/23 History oxycodone 5 mg tablet 5 - 10 mg (1 - 2 x 5 mg) PO Q6H 06/28/23 07/25/23 Rx PRN pain #30 tabs celecoxib 200 mg capsule 200 mg PO BID 07/18/23 07/25/23 History citalopram 40 mg tablet 40 mg PO QAM 07/18/23 07/25/23 History gabapentin 600 mg tablet 600 mg PO TID 07/18/23 07/25/23 History omeprazole 40 mg capsule,delayed 40 mg PO BID 07/18/23 07/25/23 History release trazodone 50 mg tablet 50 mg PO HS PRN Insomnia 07/18/23 07/25/23 History fesoterodine 4 mg tablet,extended 4 mg PO DAILY #90 tabs 07/24/23 07/25/23 Rx release 24 hr (Toviaz) Patient History Medical History (Updated 07/25/23 @ 19:20 by Ata Cotton MD) Arthritis of knee, left Hiatal hernia Anxiety Torn rotator cuff left; steroid injection Q 3 mos, last one 04/2023 w/ Dr Laws Meningioma determined by biopsy of brain Symptomatic small atypical meningioma (s/p craniotomy- 07/2022) Last seen by neuro surgery 02/2023 (stable at that time- no evidence of recurrence of operated tumor) Headache significantly improved History of DVT (deep vein thrombosis) LLE (CALF) 40+ YEARS AGO (WAS TAKING CONTROL PILLS) Polio During childhood 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 History of vertebral compression fracture Around - s/p kyphoplasty Surgical History (Updated 07/08/23 @ 00:08 by Bety Petty) History of partial mastectomy of right breast (09/15/22) Right Breast Partial Mastectomy with Liyah Test Specialist Localization(Right) - Gladys Woods DO S/P craniotomy 07/2022- Narinder Sylvie History of kyphoplasty L2 and S1 02/01/2021 H/O hand surgery left Family history of reaction to anesthesia SON>SLOW TO WAKE UP History of cataract surgery RT/LEFT History of bilateral tubal ligation History of dilatation and curettage History of breast biopsy left negative > right/ reason for up coming procedure History of carpal tunnel release bilat History of esophagogastroduodenoscopy (EGD) History of tooth extraction History of cardiac cath OVER 14 YEARS AGO/NO STENTS History of colonoscopy History of laminectomy X 2 (LUMBAR REGION) History of right shoulder replacement History of total right knee replacement Family History Mother Family history of pancreatic cancer Alcohol abuse Depression Father Family history of Hodgkin's lymphoma Hypertension Grandfather (Paternal) Myocardial infarction Sister Depression Hypertension Grandfather (Maternal) Myocardial infarction Denies family history of Ovarian cancer Prostate cancer Breast cancer Colorectal cancer Social History Smoking Status: Never smoker Second Hand Exposure: Yes (as child); Do You Dip or Chew Tobacco: No; Hx Alcohol Use: Yes (~once at year) Alcohol type: wine Hx Substance Use: No Preferred Language: Kyrgyz Communication Ability: Effective Visual Impairment: No Limitations Hearing Ability: Normal Cartography Supervisor Required: No Beliefs That Will Affect Care: None marital status: / Current Living Situation: Alone current occupational status: retired Feels Safe at Home: Yes Childhood Exposure to Second-Hand Smoke: Yes Diet: regular Dental Care, Regularly: No Physical Activity Frequency: Does not Exercise Seatbelt Use: sometimes Sunscreen Use: No Assistive Devices: Walker Physical Exam Physical Exam: Her DP is 1+. She has 5 out of 5 ankle and toe plantarflexion and dorsiflexion strength. She can do an active straight leg raise. Her knee motion is about 0 to 60 degrees and is painful. There is a 1 cm area at the proximal extent of her wound which is marginally open with some fibrinous exudate over top of it. The rest of the incision looks to be healed. There is some erythema down along her incision which extends slightly inferior and lateral to the incision. There is a small amount of fluid within the knee joint itself and possibly some fluid in the area above the patella underneath the skin but outside the knee joint in the region of the open incision. This is open about 2 mm wide by about a centimeter long. There is some active clear serous drainage there but nothing can be expressed. There is tenderness along the incision as well as inferior and lateral where there is some erythema. Her PT pulse is not palpable. She reports intact sensation. Results & Data Vital Signs (Past 12 Hours) Vital Signs Temp Pulse Pulse Resp BP BP Pulse Ox 07/25/23 18:33 80 17 114/98 99 07/25/23 17:19 83 07/25/23 16:52 95 07/25/23 16:23 36.5 C 07/25/23 16:19 94 07/25/23 16:15 82 17 119/47 L 88 L O2 Del Method O2 Flow Rate 07/25/23 18:33 Nasal Cannula 2 07/25/23 17:19 07/25/23 16:52 Nasal Cannula 2 07/25/23 16:23 07/25/23 16:19 Nasal Cannula 2 07/25/23 16:15 Room Air Laboratory Results Laboratory Results WBC 6.30 K/ul (4.8-10.8) 07/25/23 16:53 RBC 3.74 M/uL (4.20-5.40) L 07/25/23 16:53 Hgb 10.1 g/dl (12.0-16.0) L 07/25/23 16:53 Hct 32.7 % (37.0-47.0) L 07/25/23 16:53 MCV 87.4 fL (80.0-100.0) 07/25/23 16:53 MCH 27.0 pg (25.0-34.0) 07/25/23 16:53 MCHC 30.9 g/dL (32.0-36.0) L 07/25/23 16:53 RDW Std Deviation 50.8 fL (36.4-46.3) H 07/25/23 16:53 RDW Coeff of [place] 15.9 % (11.5-14.5) H 07/25/23 16:53 Plt Count 195 K/uL (130-400) 07/25/23 16:53 MPV 9.6 fL (9.4-12.4) 07/25/23 16:53 Immature Gran % (Auto) 0.5 % 07/25/23 16:53 Neut % (Auto) 71.7 % 07/25/23 16:53 Lymph % (Auto) 12.9 % 07/25/23 16:53 [place] % (Auto) 13.3 % 07/25/23 16:53 Eos % (Auto) 1.3 % 07/25/23 16:53 Baso % (Auto) 0.3 % 07/25/23 16:53 Neut # (Auto) 4.52 K/uL (1.40-6.50) 07/25/23 16:53 Lymph # (Auto) 0.81 K/uL (1.20-3.40) L 07/25/23 16:53 [place] # (Auto) 0.84 K/uL (0.11-0.59) H 07/25/23 16:53 Eos # (Auto) 0.08 K/uL (0.00-0.50) 07/25/23 16:53 Baso # (Auto) 0.02 K/uL (0.00-0.20) 07/25/23 16:53 Immature Gran # (Auto) 0.03 K/uL (0.01-0.20) 07/25/23 16:53 ESR 29 mm/hr (0-30) 07/25/23 16:53 Sodium 136 mmol/L (136-145) 07/25/23 16:53 Potassium 4.1 mmol/L (3.5-5.1) 07/25/23 16:53 Chloride 103 mmol/L (98-107) 07/25/23 16:53 Carbon Dioxide 29 mmol/L (21-32) 07/25/23 16:53 Anion Gap 4 (3-11) 07/25/23 16:53 BUN 14 mg/dl (6-23) 07/25/23 16:53 Creatinine 0.57 mg/dl (0.6-1.2) L 07/25/23 16:53 Est Cr Clr Drug Dosing 84.0 ml/min 07/25/23 16:53 Est GFR ( Amer) 101.5 ml/min 07/25/23 16:53 Est GFR (Non-Af Amer) 87.6 ml/min 07/25/23 16:53 BUN/Creatinine Ratio 24.6 (10-20) H 07/25/23 16:53 Glucose 102 mg/dl (70-99(Fasting)) H 07/25/23 16:53 Calcium 8.8 mg/dl (8.6-10.3) 07/25/23 16:53 Total Bilirubin 0.6 mg/dl (0.2-1.0) 07/25/23 16:53 AST 18 U/L (13-39) 07/25/23 16:53 ALT 10 U/L (7-52) 07/25/23 16:53 Alkaline Phosphatase 58 U/L (34-104) 07/25/23 16:53 C-Reactive Protein 6.33 mg/dl (0-0.5) H 07/25/23 16:53 Total Protein 6.2 gm/dl (6.0-8.3) 07/25/23 16:53 Albumin 3.6 gm/dl (3.4-5.0) 07/25/23 16:53 Globulin 2.6 gm/dl (2.5-4.0) 07/25/23 16:53 Albumin/Globulin Ratio 1.4 (0.9-2) 07/25/23 16:53 Fluid Comment 07/25/23 17:49 Impressions Knee X-Ray 07/25/23 16:41 LEFT KNEE 3 VIEWS CLINICAL HISTORY: Left knee pain. Infection. FINDINGS: AP, lateral, and sunrise views of the left knee are compared to study dated 06/27/2023. The skeletal structures are osteopenic. No fracture is seen. A left knee arthroplasty is in near anatomic alignment. There has been undersurface remodeling of the patella. There is a joint effusion. Soft tissue edema is seen around the knee. Atherosclerotic calcification is noted in the popliteal artery. IMPRESSION: 1. Soft tissue swelling and joint effusion with no acute bony abnormality identified. 2. A left knee arthroplasty is in near anatomic alignment. Electronically signed by: Joe Lowe M.D. 07/25/2023 6:21 PM Venous Doppler Study 07/25/23 16:44 ULTRASOUND LEFT LOWER EXTREMITY VENOUS CLINICAL HISTORY: Left leg swelling. Recent surgery. COMPARISON STUDY: No priors. TECHNIQUE: Real-time, grayscale, and color Doppler sonography of the deep veins of the left lower extremity was performed from the inguinal crease to the calf. Compression and augmentation were utilized. FINDINGS: There is no sonographic evidence of deep venous thrombosis identified in the left lower extremity. The common femoral, superficial femoral, and popliteal veins are patent and normally compressible. The greater saphenous vein and the profunda femoris vein at the junction with the common femoral vein are clear. The visualized calf veins are patent. A complex nonvascular fluid collection in the popliteal fossa measures up to 6.7 cm. IMPRESSION: 1. There is no sonographic evidence of deep venous thrombosis identified in the left lower extremity. 2. A complex nonvascular fluid collection within the medial popliteal fossa measures up to 6.7 cm. This could represent a Dickinson's cyst or postsurgical seroma/hematoma. The sterility of this fluid cannot be assessed by imaging and clinical correlation will be required. ACT 112: Negative or not required by law. Electronically signed by: Joe Lowe M.D. 07/25/2023 6:34 PM Diagnostic Findings CRP 6. Sed rate 29. White blood cell count 6. X-rays show total knee arthroplasty in place with some swelling above the knee joint. There is no fracture or dislocation or evidence of loosening.Ultrasound results are noted. No DVT but there is a fluid collection in the medial popliteal area.
[2023-07-25 19:41] LABS: Appearance Synovial Fluid Cloudy; Color Synovial Fluid Amber; Mononuclear WBC Synovial 5.2 %; Polynuclear WBC Synovial 94.8 %; RBC Synovial Fluid Auto 50000 /uL; Source Synovial Fluid Knee; WBC Synovial Fluid Auto 59490 /ul (0-200)
--- NOTE | 2023-07-25 20:31 | History & Physical Report ---
Date of Service July 25, 2023 Assessment & Plan (1) Postoperative infection of knee: (2) Septic joint of left knee joint: (3) Wound cellulitis after surgery: (4) Seroma of musculoskeletal structure after musculoskeletal system procedure: (5) History of total left knee replacement: (6) Anxiety with depression: (7) Invasive ductal carcinoma of right breast: (8) Overactive bladder: (9) Acid reflux: (10) Hypertension: Plan Postoperative septic left TKA joint- N.p.o. after midnight Follow drainage from left knee joint for culture and sensitivity Continue vancomycin IV Hold further cephalosporins due to history of rash Zosyn 4.5 g IV every 8 hours NSS + KCl 20 mill equivalents at 80 mL/h x 2 L Acetaminophen 1 g IV every 8 hours as needed for mild pain or fever Morphine sulfate 2 mg IV every 3 hours as needed for moderate pain Morphine sulfate 4 mg IV every 3 hours as needed for severe pain Pantoprazole 40 mg IV daily Orthopedic surgery already consulted by the emergency department GERD- Hold oral omeprazole for now, and continue as pantoprazole 40 mg IV daily Hypertension- Hold lisinopril Hydralazine 10 mg IV every 4 hours as needed for systolic blood pressure above 160 Anxiety with depression- Resume citalopram postoperatively History of Present Illness Chief Complaint: The patient presents to the emergency department with her daughter with history of left TKA on 06/26. She has concerns of severe left knee worsening pain over the past couple days, that she reports occurred after having bumped her left knee on a table. She had been seen on 07/17 in the emergency department for serosanguineous drainage at that time. Today she also developed redness around the surgical wound site, with some yellow-tinged drainage, and presented to ED for further assessment. Primary Care Provider: Zeynep Dawn MD The patient is an 82-year-old female with a past medical history including lumbar facet joint syndrome, urge incontinence, sacral insufficiency fracture, L2 compression fracture, CMC arthritis, invasive ductal carcinoma of right breast, depression and acid reflux. She underwent a left TKA on 06/26, and had been doing well until being seen in the emergency department 07/17 for serosanguineous drainage. She bumped her knee a couple days ago, and had a return of the drainage, and today was noted to have redness around the surgical wound site and some yellow-tinged drainage. She was seen in the emergency department by orthopedic surgery Dr. Cotton, covering for Dr. Eubanks, who performed an I&D, with drainage WBCs, with presumed septic. She was started on vancomycin and cefepime IV given ceftriaxone IV, and was then referred for evaluation for admission. Patient will be made n.p.o. after midnight, for possible surgical drainage in the OR tomorrow. Allergies Allergy/AdvReac Type Severity Reaction Status Date / Time Cephalosporins Allergy Mild rash Verified 07/18/23 23:46 codeine Allergy Mild Rash Verified 07/18/23 23:46 erythromycin base Allergy Mild Rash Verified 07/18/23 23:46 nitrofurantoin Allergy Mild rash Verified 07/18/23 23:46 tetracycline Allergy Mild rash Verified 07/18/23 23:46 tramadol Allergy Mild Itching Verified 07/18/23 23:46 hydromorphone [From Dilaudid] AdvReac Intermediate mental Verified 07/18/23 23:46 change morphine AdvReac Mild SICK TO Verified 07/18/23 23:46 STOMACH Home Medications Medication Instructions Recorded Confirmed Type cholecalciferol (vitamin D3) 25 1,000 unit PO QAM #30 caps 02/08/21 07/25/23 Rx mcg (1,000 unit) capsule lisinopril 20 mg tablet 20 mg PO QPM 09/15/22 07/25/23 History multivitamin 1 tab PO QAM 06/07/23 07/25/23 History oxycodone 5 mg tablet 5 - 10 mg (1 - 2 x 5 mg) PO Q6H 06/28/23 07/25/23 Rx PRN pain #30 tabs celecoxib 200 mg capsule 200 mg PO BID 07/18/23 07/25/23 History citalopram 40 mg tablet 40 mg PO QAM 07/18/23 07/25/23 History gabapentin 600 mg tablet 600 mg PO TID 07/18/23 07/25/23 History omeprazole 40 mg capsule,delayed 40 mg PO BID 07/18/23 07/25/23 History release trazodone 50 mg tablet 50 mg PO HS PRN Insomnia 07/18/23 07/25/23 History fesoterodine 4 mg tablet,extended 4 mg PO DAILY #90 tabs 07/24/23 07/25/23 Rx release 24 hr (Toviaz) Past Med/Surg History Problem List (Updated 07/26/23 @ 00:26 by Teto Baires MD) Septic joint of left knee joint Postoperative infection of knee (Acute) Wound cellulitis after surgery Seroma of musculoskeletal structure after musculoskeletal system procedure (Acute) 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, estrogen receptor positive (Chronic 08/02/22) Lumbar facet joint syndrome Urge incontinence Carpal tunnel syndrome of right wrist Anxiety with depression Sacral insufficiency fracture Status post kyphoplasty 02/01/2021 Compression fracture of L2 Status post kyphoplasty 02/01/2021 Low back pain (Acute) CMC arthritis Rotator cuff tear, left Impingement syndrome of left shoulder Foraminal stenosis of lumbar region (Chronic) Arthritis (Chronic) 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 Liver lesion, left lobe MRI 06/07/23 showed liver to be unremarkable; probable liver cyst (4mm hyperintense lesion (too small to characterize) History of back surgery RIGHT SI JOINT FUSION= 03/09/17= [facility] 1, MAC 3, ETT 7.0 AT [facility] 2 TOTAL BACK SURGERIES 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) Overactive bladder (Chronic) Insomnia (Chronic) Hypertension (Chronic) Depression (Chronic) Acid reflux (Chronic) Well controlled and stable Medical History (Updated 07/26/23 @ 00:26 by Teto Baires MD) Arthritis of knee, left Hiatal hernia Anxiety Torn rotator cuff left; steroid injection Q 3 mos, last one 04/2023 w/ Dr Laws Meningioma determined by biopsy of brain Symptomatic small atypical meningioma (s/p craniotomy- 07/2022) Last seen by neuro surgery 02/2023 (stable at that time- no evidence of recurrence of operated tumor) Headache significantly improved History of DVT (deep vein thrombosis) LLE (CALF) 40+ YEARS AGO (WAS TAKING CONTROL PILLS) Polio During childhood 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 History of vertebral compression fracture Around - s/p kyphoplasty Surgical History (Updated 07/08/23 @ 00:08 by Bety Petty) History of partial mastectomy of right breast (09/15/22) Right Breast Partial Mastectomy with Liyah Extruding Department Supervisor Localization(Right) - Gladys Woods DO S/P craniotomy 07/2022- STEFANIE Mercer History of kyphoplasty L2 and S1 02/01/2021 H/O hand surgery left Family history of reaction to anesthesia SON>SLOW TO WAKE UP History of cataract surgery RT/LEFT History of bilateral tubal ligation History of dilatation and curettage History of breast biopsy left negative > right/ reason for up coming procedure History of carpal tunnel release bilat History of esophagogastroduodenoscopy (EGD) History of tooth extraction History of cardiac cath OVER 14 YEARS AGO/NO STENTS History of colonoscopy History of laminectomy X 2 (LUMBAR REGION) History of right shoulder replacement History of total right knee replacement Family History Mother Family history of pancreatic cancer Alcohol abuse Depression Father Family history of Hodgkin's lymphoma Hypertension Grandfather (Paternal) Myocardial infarction Sister Depression Hypertension Grandfather (Maternal) Myocardial infarction Denies family history of Ovarian cancer Prostate cancer Breast cancer Colorectal cancer Social History Smoking Status: Never smoker Second Hand Exposure: Yes (as child); Do You Dip or Chew Tobacco: No; Hx Alcohol Use: Yes (~once at year) Alcohol type: wine Hx Substance Use: No Preferred Language: Ukrainian Communication Ability: Effective Visual Impairment: No Limitations Hearing Ability: Normal Sox Analyst Required: No Beliefs That Will Affect Care: None marital status: / Current Living Situation: Alone current occupational status: retired Feels Safe at Home: Yes Childhood Exposure to Second-Hand Smoke: Yes Diet: regular Dental Care, Regularly: No Physical Activity Frequency: Does not Exercise Seatbelt Use: sometimes Sunscreen Use: No Assistive Devices: Walker Review of Systems Review of Systems: The patient denies chest pain, palpitations, shortness of breath, dyspnea on exertion, cough, sore throat, fevers, chills, sweats, nausea, vomiting, diarrhea , constipation, abdominal pain, pelvic pain, blood in urine or stool, dysuria, urinary frequency or urgency, memory loss, focal or generalized weakness, numbness or tingling in arms or right leg, generalized arthralgias or myalgias, back or neck pain, or night sweats. The review of systems is otherwise negative other than for that already noted above, and at least 10 systems have been reviewed. Physical Exam Physical Exam: The patient is awake, alert and oriented 3, well developed and well nourished, normocephalic and atraumatic, lying in bed and in moderately severe distress secondary to left knee pain HEENT--PERRL, EOMI, mucous membranes and oropharynx dry. Neck--supple. No JVD. No bruits. Thyroid normal, trachea midline, no adenopathy. Heart--normal S1 and S2. No murmurs, rubs or gallops. Lungs--clear bilaterally, no respiratory distress, no accessory muscle use. Abdomen--normal bowel sounds and soft. Nontender. Nondistended, no hernias or masses, no organomegaly. Extremities--trace to 1+ bilateral pretibial pitting edema. Left lower extremity wrapped Dermatologic--as above Neurologic--cranial nerves II through XII grossly intact. Rheumatologic--limited exam due to severe left knee pain Psychiatric--normal affect. Results & Data Results & Data Vital Signs (Past 12 Hours) Vital Signs Temp Pulse Pulse Resp BP BP Pulse Ox 07/25/23 18:33 80 17 114/98 99 07/25/23 17:19 83 07/25/23 16:52 95 07/25/23 16:23 36.5 C 07/25/23 16:19 94 07/25/23 16:15 82 17 119/47 L 88 L O2 Del Method O2 Flow Rate 07/25/23 18:33 Nasal Cannula 2 07/25/23 17:19 07/25/23 16:52 Nasal Cannula 2 07/25/23 16:23 07/25/23 16:19 Nasal Cannula 2 07/25/23 16:15 Room Air Laboratory Results Laboratory Results WBC 6.30 K/ul (4.8-10.8) 07/25/23 16:53 RBC 3.74 M/uL (4.20-5.40) L 07/25/23 16:53 Hgb 10.1 g/dl (12.0-16.0) L 07/25/23 16:53 Hct 32.7 % (37.0-47.0) L 07/25/23 16:53 MCV 87.4 fL (80.0-100.0) 07/25/23 16:53 MCH 27.0 pg (25.0-34.0) 07/25/23 16:53 MCHC 30.9 g/dL (32.0-36.0) L 07/25/23 16:53 RDW Std Deviation 50.8 fL (36.4-46.3) H 07/25/23 16:53 RDW Coeff of [place] 15.9 % (11.5-14.5) H 07/25/23 16:53 Plt Count 195 K/uL (130-400) 07/25/23 16:53 MPV 9.6 fL (9.4-12.4) 07/25/23 16:53 Immature Gran % (Auto) 0.5 % 07/25/23 16:53 Neut % (Auto) 71.7 % 07/25/23 16:53 Lymph % (Auto) 12.9 % 07/25/23 16:53 Ross % (Auto) 13.3 % 07/25/23 16:53 Eos % (Auto) 1.3 % 07/25/23 16:53 Baso % (Auto) 0.3 % 07/25/23 16:53 Neut # (Auto) 4.52 K/uL (1.40-6.50) 07/25/23 16:53 Lymph # (Auto) 0.81 K/uL (1.20-3.40) L 07/25/23 16:53 Ross # (Auto) 0.84 K/uL (0.11-0.59) H 07/25/23 16:53 Eos # (Auto) 0.08 K/uL (0.00-0.50) 07/25/23 16:53 Baso # (Auto) 0.02 K/uL (0.00-0.20) 07/25/23 16:53 Immature Gran # (Auto) 0.03 K/uL (0.01-0.20) 07/25/23 16:53 ESR 29 mm/hr (0-30) 07/25/23 16:53 Sodium 136 mmol/L (136-145) 07/25/23 16:53 Potassium 4.1 mmol/L (3.5-5.1) 07/25/23 16:53 Chloride 103 mmol/L (98-107) 07/25/23 16:53 Carbon Dioxide 29 mmol/L (21-32) 07/25/23 16:53 Anion Gap 4 (3-11) 07/25/23 16:53 BUN 14 mg/dl (6-23) 07/25/23 16:53 Creatinine 0.57 mg/dl (0.6-1.2) L 07/25/23 16:53 Est Cr Clr Drug Dosing 84.0 ml/min 07/25/23 16:53 Est GFR ( Amer) 101.5 ml/min 07/25/23 16:53 Est GFR (Non-Af Amer) 87.6 ml/min 07/25/23 16:53 BUN/Creatinine Ratio 24.6 (10-20) H 07/25/23 16:53 Glucose 102 mg/dl (70-99(Fasting)) H 07/25/23 16:53 Calcium 8.8 mg/dl (8.6-10.3) 07/25/23 16:53 Total Bilirubin 0.6 mg/dl (0.2-1.0) 07/25/23 16:53 AST 18 U/L (13-39) 07/25/23 16:53 ALT 10 U/L (7-52) 07/25/23 16:53 Alkaline Phosphatase 58 U/L (34-104) 07/25/23 16:53 C-Reactive Protein 6.33 mg/dl (0-0.5) H 07/25/23 16:53 Total Protein 6.2 gm/dl (6.0-8.3) 07/25/23 16:53 Albumin 3.6 gm/dl (3.4-5.0) 07/25/23 16:53 Globulin 2.6 gm/dl (2.5-4.0) 07/25/23 16:53 Albumin/Globulin Ratio 1.4 (0.9-2) 07/25/23 16:53 Fluid Comment 07/25/23 17:49 Synovial Source Knee 07/25/23 17:49 Synovial Color Katarzyna 07/25/23 17:49 Synovial Appearance Cloudy 07/25/23 17:49 Synovial WBC (Auto) 60113 /ul (0-200) H 07/25/23 17:49 Synovial RBC (Auto) 32331 /uL 07/25/23 17:49 Synovial Polynuclear % 94.8 % 07/25/23 17:49 Synovial Mononuclear % 5.2 % 07/25/23 17:49 Impressions Knee X-Ray 07/25/23 16:41 LEFT KNEE 3 VIEWS CLINICAL HISTORY: Left knee pain. Infection. FINDINGS: AP, lateral, and sunrise views of the left knee are compared to study dated 06/27/2023. The skeletal structures are osteopenic. No fracture is seen. A left knee arthroplasty is in near anatomic alignment. There has been undersurface remodeling of the patella. There is a joint effusion. Soft tissue edema is seen around the knee. Atherosclerotic calcification is noted in the popliteal artery. IMPRESSION: 1. Soft tissue swelling and joint effusion with no acute bony abnormality identified. 2. A left knee arthroplasty is in near anatomic alignment. Electronically signed by: Joe Lowe M.D. 07/25/2023 6:21 PM Venous Doppler Study 07/25/23 16:44 ULTRASOUND LEFT LOWER EXTREMITY VENOUS CLINICAL HISTORY: Left leg swelling. Recent surgery. COMPARISON STUDY: No priors. TECHNIQUE: Real-time, grayscale, and color Doppler sonography of the deep veins of the left lower extremity was performed from the inguinal crease to the calf. Compression and augmentation were utilized. FINDINGS: There is no sonographic evidence of deep venous thrombosis identified in the left lower extremity. The common femoral, superficial femoral, and popliteal veins are patent and normally compressible. The greater saphenous vein and the profunda femoris vein at the junction with the common femoral vein are clear. The visualized calf veins are patent. A complex nonvascular fluid collection in the popliteal fossa measures up to 6.7 cm. IMPRESSION: 1. There is no sonographic evidence of deep venous thrombosis identified in the left lower extremity. 2. A complex nonvascular fluid collection within the medial popliteal fossa measures up to 6.7 cm. This could represent a Dickinson's cyst or postsurgical seroma/hematoma. The sterility of this fluid cannot be assessed by imaging and clinical correlation will be required. ACT 112: Negative or not required by law. Electronically signed by: Joe Lowe M.D. 07/25/2023 6:34 PM Code Status & VTE Plan Code Status Full code VTE Prophylaxis Plan VTE Prophylaxis will be ordered: Yes PG Care Time/CCT Total # of Minutes Spent Total Time Spent with Patient: Total time spent is greater than 50% in coordination of care (as documented) at patient's floor/unit and/or counseling patient: Coding Level of Care Code 49211 INT INP/OBS CARE 3/75MIN Diagnoses Postoperative infection of knee T81.49XA; M00.9 Septic joint of left knee joint M00.9 Wound cellulitis after surgery T81.49XA Seroma of musculoskeletal structure after musculoskeletal system procedure M96.842 History of total left knee replacement Z96.652 Anxiety with depression F41.8 Invasive ductal carcinoma of right breast C50.911 Overactive bladder N32.81 Acid reflux K21.9 Hypertension I10
[2023-07-25] MEDS: PANTOprazole 40 MG in SYRINGE 0 ML IV ONE (21:08)
[2023-07-25] MEDS: GABAPENTIN 600 MG TAB PO STA (21:08)
[2023-07-25] MEDS: NSS + 20MEQ KCL 20 MEQ/1,000 ML BAG IV SCH (21:08)
[2023-07-25] MEDS ORDERED: ACETAMINOPHEN 1000 MG/100 ML IV IV PRN (22:40)
[2023-07-26] MEDS ORDERED: VANCOMYCIN CONSULT ACTIVE PRN (00:20)
[2023-07-26] MEDS: VANCOMYCIN HCL 750 MG in SODIUM CHLORIDE 0.9% 250 ML IV SCH (01:53)
[2023-07-26] MEDS: MoRPHine SULFATE 2 MG/ML CARP IV PRN (01:53)
[2023-07-26] MEDS: ACETAMINOPHEN 1,000 MG/100 ML VIAL IV PRN (02:35)
[2023-07-26 05:25] LABS: Basophils # (auto) 0.02 K/uL (0.00-0.20); Basophils % (auto) 0.3 %; Eosinophils # (auto) 0.08 K/uL (0.00-0.50); Eosinophils % (auto) 1.4 %; Hematocrit (blood only) 33.1 % (37.0-47.0); Hemoglobin 10.1 g/dl (12.0-16.0); Immature Granulocytes # (auto) 0.03 K/uL (0.01-0.20); Immature Granulocytes % (auto) 0.5 %; Lymphocytes # (auto) 0.97 K/uL (1.20-3.40); Lymphocytes % (auto) 16.9 %; Mean Corpuscular Hemoglobin 27.4 pg (25.0-34.0); Mean Corpuscular Hgb Conc 30.5 g/dL (32.0-36.0); Mean Corpuscular Volume 89.7 fL (80.0-100.0); Mean Platelet Volume 9.6 fL (9.4-12.4); Monocytes # (auto) 0.89 K/uL (0.11-0.59); Monocytes % (auto) 15.5 %; Neutrophils # (auto) 3.75 K/uL (1.40-6.50); Neutrophils % (auto) 65.4 %; Platelet Count 158 K/uL (130-400); RDW Coefficient of Variation 15.8 % (11.5-14.5); RDW Standard Deviation 51.8 fL (36.4-46.3); Red Blood Count 3.69 M/uL (4.20-5.40); White Blood Count 5.74 K/ul (4.8-10.8)
[2023-07-26 05:38] LABS: Albumin Level 3.3 gm/dl (3.4-5.0); BUN Creatinine Ratio 19.2 (10-20); Calcium 8.4 mg/dl (8.6-10.3); Creatinine Clr Calc Pharmacy 92.1 ml/min; Est GFR (African American) 104.6 ml/min; Est GFR (Non-African American) 90.2 ml/min; Magnesium 1.8 mg/dl (1.7-2.4); Phosphorus 3.8 mg/dl (2.5-4.9); Potassium 4.1 mmol/L (3.5-5.1)
[2023-07-26] MEDS: MoRPHine SULFATE 4 MG/ML 1 ML CARP\\VIAL IV PRN (06:08)
[2023-07-26] MEDS: PIPERACILLIN/TAZOBACTAM 4.5 GM/100ML D5W IV ONE (06:09)
[2023-07-26] MEDS: PIPERACILLIN/TAZOBACTAM 4.5 GM in DEXTROSE 5% MINI-B 100 ML IV SCH (06:09)
--- NOTE | 2023-07-26 07:15 | Orthopedic Progress Note ---
"Date of Service July 26, 2023 Assessment & Plan (1) Postoperative infection of knee: Plan: Patient seen and evaluated this morning in the emergency room, presented to the emergency room last evening and had an aspiration performed of her left knee which shows 59,000 white counts in her knee aspirate, Gram stain showed no organisms and cultures pending, has elevated CRP. Discussed further care with patient and reviewed with Dr. Eubanks, at this point Patient will likely require I&D With poly exchange. Patient has been n.p.o. since last evening and we will plan on procedure when operating room availability later today. Will remain n.p.o. for OR later today, ice elevate for swelling and pain. Will review patient care with Dr. Eubanks who will be by later to evaluate the patient as well Admission and Anticipated Discharge Date Admission Date: July 25, 2023 Subjective patient evaluated in the ER, pain currently controlled, rates as 3/10. currently denies fever or chills. Physical Exam Physical Exam: Vital Signs Temp Pulse Pulse Resp BP BP Pulse Ox 07/26/23 05:30 74 20 95 07/26/23 05:01 77 21 99 07/26/23 05:00 79 15 113/48 L 97 07/26/23 04:00 81 17 128/58 L 96 07/26/23 03:00 79 26 H 113/42 L 95 07/26/23 01:00 84 16 138/60 100 07/26/23 00:00 82 23 137/57 L 97 07/25/23 23:01 85 19 148/49 H 95 07/25/23 22:53 86 07/25/23 22:27 88 20 138/76 97 07/25/23 22:23 84 15 138/76 95 07/25/23 20:54 80 07/25/23 18:33 80 17 114/98 99 07/25/23 17:19 83 07/25/23 16:52 95 07/25/23 16:23 36.5 C 07/25/23 16:19 94 07/25/23 16:15 82 17 119/47 L 88 L O2 Del Method O2 Flow Rate 07/26/23 05:30 07/26/23 05:01 07/26/23 05:00 07/26/23 04:00 07/26/23 03:00 07/26/23 01:00 07/26/23 00:00 07/25/23 23:01 07/25/23 22:53 07/25/23 22:27 Nasal Cannula 2 07/25/23 22:23 07/25/23 20:54 07/25/23 18:33 Nasal Cannula 2 07/25/23 17:19 07/25/23 16:52 Nasal Cannula 2 07/25/23 16:23 07/25/23 16:19 Nasal Cannula 2 07/25/23 16:15 Room Air Intake and Output 07/25/23 07/26/23 07/26/23 22:59 06:59 14:59 Intake Total 580 / 945 365 / 945 Output Total 350 / 350 Balance 230 / 595 365 / 595 Intake: IV 580 / 945 365 / 945 Acetaminophen 1,000 mg In 100 100 / 100 ml @ 400 mls/h r IV Q8H PRN Rx#: [id number] Vancomycin HCl 750 mg In Sodium 265 / 265 Chloride 0.9% 250 ml @ 200 mls /hr IV Q8H RANJANA Rx#:[id number] Vancomycin HCl 1,500 mg In 530 / 530 Sodium Chlorid e 0.9% 500 ml @ 200 mls/hr IV NOW ONE Rx#: [id number] cefTRIAXone SO DIUM 2,000 mg In 50 / 50 50 ml @ 100 ml s/hr IV NOW STA Rx#:[id number] Output: Urine 350 / 350 Other: Weight 80.1 kg 80.1 kg Weight Measureme nt Method [facility] Built in [facility] Musculoskeletal: Left Knee: ROM 0/60. there is an area at the most proximal aspect of the incision that has a small opening with a small amount of clear serous drainage. remaining incision healing well. DP palpable, calf SNT. strength 5/5 with ankle plantar/dorsiflexion. tender along aris-incisional area and lesser extent around the knee joint itself. Results & Data Vital Signs (Past 12 Hours) Vital Signs Pulse Pulse Resp BP BP Pulse Ox O2 Del Method 07/26/23 05:30 74 20 95 07/26/23 05:01 77 21 99 07/26/23 05:00 79 15 113/48 L 97 07/26/23 04:00 81 17 128/58 L 96 07/26/23 03:00 79 26 H 113/42 L 95 07/26/23 01:00 84 16 138/60 100 07/26/23 00:00 82 23 137/57 L 97 07/25/23 23:01 85 19 148/49 H 95 07/25/23 22:53 86 07/25/23 22:27 88 20 138/76 97 Nasal Cannula 07/25/23 22:23 84 15 138/76 95 07/25/23 20:54 80 O2 Flow Rate 07/26/23 05:30 07/26/23 05:01 07/26/23 05:00 07/26/23 04:00 07/26/23 03:00 07/26/23 01:00 07/26/23 00:00 07/25/23 23:01 07/25/23 22:53 07/25/23 22:27 2 07/25/23 22:23 07/25/23 20:54 Laboratory Results Laboratory Results WBC 5.74 K/ul (4.8-10.8) 07/26/23 05:13 RBC 3.69 M/uL (4.20-5.40) L 07/26/23 05:13 Hgb 10.1 g/dl (12.0-16.0) L 07/26/23 05:13 Hct 33.1 % (37.0-47.0) L 07/26/23 05:13 MCV 89.7 fL (80.0-100.0) 07/26/23 05:13 MCH 27.4 pg (25.0-34.0) 07/26/23 05:13 MCHC 30.5 g/dL (32.0-36.0) L 07/26/23 05:13 RDW Std Deviation 51.8 fL (36.4-46.3) H 07/26/23 05:13 RDW Coeff of [place] 15.8 % (11.5-14.5) H 07/26/23 05:13 Plt Count 158 K/uL (130-400) 07/26/23 05:13 MPV 9.6 fL (9.4-12.4) 07/26/23 05:13 Immature Gran % (Auto) 0.5 % 07/26/23 05:13 Neut % (Auto) 65.4 % 07/26/23 05:13 Lymph % (Auto) 16.9 % 07/26/23 05:13 Winn % (Auto) 15.5 % 07/26/23 05:13 Eos % (Auto) 1.4 % 07/26/23 05:13 Baso % (Auto) 0.3 % 07/26/23 05:13 Neut # (Auto) 3.75 K/uL (1.40-6.50) 07/26/23 05:13 Lymph # (Auto) 0.97 K/uL (1.20-3.40) L 07/26/23 05:13 Winn # (Auto) 0.89 K/uL (0.11-0.59) H 07/26/23 05:13 Eos # (Auto) 0.08 K/uL (0.00-0.50) 07/26/23 05:13 Baso # (Auto) 0.02 K/uL (0.00-0.20) 07/26/23 05:13 Immature Gran # (Auto) 0.03 K/uL (0.01-0.20) 07/26/23 05:13 ESR 29 mm/hr (0-30) 07/25/23 16:53 Sodium 137 mmol/L (136-145) 07/26/23 05:13 Potassium 4.1 mmol/L (3.5-5.1) 07/26/23 05:13 Chloride 106 mmol/L (98-107) 07/26/23 05:13 Carbon Dioxide 28 mmol/L (21-32) 07/26/23 05:13 Anion Gap 3 (3-11) 07/26/23 05:13 BUN 10 mg/dl (6-23) 07/26/23 05:13 Creatinine 0.52 mg/dl (0.6-1.2) L 07/26/23 05:13 Est Cr Clr Drug Dosing 92.1 ml/min 07/26/23 05:13 Est GFR ( Amer) 104.6 ml/min 07/26/23 05:13 Est GFR (Non-Af Amer) 90.2 ml/min 07/26/23 05:13 BUN/Creatinine Ratio 19.2 (10-20) 07/26/23 05:13 Glucose 103 mg/dl (70-99(Fasting)) H 07/26/23 05:13 Calcium 8.4 mg/dl (8.6-10.3) L 07/26/23 05:13 Phosphorus 3.8 mg/dl (2.5-4.9) 07/26/23 05:13 Magnesium 1.8 mg/dl (1.7-2.4) 07/26/23 05:13 Total Bilirubin 0.6 mg/dl (0.2-1.0) 07/25/23 16:53 AST 18 U/L (13-39) 07/25/23 16:53 ALT 10 U/L (7-52) 07/25/23 16:53 Alkaline Phosphatase 58 U/L (34-104) 07/25/23 16:53 C-Reactive Protein 6.33 mg/dl (0-0.5) H 07/25/23 16:53 Total Protein 6.2 gm/dl (6.0-8.3) 07/25/23 16:53 Albumin 3.3 gm/dl (3.4-5.0) L 07/26/23 05:13 Globulin 2.6 gm/dl (2.5-4.0) 07/25/23 16:53 Albumin/Globulin Ratio 1.4 (0.9-2) 07/25/23 16:53 Fluid Comment 07/25/23 17:49 Synovial Source Knee 07/25/23 17:49 Synovial Color Katarzyna 07/25/23 17:49 Synovial Appearance Cloudy 07/25/23 17:49 Synovial WBC (Auto) 77661 /ul (0-200) H 07/25/23 17:49 Synovial RBC (Auto) 70022 /uL 07/25/23 17:49 Synovial Polynuclear % 94.8 % 07/25/23 17:49 Synovial Mononuclear % 5.2 % 07/25/23 17:49 Impressions Knee X-Ray 07/25/23 16:41 LEFT KNEE 3 VIEWS CLINICAL HISTORY: Left knee pain. Infection. FINDINGS: AP, lateral, and sunrise views of the left knee are compared to study dated 06/27/2023. The skeletal structures are osteopenic. No fracture is seen. A left knee arthroplasty is in near anatomic alignment. There has been undersurface remodeling of the patella. There is a joint effusion. Soft tissue edema is seen around the knee. Atherosclerotic calcification is noted in the popliteal artery. IMPRESSION: 1. Soft tissue swelling and joint effusion with no acute bony abnormality identified. 2. A left knee arthroplasty is in near anatomic alignment. Electronically signed by: Joe Lowe M.D. 07/25/2023 6:21 PM Venous Doppler Study 07/25/23 16:44 ULTRASOUND LEFT LOWER EXTREMITY VENOUS CLINICAL HISTORY: Left leg swelling. Recent surgery. COMPARISON STUDY: No priors. TECHNIQUE: Real-time, grayscale, and color Doppler sonography of the deep veins of the left lower extremity was performed from the inguinal crease to the calf. Compression and augmentation were utilized. FINDINGS: There is no sonographic evidence of deep venous thrombosis identified in the left lower extremity. The common femoral, superficial femoral, and popliteal veins are patent and normally compressible. The greater saphenous vein and the profunda femoris vein at the junction with the common femoral vein are clear. The visualized calf veins are patent. A complex nonvascular fluid collection in the popliteal fossa measures up to 6.7 cm. IMPRESSION: 1. There is no sonographic evidence of deep venous thrombosis identified in the left lower extremity. 2. A complex nonvascular fluid collection within the medial popliteal fossa measures up to 6.7 cm. This could represent a Dickinson's cyst or postsurgical seroma/hematoma. The sterility of this fluid cannot be assessed by imaging and clinical correlation will be required. ACT 112: Negative or not required by law. Electronically signed by: Joe Lowe M.D. 07/25/2023 6:34 PM Diagnostic Findings 07/25/23 17:49 Gram Stain - Final Knee,Left Aerobic and Anaerobic Culture - Pending 07/25/23 17:49 Gram Stain - Final Knee,Left Aerobic and Anaerobic Culture - Pending 07/25/23 17:58 Aerobic Blood Culture - Pending Blood Anaerobic Blood Culture - Pending 07/25/23 16:53 Aerobic Blood Culture - Pending Blood Anaerobic Blood Culture - Pending Queries: Specimen Site: Knee, Left Test Result Flag Reference Site Syn Source | Knee | | | Syn Color | Katarzyna | | | Syn Appear | Cloudy | | | Syn WBC (A) | 99452 | H | 0-200 /ul | Syn RBC (A) | 16383 | | /uL | Synov Poly WBC | 94.8 | | % | Synov Winn WBC | 5.2 | | % | | Percent Mononuclear Cells may include Synovial Lining Cells. Ref Range Comm | | | | | Unless otherwise indicated, Reference intervals have not | been established for this body fluid. The test result must | be integrated into the clinical context for interpretation."
--- NOTE | 2023-07-26 09:19 | Anesthesiology Consultation ---
Date of Service July 26, 2023 Assessment & Plan (1) Encounter for pre-operative examination: Chart Review Chart Review: Acceptable Risk for Surgery History Surgery Operation Date: 07/26/23 07:50 Proposed Procedures p Left Knee DAIR Procedure - Sanford Eubanks DO Height/Weight Height: 5 ft 6 in Weight: 80.1 kg Allergies Allergy/AdvReac Type Severity Reaction Status Date / Time Cephalosporins Allergy Mild rash Verified 07/18/23 23:46 codeine Allergy Mild Rash Verified 07/18/23 23:46 erythromycin base Allergy Mild Rash Verified 07/18/23 23:46 nitrofurantoin Allergy Mild rash Verified 07/18/23 23:46 tetracycline Allergy Mild rash Verified 07/18/23 23:46 tramadol Allergy Mild Itching Verified 07/18/23 23:46 hydromorphone [From Dilaudid] AdvReac Intermediate mental Verified 07/18/23 23:46 change morphine AdvReac Mild SICK TO Verified 07/18/23 23:46 STOMACH Medications Home Medications Medication Instructions Recorded Confirmed Last Taken cholecalciferol (vitamin D3) 25 1,000 unit PO QAM #30 caps 02/08/21 07/25/23 07/18/23 mcg (1,000 unit) capsule lisinopril 20 mg tablet 20 mg PO QPM 09/15/22 07/25/23 07/18/23 multivitamin 1 tab PO QAM 06/07/23 07/25/23 07/18/23 oxycodone 5 mg tablet 5 - 10 mg (1 - 2 x 5 mg) PO Q6H 06/28/23 07/25/23 Unknown PRN pain #30 tabs celecoxib 200 mg capsule 200 mg PO BID 07/18/23 07/25/23 07/18/23 citalopram 40 mg tablet 40 mg PO QAM 07/18/23 07/25/23 07/18/23 gabapentin 600 mg tablet 600 mg PO TID 07/18/23 07/25/23 07/18/23 omeprazole 40 mg capsule,delayed 40 mg PO BID 07/18/23 07/25/23 07/18/23 release trazodone 50 mg tablet 50 mg PO HS PRN Insomnia 07/18/23 07/25/23 07/18/23 fesoterodine 4 mg tablet,extended 4 mg PO DAILY #90 tabs 07/24/23 07/25/23 Unknown release 24 hr (Toviaz) Active Medications Generic Name Dose Route Start Last Admin Trade Name Freq PRN Reason Stop Dose Admin Potassium Chloride/Sodium Chloride 20 meq in 1,000 mls @ 80 mls/hr 07/25/23 20:15 07/25/23 21:08 Normal Saline W/20 Meq Kcl IV 07/26/23 21:14 80 mls/hr .[id number] RANJANA Administration Protocol Acetaminophen 1,000 mg in 100 mls @ 400 mls/hr 07/25/23 23:00 07/26/23 03:14 Ofirmev IV 07/28/23 22:59 Infused Q8H PRN Infusion pain/fever Protocol Vancomycin HCl 750 mg/ Sodium 265 mls @ 200 mls/hr 07/26/23 02:00 07/26/23 03:14 Chloride IV 09/06/23 01:59 Infused Q8H RANJANA Infusion Piperacillin Sod/Tazobactam 100 mls @ 25 mls/hr 07/26/23 06:00 07/26/23 06:09 Sod 4.5 gm/ Dextrose IV 09/06/23 05:59 25 mls/hr Q8H RANJANA Administration Protocol Morphine Sulfate 4 mg 07/25/23 23:00 07/26/23 09:20 Morphine Sulfate 4 Mg/Ml 1 Ml Carp\Vial IV 08/08/23 22:59 4 mg Q3H PRN Administration Severe Pain (Scale 7, 8, 9,10) Morphine Sulfate 2 mg 07/25/23 23:00 07/26/23 01:53 Morphine Sulfate 2 Mg/Ml Carp IV 08/08/23 22:59 2 mg Q3H PRN Administration Moderate Pain (Scale 4, 5, 6) Past Medical History Medical History Arthritis of knee, left Hiatal hernia Anxiety Torn rotator cuff left; steroid injection Q 3 mos, last one 04/2023 w/ Dr Laws Meningioma determined by biopsy of brain Symptomatic small atypical meningioma (s/p craniotomy- 07/2022) Last seen by neuro surgery 02/2023 (stable at that time- no evidence of recurrence of operated tumor) Headache significantly improved History of DVT (deep vein thrombosis) LLE (CALF) 40+ YEARS AGO (WAS TAKING CONTROL PILLS) Polio During childhood 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 History of vertebral compression fracture Around - s/p kyphoplasty Past Family History Family History Mother Family history of pancreatic cancer Alcohol abuse Depression Father Family history of Hodgkin's lymphoma Hypertension Grandfather (Paternal) Myocardial infarction Sister Depression Hypertension Grandfather (Maternal) Myocardial infarction Denies family history of Ovarian cancer Prostate cancer Breast cancer Colorectal cancer Past Surgical History Surgical History (Updated 07/26/23 @ 09:19 by Brant Rodriguez MD) History of partial mastectomy of right breast (09/15/22) Right Breast Partial Mastectomy with [employer] Localization(Right) - Gladys Woods DO S/P craniotomy 07/2022- STEFANIE Mercer History of kyphoplasty L2 and S1 02/01/2021 H/O hand surgery left History of cataract surgery RT/LEFT History of bilateral tubal ligation History of dilatation and curettage History of breast biopsy left negative > right/ reason for up coming procedure History of carpal tunnel release bilat History of esophagogastroduodenoscopy (EGD) History of tooth extraction History of cardiac cath OVER 14 YEARS AGO/NO STENTS History of colonoscopy History of laminectomy X 2 (LUMBAR REGION) History of right shoulder replacement History of total right knee replacement Social History Smoking Status: Never smoker Do You Dip or Chew Tobacco: No Hx Alcohol Use: No Alcohol type: wine alcohol intake frequency: holidays/special occasions only Hx Substance Use: No substance use type: does not use Physical Exam Vital Signs Last Vital Signs Temp 36.5 C 07/25/23 16:23 Pulse 77 07/26/23 07:33 Resp 19 07/26/23 07:33 BP 129/62 07/26/23 07:40 Pulse Ox 96 07/26/23 07:40 O2 Del Method Nasal Cannula 07/25/23 22:27 O2 Flow Rate 2 07/25/23 22:27 Testing Laboratory Results 07/26/23 05:13 07/26/23 05:13 07/25/23 17:49 Gram Stain - Final Knee,Left 07/25/23 17:49 Gram Stain - Final Knee,Left Electrocardiogram Date: 04/12/23 Findings: + NSR @ (61) Stress Test Date: 03/20/23 Type: DSE Findings: + WNL Resting EF: 69% Resting LV Function: normal Valvular Disease: no significant valvular disease
[2023-07-26] MEDS: PANTOprazole 40 MG in SYRINGE 0 ML IV SCH (10:31)
--- NOTE | 2023-07-26 10:38 | XRay Report ---
XR chest 1V portable CLINICAL HISTORY: pre-op eval TECHNIQUE: Single frontal radiograph of the chest was obtained. Comparison: Comparison is made to chest radiograph 09/12/2005 FINDINGS: Right shoulder reverse arthroplasty is seen. Cardiomegaly is noted. The aortic arch is calcified. Maggie vation of the right hemidiaphragm is seen. No evidence of pleural effusion or pneumothorax. IMPRESSION: Likely atelectasis in the right lower lung. No acute abnormalities. ACT 112: Negative or not required by law. Electronically signed by: Cipriano Marina M.D. 07/26/2023 10:37 AM
[2023-07-26] MEDS ORDERED: ONDANSETRON INJ 2 MG/ML 2 ML VIAL ONE (11:11)
[2023-07-26] MEDS ORDERED: ROCURONIUM BROMIDE 10 MG/ML 5 ML VIAL IV ONE (11:11)
[2023-07-26] MEDS ORDERED: LIDOCAINE 2% 2 ML VIAL/AMP(20MG/ML) INFIL ONE (11:11)
[2023-07-26] MEDS ORDERED: PROPOFOL IV EMULSION 10 MG/ML 20 ML VIAL IV ONE (11:11)
[2023-07-26] MEDS ORDERED: fentaNYL citrate PF 100 MCG/2 ML VIAL ONE ×2 (11:11→13:28)
[2023-07-26] MEDS ORDERED: ATROPINE SULFATE 0.1 MG/ML 10ML SYR IV PRN (11:44)
[2023-07-26] MEDS ORDERED: ONDANSETRON INJ 2 MG/ML 2 ML VIAL IV PRN ×2 (11:44→15:41)
--- NOTE | 2023-07-26 11:50 | History & Physical Bridge Note ---
Date of Service July 26, 2023 History & Physical Bridge Note I have examined the patient, reviewed the History & Physical and in the interval since the performance of the History & Physical I have noted the following changes of clinical significance: no changes noted
--- NOTE | 2023-07-26 12:08 | Pharmacy Report ---
Pharmacy PK ABX Note - Date of Service July 26, 2023 - Assessment and Plan Assessment * 82 year old F receiving VANCOMYCIN + ZOSYN for treatment of infected L knee TKA. * Pertinent microbiologic data includes: synovial fluid WBC 59k, synovial fluid and blood cx's pending * Day # 1 of antimicrobial therapy. Plan Vancomycin * Loading dose: 1500 mg IV x 1 * Maintenance dose: 750 mg IV every 8 hours * Regimen is predicted to achieve target AUC/GEOVANNA of 400-600 mg/L.hr * Trough level ordered for: 07/26 (prior to 4th maint dose) Pharmacy will continue to follow and will adjust dose/frequency as necessary. Thank you. Pharmacy has transitioned to AUC monitoring for vancomycin. AUC/GEOVANNA is the preferred PK/PD target and is associated with decreased risk of nephrotoxicity compared to traditional trough targets.
[2023-07-26] MEDS ORDERED: PHENYLEPHRINE 100MCG/ML 10ML SYR IV ONE (12:16)
[2023-07-26] MEDS ORDERED: KETAMINE HCL 10MG/ML SYR ONE (12:31)
[2023-07-26] MEDS: DAKIN'S SOLN 0.5% FULL STRENGTH 473ML BTL EXT ONE (12:43)
--- NOTE | 2023-07-26 13:08 | Operative Report ---
Post Operative Report Pre & Post Diagnosis Operation Date: 07/26/23 07:50 Pre-Op Diagnosis: (1) Postoperative infection of knee: Post-Op Diagnosis: (1) Postoperative infection of kneeWith dehiscence of medial right Medial retinaculum I identified the patient and participated in the time-out.: Yes Procedure Operation Date: 07/26/23 07:50 Actual Procedures p Left Knee DAIR Procedure(Left)With poly changed to size 12 polyethylene - Sanford Eubanks DO Surgeon Sanford Eubanks DO [employer] Director Romel KILPATRICK Estimated Blood Loss 5 Findings Consistent with Post-Op Diagnosis Patient presents with drainage from right proximal total knee incision that started 2 to 3 days prior and appears to become progressively worse patient had preoperative aspirate blood cultures taken increased pain with chills with s eropurulent fluid draining from the proximalmost portion of the incision at the time of opening the simple proximal part of the incision for cultures the medial portion of the retinaculum was disrupted and exposure of communication with the joint was noted with seropurulent fluid within the joint was which was collected for cultures and the tissue specimens were also taken Specimens Culture aerobic anaerobic tissue culture Drains Medium bore Hemovac Anesthesia Type General Complications none Disposition Accompanied Patient To Recovery: No Disposition: Recovery Room Indications Patient presents with seropurulent drainage from the proximalmost portion of the incision with a palpable defect and then with dehiscence of the medial retinaculum Description of Procedure After initiation of general anesthesia the left lower extremity sterilely prepped and draped the proximal aspect of incision was opened there was clear communication with the joint with dehiscence of the proximal half of the medial retinacular repair there is seropurulent fluid was cultured the wound was ir rigated with 9 L of sterile saline solution the poly had been removed the sutures components of the tibia and femur and patella were all scrubbed scrub brush a Betadine soak as well as Dakin's solution soaks were applied the wound was irrigated with copious amounts of sterile saline solution via 9 L of sterile saline solution subsequently the patient was reprepped and redraped and poly was tried a size 12 poly gave excellent stability of all ranges of motion the wound was irrigated once again with copious muscle sterile saline solution the medial retinaculum was closed with #1 Vicryl subcu was closed with 2-0 Vicryl skin was closed skin clips over medium bore Hemovac into the deep portion of the wound the patient Toller procedure well placed into a knee immobilizer please note SHONNA Kitchen was active just in case dissipated and exposure poly change wound closure deep fascia subcu and skin was necessary for the case I attest to the content of the Intraoperative Record and any orders documented therein. Any exceptions are noted below.
[2023-07-26] MEDS ORDERED: SUGAMMADEX SODIUM 200 MG/2 ML VIAL IV ONE (13:10)
[2023-07-26 13:25] LABS: Appearance Synovial Fluid Turbid; Color Synovial Fluid Red; Mononuclear WBC Synovial 3.4 %; Polynuclear WBC Synovial 96.6 %; RBC Synovial Fluid Auto 372000 /uL; Source Synovial Fluid Left Knee; WBC Synovial Fluid Auto 43610 /ul (0-200)
[2023-07-26] MEDS ORDERED: LABETALOL HCL IV 5 MG/ML 20ML IV ONE (13:26)
[2023-07-26] MEDS: KETOROLAC 30 MG/ML VIAL IV PRN (13:45)
[2023-07-26] MEDS: fentaNYL citrate PF 100 MCG/2 ML VIAL IV PRN (13:50)
[2023-07-26] MEDS ORDERED: DROPERIDOL 5 MG/2 ML VIAL IV PRN (14:28)
[2023-07-26] MEDS: MoRPHine SULFATE 10 MG/ML CARP/VIAL IV PRN (14:30)
[2023-07-26] MEDS ORDERED: bisacodyL 10 MG SUPP PR PRN (15:41)
[2023-07-26] MEDS ORDERED: NALOXONE HCL 0.4 MG/1 ML VIAL/CARP IV PRN (15:41)
[2023-07-26] MEDS ORDERED: MAGNESIUM HYDROXIDE SUSP 30 ML UDC PO PRN (15:41)
[2023-07-26] MEDS ORDERED: METOCLOPRAMIDE HCL INJ 5 MG/ML 2 ML VIAL IV PRN (15:41)
--- NOTE | 2023-07-26 15:44 | Anesthesiology Progress Note ---
Date of Service July 26, 2023 Anesthesia Post Procedure Vital Signs Vital Signs: Temp Pulse Pulse Resp BP BP BP 07/26/23 15:30 83 15 135/84 07/26/23 15:15 81 14 145/85 H 07/26/23 15:05 85 16 130/55 L 07/26/23 14:55 82 19 133/64 07/26/23 14:45 81 16 153/80 H 07/26/23 14:35 83 14 142/81 H 07/26/23 14:25 82 16 135/89 07/26/23 14:15 82 15 133/69 07/26/23 14:05 81 15 163/85 H 07/26/23 13:55 79 23 157/70 H 07/26/23 13:45 76 13 157/65 H 07/26/23 13:36 75 15 139/93 07/26/23 11:43 37.2 C 66 20 145/64 H 07/26/23 07:40 129/62 07/26/23 07:40 07/26/23 07:33 77 19 07/26/23 07:30 77 07/26/23 07:00 80 14 07/26/23 06:30 77 20 07/26/23 06:00 75 17 07/26/23 05:30 74 20 07/26/23 05:01 77 21 07/26/23 05:00 79 15 113/48 L 07/26/23 04:00 81 17 128/58 L 07/26/23 03:00 79 26 H 113/42 L 07/26/23 01:00 84 16 138/60 07/26/23 00:00 82 23 137/57 L 07/25/23 23:01 85 19 148/49 H 07/25/23 22:53 86 07/25/23 22:27 88 20 138/76 07/25/23 22:23 84 15 138/76 07/25/23 20:54 80 07/25/23 18:33 80 17 114/98 07/25/23 17:19 83 07/25/23 16:52 07/25/23 16:23 36.5 C 07/25/23 16:19 07/25/23 16:15 82 17 119/47 L Pulse Ox O2 Del Method O2 Flow Rate 07/26/23 15:30 95 Nasal Cannula 2 07/26/23 15:15 94 Nasal Cannula 2 07/26/23 15:05 95 Nasal Cannula 2 07/26/23 14:55 97 Nasal Cannula 2 07/26/23 14:45 97 Nasal Cannula 2 07/26/23 14:35 97 Oxymask 10 07/26/23 14:25 96 Oxymask 10 07/26/23 14:15 96 Oxymask 10 07/26/23 14:05 96 Oxymask 10 07/26/23 13:55 96 Oxymask 10 07/26/23 13:45 96 Oxymask 10 07/26/23 13:36 95 Oxymask 10 07/26/23 11:43 96 Room Air 07/26/23 07:40 07/26/23 07:40 96 07/26/23 07:33 94 07/26/23 07:30 07/26/23 07:00 91 07/26/23 06:30 98 07/26/23 06:00 99 07/26/23 05:30 95 07/26/23 05:01 99 07/26/23 05:00 97 07/26/23 04:00 96 07/26/23 03:00 95 07/26/23 01:00 100 07/26/23 00:00 97 07/25/23 23:01 95 07/25/23 22:53 07/25/23 22:27 97 Nasal Cannula 2 07/25/23 22:23 95 07/25/23 20:54 07/25/23 18:33 99 Nasal Cannula 2 07/25/23 17:19 07/25/23 16:52 95 Nasal Cannula 2 07/25/23 16:23 07/25/23 16:19 94 Nasal Cannula 2 07/25/23 16:15 88 L Room Air Pain Intensity Left Knee: Pain Intensity: 8 Transfer of Care Handoff Completed per policy Notes Mental Status: alert / awake / arousable Patient Amnestic to Procedure: Yes Nausea / Vomiting: adequately controlled Pain: adequately controlled Airway Patency, RR, SpO2: stable & adequate BP & HR: stable & adequate Hydration State: stable & adequate Anesthetic Complications: no major complications apparent
[2023-07-26] MEDS: SODIUM CHLORIDE 0.9% 1,000 ML IV SCH (15:56)
[2023-07-26] MEDS: MoRPHine SULFATE 4 MG/ML 1 ML CARP\\VIAL ONE (16:25)
--- NOTE | 2023-07-26 16:28 | XRay Report ---
LEFT KNEE 2 VIEWS History: Left total knee arthroplasty. Degenerative arthritis. Postop. FINDINGS: The patient is status post a left total knee arthroplasty. The hardware is intact. No fract ure or dislocation. Skin christina and surgical drains are in place. IMPRESSION: Left total knee arthroplasty. No evidence for hardware complication. ACT 112: Negative or not required by law. Electronically signed by: Radhames Bruno M.D. 07/26/2023 4:27 PM
--- NOTE | 2023-07-26 17:05 | Hospitalist Progress Note ---
Date of Service July 26, 2023 Assessment & Plan (1) Postoperative infection of knee: Plan: She underwent left total knee arthroplasty in early June. She has developed a wound infection and medial dehiscence. She underwent an aspiration procedure of the knee on July 24 on admission and today, July 25, underwent washout of the knee joint. She is currently on Zosyn and vancomycin, day 2. Cultures are pending. Antibiotics will be tailored accordingly. (2) Atelectasis of right lung: Plan: Right lower lobe atelectasis seen on chest x-ray. Incentive spirometry has been ordered (3) Anxiety with depression: Plan: Will resume her usual medications when appropriate (4) Invasive ductal carcinoma of right breast: Plan: Patient oncology follow-up. No intervention necessary at this time (5) Acid reflux: Plan: PPI therapy ordered (6) Hypertension: Plan: Stable. Lisinopril is on hold Plan Eventual discharge to [facility] per family wishes. Admission and Anticipated Discharge Date Admission Date: July 25, 2023 Subjective The patient was seen postoperatively after she underwent left knee washout what appears to be a postoperative infection with dehiscence after total left knee arthroplasty procedure in early June. She is still somewhat lethargic. Daughter is at the bedside. Preoperative chest x-ray reveals right lower lobe atelectasis. Incentive spirometry has been ordered. Her daughter says she can take Vicodin which she takes at home as needed for her chronic back pain. She does not do well with oxycodone or Dilaudid. She is currently on Zosyn and vancomycin. Will await culture results and tailor antibiotics accordingly Review of Systems 2 Review of Systems: The patient is lethargic postoperatively and unable to answer any questions regarding review of systems Physical Exam 2 Physical Exam: General-lethargic postoperatively. No fever HEENT-head atraumatic and normocephalic, pupils equal and reactive to light, extraocular muscles intact Neck-no lymphadenopathy or thyromegaly, trachea midline Chest-clear to auscultation anteriorly. No rales, wheezing or rhonchi Cardiac-regular rate and rhythm, normal S1 and S2 Abdomen-normal bowel sounds, no hepatosplenomegaly Extremities-left knee is bandaged and immobilized Neuro- moving all extremities randomly, no focal deficits Psych-lethargic postoperatively. Cannot assess Results & Data Results & Data Vital Signs (Past 12 Hours) Vital Signs Temp Pulse Pulse Resp BP BP Pulse Ox 07/26/23 16:46 36.9 C 86 16 129/63 92 07/26/23 16:29 81 07/26/23 16:16 36.8 C 89 14 117/54 L 92 07/26/23 16:08 07/26/23 15:49 37.0 C 85 16 142/63 H 93 07/26/23 15:30 83 15 135/84 95 07/26/23 15:15 81 14 145/85 H 94 07/26/23 15:05 85 16 130/55 L 95 07/26/23 14:55 82 19 133/64 97 07/26/23 14:45 81 16 153/80 H 97 07/26/23 14:35 83 14 142/81 H 97 07/26/23 14:25 82 16 135/89 96 07/26/23 14:15 82 15 133/69 96 07/26/23 14:05 81 15 163/85 H 96 07/26/23 13:55 79 23 157/70 H 96 07/26/23 13:45 76 13 157/65 H 96 07/26/23 13:36 75 15 139/93 95 07/26/23 11:43 37.2 C 66 20 145/64 H 96 07/26/23 07:40 129/62 07/26/23 07:40 96 07/26/23 07:33 77 19 94 07/26/23 07:30 77 07/26/23 07:00 80 14 91 07/26/23 06:30 77 20 98 07/26/23 06:00 75 17 99 07/26/23 05:30 74 20 95 O2 Del Method O2 Flow Rate 07/26/23 16:46 Nasal Cannula 2 07/26/23 16:29 07/26/23 16:16 Nasal Cannula 2 07/26/23 16:08 Nasal Cannula 2 07/26/23 15:49 Nasal Cannula 2 07/26/23 15:30 Nasal Cannula 2 07/26/23 15:15 Nasal Cannula 2 07/26/23 15:05 Nasal Cannula 2 07/26/23 14:55 Nasal Cannula 2 07/26/23 14:45 Nasal Cannula 2 07/26/23 14:35 Oxymask 10 07/26/23 14:25 Oxymask 10 07/26/23 14:15 Oxymask 10 07/26/23 14:05 Oxymask 10 07/26/23 13:55 Oxymask 10 07/26/23 13:45 Oxymask 10 07/26/23 13:36 Oxymask 10 07/26/23 11:43 Room Air 07/26/23 07:40 07/26/23 07:40 07/26/23 07:33 07/26/23 07:30 07/26/23 07:00 07/26/23 06:30 07/26/23 06:00 07/26/23 05:30 Laboratory Results 07/26/23 05:13 07/26/23 05:13 PG Care Time/CCT Total # of Minutes Spent Total Time Spent with Patient: Total time spent is greater than 50% in coordination of care (as documented) at patient's floor/unit and/or counseling patient: Coding Level of Care Code 57411 SUB INP/OBS CARE 3/50MIN Diagnoses Postoperative infection of knee T81.49XA; M00.9 Atelectasis of right lung J98.11 Anxiety with depression F41.8 Invasive ductal carcinoma of right breast C50.911 Acid reflux K21.9 Hypertension I10
[2023-07-26] MEDS: SENNA 8.6 MG TAB PO SCH (20:21)
[2023-07-26] MEDS: ASPIRIN 81 MG ECTAB PO SCH (20:21)
[2023-07-26] MEDS: DOCUSATE SODIUM 100 MG CAP PO SCH (20:21)
[2023-07-27] MEDS: ONDANSETRON INJ 2 MG/ML 2 ML VIAL IV PRN (00:29)
[2023-07-27] MEDS: diphenhydrAMINE Capsule 25 MG CAP PO PRN (00:47)
[2023-07-27] MEDS: VANCOMYCIN LEVEL ONE (01:24)
[2023-07-27 01:48] LABS: Basophils # (auto) 0.01 K/uL (0.00-0.20); Basophils % (auto) 0.2 %; Eosinophils # (auto) 0.03 K/uL (0.00-0.50); Eosinophils % (auto) 0.5 %; Hematocrit (blood only) 28.3 % (37.0-47.0); Hemoglobin 8.6 g/dl (12.0-16.0); Immature Granulocytes # (auto) 0.03 K/uL (0.01-0.20); Immature Granulocytes % (auto) 0.5 %; Lymphocytes # (auto) 0.76 K/uL (1.20-3.40); Lymphocytes % (auto) 12.4 %; Mean Corpuscular Hemoglobin 27.5 pg (25.0-34.0); Mean Corpuscular Hgb Conc 30.4 g/dL (32.0-36.0); Mean Corpuscular Volume 90.4 fL (80.0-100.0); Mean Platelet Volume 9.7 fL (9.4-12.4); Monocytes # (auto) 0.98 K/uL (0.11-0.59); Neutrophils # (auto) 4.31 K/uL (1.40-6.50); Neutrophils % (auto) 70.4 %; Platelet Count 138 K/uL (130-400); RDW Coefficient of Variation 15.7 % (11.5-14.5); RDW Standard Deviation 52.2 fL (36.4-46.3); Red Blood Count 3.13 M/uL (4.20-5.40); White Blood Count 6.12 K/ul (4.8-10.8)
[2023-07-27 02:02] LABS: BUN Creatinine Ratio 19.4 (10-20); Calcium 8.1 mg/dl (8.6-10.3); Creatinine Clr Calc Pharmacy 71.5 ml/min; Est GFR (African American) 96.2 ml/min; Potassium 4.4 mmol/L (3.5-5.1)
[2023-07-27] MEDS ORDERED: LACTATED RINGER'S 1,000 ML IV SCH (04:45)
[2023-07-27] MEDS: SODIUM CHLORIDE 0.9% 1,000 ML IV SCH (06:11)
--- NOTE | 2023-07-27 06:50 | Orthopedic Progress Note ---
Date of Service July 27, 2023 Assessment & Plan (1) Septic joint of left knee joint: Plan: POD #1 s/p Left Knee DAIR Procedure with poly changed to size 12 polyethylene Gram stain taken from ER on 07/24 showing few gram positive Bacilli, cultures pending. intra-op cultures pending. at this point, she is currently on Zosyn and vancomycin, will await final culture results. ID has been consulted as well DVT proph with JANE/SCD/ASA WBAT with the immobilizer on and walker, she can remove in bed for PT, ROM 0- 15 flexion until first post op visit in 2 weeks. acute blood loss anemia- H/H 8.6/28.3 this am, will await medical team recommendations. Admission and Anticipated Discharge Date Admission Date: July 25, 2023 Subjective POD #1 s/p Left Knee DAIR Procedure with poly changed to size 12 polyethylene she is slightly confused this am, however is aware that she had her knee surgery yesterday. Review of Systems Constitutional: no fever, no chills and no sweats Respiratory: no cough and no dyspnea Cardiovascular: no chest pain and no dyspnea Gastrointestinal: no abdominal pain, no nausea and no vomiting Physical Exam Physical Exam: Vital Signs Temp Pulse Pulse Resp BP BP BP 07/27/23 04:40 36.4 C L 96 H 20 119/61 07/27/23 04:21 07/27/23 03:35 39 C H 103 H 20 126/62 07/27/23 00:37 37.5 C 94 H 18 138/59 L 07/26/23 22:48 07/26/23 22:00 93 H 07/26/23 20:09 37.2 C 86 18 127/70 07/26/23 17:42 36.9 C 98 H 16 134/70 07/26/23 16:46 36.9 C 86 16 129/63 07/26/23 16:29 81 07/26/23 16:16 36.8 C 89 14 117/54 L 07/26/23 16:08 07/26/23 15:49 37.0 C 85 16 142/63 H 07/26/23 15:30 83 15 135/84 07/26/23 15:15 81 14 145/85 H 07/26/23 15:05 85 16 130/55 L 07/26/23 14:55 82 19 133/64 07/26/23 14:45 81 16 153/80 H 07/26/23 14:35 83 14 142/81 H 07/26/23 14:25 82 16 135/89 07/26/23 14:15 82 15 133/69 07/26/23 14:05 81 15 163/85 H 07/26/23 13:55 79 23 157/70 H 07/26/23 13:45 76 13 157/65 H 07/26/23 13:36 75 15 139/93 07/26/23 11:43 37.2 C 66 20 145/64 H 07/26/23 07:40 129/62 07/26/23 07:40 07/26/23 07:33 77 19 07/26/23 07:30 77 07/26/23 07:00 80 14 Pulse Ox O2 Del Method O2 Flow Rate 07/27/23 04:40 95 Nasal Cannula 2 07/27/23 04:21 Room Air 07/27/23 03:35 92 Nasal Cannula 2 07/27/23 00:37 95 Nasal Cannula 2 07/26/23 22:48 Nasal Cannula 2 07/26/23 22:00 07/26/23 20:09 94 Room Air 07/26/23 17:42 91 Nasal Cannula 2 07/26/23 16:46 92 Nasal Cannula 2 07/26/23 16:29 07/26/23 16:16 92 Nasal Cannula 2 07/26/23 16:08 Nasal Cannula 2 07/26/23 15:49 93 Nasal Cannula 2 07/26/23 15:30 95 Nasal Cannula 2 07/26/23 15:15 94 Nasal Cannula 2 07/26/23 15:05 95 Nasal Cannula 2 07/26/23 14:55 97 Nasal Cannula 2 07/26/23 14:45 97 Nasal Cannula 2 07/26/23 14:35 97 Oxymask 10 07/26/23 14:25 96 Oxymask 10 07/26/23 14:15 96 Oxymask 10 07/26/23 14:05 96 Oxymask 10 07/26/23 13:55 96 Oxymask 10 07/26/23 13:45 96 Oxymask 10 07/26/23 13:36 95 Oxymask 10 07/26/23 11:43 96 Room Air 07/26/23 07:40 07/26/23 07:40 96 07/26/23 07:33 94 07/26/23 07:30 07/26/23 07:00 91 Intake and Output 07/26/23 07/26/23 07/27/23 14:59 22:59 06:59 Intake Total 1100 / 5478.333 2683.333 / 5478.33 3 1695 / 5478.333 Output Total 5 / 5 Balance 1100 / 5473.333 2678.333 / 5473.33 3 1695 / 5473.333 Intake: IV 1100 / 3728.333 1283.333 / 3728.33 3 1345 / 3728.333 Acetaminophen 1,000 mg In 100 100 / 100 ml @ 400 mls/h r IV Q8H PRN Rx#: [id number] Nss + 20Meq MACRINA l 20 meq In 1,000 1000 / 1533.333 533.333 / 1533.333 ml @ 80 mls/hr IV .[id number] RANJANA Rx#:[id number] Piperacillin/T azobactam 4.5 gm 100 / 300 100 / 300 100 / 300 In Dextrose 5% Mini-B 100 ml @ 25 mls/hr IV Q 8H RANJANA Rx#: [id number] Sodium Chlorid e 0.9% 1,000 ml @ 120 / 1000 880 / 1000 80 mls/hr IV . [id number] RANJANA Rx#: [id number] Vancomycin HCl 750 mg In Sodium 530 / 795 265 / 795 Chloride 0.9% 250 ml @ 200 mls /hr IV Q8H RANJANA Rx#:[id number] IV Perioperative 1400 / 1400 Oral 350 / 350 Output: Urine 0 / 0 Estimated Blood Loss 5 / 5 Other: # Unmeasured Voi ds 1 Weight 80.1 kg 82.8 kg Weight Measureme nt Method Built in [facility] Patient Weight 07/27/23 06:59 Weight 82.8 kg Musculoskeletal: Left Leg: currently resting in immobilizer. NVDI, calf SNT, negative armen sign. DP palpable, has 4/5 ankle plantar/dorsiflexion. dressing clean and dry, hemovac in place Results & Data Vital Signs (Past 12 Hours) Vital Signs Temp Pulse Pulse Resp BP BP Pulse Ox 07/27/23 04:40 36.4 C L 96 H 20 119/61 95 07/27/23 04:21 07/27/23 03:35 39 C H 103 H 20 126/62 92 07/27/23 00:37 37.5 C 94 H 18 138/59 L 95 07/26/23 22:48 07/26/23 22:00 93 H 07/26/23 20:09 37.2 C 86 18 127/70 94 O2 Del Method O2 Flow Rate 07/27/23 04:40 Nasal Cannula 2 07/27/23 04:21 Room Air 07/27/23 03:35 Nasal Cannula 2 07/27/23 00:37 Nasal Cannula 2 07/26/23 22:48 Nasal Cannula 2 07/26/23 22:00 07/26/23 20:09 Room Air Laboratory Results Laboratory Results WBC 6.12 K/ul (4.8-10.8) 07/27/23 01:19 RBC 3.13 M/uL (4.20-5.40) L 07/27/23 01:19 Hgb 8.6 g/dl (12.0-16.0) L 07/27/23 01:19 Hct 28.3 % (37.0-47.0) L 07/27/23 01:19 MCV 90.4 fL (80.0-100.0) 07/27/23 01:19 MCH 27.5 pg (25.0-34.0) 07/27/23 01:19 MCHC 30.4 g/dL (32.0-36.0) L 07/27/23 01:19 RDW Std Deviation 52.2 fL (36.4-46.3) H 07/27/23 01:19 RDW Coeff of [place] 15.7 % (11.5-14.5) H 07/27/23 01:19 Plt Count 138 K/uL (130-400) 07/27/23 01:19 MPV 9.7 fL (9.4-12.4) 07/27/23 01:19 Immature Gran % (Auto) 0.5 % 07/27/23 01:19 Neut % (Auto) 70.4 % 07/27/23 01:19 Lymph % (Auto) 12.4 % 07/27/23 01:19 [place] % (Auto) 16.0 % 07/27/23 01:19 Eos % (Auto) 0.5 % 07/27/23 01:19 Baso % (Auto) 0.2 % 07/27/23 01:19 Neut # (Auto) 4.31 K/uL (1.40-6.50) 07/27/23 01:19 Lymph # (Auto) 0.76 K/uL (1.20-3.40) L 07/27/23 01:19 [place] # (Auto) 0.98 K/uL (0.11-0.59) H 07/27/23 01:19 Eos # (Auto) 0.03 K/uL (0.00-0.50) 07/27/23 01:19 Baso # (Auto) 0.01 K/uL (0.00-0.20) 07/27/23 01:19 Immature Gran # (Auto) 0.03 K/uL (0.01-0.20) 07/27/23 01:19 ESR 29 mm/hr (0-30) 07/25/23 16:53 Sodium 137 mmol/L (136-145) 07/27/23 01:19 Potassium 4.4 mmol/L (3.5-5.1) 07/27/23 01:19 Chloride 108 mmol/L (98-107) H 07/27/23 01:19 Carbon Dioxide 23 mmol/L (21-32) 07/27/23 01:19 Anion Gap 6 (3-11) 07/27/23 01:19 BUN 13 mg/dl (6-23) 07/27/23 01:19 Creatinine 0.67 mg/dl (0.6-1.2) 07/27/23 01:19 Est Cr Clr Drug Dosing 71.5 ml/min 07/27/23 01:19 Est GFR ( Amer) 96.2 ml/min 07/27/23 01:19 Est GFR (Non-Af Amer) 83.0 ml/min 07/27/23 01:19 BUN/Creatinine Ratio 19.4 (10-20) 07/27/23 01:19 Glucose 95 mg/dl (70-99(Fasting)) 07/27/23 01:19 Lactate 0.6 mmol/L (0.4-2.0) 07/27/23 05:25 Calcium 8.1 mg/dl (8.6-10.3) L 07/27/23 01:19 Phosphorus 3.8 mg/dl (2.5-4.9) 07/26/23 05:13 Magnesium 1.8 mg/dl (1.7-2.4) 07/26/23 05:13 Total Bilirubin 0.6 mg/dl (0.2-1.0) 07/25/23 16:53 AST 18 U/L (13-39) 07/25/23 16:53 ALT 10 U/L (7-52) 07/25/23 16:53 Alkaline Phosphatase 58 U/L (34-104) 07/25/23 16:53 C-Reactive Protein 6.33 mg/dl (0-0.5) H 07/25/23 16:53 Total Protein 6.2 gm/dl (6.0-8.3) 07/25/23 16:53 Albumin 3.3 gm/dl (3.4-5.0) L 07/26/23 05:13 Globulin 2.6 gm/dl (2.5-4.0) 07/25/23 16:53 Albumin/Globulin Ratio 1.4 (0.9-2) 07/25/23 16:53 Procalcitonin < 0.02 ng/ml (0-0.5) 07/27/23 05:25 Fluid Comment 07/26/23 12:43 Synovial Source Left Knee 07/26/23 12:43 Synovial Color Red 07/26/23 12:43 Synovial Appearance Turbid 07/26/23 12:43 Synovial WBC (Auto) 36023 /ul (0-200) H 07/26/23 12:43 Synovial RBC (Auto) 648157 /uL 07/26/23 12:43 Synovial Polynuclear % 96.6 % 07/26/23 12:43 Synovial Mononuclear % 3.4 % 07/26/23 12:43 Random Vancomycin 14.8 mcg/ml (10-20) 07/27/23 01:19 Impressions Venous Doppler Study 07/25/23 16:44 ULTRASOUND LEFT LOWER EXTREMITY VENOUS CLINICAL HISTORY: Left leg swelling. Recent surgery. COMPARISON STUDY: No priors. TECHNIQUE: Real-time, grayscale, and color Doppler sonography of the deep veins of the left lower extremity was performed from the inguinal crease to the calf. Compression and augmentation were utilized. FINDINGS: There is no sonographic evidence of deep venous thrombosis identified in the left lower extremity. The common femoral, superficial femoral, and popliteal veins are patent and normally compressible. The greater saphenous vein and the profunda femoris vein at the junction with the common femoral vein are clear. The visualized calf veins are patent. A complex nonvascular fluid collection in the popliteal fossa measures up to 6.7 cm. IMPRESSION: 1. There is no sonographic evidence of deep venous thrombosis identified in the left lower extremity. 2. A complex nonvascular fluid collection within the medial popliteal fossa measures up to 6.7 cm. This could represent a Dickinson's cyst or postsurgical seroma/hematoma. The sterility of this fluid cannot be assessed by imaging and clinical correlation will be required. ACT 112: Negative or not required by law. Electronically signed by: Joe Lowe M.D. 07/25/2023 6:34 PM Chest X-Ray 07/26/23 07:53 XR chest 1V portable CLINICAL HISTORY: pre-op eval TECHNIQUE: Single frontal radiograph of the chest was obtained. Comparison: Comparison is made to chest radiograph 09/12/2005 FINDINGS: Right shoulder reverse arthroplasty is seen. Cardiomegaly is noted. The aortic arch is calcified. Elevation of the right hemidiaphragm is seen. No evidence of pleural effusion or pneumothorax. IMPRESSION: Likely atelectasis in the right lower lung. No acute abnormalities. ACT 112: Negative or not required by law. Electronically signed by: Cipriano Marina M.D. 07/26/2023 10:37 AM Knee X-Ray 07/26/23 13:39 LEFT KNEE 2 VIEWS History: Left total knee arthroplasty. Degenerative arthritis. Postop. FINDINGS: The patient is status post a left total knee arthroplasty. The hardware is intact. No fracture or dislocation. Skin christina and surgical drains are in place. IMPRESSION: Left total knee arthroplasty. No evidence for hardware complication. ACT 112: Negative or not required by law. Electronically signed by: Radhames Bruno M.D. 07/26/2023 4:27 PM Diagnostic Findings 07/27/23 05:25 Aerobic Blood Culture - Pending Blood Anaerobic Blood Culture - Pending 07/27/23 05:35 Aerobic Blood Culture - Pending Blood Anaerobic Blood Culture - Pending 07/26/23 13:28 Gram Stain - Final Knee,Left Aerobic and Anaerobic Culture - Pending 07/26/23 Unknown Gram Stain - Final Knee,Left Aerobic and Anaerobic Culture - Pending 07/26/23 Unknown Gram Stain - Final Knee Aerobic and Anaerobic Culture - Pending 07/26/23 Unknown Gram Stain - Final Knee,Left Aerobic and Anaerobic Culture - Pending 07/26/23 Unknown Gram Stain - Final Knee Aerobic and Anaerobic Culture - Pending 07/25/23 17:49 Gram Stain - Final Knee,Left 07/25/23 17:49 Gram Stain - Final Knee,Left Microbiology 07/26/23 13:28 Knee,Left Gram Stain - Final 07/26/23 Unknown Knee,Left Gram Stain - Final 07/26/23 Unknown Knee Gram Stain - Final 07/26/23 Unknown Knee,Left Gram Stain - Final 07/26/23 Unknown Knee Gram Stain - Final 07/25/23 17:58 Blood Aerobic Blood Culture - Preliminary No growth in Aerobic bottle after 24 hours. 07/25/23 17:58 Blood Anaerobic Blood Culture - Preliminary No growth in Anaerobic bottle after 24 hours. 07/25/23 16:53 Blood Aerobic Blood Culture - Preliminary No growth in Aerobic bottle after 24 hours. 07/25/23 16:53 Blood Anaerobic Blood Culture - Preliminary No growth in Anaerobic bottle after 24 hours. 07/25/23 17:49 Knee,Left Gram Stain - Final 07/25/23 17:49 Knee,Left Aerobic and Anaerobic Culture - Preliminary No growth to date. 07/25/23 17:49 Knee,Left Gram Stain - Final 07/25/23 17:49 Knee,Left Aerobic and Anaerobic Culture - Preliminary No growth to date. Spec: [id number] Collected: 07/25/23-1748 Received: 07/25/23-[address]: Ata Cotton M.D. Source: Knee,Left OV Order: Ordered: Aer/Katherine Cult/Sm Comments: Comment #2 superficial incision left knee Comment # 1 deep left knee joint Procedure Result Verified Site Gram Stain Final 07/25/23-2235 Gram Stain Result Few WBCs Seen Few Gram Positive Bacilli Aero/Katherine Cult Preliminary 07/26/23-1311 No growth to date.
[2023-07-27] MEDS: MULTIVITAMIN TAB PO SCH (09:20)
--- NOTE | 2023-07-27 09:24 | Pharmacy Report ---
Pharmacy PK ABX Note - Date of Service July 27, 2023 - Assessment and Plan Assessment 07/26 * 07/24 Blood and knee cultures negative to date * 07/25 knee cultures pending * 07/26 blood cultures pending * Trough level this AM 14.8 mcg/mL predicts attainment of target AUC/GEOVANNA (currently~472 mg/L.hr)- predicts 578 mg/L.hr at steady state, jhonatan lcontinue * Monitor cultures/renal function 07/25 * 82 year old F receiving VANCOMYCIN + ZOSYN for treatment of infected L knee TKA. * Pertinent microbiologic data includes: synovial fluid WBC 59k, synovial fluid and blood cx's pending * Day # 1 of antimicrobial therapy. Plan Vancomycin * Loading dose: 1500 mg IV x 1 * Maintenance dose: 750 mg IV every 8 hours- continue * Regimen is predicted to achieve target AUC/GEOVANNA of 400-600 mg/L.hr * Random level ordered for 07/28 @ 0900 Pharmacy will continue to follow and will adjust dose/frequency as necessary. Thank you. Pharmacy has transitioned to AUC monitoring for vancomycin. AUC/GEOVANNA is the preferred PK/PD target and is associated with decreased risk of nephrotoxicity compared to traditional trough targets.
[2023-07-27] MEDS ORDERED: MoRPHine SULFATE 2 MG/ML CARP IV PRN (10:40)
[2023-07-27] MEDS: METOPROLOL TARTRATE 25 MG TAB PO SCH (11:17)
[2023-07-27] MEDS: MoRPHine SULFATE 2 MG/ML CARP IV STA (11:18)
--- NOTE | 2023-07-27 12:01 | Infectious Disease Consult ---
Date of Service July 27, 2023 Telehealth Information I performed this visit using a real-time telehealth connection between my location and the patients location ([facility]). After connecting through interactive tele-video, patient was identified by name and date of and/or wristband check.Patient (or authorized healthcare technical support representative) was informed that this was a telemedicine visit and it was being conducted confidentially over secure lines. My office door was closed and no one else was present in the room with me.Patient (or authorized healthcare technical support representative) provided consent to proceed with the visit, expressed an understanding of privacy and security of the telemedicine visit, and gave permission to have a hospital technical support representative in the room in order to assist with the visit and to conduct portions of the visit, as needed. I informed the patient (or authorized healthcare technical support representative) that I reviewed their record and presented the opportunity for them to ask any questions regarding the visit today. The patient agreed to participate. Assessment & Plan (1) Infection of prosthetic left knee joint: Plan: 82-year-old female with a infected prosthetic left knee status post exchange of polyethylene with Orthopedic Surgery 07/25 with current cultures without significant organisms on stain, currently without growth at approximately 12:00 p.m.. Unable to discuss with patient personally as she is currently altered and not responding to questioning. antibiotics of vancomycin and Zosyn are unlikely to cause encephalopathy. Would recommend continuation of current IV broad- spectrum antibiotics until cultures of time to mature and hopefully we will be able to discharge on directed IV therapy. - Zosyn IV 4.5 g Q 8 hours -vancomycin IV, per pharmacy -final recommendations pending maturation of culture Appreciate consultation, please do not hesitate to reach out for any further questions or concerns. Zach Rankin MD PGY4 Infectious Disease History of Present Illness History of Present Illness 82-year-old female initially presenting with left knee pain with a past medical history of TKA of left knee 06/26, lumbar facet joint syndrome, arthritis, ductal carcinoma of the breast. Initially seen in the emergency department 07/17 for increased drainage, had slight trauma to the knee in the few days preceding this ER visit with increased redness, yellow-tinged drainage. Orthopedic Surgery was consulted and aspiration revealed high suspicion for septic prosthetic joint pat ient underwent debridement with polyethylene exchange 07/25 with cultures currently with no growth. Patient was nontoxic-appearing and was initiated on vancomycin/cefepime in his now currently on vancomycin and Zosyn. Current temperature 38.2, initially afebrile however early in a.m. today T-max 39. WBC without elevation. history obtained from chart, bedside nurse as patient was unable to give history, she was not able to answer questions. Allergies Allergy/AdvReac Type Severity Reaction Status Date / Time Cephalosporins Allergy Mild rash Verified 07/18/23 23:46 codeine Allergy Mild Rash Verified 07/18/23 23:46 erythromycin base Allergy Mild Rash Verified 07/18/23 23:46 nitrofurantoin Allergy Mild rash Verified 07/18/23 23:46 tetracycline Allergy Mild rash Verified 07/18/23 23:46 tramadol Allergy Mild Itching Verified 07/18/23 23:46 hydromorphone [From Dilaudid] AdvReac Intermediate mental Verified 07/18/23 23:46 change morphine AdvReac Mild SICK TO Verified 07/18/23 23:46 STOMACH Home Medications Medication Instructions Recorded Confirmed Type cholecalciferol (vitamin D3) 25 1,000 unit PO QAM #30 caps 02/08/21 07/25/23 Rx mcg (1,000 unit) capsule lisinopril 20 mg tablet 20 mg PO QPM 09/15/22 07/25/23 History multivitamin 1 tab PO QAM 06/07/23 07/25/23 History oxycodone 5 mg tablet 5 - 10 mg (1 - 2 x 5 mg) PO Q6H 06/28/23 07/25/23 Rx PRN pain #30 tabs celecoxib 200 mg capsule 200 mg PO BID 07/18/23 07/25/23 History citalopram 40 mg tablet 40 mg PO QAM 07/18/23 07/25/23 History gabapentin 600 mg tablet 600 mg PO TID 07/18/23 07/25/23 History omeprazole 40 mg capsule,delayed 40 mg PO BID 07/18/23 07/25/23 History release trazodone 50 mg tablet 50 mg PO HS PRN Insomnia 07/18/23 07/25/23 History fesoterodine 4 mg tablet,extended 4 mg PO DAILY #90 tabs 07/24/23 07/25/23 Rx release 24 hr (Toviaz) Patient History Medical History (Updated 07/27/23 @ 11:57 by Zach Rankin MD) Arthritis of knee, left Hiatal hernia Anxiety Torn rotator cuff left; steroid injection Q 3 mos, last one 04/2023 w/ Dr Laws Meningioma determined by biopsy of brain Symptomatic small atypical meningioma (s/p craniotomy- 07/2022) Last seen by neuro surgery 02/2023 (stable at that time- no evidence of recurrence of operated tumor) Headache significantly improved History of DVT (deep vein thrombosis) LLE (CALF) 40+ YEARS AGO (WAS TAKING CONTROL PILLS) Polio During childhood 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 History of vertebral compression fracture Around - s/p kyphoplasty Surgical History (Updated 07/26/23 @ 09:19 by Brant Rodriguez MD) History of partial mastectomy of right breast (09/15/22) Right Breast Partial Mastectomy with [employer] Localization(Right) - Gladys Woods DO S/P craniotomy 07/2022- STEFANIE Mercer History of kyphoplasty L2 and S1 02/01/2021 H/O hand surgery left History of cataract surgery RT/LEFT History of bilateral tubal ligation History of dilatation and curettage History of breast biopsy left negative > right/ reason for up coming procedure History of carpal tunnel release bilat History of esophagogastroduodenoscopy (EGD) History of tooth extraction History of cardiac cath OVER 14 YEARS AGO/NO STENTS History of colonoscopy History of laminectomy X 2 (LUMBAR REGION) History of right shoulder replacement History of total right knee replacement Family History Mother Family history of pancreatic cancer Alcohol abuse Depression Father Family history of Hodgkin's lymphoma Hypertension Grandfather (Paternal) Myocardial infarction Sister Depression Hypertension Grandfather (Maternal) Myocardial infarction Denies family history of Ovarian cancer Prostate cancer Breast cancer Colorectal cancer Social History Smoking Status: Never smoker Second Hand Exposure: Yes (as child); Do You Dip or Chew Tobacco: No; Hx Alcohol Use: No Hx Substance Use: No Preferred Language: Citizen Of [place] Communication Ability: Effective Visual Impairment: No Limitations Hearing Ability: Normal Bill Cutter Required: No Beliefs That Will Affect Care: None marital status: / Current Living Situation: Alone current occupational status: retired Other Information That Helps Us Care for You: No Feels Safe at Home: Yes Safety Concerns: Feels Safe At This Time Childhood Exposure to Second-Hand Smoke: Yes Diet: regular Dental Care, Regularly: No Physical Activity Frequency: Does not Exercise Seatbelt Use: sometimes Sunscreen Use: No Assistive Devices: Cane, Stair Lift, Walker and Wheelchair Review of Systems unable to be obtained. Results & Data Vital Signs (Past 12 Hours) Vital Signs Temp Pulse Pulse Resp BP BP Pulse Ox 07/27/23 11:19 38.2 C H 100 H 20 141/71 H 91 07/27/23 09:30 07/27/23 07:44 37.2 C 100 H 18 137/52 L 95 07/27/23 07:22 101 H 07/27/23 04:40 36.4 C L 96 H 20 119/61 95 07/27/23 04:21 07/27/23 03:35 39 C H 103 H 20 126/62 92 07/27/23 00:37 37.5 C 94 H 18 138/59 L 95 O2 Del Method O2 Flow Rate 07/27/23 11:19 Nasal Cannula 3 07/27/23 09:30 Nasal Cannula 2 07/27/23 07:44 Nasal Cannula 2 07/27/23 07:22 07/27/23 04:40 Nasal Cannula 2 07/27/23 04:21 Room Air 07/27/23 03:35 Nasal Cannula 2 07/27/23 00:37 Nasal Cannula 2 Diagnostic Findings 07/26/23 13:28 Gram Stain - Final Knee,Left Aerobic and Anaerobic Culture - Preliminary No growth to date. 07/26/23 Unknown Gram Stain - Final Knee Aerobic and Anaerobic Culture - Preliminary No growth to date. 07/25/23 17:49 Gram Stain - Final Knee,Left Aerobic and Anaerobic Culture - Preliminary No growth to date. 07/27/23 05:25 Aerobic Blood Culture - Pending Blood Anaerobic Blood Culture - Pending 07/27/23 05:35 Aerobic Blood Culture - Pending Blood Anaerobic Blood Culture - Pending 07/26/23 Unknown Gram Stain - Final Knee,Left Aerobic and Anaerobic Culture - Pending 07/26/23 Unknown Gram Stain - Final Knee Aerobic and Anaerobic Culture - Pending 07/26/23 Unknown Gram Stain - Final Knee,Left Aerobic and Anaerobic Culture - Pending 07/25/23 17:58 Aerobic Blood Culture - Preliminary Blood No growth in Aerobic bottle after 24 hours. Anaerobic Blood Culture - Preliminary No growth in Anaerobic bottle after 24 hours. 07/25/23 16:53 Aerobic Blood Culture - Preliminary Blood No growth in Aerobic bottle after 24 hours. Anaerobic Blood Culture - Preliminary No growth in Anaerobic bottle after 24 hours. 07/25/23 17:49 Gram Stain - Final Knee,Left Aerobic and Anaerobic Culture - Preliminary No growth to date. 07/27/23 07/27/23 07/27/23 05:45 05:25 01:19 WBC 6.12 RBC 3.13 L Hgb 8.6 L Hct 28.3 L MCV 90.4 MCH 27.5 MCHC 30.4 L RDW Std Deviation 52.2 H RDW Coeff of [place] 15.7 H Plt Count 138 MPV 9.7 Immature Gran % (Auto) 0.5 Neut % (Auto) 70.4 Lymph % (Auto) 12.4 Spink % (Auto) 16.0 Eos % (Auto) 0.5 Baso % (Auto) 0.2 Neut # (Auto) 4.31 Lymph # (Auto) 0.76 L Spink # (Auto) 0.98 H Eos # (Auto) 0.03 Baso # (Auto) 0.01 Immature Gran # (Auto) 0.03 Sodium 137 Potassium 4.4 Chloride 108 H Carbon Dioxide 23 Anion Gap 6 BUN 13 Creatinine 0.67 Est Cr Clr Drug Dosing 71.5 Est GFR ( Amer) 96.2 Est GFR (Non-Af Amer) 83.0 BUN/Creatinine Ratio 19.4 Glucose 95 Lactate 0.6 Calcium 8.1 L Procalcitonin < 0.02 Fluid Comment Synovial Source Synovial Color Synovial Appearance Synovial WBC (Auto) Synovial RBC (Auto) Synovial Polynuclear % Synovial Mononuclear % Nasal Screen MRSA (PCR) Negative Random Vancomycin 14.8 07/26/23 12:43 WBC RBC Hgb Hct MCV MCH MCHC RDW Std Deviation RDW Coeff of [place] Plt Count MPV Immature Gran % (Auto) Neut % (Auto) Lymph % (Auto) Spink % (Auto) Eos % (Auto) Baso % (Auto) Neut # (Auto) Lymph # (Auto) Spink # (Auto) Eos # (Auto) Baso # (Auto) Immature Gran # (Auto) Sodium Potassium Chloride Carbon Dioxide Anion Gap BUN Creatinine Est Cr Clr Drug Dosing Est GFR ( Amer) Est GFR (Non-Af Amer) BUN/Creatinine Ratio Glucose Lactate Calcium Procalcitonin Fluid Comment Synovial Source Left Knee Synovial Color Red Synovial Appearance Turbid Synovial WBC (Auto) 83416 H Synovial RBC (Auto) 059622 Synovial Polynuclear % 96.6 Synovial Mononuclear % 3.4 Nasal Screen MRSA (PCR) Random Vancomycin
--- NOTE | 2023-07-27 12:10 | Hospitalist Progress Note ---
Date of Service July 27, 2023 Assessment & Plan (1) Postoperative infection of knee: Plan: She underwent left total knee arthroplasty in early June. She has since developed a wound infection and medial dehiscence. She underwent an aspiration procedure of the knee on July 24 on admission and on July 25 underwent washout of the knee joint. She is currently on Zosyn and vancomycin, day 3. Cultures are so far nondiagnostic. Pain control measures in place. (2) Atelectasis of right lung: Plan: Right lower lobe atelectasis seen on chest x-ray. Incentive spirometry has been ordered (3) Anxiety with depression: Plan: Will resume her usual medications when appropriate (4) Invasive ductal carcinoma of right breast: Plan: Patient oncology follow-up. No intervention necessary at this time (5) Acid reflux: Plan: PPI therapy ordered (6) Hypertension: Plan: Stable. Lisinopril is on hold . Metoprolol was started today, July 26 heart rate and blood pressure control which are probably aggravated by left knee pain Plan Eventual discharge to [facility] per family wishes. Admission and Anticipated Discharge Date Admission Date: July 25, 2023 Subjective Alert now and complaining of left knee pain parenteral morphine ordered. Metoprolol has been added for blood pressure and heart rate control. Lisinopril was discontinued on admission. She remains on Zosyn and vancomycin. Cultures are nondiagnostic to date. She had knee aspiration on July 24 and washout procedure on July 25. Infectious disease consultation requested by orthopedics. Review of Systems 2 Review of Systems: Constitutional-no fever or chills ENT-no blurred vision, no double vision, no epistaxis, no sore throat Respiratory-no cough, no wheezing, no shortness of breath Cardiac-no palpitations, no chest pain, no syncope GI-no nausea, vomiting, diarrhea, melena, hematochezia -no urinary retention, no urinary incontinence, no dysuria, no hematuria Musculoskeletal-postoperative left knee pain. No muscle tenderness Skin-no bruising, no rashes, no pruritus Neuro-no isolated weakness, no paresthesia Psych-no depression, no anxiety Physical Exam 2 Physical Exam: General-alert and oriented x3, no fever, no chills HEENT-head atraumatic and normocephalic, pupils equal and reactive to light, extraocular muscles intact Neck-no lymphadenopathy or thyromegaly, trachea midline Chest-clear to auscultation. No rales, wheezing or rhonchi Cardiac-mildly tachycardic regular rate and rhythm, normal S1 and S2 Abdomen-normal bowel sounds, no hepatosplenomegaly Extremities-left knee immobilized. Neuro-cranial nerves II through XII intact, motor and sensory function within normal limits, strength symmetrical, no focal deficits Psych-normal affect, normal mood Results & Data Results & Data Vital Signs (Past 12 Hours) Vital Signs Temp Pulse Pulse Resp BP BP Pulse Ox 07/27/23 11:19 38.2 C H 100 H 20 141/71 H 91 07/27/23 09:30 07/27/23 07:44 37.2 C 100 H 18 137/52 L 95 07/27/23 07:22 101 H 07/27/23 04:40 36.4 C L 96 H 20 119/61 95 07/27/23 04:21 07/27/23 03:35 39 C H 103 H 20 126/62 92 07/27/23 00:37 37.5 C 94 H 18 138/59 L 95 O2 Del Method O2 Flow Rate 07/27/23 11:19 Nasal Cannula 3 07/27/23 09:30 Nasal Cannula 2 07/27/23 07:44 Nasal Cannula 2 07/27/23 07:22 07/27/23 04:40 Nasal Cannula 2 07/27/23 04:21 Room Air 07/27/23 03:35 Nasal Cannula 2 07/27/23 00:37 Nasal Cannula 2 Laboratory Results 07/27/23 01:19 07/27/23 01:19 PG Care Time/CCT Total # of Minutes Spent Total Time Spent with Patient: Total time spent is greater than 50% in coordination of care (as documented) at patient's floor/unit and/or counseling patient: Coding Level of Care Code 09977 SUB INP/OBS CARE 3/50MIN Diagnoses Postoperative infection of knee T81.49XA; M00.9 Atelectasis of right lung J98.11 Anxiety with depression F41.8 Invasive ductal carcinoma of right breast C50.911 Acid reflux K21.9 Hypertension I10
[2023-07-27] MEDS: diphenhydrAMINE Capsule 25 MG CAP PO SCH (15:15)
[2023-07-27] MEDS: ACETAMINOPHEN W/CODEINE #3 1 TAB PO PRN (15:15)
[2023-07-28 06:53] LABS: Basophils # (auto) 0.01 K/uL (0.00-0.20); Basophils % (auto) 0.2 %; Eosinophils # (auto) 0.16 K/uL (0.00-0.50); Eosinophils % (auto) 3.4 %; Hematocrit (blood only) 29.1 % (37.0-47.0); Hemoglobin 8.6 g/dl (12.0-16.0); Immature Granulocytes # (auto) 0.02 K/uL (0.01-0.20); Immature Granulocytes % (auto) 0.4 %; Lymphocytes # (auto) 0.83 K/uL (1.20-3.40); Lymphocytes % (auto) 17.5 %; Mean Corpuscular Hemoglobin 26.9 pg (25.0-34.0); Mean Corpuscular Hgb Conc 29.6 g/dL (32.0-36.0); Mean Corpuscular Volume 90.9 fL (80.0-100.0); Mean Platelet Volume 9.7 fL (9.4-12.4); Monocytes # (auto) 0.85 K/uL (0.11-0.59); Monocytes % (auto) 17.9 %; Neutrophils # (auto) 2.88 K/uL (1.40-6.50); Neutrophils % (auto) 60.6 %; Platelet Count 135 K/uL (130-400); RDW Coefficient of Variation 15.5 % (11.5-14.5); RDW Standard Deviation 51.8 fL (36.4-46.3); White Blood Count 4.75 K/ul (4.8-10.8)
[2023-07-28 07:54] LABS: BUN Creatinine Ratio 20.5 (10-20); Calcium 8.5 mg/dl (8.6-10.3); Creatinine Clr Calc Pharmacy 61.6 ml/min; Est GFR (African American) 77.2 ml/min; Est GFR (Non-African American) 66.6 ml/min; Potassium 4.2 mmol/L (3.5-5.1)
--- NOTE | 2023-07-28 08:27 | XRay Report ---
XR chest 1V portable HISTORY: RLL atelectasis COMPARISON: Chest 07/26/2023. FINDINGS: There are low lung volumes with persistent elevation the right hemidiaphragm. Right basilar linear densities persist and favor subsegmental atelectasis. No pneumothorax. No pleural effusions. The heart remains mildly enlarged. There is mild central pulmonary vascular congestion without overt edema. A few small left basilar linear densities also favor subsegmental atelectasis. The right shoul cari prosthesis. Advanced degenerative changes within the left shoulder. There is a moderate hiatus he rnia again noted. IMPRESSION: 1. No significant change compared to the prior study. 2. Elevated right hemidiaphragm with bibasilar linear densities suggesting subsegmental atelectasis. 3. Moderate hiatus hernia. ACT 112: Negative or not required by law. Electronically signed by: Radhames Bruno M.D. 07/28/2023 8:26 AM
[2023-07-28] MEDS: PANTOprazole 40 MG TAB PO SCH (10:46)
--- NOTE | 2023-07-28 11:11 | Orthopedic Progress Note ---
Date of Service July 28, 2023 Assessment & Plan (1) Infection of prosthetic left knee joint: Plan: She is postoperative day 2 status post irrigation and debridement of infected total knee arthroplasty. Currently on vancomycin and Zosyn. Awaiting final culture results and final antibiotic recommendations from infectious disease. Admission and Anticipated Discharge Date Admission Date: July 25, 2023 Subjective Patient appears to be resting comfortably, but states she is doing "awful". She endorses left knee pain. Physical Exam Physical Exam: Left knee dressings and immobilizer are clean, dry, and intact. Intact toe and ankle dorsiflexion and plantarflexion. Sensation is intact to light touch. Compartments are soft and compressible. Results & Data Vital Signs (Past 12 Hours) Vital Signs Temp Pulse Pulse Pulse Resp BP Pulse Ox 07/28/23 08:29 07/28/23 08:02 37.1 C 77 16 135/68 92 07/28/23 07:31 83 07/28/23 03:30 36.8 C 74 18 133/81 94 07/27/23 23:59 71 O2 Del Method O2 Flow Rate 07/28/23 08:29 Nasal Cannula 2 07/28/23 08:02 Nasal Cannula 3 07/28/23 07:31 07/28/23 03:30 Nasal Cannula 2 07/27/23 23:59 Laboratory Results Preoperative cultures from 07/24 are growing Corynebacterium species, but multiple intraoperative cultures are negative. All cultures are still pending.
--- NOTE | 2023-07-28 11:35 | Hospitalist Progress Note ---
Date of Service July 28, 2023 Assessment & Plan (1) Postoperative infection of knee: Plan: She underwent left total knee arthroplasty in early June. She has since developed a wound infection and medial dehiscence. She underwent an aspiration procedure of the knee on July 24 on admission and on July 25 underwent washout of the knee joint. She is currently on Zosyn and vancomycin, day 4. Cultures are so far nondiagnostic. Infectious disease consultation and recommendations appreciated. Pain control measures in place. She is on Tylenol 3. She is intolerant of other narcotics (2) Atelectasis of right lung: Plan: Right lower lobe atelectasis again seen on repeat chest x-ray today, July 27. Incentive spirometry previously ordered is not even in the room. This will be addressed. Will obtain chest CT scan and consult pulmonary medicine (3) Acute respiratory failure with hypoxia: Plan: Appears to be due to right lower lobe atelectasis. Supplemental oxygen per nasal cannula to maintain saturation greater than 90%. Await pulmonary medicine evaluation and chest CT scan results (4) Anxiety with depression: Plan: Will resume her usual medications when appropriate (5) Invasive ductal carcinoma of right breast: Plan: Patient oncology follow-up. No intervention necessary at this time (6) Acid reflux: Plan: PPI therapy ordered (7) Hypertension: Plan: Stable. Lisinopril has been replaced by metoprolol . Metoprolol was started on July 26. Heart rate and blood pressure are better controlled. Plan Eventual discharge to [facility] per family wishes. Admission and Anticipated Discharge Date Admission Date: July 25, 2023 Subjective She seems to be more alert and calm today. Family is at the bedside. Chest x- ray repeated today again shows right lower lobe atelectasis. Incentive spirometry previously ordered is not even in the room. Communication sent to nursing staff to attend to that. Will obtain chest CT scan and consult pulmonary medicine. She is requiring oxygen to maintain saturation greater than 90%. She is now on Zosyn and vancomycin. Infectious disease consultation noted. Blood pressure and heart rate are better with addition of metoprolol which replaces her lisinopril. Hemoglobin is low but stable at 8.6. Review of Systems 2 Review of Systems: Constitutional-no fever or chills ENT-no blurred vision, no double vision, no epistaxis, no sore throat Respiratory-no cough, no wheezing, no shortness of breath Cardiac-no palpitations, no chest pain, no syncope GI-no nausea, vomiting, diarrhea, melena, hematochezia -no urinary retention, no urinary incontinence, no dysuria, no hematuria Musculoskeletal-postoperative left knee pain. No muscle tenderness Skin-no bruising, no rashes, no pruritus Neuro-no isolated weakness, no paresthesia Psych-no depression, no anxiety Physical Exam 2 Physical Exam: General-alert and oriented x3, no fever, no chills HEENT-head atraumatic and normocephalic, pupils equal and reactive to light, extraocular muscles intact Neck-no lymphadenopathy or thyromegaly, trachea midline Chest-clear to auscultation. No rales, wheezing or rhonchi Cardiac-mildly tachycardic regular rate and rhythm, normal S1 and S2 Abdomen-normal bowel sounds, no hepatosplenomegaly Extremities-left knee immobilized. Neuro-cranial nerves II through XII intact, motor and sensory function within normal limits, strength symmetrical, no focal deficits Psych-normal affect, normal mood Results & Data Results & Data Vital Signs (Past 12 Hours) Vital Signs Temp Pulse Pulse Pulse Resp BP Pulse Ox 07/28/23 08:29 07/28/23 08:02 37.1 C 77 16 135/68 92 07/28/23 07:31 83 07/28/23 03:30 36.8 C 74 18 133/81 94 07/27/23 23:59 71 O2 Del Method O2 Flow Rate 07/28/23 08:29 Nasal Cannula 2 07/28/23 08:02 Nasal Cannula 3 07/28/23 07:31 07/28/23 03:30 Nasal Cannula 2 07/27/23 23:59 Laboratory Results 07/28/23 05:22 07/28/23 05:22 PG Care Time/CCT Total # of Minutes Spent Total Time Spent with Patient: Total time spent is greater than 50% in coordination of care (as documented) at patient's floor/unit and/or counseling patient: Coding Level of Care Code 64535 SUB INP/OBS CARE 3/50MIN Diagnoses Postoperative infection of knee T81.49XA; M00.9 Atelectasis of right lung J98.11 Acute respiratory failure with hypoxia J96.01 Anxiety with depression F41.8 Invasive ductal carcinoma of right breast C50.911 Acid reflux K21.9 Hypertension I10
--- NOTE | 2023-07-28 11:59 | CT Scan Report ---
CT chest diagnostic wo con CT DOSE: 775.34 mGy.cm HISTORY: RLL atelectasis TECHNIQUE: Multiaxial CT images of the chest were performed without contrast. A dose lowering techni que was utilized adhering to the principles of ALARA. COMPARISON: Outside hospital chest CT 06/29/2022. FINDINGS: The central airways are patent. No pneumothorax. Trace bilateral pleural effusions. Bibasil ar linear densities are nonspecific but favor subsegmental atelectasis. There is mild elevation of th e right hemidiaphragm. No evidence for pulmonary edema. There are old, healed right-sided rib fractur es. A right shoulder prosthesis is noted. Limited views of the upper abdomen demonstrate a normal kia er and spleen. There is a severely distended gallbladder. Normal esophagus. Moderate to large hiatus hernia. The heart is normal in size. Mild calcified plaque within the mildly tortuous thoracic aorta. No mediastinal or hilar lymphadenopathy. IMPRESSION: 1. Bibasilar linear densities are nonspecific but favor subsegmental atelectasis. 2. Mild elevation of the right hemidiaphragm. 3. Moderate to large hiatus hernia. 4. Trace bilateral pleural effusions. 5. Severely distended gallbladder. Consider follow-up right quadrant ultrasound if the patient is com plaining of right upper quadrant pain to exclude the possibility of an acute cholecystitis. ACT 112: Negative or not required by law. Electronically signed by: Radhames Bruno M.D. 07/28/2023 11:56 AM
--- NOTE | 2023-07-28 13:36 | Pulmonary Consultation ---
Date of Consultation July 28, 2023 Assessment & Plan (1) Acute respiratory failure with hypoxia: Intermittent hypoxemia likely related to VQ mismatch from atelectasis. No evidence of pneumonia. Patient is already treated with antibiotics for septic arthritis which would also be appropriate for pneumonia regardless. Recommend aggressive pulmonary toileting with flutter valve and incentive spirometer. Consider CPAP for recruitment of atelectatic parenchyma if hypoxemia worsens. (2) Mild bibasilar atelectasis: See comments above regarding pulmonary toileting and potential use of CPAP for recruitment of atelectatic lung. Plan Pulmonary to sign off. Thank you for allowing me to participate in the care of this pleasant patient. Please call with questions. D/W Dr. Salamanca. History of Present Illness Reason for Consultation: Right lower lobe atelectasis Attending Physician: Diogenes Salamanca MD History of Present Illness 82-year-old female who was admitted to the hospital 07/25/2023 for left knee pain. 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 She had increased drainage after trauma to her knee a few days prior to her ER visit. Orthopedic surgery was consulted aspirated the joint which revealed a septic joint prosthesis. She is status post irrigation debridement of the infected total knee arthroplasty. Subsequently she developed some hypoxemia and was placed on supplemental oxygen. Chest x-ray was obtained today which revealed a moderate hiatal hernia and elevated right hemidiaphragm with subsegmental atelectasis. CT chest was then ordered by the hospitalist service which revealed bibasilar linear densities favoring subsegmental atelectasis and mild elevation of the right hemidiaphragm. There was a large hiatal hernia and trace bilateral effusions. The gallbladder was severely distended. Patient is currently on vancomycin and Zosyn for septic arthritis. ID is following this following her case for the septic arthritis. Currently she denies any shortness of breath, cough, fevers, chills or night sweats. She does endorse occasional GERD. She is currently on room air. Allergies Allergy/AdvReac Type Severity Reaction Status Date / Time Cephalosporins Allergy Mild rash Verified 07/18/23 23:46 codeine Allergy Mild Rash Verified 07/18/23 23:46 erythromycin base Allergy Mild Rash Verified 07/18/23 23:46 nitrofurantoin Allergy Mild rash Verified 07/18/23 23:46 tetracycline Allergy Mild rash Verified 07/18/23 23:46 tramadol Allergy Mild Itching Verified 07/18/23 23:46 hydromorphone [From Dilaudid] AdvReac Intermediate mental Verified 07/18/23 23:46 change morphine AdvReac Mild SICK TO Verified 07/18/23 23:46 STOMACH Home Medications Medication Instructions Recorded Confirmed Type cholecalciferol (vitamin D3) 25 1,000 unit PO QAM #30 caps 02/08/21 07/25/23 Rx mcg (1,000 unit) capsule lisinopril 20 mg tablet 20 mg PO QPM 09/15/22 07/25/23 History multivitamin 1 tab PO QAM 06/07/23 07/25/23 History oxycodone 5 mg tablet 5 - 10 mg (1 - 2 x 5 mg) PO Q6H 06/28/23 07/25/23 Rx PRN pain #30 tabs celecoxib 200 mg capsule 200 mg PO BID 07/18/23 07/25/23 History citalopram 40 mg tablet 40 mg PO QAM 07/18/23 07/25/23 History gabapentin 600 mg tablet 600 mg PO TID 07/18/23 07/25/23 History omeprazole 40 mg capsule,delayed 40 mg PO BID 07/18/23 07/25/23 History release trazodone 50 mg tablet 50 mg PO HS PRN Insomnia 07/18/23 07/25/23 History fesoterodine 4 mg tablet,extended 4 mg PO DAILY #90 tabs 07/24/23 07/25/23 Rx release 24 hr (Toviaz) Patient History Medical History (Updated 07/28/23 @ 13:34 by Roque Tejada MD) Arthritis of knee, left Hiatal hernia Anxiety Torn rotator cuff left; steroid injection Q 3 mos, last one 04/2023 w/ Dr Laws Meningioma determined by biopsy of brain Symptomatic small atypical meningioma (s/p craniotomy- 07/2022) Last seen by neuro surgery 02/2023 (stable at that time- no evidence of recurrence of operated tumor) Headache significantly improved History of DVT (deep vein thrombosis) LLE (CALF) 40+ YEARS AGO (WAS TAKING CONTROL PILLS) Polio During childhood 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 History of vertebral compression fracture Around - s/p kyphoplasty Surgical History (Updated 07/26/23 @ 09:19 by Brant Rodriguez MD) History of partial mastectomy of right breast (09/15/22) Right Breast Partial Mastectomy with [employer] Localization(Right) - Gladys Woods DO S/P craniotomy 07/2022- [facility] History of kyphoplasty L2 and S1 02/01/2021 H/O hand surgery left History of cataract surgery RT/LEFT History of bilateral tubal ligation History of dilatation and curettage History of breast biopsy left negative > right/ reason for up coming procedure History of carpal tunnel release bilat History of esophagogastroduodenoscopy (EGD) History of tooth extraction History of cardiac cath OVER 14 YEARS AGO/NO STENTS History of colonoscopy History of laminectomy X 2 (LUMBAR REGION) History of right shoulder replacement History of total right knee replacement Family History Mother Family history of pancreatic cancer Alcohol abuse Depression Father Family history of Hodgkin's lymphoma Hypertension Grandfather (Paternal) Myocardial infarction Sister Depression Hypertension Grandfather (Maternal) Myocardial infarction Denies family history of Ovarian cancer Prostate cancer Breast cancer Colorectal cancer Social History Smoking Status: Never smoker Second Hand Exposure: Yes (as child); Do You Dip or Chew Tobacco: No; Hx Alcohol Use: No Hx Substance Use: No Preferred Language: Tajik Communication Ability: Effective Visual Impairment: No Limitations Hearing Ability: Normal 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 Beliefs That Will Affect Care: None marital status: / Current Living Situation: Alone current occupational status: retired Other Information That Helps Us Care for You: No Feels Safe at Home: Yes Safety Concerns: Feels Safe At This Time Childhood Exposure to Second-Hand Smoke: Yes Diet: regular Dental Care, Regularly: No Physical Activity Frequency: Does not Exercise Seatbelt Use: sometimes Sunscreen Use: No Assistive Devices: Cane, Stair Lift, Walker and Wheelchair Review of Systems Review of Systems: All systems reviewed & are unremarkable except as noted in HPI & below Physical Exam Physical Exam: Constitutional: Patient appears to be of their stated age. Patient is in no apparent distress. Patient is well-developed. Eyes: Pupils are equal round and reactive to light. Conjunctivae are normal. Anicteric sclera. Ears nose, mouth and throat: No perioral cyanosis. Neck: Trachea is midline. Visual inspection is normal. Respiratory: Clear to auscultation bilaterally. No use of accessory muscles. No significant clubbing noted. Cardiovascular: Regular rate and rhythm. No murmurs. No edema. Gastrointestinal: Normal bowel sounds, soft, nontender and nondistended. No hepatosplenomegaly noted. Musculoskeletal: No cyanosis. Patient is able to move all extremities. Strength is 5 out of 5 in the upper and lower extremities. Skin: No rashes, warm dry and intact. Neurologic: No obvious focal neurological deficits seen. Psychiatric: Alert and oriented x3 with a euthymic affect. Results & Data Results & Data Vital Signs (Past 12 Hours) Vital Signs Temp Pulse Pulse Pulse Resp BP Pulse Ox 07/28/23 11:36 36.7 C 60 16 126/72 97 07/28/23 08:29 07/28/23 08:02 37.1 C 77 16 135/68 92 07/28/23 07:31 83 07/28/23 03:30 36.8 C 74 18 133/81 94 O2 Del Method O2 Flow Rate 07/28/23 11:36 Nasal Cannula 3 07/28/23 08:29 Nasal Cannula 2 07/28/23 08:02 Nasal Cannula 3 07/28/23 07:31 07/28/23 03:30 Nasal Cannula 2 PG Care Time/CCT Total # of Minutes Spent Total Time Spent with Patient: Total time spent is greater than 50% in coordination of care (as documented) at patient's floor/unit and/or counseling patient: Coding Level of Care Code 59274 INT INP/OBS CARE 2/55MIN Diagnoses Acute respiratory failure with hypoxia J96.01 Mild bibasilar atelectasis J98.11
[2023-07-29 06:40] LABS: Calcium 8.2 mg/dl (8.6-10.3); Potassium 4.4 mmol/L (3.5-5.1)
[2023-07-29 06:45] LABS: BUN Creatinine Ratio 21.2 (10-20); Creatinine Clr Calc Pharmacy 45.4 ml/min; Est GFR (African American) 53.2 ml/min; Est GFR (Non-African American) 45.9 ml/min
[2023-07-29] MEDS: ACETAMINOPHEN 1,000 MG/100 ML VIAL IV PRN (08:34)
--- NOTE | 2023-07-29 10:24 | Orthopedic Progress Note ---
Date of Service July 29, 2023 Assessment & Plan (1) Infection of prosthetic left knee joint: Plan: She is postoperative day 3 status post irrigation and debridement of infected total knee arthroplasty. Currently on vancomycin and Zosyn. Awaiting final culture results and final antibiotic recommendations from infectious disease. Admission and Anticipated Discharge Date Admission Date: July 25, 2023 Subjective She is in bed and resting comfortably. She reports her left knee pain is markedly improved from yesterday. She is overall feeling much better. Dressings were changed by nursing last night. Physical Exam Physical Exam: Left knee dressings and immobilizer are clean, dry, and intact. Intact toe and ankle dorsiflexion and plantarflexion. Sensation is intact to light touch. Compartments are soft and compressible. Results & Data Vital Signs (Past 12 Hours) Vital Signs Temp Pulse Pulse Resp BP Pulse Ox O2 Del Method 07/29/23 08:34 37.1 C 67 16 158/65 H 91 Room Air 07/29/23 07:49 Room Air 07/29/23 03:06 36.7 C 72 20 137/78 90 Room Air 07/28/23 23:14 67 07/28/23 23:02 36.5 C 68 16 138/77 89 L Nasal Cannula O2 Flow Rate 07/29/23 08:34 07/29/23 07:49 07/29/23 03:06 07/28/23 23:14 07/28/23 23:02 3 Laboratory Results Cultures from preoperative aspirate on 07/25/23 are again growing Corynebacterium species, but now also showing gram-positive cocci, not further speciated. 1 of 5 intraoperative cultures is also growing Corynebacterium species. (1) Infection of prosthetic left knee joint Encounter type: initial encounter Qualified Code(s): T84.54XA - Infection and inflammatory reaction due to internal left knee prosthesis, initial encounter
--- NOTE | 2023-07-29 12:14 | Pharmacy Report ---
Pharmacy PK ABX Note - Date of Service July 29, 2023 - Assessment and Plan Assessment 07/29/23: * Bcx negative. Knee cxs growing corynebacterium species and GPCs * Scr uptrending over the past 48 hours 0.67->0.83->1.13. Dose reduced today and provider notified of this trend and associated challenges with dosing. If scr continues to rise may need to move to dosing by levels. Per RN, patient has an external catheter but is noted to still be making good urine from what she can see. 07/26 * 07/24 Blood and knee cultures negative to date * 07/25 knee cultures pending * 07/26 blood cultures pending * Trough level this AM 14.8 mcg/mL predicts attainment of target AUC/GEOVANNA (currently~472 mg/L.hr)- predicts 578 mg/L.hr at steady state, jhonatan lcontinue * Monitor cultures/renal function 07/25 * 82 year old F receiving VANCOMYCIN + ZOSYN for treatment of infected L knee TKA. * Pertinent microbiologic data includes: synovial fluid WBC 59k, synovial fluid and blood cx's pending * Day # 1 of antimicrobial therapy. Plan Vancomycin * Previous regimen: 750 mg IV every 8 hours * Trough level obtained 07/28/23 @1730 resulted as 19.1 mcg/mL. With today's increase in scr this is predicted to achieve an AUC/GEOVANNA above goal * Change to 750 mg IV every 12 hours which is predicted to achieve an AUCss of 618. * Repeat random level ordered for: 07/30/23 @ 1100. * IF scr continues to increase tomorrow dosing/level strategy will need to be adjusted again. Pharmacy will continue to follow and will adjust dose/frequency as necessary. Thank you. Pharmacy has transitioned to AUC monitoring for vancomycin. AUC/GEOVANNA is the preferred PK/PD target and is associated with decreased risk of nephrotoxicity compared to traditional trough targets.
[2023-07-29] MEDS: VANCOMYCIN HCL 750 MG in SODIUM CHLORIDE 0.9% 250 ML IV SCH (13:08)
--- NOTE | 2023-07-29 13:52 | Hospitalist Progress Note ---
Date of Service July 29, 2023 Assessment & Plan (1) Postoperative infection of knee: Plan: She underwent left total knee arthroplasty in early June. She has since developed a wound infection and medial dehiscence. She underwent an aspiration procedure of the knee on July 24 on admission and on July 25 underwent washout of the knee joint. She is currently on Zosyn and vancomycin, day 5. Cultures are so far revealing only corynebacterium. Infectious disease consultation and recommendations appreciated. Pain control measures in place. She is on Tylenol 3. She is intolerant of other narcotics (2) Atelectasis of right lung: Plan: Chest CT scan reveals bilateral atelectasis. Appreciate pulmonary medicine consultation and recommendations. She is now receiving incentive spirometry. (3) Acute respiratory failure with hypoxia: Plan: Now resolved. She is on room air (4) Anxiety with depression: Plan: Gabapentin and citalopram have been restarted (5) Invasive ductal carcinoma of right breast: Plan: Patient oncology follow-up. No intervention necessary at this time (6) Acid reflux: Plan: PPI therapy ordered (7) Hypertension: Plan: Stable. Lisinopril has been replaced by metoprolol . Metoprolol was started on July 26. Heart rate and blood pressure are better controlled. Plan Eventual discharge to [facility] per family wishes. Admission and Anticipated Discharge Date Admission Date: July 25, 2023 Subjective Alert and oriented. Chest CT scan reveals bilateral atelectasis. Gallbladder was noted to be distended but she is not having any symptoms of acute cholecystitis. Pulmonary consultation appreciated. She is receiving incentive spirometry at this time. She is now on room air. Infectious disease consult is pending. She remains on Zosyn and vancomycin, day 5. Blood pressure is acceptable with metoprolol which is new and replaces lisinopril. Daily lab ordered Review of Systems 2 Review of Systems: Constitutional-no fever or chills ENT-no blurred vision, no double vision, no epistaxis, no sore throat Respiratory-no cough, no wheezing, no shortness of breath Cardiac-no palpitations, no chest pain, no syncope GI-no nausea, vomiting, diarrhea, melena, hematochezia -no urinary retention, no urinary incontinence, no dysuria, no hematuria Musculoskeletal-postoperative left knee pain. No muscle tenderness Skin-no bruising, no rashes, no pruritus Neuro-no isolated weakness, no paresthesia Psych-no depression, no anxiety Physical Exam 2 Physical Exam: General-alert and oriented x3, no fever, no chills HEENT-head atraumatic and normocephalic, pupils equal and reactive to light, extraocular muscles intact Neck-no lymphadenopathy or thyromegaly, trachea midline Chest-clear to auscultation. No rales, wheezing or rhonchi Cardiac-mildly tachycardic regular rate and rhythm, normal S1 and S2 Abdomen-normal bowel sounds, no hepatosplenomegaly Extremities-left knee immobilized. Neuro-cranial nerves II through XII intact, motor and sensory function within normal limits, strength symmetrical, no focal deficits Psych-normal affect, normal mood Results & Data Results & Data Vital Signs (Past 12 Hours) Vital Signs Temp Pulse Pulse Resp BP Pulse Ox O2 Del Method 07/29/23 12:27 36.9 C 64 16 161/74 H 94 Room Air 07/29/23 10:21 75 07/29/23 08:34 37.1 C 67 16 158/65 H 91 Room Air 07/29/23 07:49 Room Air 07/29/23 03:06 36.7 C 72 20 137/78 90 Room Air O2 Flow Rate 07/29/23 12:27 2 07/29/23 10:21 07/29/23 08:34 07/29/23 07:49 07/29/23 03:06 Laboratory Results 07/28/23 05:22 07/29/23 05:29 PG Care Time/CCT Total # of Minutes Spent Total Time Spent with Patient: Total time spent is greater than 50% in coordination of care (as documented) at patient's floor/unit and/or counseling patient: Coding Level of Care Code 92004 SUB INP/OBS CARE 3/50MIN Diagnoses Postoperative infection of knee T81.49XA; M00.9 Atelectasis of right lung J98.11 Acute respiratory failure with hypoxia J96.01 Anxiety with depression F41.8 Invasive ductal carcinoma of right breast C50.911 Acid reflux K21.9 Hypertension I10
[2023-07-29] MEDS: CITALOPRAM 40 MG TAB PO SCH (14:50)
[2023-07-29] MEDS: GABAPENTIN 600 MG TAB PO SCH (14:50)
--- NOTE | 2023-07-29 18:46 | Electrocardiogram Report ---
Test Reason : Blood Pressure : / mmHG Vent. Rate : 080 BPM Atrial Rate : 080 BPM P-R Int : 194 ms QRS Dur : 092 ms QT Int : 374 ms P-R-T Axes : 051 003 001 degrees QTc Int : 431 ms Normal sinus rhythm Low voltage QRS Nonspecific T wave abnormality When compared with ECG of 12-APR-2023 12:15, Questionable change in QRS axis Nonspecific T wave abnormality now evident in Anterior leads Confirmed by Ravi Sarmiento ([id number]) on 07/29/2023 6:46:07 PM Referred By: REFERRED SELF Confirmed By:Ravi Sarmiento
[2023-07-29] MEDS ORDERED: Nursing to Pharmacy Communication SCH (20:30)
[2023-07-30 06:29] LABS: Basophils # (auto) 0.03 K/uL (0.00-0.20); Basophils % (auto) 0.8 %; Hematocrit (blood only) 29.1 % (37.0-47.0); Hemoglobin 8.9 g/dl (12.0-16.0); Immature Granulocytes # (auto) 0.02 K/uL (0.01-0.20); Immature Granulocytes % (auto) 0.5 %; Lymphocytes # (auto) 0.94 K/uL (1.20-3.40); Lymphocytes % (auto) 23.7 %; Mean Corpuscular Hemoglobin 26.9 pg (25.0-34.0); Mean Corpuscular Hgb Conc 30.6 g/dL (32.0-36.0); Mean Corpuscular Volume 87.9 fL (80.0-100.0); Mean Platelet Volume 9.8 fL (9.4-12.4); Monocytes % (auto) 15.1 %; Neutrophils # (auto) 2.18 K/uL (1.40-6.50); Neutrophils % (auto) 54.9 %; Platelet Count 155 K/uL (130-400); RDW Coefficient of Variation 15.3 % (11.5-14.5); Red Blood Count 3.31 M/uL (4.20-5.40); White Blood Count 3.97 K/ul (4.8-10.8)
[2023-07-30 06:43] LABS: BUN Creatinine Ratio 24.4 (10-20); Calcium 8.6 mg/dl (8.6-10.3); Creatinine Clr Calc Pharmacy 62.7 ml/min; Est GFR (African American) 78.3 ml/min; Est GFR (Non-African American) 67.6 ml/min; Potassium 4.2 mmol/L (3.5-5.1)
[2023-07-30] MEDS ORDERED: diphenhydrAMINE Capsule 25 MG CAP PO PRN (10:19)
--- NOTE | 2023-07-30 12:45 | Pharmacy Report ---
Pharmacy PK ABX Note - Date of Service July 30, 2023 - Assessment and Plan Assessment 07/29: * Knee cx positive with Corynebacterium species and Coag negative staph. * SCr trending back down today, 0.82 mg/dL. 07/28: * Bcx negative. Knee cxs growing corynebacterium species and GPCs * Scr uptrending over the past 48 hours 0.67->0.83->1.13. Dose reduced today and provider notified of this trend and associated challenges with dosing. If scr continues to rise may need to move to dosing by levels. Per RN, patient has an external catheter but is noted to still be making good urine from what she can see. 07/26: * 07/24 Blood and knee cultures negative to date * 07/25 knee cultures pending * 07/26 blood cultures pending * Trough level this AM 14.8 mcg/mL predicts attainment of target AUC/GEOVANNA (currently~472 mg/L.hr)- predicts 578 mg/L.hr at steady state, jhonatan lcontinue * Monitor cultures/renal function 07/25: * 82 year old F receiving VANCOMYCIN + ZOSYN for treatment of infected L knee TKA. * Pertinent microbiologic data includes: synovial fluid WBC 59k, synovial fluid and blood cx's pending * Day # 1 of antimicrobial therapy. Plan Vancomycin * Current regimen: 750 mg IV every 12 hours * Random level obtained 07/30/23 resulted as 15.9 mcg/mL. This is predicted to achieve target AUC/GEOVANNA of 400-600 mg/L.hr * Predicted AUC at steady state: 468 mg/L.hr * Continue 750 mg IV every 12 hours * Repeat random level ordered for: 08/01/23 Pharmacy will continue to follow and will adjust dose/frequency as necessary. Thank you. Pharmacy has transitioned to AUC monitoring for vancomycin. AUC/GEOVANNA is the preferred PK/PD target and is associated with decreased risk of nephrotoxicity compared to traditional trough targets.
--- NOTE | 2023-07-30 14:59 | Hospitalist Progress Note ---
Date of Service July 30, 2023 Assessment & Plan (1) Postoperative infection of knee: Plan: She underwent left total knee arthroplasty in early June. She has since developed a wound infection and medial dehiscence. She underwent an aspiration procedure of the knee on July 24 on admission and on July 25 underwent washout of the knee joint. She is currently on Zosyn and vancomycin Knee Cultures with Coag neg Staph and corynebacterium from 07/24, and Corynebacterium from 07/25 BCxs remain no growth Infectious disease consultation and recommendations appreciated-plan for 6 weeks of IV Vanco followed by suppressive po abx afterwards, f/u in ID clinic at [facility] as outpt Continue pain control with prn Tylenol 3- She is intolerant of other narcotics. Can take benadryl prn itching but was making her drowsy on scheduled basis- change to prn Dc IV tylenol and ordered po tylenol prn mild pain f/u Ortho as outpt Knee immobilizer in place (2) Atelectasis of right lung: Plan: Chest CT scan reveals bilateral atelectasis. Appreciate pulmonary medicine consultation and recommendations. She is now receiving incentive spirometry. Hypoxia resolved (3) Anxiety with depression: Plan: continue Gabapentin and citalopram (4) Invasive ductal carcinoma of right breast: Plan: Patient oncology follow-up. No intervention necessary at this time (5) Acid reflux: Plan: PPI therapy (6) Hypertension: Plan: Stable. Lisinopril was replaced by metoprolol started on July 26. Heart rate and blood pressure are better controlled. Can add lisinopril back on for this evening watch BPs Plan DVT proph-ASA bid, JANE kendrick, SCD Dispo-to [facility] likely tomorrow after PICC line placed discussed care with ID and with family at bedside on 07/30/23 Admission and Anticipated Discharge Date Admission Date: July 25, 2023 Subjective Pt having pain in knee after working with PT today. Controlled with pain meds. Denies itching and benadryl has been held due to drowsiness. No CP, SOB, nausea, constipation, or any other acute concerns. Tele with NSR, one brief PAT run, rates 70-80s Physical Exam Constitutional: WD/WN, vitals as above Respiratory: normal respiratory effort, lungs clear to auscultation Cardiovascular: RRR, no murmur, no edema Gastrointestinal (Abdomen): normal bowel sounds, soft, nontender, no hepatosplenomegaly Musculoskeletal: Extremities: + extremities abnormal to inspection (LLE knee immobilizer in place) and + abnormal strength (4/5 left ankle dorsiflexion) Psychiatric: A+Ox3, euthymic affect Results & Data Results & Data Vital Signs (Past 12 Hours) Vital Signs Temp Pulse Pulse Resp BP BP Pulse Ox 07/30/23 11:00 36.9 C 67 20 136/59 L 91 07/30/23 09:12 07/30/23 07:42 73 07/30/23 07:13 37.1 C 74 20 150/74 H 91 07/30/23 03:02 36.6 C 72 18 164/76 H 95 O2 Del Method 07/30/23 11:00 Room Air 07/30/23 09:12 Room Air 07/30/23 07:42 07/30/23 07:13 Room Air 07/30/23 03:02 Room Air Laboratory Results CBC, BMP, wound and blood cxs all reviewed PG Care Time/CCT Total # of Minutes Spent Total Time Spent with Patient: Total time spent is greater than 50% in coordination of care (as documented) at patient's floor/unit and/or counseling patient: Coding Level of Care Code 76516 SUB INP/OBS CARE 2/35MIN Diagnoses Postoperative infection of knee T81.49XA; M00.9 Atelectasis of right lung J98.11 Anxiety with depression F41.8 Invasive ductal carcinoma of right breast C50.911 Acid reflux K21.9 Hypertension I10
[2023-07-30] MEDS: lisinopril 20 MG TAB PO SCH (20:46)
[2023-07-30] MEDS: traZODone HCL 50 MG TAB PO PRN (20:59)
--- NOTE | 2023-07-31 07:40 | Orthopedic Progress Note ---
Date of Service July 31, 2023 Assessment & Plan (1) Septic joint of left knee joint: Plan: POD #5 s/p Left Knee DAIR Procedure with poly changed to size 12 polyethylene ID consult recommend for 6 weeks of IV Vanco followed by suppressive po abx afterwards, f/u in ID clinic at [facility] as outpt Pain currently controlled with Tylenol 3- She is intolerant of other narcotics. DVT proph with JANE/SCD/ASA WBAT with the immobilizer on and walker, she can remove in bed for PT, ROM 0- 15 flexion until first post op visit in 2 weeks. plan for transfer to [facility] later today, f/u at [facility] 14-16 days post op as scheduled. Admission and Anticipated Discharge Date Admission Date: July 25, 2023 Subjective POD #5 s/p Left Knee DAIR Procedure with poly changed to size 12 polyethylene she presently denies fever or chills. denies CP/SOB. Physical Exam Physical Exam: Vital Signs Temp Pulse Pulse Resp BP BP Pulse Ox 07/31/23 07:05 36.7 C 65 16 194/74 H 93 07/30/23 20:04 07/30/23 20:03 36.6 C 79 16 176/84 H 94 07/30/23 18:24 36.9 C 84 16 152/71 H 93 07/30/23 18:24 07/30/23 16:10 36.7 C 81 22 168/76 H 92 07/30/23 11:00 36.9 C 67 20 136/59 L 91 07/30/23 09:12 07/30/23 07:42 73 O2 Del Method 07/31/23 07:05 Room Air 07/30/23 20:04 Room Air 07/30/23 20:03 Room Air 07/30/23 18:24 Room Air 07/30/23 18:24 Room Air 07/30/23 16:10 Room Air 07/30/23 11:00 Room Air 07/30/23 09:12 Room Air 07/30/23 07:42 Intake and Output 07/30/23 07/31/23 07/31/23 22:59 06:59 14:59 Intake Total 100 / 830 365 / 830 Output Total 503 500 / 503 Balance 99 / 327 -135 / 327 Intake: IV 100 / 830 365 / 830 Piperacillin/T azobactam 4.5 gm 100 / 300 100 / 300 In Dextrose 5% Mini-B 100 ml @ 25 mls/hr IV Q 8H RANJANA Rx#: [id number] Vancomycin HCl 750 mg In Sodium 265 / 530 Chloride 0.9% 250 ml @ 200 mls /hr IV Q12H SC H Rx#:[id number] Output: Urine Amount (Ca theter) 500 / 500 External 500 / 500 # Bowel Movement s 1 / 3 Other: # Unmeasured Voi ds 2 Musculoskeletal: Left Knee: NVDI, calf SNT, negative armen sign. DP palpable, able to wiggle toes/ankle movement without difficulty. JOSE dressing clean dry and intact. expected post-operative bruising noted. Results & Data Vital Signs (Past 12 Hours) Vital Signs Temp Pulse Resp BP Pulse Ox O2 Del Method 07/31/23 07:05 36.7 C 65 16 194/74 H 93 Room Air 07/30/23 20:04 Room Air 07/30/23 20:03 36.6 C 79 16 176/84 H 94 Room Air Laboratory Results Laboratory Results WBC 3.97 K/ul (4.8-10.8) L 07/30/23 05:30 RBC 3.31 M/uL (4.20-5.40) L 07/30/23 05:30 Hgb 8.9 g/dl (12.0-16.0) L 07/30/23 05:30 Hct 29.1 % (37.0-47.0) L 07/30/23 05:30 MCV 87.9 fL (80.0-100.0) 07/30/23 05:30 MCH 26.9 pg (25.0-34.0) 07/30/23 05:30 MCHC 30.6 g/dL (32.0-36.0) L 07/30/23 05:30 RDW Std Deviation 50.0 fL (36.4-46.3) H 07/30/23 05:30 RDW Coeff of [place] 15.3 % (11.5-14.5) H 07/30/23 05:30 Plt Count 155 K/uL (130-400) 07/30/23 05:30 MPV 9.8 fL (9.4-12.4) 07/30/23 05:30 Immature Gran % (Auto) 0.5 % 07/30/23 05:30 Neut % (Auto) 54.9 % 07/30/23 05:30 Lymph % (Auto) 23.7 % 07/30/23 05:30 [place] % (Auto) 15.1 % 07/30/23 05:30 Eos % (Auto) 5.0 % 07/30/23 05:30 Baso % (Auto) 0.8 % 07/30/23 05:30 Neut # (Auto) 2.18 K/uL (1.40-6.50) 07/30/23 05:30 Lymph # (Auto) 0.94 K/uL (1.20-3.40) L 07/30/23 05:30 Daggett # (Auto) 0.60 K/uL (0.11-0.59) H 07/30/23 05:30 Eos # (Auto) 0.20 K/uL (0.00-0.50) 07/30/23 05:30 Baso # (Auto) 0.03 K/uL (0.00-0.20) 07/30/23 05:30 Immature Gran # (Auto) 0.02 K/uL (0.01-0.20) 07/30/23 05:30 ESR 29 mm/hr (0-30) 07/25/23 16:53 Sodium 139 mmol/L (136-145) 07/30/23 05:30 Potassium 4.2 mmol/L (3.5-5.1) 07/30/23 05:30 Chloride 110 mmol/L (98-107) H 07/30/23 05:30 Carbon Dioxide 24 mmol/L (21-32) 07/30/23 05:30 Anion Gap 5 (3-11) 07/30/23 05:30 BUN 20 mg/dl (6-23) 07/30/23 05:30 Creatinine 0.82 mg/dl (0.6-1.2) D 07/30/23 05:30 Est Cr Clr Drug Dosing 62.7 ml/min 07/30/23 05:30 Est GFR ( Amer) 78.3 ml/min 07/30/23 05:30 Est GFR (Non-Af Amer) 67.6 ml/min 07/30/23 05:30 BUN/Creatinine Ratio 24.4 (10-20) H 07/30/23 05:30 Glucose 89 mg/dl (70-99(Fasting)) 07/30/23 05:30 Lactate 0.6 mmol/L (0.4-2.0) 07/27/23 05:25 Calcium 8.6 mg/dl (8.6-10.3) 07/30/23 05:30 Phosphorus 3.8 mg/dl (2.5-4.9) 07/26/23 05:13 Magnesium 1.8 mg/dl (1.7-2.4) 07/26/23 05:13 Total Bilirubin 0.6 mg/dl (0.2-1.0) 07/25/23 16:53 AST 18 U/L (13-39) 07/25/23 16:53 ALT 10 U/L (7-52) 07/25/23 16:53 Alkaline Phosphatase 58 U/L (34-104) 07/25/23 16:53 C-Reactive Protein 6.33 mg/dl (0-0.5) H 07/25/23 16:53 Total Protein 6.2 gm/dl (6.0-8.3) 07/25/23 16:53 Albumin 3.3 gm/dl (3.4-5.0) L 07/26/23 05:13 Globulin 2.6 gm/dl (2.5-4.0) 07/25/23 16:53 Albumin/Globulin Ratio 1.4 (0.9-2) 07/25/23 16:53 Procalcitonin < 0.02 ng/ml (0-0.5) 07/27/23 05:25 Fluid Comment 07/26/23 12:43 Synovial Source Left Knee 07/26/23 12:43 Synovial Color Red 07/26/23 12:43 Synovial Appearance Turbid 07/26/23 12:43 Synovial WBC (Auto) 74994 /ul (0-200) H 07/26/23 12:43 Synovial RBC (Auto) [id number] /uL 07/26/23 12:43 Synovial Polynuclear % 96.6 % 07/26/23 12:43 Synovial Mononuclear % 3.4 % 07/26/23 12:43 Nasal Screen MRSA (PCR) Negative (Negative) 07/27/23 05:45 Random Vancomycin 15.9 mcg/ml (10-20) 07/30/23 11:56 Impressions Venous Doppler Study 07/25/23 16:44 ULTRASOUND LEFT LOWER EXTREMITY VENOUS CLINICAL HISTORY: Left leg swelling. Recent surgery. COMPARISON STUDY: No priors. TECHNIQUE: Real-time, grayscale, and color Doppler sonography of the deep veins of the left lower extremity was performed from the inguinal crease to the calf. Compression and augmentation were utilized. FINDINGS: There is no sonographic evidence of deep venous thrombosis identified in the left lower extremity. The common femoral, superficial femoral, and popliteal veins are patent and normally compressible. The greater saphenous vein and the profunda femoris vein at the junction with the common femoral vein are clear. The visualized calf veins are patent. A complex nonvascular fluid collection in the popliteal fossa measures up to 6.7 cm. IMPRESSION: 1. There is no sonographic evidence of deep venous thrombosis identified in the left lower extremity. 2. A complex nonvascular fluid collection within the medial popliteal fossa measures up to 6.7 cm. This could represent a Dickinson's cyst or postsurgical seroma/hematoma. The sterility of this fluid cannot be assessed by imaging and clinical correlation will be required. ACT 112: Negative or not required by law. Electronically signed by: Joe Lowe M.D. 07/25/2023 6:34 PM Knee X-Ray 07/26/23 13:39 LEFT KNEE 2 VIEWS History: Left total knee arthroplasty. Degenerative arthritis. Postop. FINDINGS: The patient is status post a left total knee arthroplasty. The hardware is intact. No fracture or dislocation. Skin christina and surgical drains are in place. IMPRESSION: Left total knee arthroplasty. No evidence for hardware complication. ACT 112: Negative or not required by law. Electronically signed by: Radhames Bruno M.D. 07/26/2023 4:27 PM Chest X-Ray 07/28/23 08:00 XR chest 1V portable HISTORY: RLL atelectasis COMPARISON: Chest 07/26/2023. FINDINGS: There are low lung volumes with persistent elevation the right hemidiaphragm. Right basilar linear densities persist and favor subsegmental atelectasis. No pneumothorax. No pleural effusions. The heart remains mildly enlarged. There is mild central pulmonary vascular congestion without overt edema. A few small left basilar linear densities also favor subsegmental atelectasis. The right shoulder prosthesis. Advanced degenerative changes within the left shoulder. There is a moderate hiatus hernia again noted. IMPRESSION: 1. No significant change compared to the prior study. 2. Elevated right hemidiaphragm with bibasilar linear densities suggesting subsegmental atelectasis. 3. Moderate hiatus hernia. ACT 112: Negative or not required by law. Electronically signed by: Radhames Bruno M.D. 07/28/2023 8:[address] 07/28/23 11:29 CT chest diagnostic wo con CT DOSE: 775.34 mGy.cm HISTORY: RLL atelectasis TECHNIQUE: Multiaxial CT images of the chest were performed without contrast. A dose lowering technique was utilized adhering to the principles of ALARA. COMPARISON: Outside hospital chest CT 06/29/2022. FINDINGS: The central airways are patent. No pneumothorax. Trace bilateral pleural effusions. Bibasilar linear densities are nonspecific but favor subsegmental atelectasis. There is mild elevation of the right hemidiaphragm. No evidence for pulmonary edema. There are old, healed right-sided rib fractures. A right shoulder prosthesis is noted. Limited views of the upper abdomen demonstrate a normal liver and spleen. There is a severely distended gallbladder. Normal esophagus. Moderate to large hiatus hernia. The heart is normal in size. Mild calcified plaque within the mildly tortuous thoracic aorta. No mediastinal or hilar lymphadenopathy. IMPRESSION: 1. Bibasilar linear densities are nonspecific but favor subsegmental atelectasis. 2. Mild elevation of the right hemidiaphragm. 3. Moderate to large hiatus hernia. 4. Trace bilateral pleural effusions. 5. Severely distended gallbladder. Consider follow-up right quadrant ultrasound if the patient is complaining of right upper quadrant pain to exclude the possib ility of an acute cholecystitis. ACT 112: Negative or not required by law. Electronically signed by: Radhames Bruno M.D. 07/28/2023 11:56 AM Diagnostic Findings 07/25/23 17:58 Aerobic Blood Culture - Final Blood No growth in Aerobic bottle after 5 days. Anaerobic Blood Culture - Final No growth in Anaerobic bottle after 5 days. 07/25/23 16:53 Aerobic Blood Culture - Final Blood No growth in Aerobic bottle after 5 days. Anaerobic Blood Culture - Final No growth in Anaerobic bottle after 5 days. 07/25/23 17:49 Gram Stain - Final Knee,Left Aerobic and Anaerobic Culture - Final Corynebacterium species Coag negative Staphylococcus 07/26/23 Unknown Gram Stain - Final Knee,Left 07/25/23 17:49 Gram Stain - Final Knee,Left 07/27/23 05:35 Anaerobic Blood Culture - Final Blood 07/26/23 Unknown Gram Stain - Final Knee 07/26/23 Unknown Gram Stain - Final Knee,Left 07/26/23 13:28 Gram Stain - Final Knee,Left 07/26/23 Unknown Gram Stain - Final Knee
[2023-07-31] MEDS: ACETAMINOPHEN 325 MG TAB PO PRN (09:00)
[2023-07-31 09:35] LABS: Basophils # (auto) 0.02 K/uL (0.00-0.20); Basophils % (auto) 0.5 %; Eosinophils % (auto) 4.7 %; Hematocrit (blood only) 31.3 % (37.0-47.0); Hemoglobin 9.4 g/dl (12.0-16.0); Immature Granulocytes # (auto) 0.02 K/uL (0.01-0.20); Immature Granulocytes % (auto) 0.5 %; Lymphocytes # (auto) 0.85 K/uL (1.20-3.40); Mean Corpuscular Hemoglobin 26.6 pg (25.0-34.0); Mean Corpuscular Volume 88.4 fL (80.0-100.0); Mean Platelet Volume 9.7 fL (9.4-12.4); Monocytes # (auto) 0.42 K/uL (0.11-0.59); Monocytes % (auto) 9.9 %; Neutrophils # (auto) 2.74 K/uL (1.40-6.50); Neutrophils % (auto) 64.4 %; Platelet Count 156 K/uL (130-400); RDW Coefficient of Variation 15.3 % (11.5-14.5); RDW Standard Deviation 50.3 fL (36.4-46.3); Red Blood Count 3.54 M/uL (4.20-5.40); White Blood Count 4.25 K/ul (4.8-10.8)
[2023-07-31 09:46] LABS: Albumin Globulin Ratio 1.1 (0.9-2); BUN Creatinine Ratio 16.4 (10-20); Bilirubin,Total 0.3 mg/dl (0.2-1.0); Calcium 8.6 mg/dl (8.6-10.3); Creatinine Clr Calc Pharmacy 76.7 ml/min; Est GFR (African American) 96.2 ml/min; Globulin 2.8 gm/dl (2.5-4.0); Potassium 4.1 mmol/L (3.5-5.1); Total Protein 5.8 gm/dl (6.0-8.3)
--- NOTE | 2023-07-31 13:54 | Pharmacy Report ---
Pharmacy PK ABX Note - Date of Service July 31, 2023 - Assessment and Plan Assessment 07/30: * SCr down to 0.67 today, predicting slightly below goal AUC/GEOVANNA at steady state- will increase dose slightly 07/29: * Knee cx positive with Corynebacterium species and Coag negative staph. * SCr trending back down today, 0.82 mg/dL. 07/28: * Bcx negative. Knee cxs growing corynebacterium species and GPCs * Scr uptrending over the past 48 hours 0.67->0.83->1.13. Dose reduced today and provider notified of this trend and associated challenges with dosing. If scr continues to rise may need to move to dosing by levels. Per RN, patient has an external catheter but is noted to still be making good urine from what she can see. 07/26: * 07/24 Blood and knee cultures negative to date * 07/25 knee cultures pending * 07/26 blood cultures pending * Trough level this AM 14.8 mcg/mL predicts attainment of target AUC/GEOVANNA (currently~472 mg/L.hr)- predicts 578 mg/L.hr at steady state, jhonatan lcontinue * Monitor cultures/renal function 07/25: * 82 year old F receiving VANCOMYCIN + ZOSYN for treatment of infected L knee TKA. * Pertinent microbiologic data includes: synovial fluid WBC 59k, synovial fluid and blood cx's pending * Day # 1 of antimicrobial therapy. Plan Vancomycin * Current regimen: 750 mg IV every 12 hours * Change in SCr predicts below target AUC/GEOVANNA of 400-600 mg/L.hr * Predicted AUC at steady state: 398 mg/L.hr * Change to 1000 mg q12H * Repeat random level ordered for: 08/01/23 @ 1100 Pharmacy will continue to follow and will adjust dose/frequency as necessary. Thank you. Pharmacy has transitioned to AUC monitoring for vancomycin. AUC/GEOVANNA is the preferred PK/PD target and is associated with decreased risk of nephrotoxicity compared to traditional trough targets.
[2023-07-31] MEDS: VANCOMYCIN HCL 1,000 MG in SODIUM CHLORIDE 0.9% 250 ML IV SCH (14:12)
--- NOTE | 2023-07-31 15:20 | Hospitalist Progress Note ---
Date of Service July 31, 2023 Assessment & Plan (1) Postoperative infection of knee: Plan: She underwent left total knee arthroplasty in early June. She has since developed a wound infection and medial dehiscence. She underwent an aspiration procedure of the knee on July 24 on admission and on July 25 underwent washout of the knee joint. Knee Cultures with Coag neg Staph and corynebacterium from 07/24, and Corynebacterium from 07/25 BCxs remain no growth Infectious disease consultation and recommendations appreciated-plan for 6 weeks of IV Vanco followed by suppressive po abx afterwards, f/u in ID clinic at [facility] as outpt Continue pain control with prn Tylenol 3- She is intolerant of other narcotics. Can take benadryl prn itching Continue po tylenol prn mild pain f/u Ortho as outpt WBAT with the immobilizer on and walker, she can remove in bed for PT, ROM 0-15 flexion until first post op visit in 2 weeks f/u at [facility] 14-16 days post op as scheduled Continue Vanco but jeremy Jorge Asked micro lab to add on sensitivities to Corynebacterium and Coag neg Staph as per ID request-pending as is a send out PICC line placement delayed due to lack of supplies in house until tomorrow evening (2) Hypertension: Plan: BPs elevated. Metoprolol started on July 26 and resumed home lisinopril 07/29 watch BPs (3) Atelectasis of right lung: Plan: Chest CT scan reveals bilateral atelectasis. Appreciate pulmonary medicine consultation and recommendations. She is now receiving incentive spirometry. 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 She has been out of bed ambulating with assistance in room and OOB to chair multiple times. Is eating Having some loose stools Physical Exam Constitutional: WD/WN, vitals as above Respiratory: normal respiratory effort, lungs clear to auscultation Cardiovascular: RRR, no murmur, no edema Gastrointestinal (Abdomen): normal bowel sounds, soft, nontender, no hepatosplenomegaly Musculoskeletal: Extremities: + extremities abnormal to inspection (LLE knee immobilizer in place) and + abnormal strength (4/5 left ankle dorsiflexion) Psychiatric: A+Ox3, euthymic affect Results & Data Results & Data Vital Signs (Past 12 Hours) Vital Signs Temp Pulse Resp BP BP Pulse Ox O2 Del Method 07/31/23 14:52 36.8 C 66 16 172/79 H 94 Room Air 07/31/23 10:49 153/64 H 07/31/23 07:25 Room Air 07/31/23 07:05 36.7 C 65 16 194/74 H 93 Room Air Laboratory Results CBC, CMP, BCxs and Wound cxs reviewed PG Care Time/CCT Total # of Minutes Spent Total Time Spent with Patient: Total time spent is greater than 50% in coordination of care (as documented) at patient's floor/unit and/or counseling patient: Coding Level of Care Code 33495 SUB INP/OBS CARE 2/35MIN Diagnoses Postoperative infection of knee T81.49XA; M00.9 Hypertension I10 Atelectasis of right lung J98.11 Anxiety with depression F41.8 Invasive ductal carcinoma of right breast C50.911 Acid reflux K21.9
[2023-08-01 07:07] LABS: Basophils # (auto) 0.02 K/uL (0.00-0.20); Basophils % (auto) 0.5 %; Eosinophils # (auto) 0.17 K/uL (0.00-0.50); Eosinophils % (auto) 4.5 %; Hematocrit (blood only) 30.3 % (37.0-47.0); Hemoglobin 9.3 g/dl (12.0-16.0); Immature Granulocytes # (auto) 0.02 K/uL (0.01-0.20); Immature Granulocytes % (auto) 0.5 %; Lymphocytes # (auto) 0.91 K/uL (1.20-3.40); Lymphocytes % (auto) 24.3 %; Mean Corpuscular Hemoglobin 27.1 pg (25.0-34.0); Mean Corpuscular Hgb Conc 30.7 g/dL (32.0-36.0); Mean Corpuscular Volume 88.3 fL (80.0-100.0); Mean Platelet Volume 9.8 fL (9.4-12.4); Monocytes # (auto) 0.43 K/uL (0.11-0.59); Monocytes % (auto) 11.5 %; Neutrophils % (auto) 58.7 %; Platelet Count 172 K/uL (130-400); RDW Coefficient of Variation 15.4 % (11.5-14.5); RDW Standard Deviation 49.8 fL (36.4-46.3); Red Blood Count 3.43 M/uL (4.20-5.40); White Blood Count 3.75 K/ul (4.8-10.8)
[2023-08-01 07:24] LABS: BUN Creatinine Ratio 14.3 (10-20); C Reactive Protein 2.23 mg/dl (0-0.5); Calcium 8.6 mg/dl (8.6-10.3); Creatinine Clr Calc Pharmacy 81.6 ml/min; Est GFR (African American) 98.2 ml/min; Est GFR (Non-African American) 84.7 ml/min; Potassium 3.9 mmol/L (3.5-5.1)
[2023-08-01 07:44] LABS: Ferritin 57.4 ng/ml (8-388)
--- NOTE | 2023-08-01 09:10 | Orthopedic Progress Note ---
Date of Service August 01, 2023 Assessment & Plan (1) Septic joint of left knee joint: Plan: POD #6 s/p Left Knee DAIR Procedure with poly changed to size 12 polyethylene ID consult recommend for 6 weeks of IV Vanco followed by suppressive po abx afterwards, f/u in ID clinic at [facility] as outpt Pain currently controlled with Tylenol 3- She is intolerant of other narcotics. DVT proph with JANE/SCD/ASA WBAT with the immobilizer on and walker, she can remove in bed for PT, ROM 0- 15 flexion until first post op visit in 2 weeks. plan for transfer to [facility] later today, f/u at [facility] 14-16 days post op as scheduled. Admission and Anticipated Discharge Date Admission Date: July 25, 2023 Subjective POD #6 s/p Left Knee DAIR Procedure with poly changed to size 12 polyethylene she presently denies fever or chills. denies CP/SOB. Physical Exam Physical Exam: Vital Signs Temp Pulse Resp BP BP Pulse Ox O2 Del Method 08/01/23 08:00 Room Air 08/01/23 07:29 37.1 C 76 16 177/77 H 92 Room Air 07/31/23 20:31 36.8 C 84 18 184/72 H 92 Room Air 07/31/23 20:07 36.8 C 81 17 187/78 H 92 Room Air 07/31/23 14:52 36.8 C 66 16 172/79 H 94 Room Air 07/31/23 10:49 153/64 H Intake and Output 07/31/23 08/01/23 08/01/23 22:59 06:59 14:59 Intake Total 173.333 / 890.000 320 / 890.000 Output Total 400 / 401 Balance 173.333 / 489.000 -80 / 489.000 Intake: IV 173.333 / 640.000 270 / 640.000 Vancomycin HCl 1,000 mg In 173.333 / 540.000 270 / 540.000 Sodium Chlorid e 0.9% 250 ml @ 200 mls/hr IV Q12H [facility] Rx#: [id number] Oral 50 / 250 Output: Urine Amount (Ca theter) 400 / 400 External 400 / 400 Intake and Output 07/30/23 07/31/23 07/31/23 22:59 06:59 14:59 Intake Total 100 / 830 365 / 830 Output Total 1 / 503 500 / 503 Balance 99 / 327 -135 / 327 Intake: IV 100 / 830 365 / 830 Piperacillin/T azobactam 4.5 gm 100 / 300 100 / 300 In Dextrose 5% Mini-B 100 ml @ 25 mls/hr IV Q 8H [facility] Rx#: [id number] Vancomycin HCl 750 mg In Sodium 265 / 530 Chloride 0.9% 250 ml @ 200 mls /hr IV Q12H [facility] Rx#:[id number] Output: Urine Amount (Ca theter) 500 / 500 External 500 / 500 # Bowel Movement s / Other: # Unmeasured Voi ds 2 Musculoskeletal: Left Knee: NVDI, calf SNT, negative armen sign. DP palpable, able to wiggle toes/ankle movement without difficulty. JOSE dressing clean dry and intact. expected post-operative bruising noted. Results & Data Vital Signs (Past 12 Hours) Vital Signs Temp Pulse Resp BP Pulse Ox O2 Del Method 08/01/23 08:00 Room Air 08/01/23 07:29 37.1 C 76 16 177/77 H 92 Room Air Laboratory Results Laboratory Results WBC 3.75 K/ul (4.8-10.8) L 08/01/23 06:10 RBC 3.43 M/uL (4.20-5.40) L 08/01/23 06:10 Hgb 9.3 g/dl (12.0-16.0) L 08/01/23 06:10 Hct 30.3 % (37.0-47.0) L 08/01/23 06:10 MCV 88.3 fL (80.0-100.0) 08/01/23 06:10 MCH 27.1 pg (25.0-34.0) 08/01/23 06:10 MCHC 30.7 g/dL (32.0-36.0) L 08/01/23 06:10 RDW Std Deviation 49.8 fL (36.4-46.3) H 08/01/23 06:10 RDW Coeff of [place] 15.4 % (11.5-14.5) H 08/01/23 06:10 Plt Count 172 K/uL (130-400) 08/01/23 06:10 MPV 9.8 fL (9.4-12.4) 08/01/23 06:10 Immature Gran % (Auto) 0.5 % 08/01/23 06:10 Neut % (Auto) 58.7 % 08/01/23 06:10 Lymph % (Auto) 24.3 % 08/01/23 06:10 Steele % (Auto) 11.5 % 08/01/23 06:10 Eos % (Auto) 4.5 % 08/01/23 06:10 Baso % (Auto) 0.5 % 08/01/23 06:10 Neut # (Auto) 2.20 K/uL (1.40-6.50) 08/01/23 06:10 Lymph # (Auto) 0.91 K/uL (1.20-3.40) L 08/01/23 06:10 Steele # (Auto) 0.43 K/uL (0.11-0.59) 08/01/23 06:10 Eos # (Auto) 0.17 K/uL (0.00-0.50) 08/01/23 06:10 Baso # (Auto) 0.02 K/uL (0.00-0.20) 08/01/23 06:10 Immature Gran # (Auto) 0.02 K/uL (0.01-0.20) 08/01/23 06:10 ESR 39 mm/hr (0-30) H 08/01/23 06:10 Sodium 142 mmol/L (136-145) 08/01/23 06:10 Potassium 3.9 mmol/L (3.5-5.1) 08/01/23 06:10 Chloride 111 mmol/L (98-107) H 08/01/23 06:10 Carbon Dioxide 27 mmol/L (21-32) 08/01/23 06:10 Anion Gap 4 (3-11) 08/01/23 06:10 BUN 9 mg/dl (6-23) 08/01/23 06:10 Creatinine 0.63 mg/dl (0.6-1.2) 08/01/23 06:10 Est Cr Clr Drug Dosing 81.6 ml/min 08/01/23 06:10 Est GFR ( Amer) 98.2 ml/min 08/01/23 06:10 Est GFR (Non-Af Amer) 84.7 ml/min 08/01/23 06:10 BUN/Creatinine Ratio 14.3 (10-20) 08/01/23 06:10 Glucose 98 mg/dl (70-99(Fasting)) 08/01/23 06:10 Lactate 0.6 mmol/L (0.4-2.0) 07/27/23 05:25 Calcium 8.6 mg/dl (8.6-10.3) 08/01/23 06:10 Phosphorus 3.8 mg/dl (2.5-4.9) 07/26/23 05:13 Magnesium 1.8 mg/dl (1.7-2.4) 07/26/23 05:13 Iron 28 mcg/dl (35-150) L 08/01/23 06:10 TIBC 237 mcg/dl (250-450) L 08/01/23 06:10 Unsaturated IBC 209 mcg/dl (155-355) 08/01/23 06:10 Transferrin % Sat 12 % (15-50) L 08/01/23 06:10 Ferritin 57.4 ng/ml (8-388) 08/01/23 06:10 Total Bilirubin 0.3 mg/dl (0.2-1.0) 07/31/23 09:10 AST 14 U/L (13-39) 07/31/23 09:10 ALT 8 U/L (7-52) 07/31/23 09:10 Alkaline Phosphatase 47 U/L (34-104) 07/31/23 09:10 C-Reactive Protein 2.23 mg/dl (0-0.5) H 08/01/23 06:10 Total Protein 5.8 gm/dl (6.0-8.3) L 07/31/23 09:10 Albumin 3.0 gm/dl (3.4-5.0) L 07/31/23 09:10 Globulin 2.8 gm/dl (2.5-4.0) 07/31/23 09:10 Albumin/Globulin Ratio 1.1 (0.9-2) 07/31/23 09:10 Procalcitonin < 0.02 ng/ml (0-0.5) 07/27/23 05:25 Fluid Comment 07/26/23 12:43 Synovial Source Left Knee 07/26/23 12:43 Synovial Color Red 07/26/23 12:43 Synovial Appearance Turbid 07/26/23 12:43 Synovial WBC (Auto) 46946 /ul (0-200) H 07/26/23 12:43 Synovial RBC (Auto) 684253 /uL 07/26/23 12:43 Synovial Polynuclear % 96.6 % 07/26/23 12:43 Synovial Mononuclear % 3.4 % 07/26/23 12:43 Nasal Screen MRSA (PCR) Negative (Negative) 07/27/23 05:45 Random Vancomycin 15.9 mcg/ml (10-20) 07/30/23 11:56 Impressions Venous Doppler Study 07/25/23 16:44 ULTRASOUND LEFT LOWER EXTREMITY VENOUS CLINICAL HISTORY: Left leg swelling. Recent surgery. COMPARISON STUDY: No priors. TECHNIQUE: Real-time, grayscale, and color Doppler sonography of the deep veins of the left lower extremity was performed from the inguinal crease to the calf. Compression and augmentation were utilized. FINDINGS: There is no sonographic evidence of deep venous thrombosis identified in the left lower extremity. The common femoral, superficial femoral, and popliteal veins are patent and normally compressible. The greater saphenous vein and the profunda femoris vein at the junction with the common femoral vein are clear. The visualized calf veins are patent. A complex nonvascular fluid collection in the popliteal fossa measures up to 6.7 cm. IMPRESSION: 1. There is no sonographic evidence of deep venous thrombosis identified in the left lower extremity. 2. A complex nonvascular fluid collection within the medial popliteal fossa measures up to 6.7 cm. This could represent a Dickinson's cyst or postsurgical seroma/hematoma. The sterility of this fluid cannot be assessed by imaging and clinical correlation will be required. ACT 112: Negative or not required by law. Electronically signed by: Joe Lowe M.D. 07/25/2023 6:34 PM Knee X-Ray 07/26/23 13:39 LEFT KNEE 2 VIEWS History: Left total knee arthroplasty. Degenerative arthritis. Postop. FINDINGS: The patient is status post a left total knee arthroplasty. The hardware is intact. No fracture or dislocation. Skin christina and surgical drains are in place. IMPRESSION: Left total knee arthroplasty. No evidence for hardware complication. ACT 112: Negative or not required by law. Electronically signed by: Radhames Bruno M.D. 07/26/2023 4:27 PM Chest X-Ray 07/28/23 08:00 XR chest 1V portable HISTORY: RLL atelectasis COMPARISON: Chest 07/26/2023. FINDINGS: There are low lung volumes with persistent elevation the right hemidiaphragm. Right basilar linear densities persist and favor subsegmental atelectasis. No pneumothorax. No pleural effusions. The heart remains mildly enlarged. There is mild central pulmonary vascular congestion without overt edema. A few small left basilar linear densities also favor subsegmental atelectasis. The right shoulder prosthesis. Advanced degenerative changes within the left shoulder. There is a moderate hiatus hernia again noted. IMPRESSION: 1. No significant change compared to the prior study. 2. Elevated right hemidiaphragm with bibasilar linear densities suggesting subsegmental atelectasis. 3. Moderate hiatus hernia. ACT 112: Negative or not required by law. Electronically signed by: Radhames Bruno M.D. 07/28/2023 8:[address] 07/28/23 11:29 CT chest diagnostic wo con CT DOSE: 775.34 mGy.cm HISTORY: RLL atelectasis TECHNIQUE: Multiaxial CT images of the chest were performed without contrast. A dose lowering technique was utilized adhering to the principles of ALARA. COMPARISON: Outside hospital chest CT 06/29/2022. FINDINGS: The central airways are patent. No pneumothorax. Trace bilateral pleural effusions. Bibasilar linear densities are nonspecific but favor subsegmental atelectasis. There is mild elevation of the right hemidiaphragm. No evidence for pulmonary edema. There are old, healed right-sided rib fractures. A right shoulder prosthesis is noted. Limited views of the upper abdomen demonstrate a normal liver and spleen. There is a severely distended gallbladder. Normal esophagus. Moderate to large hiatus hernia. The heart is normal in size. Mild calcified plaque within the mildly tortuous thoracic aorta. No mediastinal or hilar lymphadenopathy. IMPRESSION: 1. Bibasilar linear densities are nonspecific but favor subsegmental atelectasis. 2. Mild elevation of the right hemidiaphragm. 3. Moderate to large hiatus hernia. 4. Trace bilateral pleural effusions. 5. Severely distended gallbladder. Consider follow-up right quadrant ultrasound if the patient is complaining of right upper quadrant pain to exclude the p ossibility of an acute cholecystitis. ACT 112: Negative or not required by law. Electronically signed by: Radhames Bruno M.D. 07/28/2023 11:56 AM Diagnostic Findings Microbiology 07/27/23 05:25 Blood Aerobic Blood Culture - Final No growth in Aerobic bottle after 5 days. 07/27/23 05:25 Blood Anaerobic Blood Culture - Final No growth in Anaerobic bottle after 5 days. 07/27/23 05:35 Blood Aerobic Blood Culture - Final No growth in Aerobic bottle after 5 days. 07/27/23 05:35 Blood Anaerobic Blood Culture - Final 07/25/23 17:49 Knee,Left Gram Stain - Final 07/25/23 17:49 Knee,Left Aerobic and Anaerobic Culture - Preliminary Corynebacterium species Coag negative Staphylococcus 07/26/23 Unknown Knee,Left Gram Stain - Final 07/26/23 Unknown Knee,Left Aerobic and Anaerobic Culture - Preliminary Corynebacterium species 07/25/23 17:49 Knee,Left Gram Stain - Final 07/25/23 17:49 Knee,Left Aerobic and Anaerobic Culture - Preliminary Corynebacterium species Coag negative Staphylococcus 07/26/23 Unknown Knee Gram Stain - Final 07/26/23 Unknown Knee Aerobic and Anaerobic Culture - Final No growth 07/26/23 Unknown Knee,Left Gram Stain - Final 07/26/23 Unknown Knee,Left Aerobic and Anaerobic Culture - Final No growth 07/26/23 13:28 Knee,Left Gram Stain - Final 07/26/23 13:28 Knee,Left Aerobic and Anaerobic Culture - Final No growth 07/26/23 Unknown Knee Gram Stain - Final 07/26/23 Unknown Knee Aerobic and Anaerobic Culture - Final No growth 07/25/23 17:58 Blood Aerobic Blood Culture - Final No growth in Aerobic bottle after 5 days. 07/25/23 17:58 Blood Anaerobic Blood Culture - Final No growth in Anaerobic bottle after 5 days. 07/25/23 16:53 Blood Aerobic Blood Culture - Final No growth in Aerobic bottle after 5 days. 07/25/23 16:53 Blood Anaerobic Blood Culture - Final No growth in Anaerobic bottle after 5 days.
[2023-08-01] MEDS: hydrALAZINE HCL 20 MG/ML VIAL IV PRN (09:29)
[2023-08-01] MEDS: FERROUS SULFATE 325 MG TAB PO SCH (10:31)
[2023-08-01] MEDS ORDERED: HEPARIN 100 UNIT/ML 5ML FLUSH FLUSH PRN (13:36)
--- NOTE | 2023-08-01 14:15 | Pharmacy Report ---
Pharmacy PK ABX Note - Date of Service August 01, 2023 - Assessment and Plan Assessment 07/31: SCr 0.63 today. Sample drawn at 11 was not viable for level and patient was unavailable to have redrawn prior to 1400 dose. Okay to hang 1400 dose- additional level to be scheduled if patient still in house, plans to go to [facility] today 07/30: * SCr down to 0.67 today, predicting slightly below goal AUC/GEOVANNA at steady state- will increase dose slightly 07/29: * Knee cx positive with Corynebacterium species and Coag negative staph. * SCr trending back down today, 0.82 mg/dL. 07/28: * Bcx negative. Knee cxs growing corynebacterium species and GPCs * Scr uptrending over the past 48 hours 0.67->0.83->1.13. Dose reduced today and provider notified of this trend and associated challenges with dosing. If scr continues to rise may need to move to dosing by levels. Per RN, patient has an external catheter but is noted to still be making good urine from what she can see. 07/26: * 07/24 Blood and knee cultures negative to date * 07/25 knee cultures pending * 07/26 blood cultures pending * Trough level this AM 14.8 mcg/mL predicts attainment of target AUC/GEOVANNA (currently~472 mg/L.hr)- predicts 578 mg/L.hr at steady state, jhonatan lcontinue * Monitor cultures/renal function 07/25: * 82 year old F receiving VANCOMYCIN + ZOSYN for treatment of infected L knee TKA. * Pertinent microbiologic data includes: synovial fluid WBC 59k, synovial fluid and blood cx's pending * Day # 1 of antimicrobial therapy. Plan Vancomycin * Current regimen: 1000 mg IV every 12 hours * Change in SCr predicts below target AUC/GEOVANNA of 400-600 mg/L.hr * Predicted AUC at steady state: 482 mg/L.hr * Continue 1000 mg q12H * trough level ordered for: 08/02/23 @ 0130 Pharmacy will continue to follow and will adjust dose/frequency as necessary. Thank you. Pharmacy has transitioned to AUC monitoring for vancomycin. AUC/GEOVANNA is the preferred PK/PD target and is associated with decreased risk of nephrotoxicity compared to traditional trough targets.
--- NOTE | 2023-08-01 15:22 | Discharge Summary ---
Discharge Summary Date of Service August 01, 2023 Principal Dx & Hospital Course #1 = Principal Diagnosis (1) Postoperative infection of knee: She underwent left total knee arthroplasty 07/10. She has since developed a wound infection and medial dehiscence. She underwent an aspiration procedure of the knee on July 24 on admission and on July 25 underwent washout of the knee joint. Knee Cultures with Coag neg Staph and corynebacterium from 07/24, and Coryne bacterium from 07/25 BCxs remain no growth Infectious disease consultation and recommendations appreciated-plan for 6 weeks of IV Vanco followed by suppressive po abx afterwards, f/u in ID clinic at [facility] as outpt Check once weekly CBC, CMP, vancomycin levels while on IV vancomycin PICC line placed on 07/31 Continue pain control with prn Tylenol 3- She is intolerant of other narcotics Continue po tylenol prn mild pain f/u Ortho as outpt WBAT with the immobilizer on and walker, she can remove in bed for PT, ROM 0-15 flexion until first post op visit in 2 weeks f/u at [facility] 14-16 days post op as scheduled Asked micro lab to add on sensitivities to Corynebacterium and Coag neg Staph as per ID request-pending as is a send out (2) Hypertension: BPs remain elevated. This could be secondary to pain versus mild volume overload given mild shortness of breath with exertion. No longer hypoxic, no crackles on examination. Only has some peripheral edema of the left leg postoperatively. Metoprolol started on July 26 and resumed home lisinopril 07/29 Add on Lasix 20 mg p.o. once daily Watch volume status and blood pressures at rehab (3) Atelectasis of right lung: Chest CT scan reveals bilateral atelectasis. Appreciate pulmonary medicine consultation and recommendations. She is now receiving incentive spirometry. Hypoxia resolved (4) Anxiety with depression: continue Gabapentin and citalopram (5) Invasive ductal carcinoma of right breast: oncology follow-up No intervention necessary at this time (6) Acid reflux: PPI therapy (7) Iron deficiency anemia: Hemoglobin low postoperatively at 9.3. Transferrin saturation low at 12%, ferritin normal at 57 Will start on ferrous sulfate 325 mg p.o. twice daily x 1 month Follow CBC once weekly Will on antibiotics Plan DVT proph-ASA bid, JANE kendrick, SCD Dispo-to [facility] Notes For Next Care Provider Follow once weekly CBC, CMP, vancomycin levels while on IV vancomycin Follow blood pressure and volume status closely-was having some elevated blood pressures and mild shortness of breath with trace bilateral pleural effusions on previous CT scan of the chest-hypoxia resolved. Started Lasix and metoprolol. Needs follow-up with [facility] infectious disease. Will need prophylactic suppressive antibiotics after IV vancomycin is finished. Medication Changes From Visit Started Lasix 20 mg p.o. once daily Started metoprolol 25 mg p.o. twice daily Vancomycin 1000 mg IV every 12 hours times total 6 weeks Added aspirin 81 mg p.o. twice daily for DVT prophylaxis x 4 to 6 weeks as per orthopedics Admission HPI Per Admitting Provider The patient is an 82-year-old female with a past medical history including lumbar facet joint syndrome, urge incontinence, sacral insufficiency fracture, L2 compression fracture, CMC arthritis, invasive ductal carcinoma of right breast, depression and acid reflux. She underwent a left TKA on 06/26, and had been doing well until being seen in the emergency department 07/17 for serosanguineous drainage. She bumped her knee a couple days ago, and had a return of the drainage, and today was noted to have redness around the surgical wound site and some yellow-tinged drainage. She was seen in the emergency department by orthopedic surgery Dr. Cotton, covering for Dr. Eubanks, who performed an I&D, with drainage WBCs, with presumed septic. She was started on vancomycin and cefepime IV given ceftriaxone IV, and was then referred for evaluation for admission. Patient will be made n.p.o. after midnight, for possible surgical drainage in the OR tomorrow. Discharge Exam Constitutional WD/WN, vitals as above Respiratory normal respiratory effort, lungs clear to auscultation Cardiovascular RRR, no murmur, no edema Gastrointestinal (Abdomen) normal bowel sounds, soft, nontender, no hepatosplenomegaly Musculoskeletal Extremities: + extremities abnormal to inspection (LLE knee immobilizer in place) and + abnormal strength (4/5 left ankle dorsiflexion) Psychiatric A+Ox3, euthymic affect Updated Medication List Medication Instructions Recorded Confirmed Type cholecalciferol (vitamin D3) 25 1,000 unit PO QAM #30 caps 02/08/21 07/25/23 Rx mcg (1,000 unit) capsule lisinopril 20 mg tablet 20 mg PO QPM 09/15/22 07/25/23 History multivitamin 1 tab PO QAM 06/07/23 07/25/23 History oxycodone 5 mg tablet 5 - 10 mg (1 - 2 x 5 mg) PO Q6H 06/28/23 07/25/23 Rx PRN pain #30 tabs celecoxib 200 mg capsule 200 mg PO BID 07/18/23 07/25/23 History citalopram 40 mg tablet 40 mg PO QAM 07/18/23 07/25/23 History gabapentin 600 mg tablet 600 mg PO TID 07/18/23 07/25/23 History omeprazole 40 mg capsule,delayed 40 mg PO BID 07/18/23 07/25/23 History release trazodone 50 mg tablet 50 mg PO HS PRN Insomnia 07/18/23 07/25/23 History fesoterodine 4 mg tablet,extended 4 mg PO DAILY #90 tabs 07/24/23 07/25/23 Rx release 24 hr (Toviaz) acetaminophen 300 mg-codeine 30 mg 1 tab PO Q4H PRN Moderate-severe 08/01/23 Rx tablet pain #20 tabs aspirin 81 mg tablet,delayed 81 mg PO BID #60 tabs 08/01/23 Rx release ferrous sulfate 325 mg (65 mg 325 mg PO BIDM #60 tabs 08/01/23 Rx iron) tablet,delayed release furosemide 20 mg tablet 20 mg PO QAM #30 tabs 08/01/23 Rx metoprolol tartrate 25 mg tablet 25 mg PO BID #60 tabs 08/01/23 Rx vancomycin 1,000 mg intravenous 1,000 mg IV Q12H 36 days #72 ea 08/01/23 Rx injection Hospital Stay Data Consultations 07/25/23 19:03 ED Decision to Admit Stat 07/25/23 19:04 Consult Orthopedic Surgery Routine 07/26/23 13:41 Consult Infectious Diseases Routine 07/28/23 11:29 Consult Pulmonology Routine Procedures Performed Operation Date: 07/26/23 07:50 Actual Procedures p Left Knee DAIR Procedure(Left) - Sanford Eubanks, Diagnostic Imagining Performed 07/25/23 16:44 US venous doppler LE LT Stat 07/28/23 11:29 CT chest diagnostic wo con Urgent Pending Results Patient Have Any Pending Studies at Discharge: Yes (Sensitivities sent out for the corynebacterium and coagulase-negative Staph) Discharge Instructions Given to Patient (Per Discharging Provider) You were admitted with an infected knee and had surgery to washout the infection and exchange part of the knee replacement. You will need to take IV antibiotics for 6 weeks total after the surgery. Please check CBC, CMP, and vancomycin level once weekly while on the IV vancomycin. You will then need to be on oral antibiotics chronically to suppress any future infections. Please schedule follow-up with [facility] infectious disease within 1 month. Your blood pressure was quite elevated while you were here and you were started on metoprolol as well as furosemide. You did have some fluid around the bottoms of the lungs which caused you to have some mild shortness of breath but this should improve with Lasix. You should have your blood pressure monitored closely and medications adjusted as needed. Total Time Total Time Spent Total Time Spent (In Minutes): 40 minutes Total Time Includes: Examination of the Patient, Discharge Planning and Medication Reconciliation Coding Level of Care Code 23259 INP/OBS DISCH >30 MIN Diagnoses Postoperative infection of knee T81.49XA; M00.9 Hypertension I10 Atelectasis of right lung J98.11 Anxiety with depression F41.8 Invasive ductal carcinoma of right breast C50.911 Acid reflux K21.9 Iron deficiency anemia D50.9
[2023-08-01] MEDS: FUROSEMIDE 20 MG TAB PO ONE (15:59)
[2023-08-02] MEDS ORDERED: VANCOMYCIN LEVEL ONE (01:00)
[2023-08-02] MEDS ORDERED: FUROSEMIDE 20 MG TAB PO SCH (09:00)
== END 2023-08-01 16:45 | DRG 485 ==
LOC: ED 16:08 → EDINP 20:30 → SUATTDRO 20:30 → EDINP 07-26 11:27 → 2W 07-26 15:52 → 3E 07-30 18:23

== ENCOUNTER 2023-08-16 14:36 | Inpatient (IN) ==
[2023-08-16 15:33] LABS: Basophils # (auto) 0.03 K/uL (0.00-0.20); Basophils % (auto) 0.6 %; Eosinophils # (auto) 0.28 K/uL (0.00-0.50); Hematocrit (blood only) 30.2 % (37.0-47.0); Hemoglobin 8.9 g/dl (12.0-16.0); Immature Granulocytes # (auto) 0.01 K/uL (0.01-0.20); Immature Granulocytes % (auto) 0.2 %; Lymphocytes % (auto) 21.4 %; Mean Corpuscular Hemoglobin 26.3 pg (25.0-34.0); Mean Corpuscular Hgb Conc 29.5 g/dL (32.0-36.0); Mean Corpuscular Volume 89.3 fL (80.0-100.0); Mean Platelet Volume 9.8 fL (9.4-12.4); Monocytes # (auto) 0.63 K/uL (0.11-0.59); Monocytes % (auto) 13.5 %; Neutrophils # (auto) 2.73 K/uL (1.40-6.50); Neutrophils % (auto) 58.3 %; Platelet Count 217 K/uL (130-400); RDW Coefficient of Variation 16.3 % (11.5-14.5); RDW Standard Deviation 53.3 fL (36.4-46.3); Red Blood Count 3.38 M/uL (4.20-5.40); White Blood Count 4.68 K/ul (4.8-10.8)
--- NOTE | 2023-08-16 15:47 | XRay Report ---
SINGLE VIEW CHEST CLINICAL HISTORY: Dyspnea. FINDINGS: An AP, portable, upright chest radiograph is compared to chest x-ray and chest CT dated 07/27. A right PICC line is new from previous. The tip of the catheter projects over the cavoatrial j unction. The heart is enlarged. There is pulmonary vascular congestion. There is chronic elevation of the right hemidiaphragm with atelectasis of the right lower lung. Small pleural effusions are noted. No pneumothorax is seen. The skeletal structures are osteopenic. The bony thorax is grossly intact. A right shoulder arthroplasty is in place. Advanced arthritic change is noted in the left shoulder. IMPRESSION: 1. Cardiomegaly with pulmonary vascular congestion. 2. Small pleural effusions. These have increased in size from 07/28/2023. 3. A right-sided PICC line is new from previous. ACT 112: Negative or not required by law. Electronically signed by: Joe Lowe M.D. 08/16/2023 3:46 PM
[2023-08-16 15:51] LABS: Alanine Aminotransferase 7 U/L (7-52); Albumin Globulin Ratio 1.4 (0.9-2); Albumin Level 3.4 gm/dl (3.4-5.0); Alkaline Phosphatase 55 U/L (34-104); Anion Gap 6 (3-11); Aspartate Aminotransferase 15 U/L (13-39); BUN Creatinine Ratio 17.8 (10-20); Bilirubin,Total 0.4 mg/dl (0.2-1.0); Blood Urea Nitrogen 21 mg/dl (6-23); Calcium 8.5 mg/dl (8.6-10.3); Carbon Dioxide 32 mmol/L (21-32); Chloride 102 mmol/L (98-107); Est GFR (African American) 50.4 ml/min; Est GFR (Non-African American) 43.5 ml/min; Globulin 2.5 gm/dl (2.5-4.0); Glucose 94 mg/dl (70-99(Fasting)); Potassium 3.8 mmol/L (3.5-5.1); Sodium 140 mmol/L (136-145); Total Protein 5.9 gm/dl (6.0-8.3)
--- NOTE | 2023-08-16 16:15 | Emergency Department Note ---
Impression & Plan Pulmonary embolism, CHF (congestive heart failure), Hypoxia ED Provider Note NAME: PADMINI PALACIO AGE: 82 SEX: F : 1940 ARRIVES VIA: Walk-In INFORMANT: Patient ED PROVIDER(S): Gold Hart DO CHIEF COMPLAINT: Shortness of breath HPI: Patient is an 82-year-old female with a past medical history of anemia, respiratory failure, cellulitis, anxiety, depression and hypertension who presents the ER for shortness of breath. Patient had surgery by Dr. Eubanks in early June. Following this she had an infected knee and had to have surgery again at the end of June. She was placed on IV antibiotics and has been receiving these. Since getting out of [facility] she has been more short of breath with any Movement. She is also slightly short of breath with laying flat. Denies any headache or change in vision. No chest pain. No belly pain, nausea, vomiting or diarrhea. No dysuria, urgency or frequency. No other exacerbating or remitting factors ADDITIONAL HISTORY OBTAINED: Additional history provided by family who is present at bedside who notes that patient has been short of breath since her last surgery performed by Dr. Eubanks on 25 July Chronic Medical/Social Conditions Affecting Care: Per HPI PAST MEDICAL HISTORY:See Below PAST SURGICAL HISTORY:See Below FAMILY HISTORY:See Below SOCIAL HISTORY:See Below HOME MEDICATIONS:See Below ALLERGIES:See Below VITALS:See Below PHYSICAL EXAMINATION: GENERAL: Sitting up in bed, alert, well appearing, well nourished, no distress, non-toxic EYE EXAM: normal conjunctiva. OROPHARYNX: no exudate, no erythema, lips, buccal mucosa, and tongue normal and mucous membranes are moist NECK: supple, no nuchal rigidity, no adenopathy, non-tender LUNGS: Clear to auscultation. Normal chest wall mechanics HEART: no murmurs, S1 normal and S2 normal ABDOMEN: abdomen soft, non-tender, normo-active bowel sounds, no masses, no rebound or guarding. UPPER EXTREMITIES: upper extremities are grossly normal. LOWER EXTREMITIES: Left calf larger than right. Pitting edema bilaterally NEURO EXAM: Normal sensorium, cranial nerves II-XII grossly intact, normal speech, no gross weakness of arms, no gross weakness of legs. MEDICAL DECISION MAKING: Patient is a an 82-year-old female who presents ER for the above-stated complaint. IV was established blood work is obtained. Labs show no significant leukocytosis. Mild anemia at 8.9. BMP along LFTs bilirubin was unremarkable. UA was clean. CT angio of the chest shows PEs with pulmonary edema. Patient was given Lasix. Discussed with her at bedside patient denies any recent surgery, previous brain bleeds, coughing up blood, vomiting blood, or urinating blood. Only surgery was the knee. Patient was placed on heparin drip and given a bolus. She was updated at bedside. Discussed with case with the hospitalist for further evaluation management treatment. Consults/Care Managements Discussions: Per [facility] Triage Nursing notes reviewed. Limited review of prior medical records performed Vital Signs: reviewed and remarkable for no significant abnormalities Differential diagnosis: Differential diagnoses includes but is not limited to pneumonia, bronchitis, COPD/Asthma exacerbation, pneumothorax, pulmonary embolism, congestive heart failure, acute coronary syndrome ER treatment provided: See below Diagnostics interpreted by me include EKG and cardiac monitoring as listed below: -Cardiac Monitoring: An order was placed for continuous cardiac monitoring. The monitor shows a rate of 70 with sinus rhythm. -ECG: Sinus rhythm rate 65 Normal axis No PVCs QTc 465 -Laboratory studies:Interpreted by me as stated above in MDM and shown below. Imaging studies: Xrays: As interpreted by me: Portable AP upright 1 view chest shows no focal CTs show: none Procedures:none Critical Care: I have personally spent 35 minutes of critical care time in the direct management of this patient. This includes bedside care, interpretation of diagnostic studies, and testing, discussion with consultants, patient, and family members, and other required patient management activities. This 35 minutes is in excess of all separately billable procedures. 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, estrogen receptor positive (Chronic 08/02/22) Lumbar facet joint syndrome Urge incontinence Carpal tunnel syndrome of right wrist Anxiety with depression Sacral insufficiency fracture Status post kyphoplasty 02/01/2021 Compression fracture of L2 Status post kyphoplasty 02/01/2021 Low back pain (Acute) CMC arthritis Rotator cuff tear, left Impingement syndrome of left shoulder Foraminal stenosis of lumbar region (Chronic) Arthritis (Chronic) 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 Liver lesion, left lobe MRI 06/07/23 showed liver to be unremarkable; probable liver cyst (4mm hyperintense lesion (too small to characterize) History of back surgery RIGHT SI JOINT FUSION= 03/09/17= GRADE VIEW 1, MAC 3, ETT 7.0 AT [facility] 2 TOTAL BACK SURGERIES 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) Overactive bladder (Chronic) Insomnia (Chronic) Hypertension (Chronic) Depression (Chronic) Acid reflux (Chronic) Well controlled and stable Medical History (Updated 08/16/23 @ 20:55 by Gold Hart DO) Arthritis of knee, left Hiatal hernia Anxiety Torn rotator cuff left; steroid injection Q 3 mos, last one 04/2023 w/ Dr Laws Meningioma determined by biopsy of brain Symptomatic small atypical meningioma (s/p craniotomy- 07/2022) Last seen by neuro surgery 02/2023 (stable at that time- no evidence of recurrence of operated tumor) Headache significantly improved History of DVT (deep vein thrombosis) LLE (CALF) 40+ YEARS AGO (WAS TAKING CONTROL PILLS) Polio During childhood 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 History of vertebral compression fracture Around - s/p kyphoplasty Surgical History (Updated 07/26/23 @ 09:19 by Brant Rodriguez MD) History of partial mastectomy of right breast (09/15/22) Right Breast Partial Mastectomy with [employer](Right) - Gladys Woods DO S/P craniotomy 07/2022- STEFANIE Mercer History of kyphoplasty L2 and S1 02/01/2021 H/O hand surgery left History of cataract surgery RT/LEFT History of bilateral tubal ligation History of dilatation and curettage History of breast biopsy left negative > right/ reason for up coming procedure History of carpal tunnel release bilat History of esophagogastroduodenoscopy (EGD) History of tooth extraction History of cardiac cath OVER 14 YEARS AGO/NO STENTS History of colonoscopy History of laminectomy X 2 (LUMBAR REGION) History of right shoulder replacement History of total right knee replacement Family History Mother Family history of pancreatic cancer Alcohol abuse Depression Father Family history of Hodgkin's lymphoma Hypertension Grandfather (Paternal) Myocardial infarction Sister Depression Hypertension Grandfather (Maternal) Myocardial infarction Denies family history of Ovarian cancer Prostate cancer Breast cancer Colorectal cancer Social History Smoking Status: Never smoker Second Hand Exposure: Yes (as child); Do You Dip or Chew Tobacco: No; Hx Alcohol Use: No Hx Substance Use: No Preferred Language: Hungarian Communication Ability: Effective Visual Impairment: No Limitations Hearing Ability: Normal Quality Cloth Tester Required: No Beliefs That Will Affect Care: None marital status: / Current Living Situation: Alone current occupational status: retired Feels Safe at Home: Yes Childhood Exposure to Second-Hand Smoke: Yes Diet: regular Dental Care, Regularly: No Physical Activity Frequency: Does not Exercise Seatbelt Use: sometimes Sunscreen Use: No Assistive Devices: Cane, Stair Lift, Walker and Wheelchair Allergies Allergies Allergy/AdvReac Type Severity Reaction Status Date / Time Cephalosporins Allergy Mild rash Verified 08/16/23 13:23 codeine Allergy Mild Rash Verified 08/16/23 13:23 erythromycin base Allergy Mild Rash Verified 08/16/23 13:23 nitrofurantoin Allergy Mild rash Verified 08/16/23 13:23 tetracycline Allergy Mild rash Verified 08/16/23 13:23 tramadol Allergy Mild Itching Verified 08/16/23 13:23 hydromorphone [From Dilaudid] AdvReac Intermediate mental Verified 08/16/23 13:23 change morphine AdvReac Mild SICK TO Verified 08/16/23 13:23 STOMACH Home Meds Home Medications Medication Instructions Recorded Confirmed lisinopril 20 mg tablet 20 mg PO BID 09/15/22 08/16/23 multivitamin 1 tab PO QAM 06/07/23 08/16/23 celecoxib 200 mg capsule 200 mg PO BID 07/18/23 08/16/23 citalopram 40 mg tablet 40 mg PO QAM 07/18/23 08/16/23 gabapentin 600 mg tablet 600 mg PO TID 07/18/23 08/16/23 omeprazole 40 mg capsule,delayed 40 mg PO BID 07/18/23 08/16/23 release trazodone 50 mg tablet 50 mg PO HS Insomnia 07/18/23 08/16/23 amlodipine 10 mg tablet 10 mg PO QAM 08/15/23 08/16/23 fesoterodine 4 mg tablet,extended 4 mg PO QAM 08/16/23 08/16/23 release 24 hr (Toviaz) furosemide 40 mg tablet 40 mg PO QAM 08/16/23 08/16/23 Previous Rx's Medication Instructions Recorded cholecalciferol (vitamin D3) 25 1,000 unit PO QAM #30 caps 02/08/21 mcg (1,000 unit) capsule aspirin 81 mg tablet,delayed 81 mg PO BID #60 tabs 08/01/23 release metoprolol tartrate 25 mg tablet 25 mg PO BID #60 tabs 08/01/23 vancomycin 1,000 mg intravenous 1,000 mg IV Q12H 36 days #72 ea 08/01/23 injection Results & Data (ED) Vital Signs Vital Signs - 24 hr 08/16/23 14:53 08/16/23 14:57 08/16/23 15:28 Temperature 36.7 C Temperature Source Skin Pulse Rate 66 Pulse Rate from SpO2 Sensor Respiratory Rate 20 Respiratory Effort / Characteristics Non-Labored Spontaneous Non-Labored Respiratory Depth Normal Normal Respiratory Pattern Regular Regular Blood Pressure 133/61 Blood Pressure Mean 85 Pulse Oximetry 90 90 Oxygen Delivery Method Room Air Room Air Room Air Oxygen Flow Rate 0 Sepsis Recent Fever Within 48 Hours No Sepsis New/Unexplained Change in Mental Status N/A Sepsis Action Taken by Nursing No Action Required 08/16/23 15:28 08/16/23 16:06 08/16/23 16:33 Temperature Temperature Source Pulse Rate 66 70 Pulse Rate from SpO2 Sensor 73 Respiratory Rate 18 Respiratory Effort / Characteristics Respiratory Depth Respiratory Pattern Blood Pressure 161/102 H Blood Pressure Mean 121 Pulse Oximetry 90 85 L Oxygen Delivery Method Room Air Oxygen Flow Rate Sepsis Recent Fever Within 48 Hours Sepsis New/Unexplained Change in Mental Status Sepsis Action Taken by Nursing 08/16/23 16:39 Temperature Temperature Source Pulse Rate Pulse Rate from SpO2 Sensor Respiratory Rate Respiratory Effort / Characteristics Respiratory Depth Respiratory Pattern Blood Pressure Blood Pressure Mean Pulse Oximetry 97 Oxygen Delivery Method Nasal Cannula Oxygen Flow Rate 2 Sepsis Recent Fever Within 48 Hours Sepsis New/Unexplained Change in Mental Status Sepsis Action Taken by Nursing Laboratory Data 08/16/23 15:05 08/16/23 15:05 Lab Results 08/16/23 Range/Units 15:05 WBC 4.68 L (4.8-10.8) K/ul RBC 3.38 L (4.20-5.40) M/uL Hgb 8.9 L (12.0-16.0) g/dl Hct 30.2 L (37.0-47.0) % MCV 89.3 (80.0-100.0) fL MCH 26.3 (25.0-34.0) pg MCHC 29.5 L (32.0-36.0) g/dL RDW Std Deviation 53.3 H (36.4-46.3) fL RDW Coeff of [place] 16.3 H (11.5-14.5) % Plt Count 217 (130-400) K/uL MPV 9.8 (9.4-12.4) fL Immature Gran % (Auto) 0.2 % Neut % (Auto) 58.3 % Lymph % (Auto) 21.4 % Branch % (Auto) 13.5 % Eos % (Auto) 6.0 % Baso % (Auto) 0.6 % Neut # (Auto) 2.73 (1.40-6.50) K/uL Lymph # (Auto) 1.00 L (1.20-3.40) K/uL Branch # (Auto) 0.63 H (0.11-0.59) K/uL Eos # (Auto) 0.28 (0.00-0.50) K/uL Baso # (Auto) 0.03 (0.00-0.20) K/uL Immature Gran # (Auto) 0.01 (0.01-0.20) K/uL Sodium 140 (136-145) mmol/L Potassium 3.8 (3.5-5.1) mmol/L Chloride 102 (98-107) mmol/L Carbon Dioxide 32 (21-32) mmol/L Anion Gap 6 (3-11) BUN 21 (6-23) mg/dl Creatinine 1.18 (0.6-1.2) mg/dl Est Cr Clr Drug Dosing Not Reportable Est GFR ( Amer) 50.4 ml/min Est GFR (Non-Af Amer) 43.5 ml/min BUN/Creatinine Ratio 17.8 (10-20) Glucose 94 (70-99(Fasting)) mg/dl Calcium 8.5 L (8.6-10.3) mg/dl Total Bilirubin 0.4 (0.2-1.0) mg/dl AST 15 (13-39) U/L ALT 7 (7-52) U/L Alkaline Phosphatase 55 (34-104) U/L Total Protein 5.9 L (6.0-8.3) gm/dl Albumin 3.4 (3.4-5.0) gm/dl Globulin 2.5 (2.5-4.0) gm/dl Albumin/Globulin Ratio 1.4 (0.9-2) Administered Medications Heparin Sodium/Dextrose (Heparin Sodium/Dextrose) 25,000 units in 500 mls @ 22 mls/hr [id number]; Protocol Stop: 09/15/23 17:29 Last Admin: 08/16/23 17:51 Dose: 1,100 units/hr, 22 mls/hr Documented By: LINSEY Co-signed By: ANA Discontinued Medications Furosemide (Furosemide 40 Mg/4 Ml Vial) 40 mg IV NOW STA Stop: 08/16/23 17:14 Last Admin: 08/16/23 17:45 Dose: 40 mg Documented By: LINSEY Heparin Sodium (Porcine) (Heparin Sod (Porcine) 1000 Unit/Ml) 5,000 units IV NOW ONE Stop: 08/16/23 17:46 Last Admin: 08/16/23 17:45 Dose: 5,000 units Documented By: LINSEY Co-signed By: ANA Heparin Sodium/Dextrose (Heparin Iv Adult Wt-Based Standard W/ Initial Bolus Protocol) 1 each IV NOW STA; Protocol Stop: 08/16/23 17:14 Last Admin: 08/16/23 17:45 Dose: 1 each Documented By: LINSEY Ioversol (Optiray 320 125ml) 118 ml IV ONCE ONE Stop: 08/16/23 16:28 Last Admin: 08/16/23 16:28 Dose: 118 ml Documented By: ROB Imaging Data Radiologist's Impression: Chest X-Ray 08/16/23 14:59 SINGLE VIEW CHEST CLINICAL HISTORY: Dyspnea. FINDINGS: An AP, portable, upright chest radiograph is compared to chest x-ray and chest CT dated 07/28/2023. A right PICC line is new from previous. The tip of the catheter projects over the cavoatrial junction. The heart is enlarged. There is pulmonary vascular congestion. There is chronic elevation of the right hemidiaphragm with atelectasis of the right lower lung. Small pleural effusions are noted. No pneumothorax is seen. The skeletal structures are osteopenic. The bony thorax is grossly intact. A right shoulder arthroplasty is in place. Advanced arthritic change is noted in the left shoulder. IMPRESSION: 1. Cardiomegaly with pulmonary vascular congestion. 2. Small pleural effusions. These have increased in size from 07/28/2023. 3. A right-sided PICC line is new from previous. ACT 112: Negative or not required by law. Electronically signed by: Joe Lowe M.D. 08/16/2023 3:46 PM Chest CTA 08/16/23 16:06 CT ANGIOGRAM OF THE CHEST CLINICAL HISTORY: Hypoxia. Recent surgery. COMPARISON STUDY: Chest x-ray dated 08/16/2023. Chest CT dated 07/28/2023. TECHNIQUE: Following the IV administration of 119 cc of Optiray 320, CT angiogram of the chest was performed from the upper abdomen to the thoracic inlet utilizing the pulmonary embolus protocol. Images are reviewed in the axial, sagittal, and coronal planes. 3-D MIPS images are created and assessed. IV contrast was administered without complication. A dose lowering technique was utilized adhering to the principles of ALARA. There is streak artifact from the left arm which could not be elevated above the chest. There is also motion artifact. CT DOSE: 757.75 mGy.cm FINDINGS: Thyroid: Imaged portions of the thyroid gland are normal in size and attenuation. Thoracic aorta: There is atherosclerotic calcification of the thoracic aorta, which is normal in caliber and demonstrates bovine variant arch anatomy. No dissection is seen. Pulmonary vasculature: The main pulmonary arteries are dilated suggesting pulmonary hypertension. There are segmental and subsegmental pulmonary emboli within a branch of the left upper lobe pulmonary artery. No additional filling defects are Identified in main, lobar, or segmental pulmonary branches branches. Heart: A right PICC line is in place. The heart is enlarged and without pericardial effusion. Lungs and pleural spaces: Evaluation of the lung parenchyma is degraded by motion artifact. There is elevation of the right hemidiaphragm with atelectasis of the right lower lung. There are small left and trace right pleural effusions. No airspace consolidation is seen typical for pneumonia. The trachea and central airways are clear. Intralobular septal thickening suggests fluid overload. Mediastinum: There is no mediastinal lymphadenopathy. Minerva: Clear. Axillae: There is no axillary lymphadenopathy. Upper abdomen: There is a moderate to large hiatal hernia. Partially visualized upper abdominal viscera is within normal limits. Skeletal structures: The skeletal structures are osteopenic. Degenerative change and kyphoscoliosis is noted in the thoracic spine. A right shoulder arthroplasty is in place. Advanced arthritic change in bursal fluid is noted in the left shoulder. No lytic or blastic bony lesions are seen. There are chronic/healed bilateral rib fractures. IMPRESSION: 1. There are segmental and subsegmental pulmonary emboli within a branch of the left upper lobe pulmonary artery. 2. The remaining pulmonary vessels appear clear. 3. Cardiomegaly with intralobular septal thickening. This suggests fluid overload/congestive change. 4. Small left and trace right pleural effusions. 5. Hiatal hernia. 6. Additional findings as above. ACT 112: Negative or not required by law. Electronically signed by: Joe Lowe M.D. 08/16/2023 5:01 PM Discharge Plan Visit Data Chief Complaint: Shortness of Breath/Dyspnea Stated Complaint: SOB, LOW O2 ED Provider: Gold Hart Discharge Problem: Pulmonary embolism, CHF (congestive heart failure), Hypoxia Discharge Problem: Pulmonary embolism Qualifiers: Pulmonary embolism type: unspecified Chronicity: unspecified Acute cor pulmonale presence: unspecified Qualified Code(s): I26.99 - Other pulmonary embolism without acute cor pulmonale CHF (congestive heart failure) Qualifiers: Heart failure type: unspecified Heart failure chronicity: unspecified Qualified Code(s): I50.9 - Heart failure, unspecified
[2023-08-16] MEDS: OPTIRAY 320 125ml IV ONE (16:28)
--- NOTE | 2023-08-16 17:03 | CT Scan Report ---
CT ANGIOGRAM OF THE CHEST CLINICAL HISTORY: Hypoxia. Recent surgery. COMPARISON STUDY: Chest x-ray dated 08/16/2023. Chest CT dated 07/28/2023. TECHNIQUE: Following the IV administration of 119 cc of Optiray 320, CT angiogram of the chest was pe rformed from the upper abdomen to the thoracic inlet utilizing the pulmonary embolus protocol. Images are reviewed in the axial, sagittal, and coronal planes. 3-D MIPS images are created and assessed. I V contrast was administered without complication. A dose lowering technique was utilized adhering to the principles of ALARA. There is streak artifact from the left arm which could not be elevated abov e the chest. There is also motion artifact. CT DOSE: 757.75 mGy.cm FINDINGS: Thyroid: Imaged portions of the thyroid gland are normal in size and attenuation. Thoracic aorta: There is atherosclerotic calcification of the thoracic aorta, which is normal in brittnee hector and demonstrates bovine variant arch anatomy. No dissection is seen. Pulmonary vasculature: The main pulmonary arteries are dilated suggesting pulmonary hypertension. The re are segmental and subsegmental pulmonary emboli within a branch of the left upper lobe pulmonary a rtery. No additional filling defects are Identified in main, lobar, or segmental pulmonary branches b ranches. Heart: A right PICC line is in place. The heart is enlarged and without pericardial effusion. Lungs and pleural spaces: Evaluation of the lung parenchyma is degraded by motion artifact. There is elevation of the right hemidiaphragm with atelectasis of the right lower lung. There are small left a nd trace right pleural effusions. No airspace consolidation is seen typical for pneumonia. The trache a and central airways are clear. Intralobular septal thickening suggests fluid overload. Mediastinum: There is no mediastinal lymphadenopathy. Minerva: Clear. Axillae: There is no axillary lymphadenopathy. Upper abdomen: There is a moderate to large hiatal hernia. Partially visualized upper abdominal visce ra is within normal limits. Skeletal structures: The skeletal structures are osteopenic. Degenerative change and kyphoscoliosis i s noted in the thoracic spine. A right shoulder arthroplasty is in place. Advanced arthritic change i n bursal fluid is noted in the left shoulder. No lytic or blastic bony lesions are seen. There are ch ronic/healed bilateral rib fractures. IMPRESSION: 1. There are segmental and subsegmental pulmonary emboli within a branch of the left upper lobe pulmo nary artery. 2. The remaining pulmonary vessels appear clear. 3. Cardiomegaly with intralobular septal thickening. This suggests fluid overload/congestive change. 4. Small left and trace right pleural effusions. 5. Hiatal hernia. 6. Additional findings as above. ACT 112: Negative or not required by law. Electronically signed by: Joe Lowe M.D. 08/16/2023 5:01 PM
[2023-08-16] MEDS ORDERED: HEPARIN SOD (PORCINE) 1000 UNIT/ML IV ONE (17:29)
[2023-08-16] MEDS ORDERED: HEPARIN SODIUM/DEXTROSE 25,000 UNITS/500 ML BAG IV SCH (17:30)
[2023-08-16] MEDS: HEPARIN SOD (PORCINE) 1000 UNIT/ML IV ONE (17:45)
[2023-08-16] MEDS: FUROSEMIDE 40 MG/4 ML VIAL IV STA (17:45)
[2023-08-16] MEDS: Heparin IV Adult Wt-Based Standard w/ INITIAL Bolus Protocol IV STA (17:45)
[2023-08-16] MEDS: HEPARIN SODIUM/DEXTROSE 25,000 UNITS/500 ML BAG IV SCH (17:51)
--- NOTE | 2023-08-16 18:10 | History & Physical Report ---
Date of Service August 16, 2023 Assessment & Plan (1) Pulmonary emboli: (2) Iron deficiency anemia: (3) Acute respiratory failure with hypoxia: (4) Postoperative infection of knee: (5) Hypertension: (6) Depression: Plan Pt is a 82 yo female with a past med hx of recent knee replacement on June 26 with debridement for postop infection on 07/25, anemia, anxiety, hx breast cancer with met to brain s/p resection in August 2022, and HTN who presents to the hospital on 08/15 for shortness of breath, found to have pulmonary emboli. #Acute hypoxic respiratory failure, most likely secondary to PE #Pulmonary emboli - CTA on admission showed multiple segmental and subsegmental PEs on L side along with cardiomegaly and congestive changes - started on heparin in the ER, also given 1 time 40 mg IV lasix - will do venous duplex of b/l LE to assess for DVT burden - will order echocardiogram with initial imaging with overload changes and no prior hx heart failure, will get BNP as well for same reason - will give next anticoagulation dose as eliquis 10 mg BID dosing starting to quintana am for 7 days #Recent L knee replacement with postop infection - pt currently on vancomycin, will continue this for this admission - does not appear to be currently infected - PT/OT pending #Anemia - on admission 8.9, appears to be iron deficiency related - stable since June 2023 - trend CBC daily while in hospital on anticoagulation, although no prior hx GI bleed noted #HTN - continue home amlodipine - continue home lisinopril - continue home metoprolol #GERD - continue home omeprazole #Depression #Anxiety - continue home citalopram - continue home trazodone Dispo: medsurg tele History of Present Illness Chief Complaint: Pulmonary emboli Primary Care Provider: Zeynep Dawn MD Pt is a 82 yo female with a past med hx of recent knee replacement on June 26 with debridement for postop infection on 07/25, anemia, anxiety, hx breast cancer with met to brain s/p resection in August 2022, and HTN who presents to the hospital on 08/15 for shortness of breath, found to have pulmonary emboli. Pt states that she came into the hospital today because she has been having progressively worsening shortness of breath with activity and at rest for the last few weeks. She states she really started to notice it right after her last knee surgery on 07/25 but did not think too much about it. She states she did note swelling in her legs that started around that time as well that was worse the last week or two but has been a little bit better today on exam. She states she had a DVT maybe 60 years ago when she was on control but otherwise no history of clots or any issues with bleeding in the past. She was not on any anticoagulation at that time, she states they just stopped her control. She states she saw a doctor a few days ago at [facility] who prescribes her lasix for her leg swelling and she did not take her dose prior to coming in today because she was going to see her PCP and planned to take her dose after but then she ended up here. Daughter states she was helping her bathe today and she was sitting on a towel on the edge of the tub and slid off and her butt hit the floor, no injury to head, no LOC, feels okay now. Pt notes she had a scan last year that showed a brain tumor and then a PET scan was done that showed breast cancer, and both tumors were resected August 2022 and no treatments since. Overall today feeling a little better from a breathing standpoint now. Allergies Allergy/AdvReac Type Severity Reaction Status Date / Time Cephalosporins Allergy Mild rash Verified 08/16/23 13:23 codeine Allergy Mild Rash Verified 08/16/23 13:23 erythromycin base Allergy Mild Rash Verified 08/16/23 13:23 nitrofurantoin Allergy Mild rash Verified 08/16/23 13:23 tetracycline Allergy Mild rash Verified 08/16/23 13:23 tramadol Allergy Mild Itching Verified 08/16/23 13:23 hydromorphone [From Dilaudid] AdvReac Intermediate mental Verified 08/16/23 13:23 change morphine AdvReac Mild SICK TO Verified 08/16/23 13:23 STOMACH Home Medications Medication Instructions Recorded Confirmed Type cholecalciferol (vitamin D3) 25 1,000 unit PO QAM #30 caps 02/08/21 08/16/23 Rx mcg (1,000 unit) capsule lisinopril 20 mg tablet 20 mg PO BID 09/15/22 08/16/23 History multivitamin 1 tab PO QAM 06/07/23 08/16/23 History celecoxib 200 mg capsule 200 mg PO BID 07/18/23 08/16/23 History citalopram 40 mg tablet 40 mg PO QAM 07/18/23 08/16/23 History gabapentin 600 mg tablet 600 mg PO TID 07/18/23 08/16/23 History omeprazole 40 mg capsule,delayed 40 mg PO BID 07/18/23 08/16/23 History release trazodone 50 mg tablet 50 mg PO HS Insomnia 07/18/23 08/16/23 History aspirin 81 mg tablet,delayed 81 mg PO BID #60 tabs 08/01/23 08/16/23 Rx release metoprolol tartrate 25 mg tablet 25 mg PO BID #60 tabs 08/01/23 08/16/23 Rx vancomycin 1,000 mg intravenous 1,000 mg IV Q12H 36 days #72 ea 08/01/23 08/16/23 Rx injection amlodipine 10 mg tablet 10 mg PO QAM 08/15/23 08/16/23 History fesoterodine 4 mg tablet,extended 4 mg PO QAM 08/16/23 08/16/23 History release 24 hr (Toviaz) furosemide 40 mg tablet 40 mg PO QAM 08/16/23 08/16/23 History 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, estrogen receptor positive (Chronic 08/02/22) Lumbar facet joint syndrome Urge incontinence Carpal tunnel syndrome of right wrist Anxiety with depression Sacral insufficiency fracture Status post kyphoplasty 02/01/2021 Compression fracture of L2 Status post kyphoplasty 02/01/2021 Low back pain (Acute) CMC arthritis Rotator cuff tear, left Impingement syndrome of left shoulder Foraminal stenosis of lumbar region (Chronic) Arthritis (Chronic) 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 Liver lesion, left lobe MRI 06/07/23 showed liver to be unremarkable; probable liver cyst (4mm hyperintense lesion (too small to characterize) History of back surgery RIGHT SI JOINT FUSION= 03/09/17= GRADE VIEW 1, MAC 3, ETT 7.0 AT [facility] 2 TOTAL BACK SURGERIES 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) Overactive bladder (Chronic) Insomnia (Chronic) Hypertension (Chronic) Depression (Chronic) Acid reflux (Chronic) Well controlled and stable Medical History (Updated 08/16/23 @ 20:55 by Gold Hart DO) Arthritis of knee, left Hiatal hernia Anxiety Torn rotator cuff left; steroid injection Q 3 mos, last one 04/2023 w/ Dr Laws Meningioma determined by biopsy of brain Symptomatic small atypical meningioma (s/p craniotomy- 07/2022) Last seen by neuro surgery 02/2023 (stable at that time- no evidence of recurrence of operated tumor) Headache significantly improved History of DVT (deep vein thrombosis) LLE (CALF) 40+ YEARS AGO (WAS TAKING CONTROL PILLS) Polio During childhood 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 History of vertebral compression fracture Around - s/p kyphoplasty Surgical History (Updated 07/26/23 @ 09:19 by Brant Rodriguez MD) History of partial mastectomy of right breast (09/15/22) Right Breast Partial Mastectomy with Liyah Passenger Vessel Chef Localization(Right) - Gladys Woods DO S/P craniotomy 07/2022- [facility] Mercer History of kyphoplasty L2 and S1 02/01/2021 H/O hand surgery left History of cataract surgery RT/LEFT History of bilateral tubal ligation History of dilatation and curettage History of breast biopsy left negative > right/ reason for up coming procedure History of carpal tunnel release bilat History of esophagogastroduodenoscopy (EGD) History of tooth extraction History of cardiac cath OVER 14 YEARS AGO/NO STENTS History of colonoscopy History of laminectomy X 2 (LUMBAR REGION) History of right shoulder replacement History of total right knee replacement Family History Mother Family history of pancreatic cancer Alcohol abuse Depression Father Family history of Hodgkin's lymphoma Hypertension Grandfather (Paternal) Myocardial infarction Sister Depression Hypertension Grandfather (Maternal) Myocardial infarction Denies family history of Ovarian cancer Prostate cancer Breast cancer Colorectal cancer Social History Smoking Status: Never smoker Second Hand Exposure: Yes (as child); Do You Dip or Chew Tobacco: No; Hx Alcohol Use: No Hx Substance Use: No Preferred Language: Mongolian Communication Ability: Effective Visual Impairment: No Limitations Hearing Ability: Normal Soda Jerker Required: No Beliefs That Will Affect Care: None marital status: / Current Living Situation: Family current occupational status: retired Feels Safe at Home: Yes Childhood Exposure to Second-Hand Smoke: Yes Diet: regular Dental Care, Regularly: No Physical Activity Frequency: Does not Exercise Seatbelt Use: sometimes Sunscreen Use: No Assistive Devices: None, Denture - Upper, Denture - Lower and Walker Review of Systems Review of Systems: Constitutional: denies fever, chills, Cardio: denies chest pain, palpitations Resp: some shortness of breath, cough GI: denies abdominal pain, nausea, vomiting Physical Exam Physical Exam: General: Alert and oriented, no acute distress, HEENT: Normocephalic, moist oral mucosa, Cardio: Regular rate and rhythm, no murmur, Resp: Lungs clear to auscultation bilaterally in middle and upper segments, some faint crackles noted in left lower lobe GI: Soft and nontender, nondistended, Skin: Warm, pink, dry, Extremities: Old scar noted over R knee, new incision noted over L knee that appears well approximated with no drainage at this time, there is mild bilateral nonpitting edema worse on the L leg compared to the R up to the level of the knee Results & Data Results & Data Vital Signs (Past 12 Hours) Vital Signs Temp Pulse Resp BP Pulse Ox O2 Del Method O2 Flow Rate 08/16/23 16:39 97 Nasal Cannula 2 08/16/23 16:33 70 18 161/102 H 85 L 08/16/23 16:06 66 08/16/23 15:28 90 Room Air 08/16/23 15:28 90 Room Air 0 08/16/23 14:57 Room Air 08/16/23 14:53 36.7 C 66 20 133/61 90 Room Air Supervising Physician Co-Signing Physician Notes Attending addendum: I have physically seen this patient, have supervised the medical residents activities, and agree with the H&P unless as otherwise noted. Assessment and Plan: Acute respiratory failure with hypoxia/pulmonary emboli, segmental and subsegmental left upper lobe/fluid overload- The patient will be admitted to telemetry for serial cardiac enzymes, serial EKG's, cardiac rhythm monitoring and a 2-D echocardiogram with Dopplers. Continue heparin drip per protocol begun in the ED Change to Eliquis in the a.m. Status post furosemide 40 mg IV given by the ED, follow response to see if more indicated Order lower extremity venous Doppler, having had a negative left lower extremity Doppler on 07/25/2023 Follow serial laboratories in the a.m. Septic left TKA- Original surgery 06/27/2023 Status post OR on 07/26/2023 Continue vancomycin IV for full course PT/OT Hypertension- Continue amlodipine, lisinopril and metoprolol with hold parameters Resident Activity Tracking Resident Involvement: Resident Care Provided Care Provided: Adult [facility] Medicine
[2023-08-16 19:34] LABS: Appearance Urine Clear (Clear); Bacteria Urine Automated None Seen (None Seen); Bilirubin Urine Negative (Negative); Blood Urine 3+ (Negative); Cast Urine Automated 0-2 /lpf (0-2); Color Urine Yellow; Epithelial Cell Urine Auto 0-2 /hpf (0-2); Glucose Urine UA Negative (Negative); Ketones Urine Negative (Negative); Leukocyte Esterase Urine Negative (Negative); Nitrite Urine Negative (Negative); Protein Urine Negative (Negative); RBC Urine Automated >20 /hpf (0-2); Urobilinogen Urine Negative (Negative); WBC Urine Automated 0-5 /hpf (0-5); pH Urine 6.5 (4.5-7.5)
[2023-08-16] MEDS ORDERED: POLYETHYLENE (MIRALAX) 17 GM PACK PO PRN (21:21)
[2023-08-16] MEDS ORDERED: VANCOMYCIN HCL 1000MG/20ML VIAL IV SCH (21:21)
[2023-08-16] MEDS ORDERED: ONDANSETRON INJ 2 MG/ML 2 ML VIAL IV PRN (21:21)
[2023-08-16] MEDS ORDERED: VANCOMYCIN CONSULT ACTIVE PRN (21:21)
[2023-08-16] MEDS ORDERED: MELATONIN 3 MG TAB PO PRN (21:21)
[2023-08-16] MEDS: GABAPENTIN 600 MG TAB PO SCH (22:35)
[2023-08-16] MEDS: lisinopril 20 MG TAB PO SCH (22:35)
[2023-08-16] MEDS: METOPROLOL TARTRATE 25 MG TAB PO SCH (22:36)
[2023-08-16] MEDS: traZODone HCL 50 MG TAB PO SCH (22:36)
--- NOTE | 2023-08-16 23:33 | Ultrasound Report ---
ULTRASOUND BILATERAL LOWER EXTREMITY VENOUS CLINICAL HISTORY: Bilateral lower extremity edema. Recent knee surgery. Pulmonary embolus. COMPARISON STUDY: Left lower extremity venous ultrasound dated 07/25/2023. TECHNIQUE: Real-time, grayscale, and color Doppler sonography of the deep veins of the right and left lower extremity was performed from the inguinal crease to the calf. Compression and augmentation wer e utilized. FINDINGS: There is no sonographic evidence of deep venous thrombosis identified in the right or left lower extremity. The common femoral, superficial femoral, and popliteal veins are patent and normally compressible bilaterally. The greater saphenous vein and the profunda femoris vein at the junction w ith the common femoral vein are clear in both legs. The visualized calf veins are patent bilaterally. Soft tissue edema is present in both legs. IMPRESSION: There is no sonographic evidence of deep venous thrombosis identified in the right or lef t lower extremity. ACT 112: Negative or not required by law. Electronically signed by: Joe Lowe M.D. 08/16/2023 11:31 PM
[2023-08-17] MEDS: VANCOMYCIN HCL 1,000 MG in SODIUM CHLORIDE 0.9% 250 ML IV SCH (00:13)
--- NOTE | 2023-08-17 01:16 | Billing Data ---
Date of Service August 17, 2023 Coding Level of Care Code 01541 INT INP/OBS CARE
[2023-08-17 02:00] LABS: Basophils # (auto) 0.03 K/uL (0.00-0.20); Basophils % (auto) 0.8 %; Eosinophils # (auto) 0.27 K/uL (0.00-0.50); Eosinophils % (auto) 7.1 %; Hematocrit (blood only) 27.8 % (37.0-47.0); Hemoglobin 8.2 g/dl (12.0-16.0); Immature Granulocytes # (auto) 0.02 K/uL (0.01-0.20); Immature Granulocytes % (auto) 0.5 %; Lymphocytes # (auto) 0.82 K/uL (1.20-3.40); Lymphocytes % (auto) 21.5 %; Mean Corpuscular Hemoglobin 27.1 pg (25.0-34.0); Mean Corpuscular Hgb Conc 29.5 g/dL (32.0-36.0); Mean Corpuscular Volume 91.7 fL (80.0-100.0); Mean Platelet Volume 9.6 fL (9.4-12.4); Monocytes % (auto) 15.7 %; Neutrophils # (auto) 2.08 K/uL (1.40-6.50); Neutrophils % (auto) 54.4 %; Platelet Count 178 K/uL (130-400); RDW Coefficient of Variation 16.3 % (11.5-14.5); RDW Standard Deviation 54.9 fL (36.4-46.3); Red Blood Count 3.03 M/uL (4.20-5.40); White Blood Count 3.82 K/ul (4.8-10.8)
[2023-08-17 02:15] LABS: BUN Creatinine Ratio 16.7 (10-20); Calcium 8.2 mg/dl (8.6-10.3); Creatinine Clr Calc Pharmacy 36.7 ml/min; Est GFR (African American) 49.4 ml/min; Est GFR (Non-African American) 42.7 ml/min; Potassium 3.5 mmol/L (3.5-5.1)
[2023-08-17 02:24] LABS: ANTI-Xa, UFH(UnfractionatedHep 0.45 IU/ml (0.3-0.7)
[2023-08-17] MEDS: APIXABAN 5 MG TABLET PO SCH (08:06)
[2023-08-17] MEDS: FUROSEMIDE 40 MG TAB PO SCH (08:08)
[2023-08-17] MEDS: amLODIPine BESYLATE 5 MG TAB PO SCH (08:08)
[2023-08-17] MEDS: CITALOPRAM 40 MG TAB PO SCH (08:08)
[2023-08-17] MEDS: PANTOprazole 40 MG TAB PO SCH (08:08)
[2023-08-17] MEDS: OXYBUTYNIN CHLORIDE XL 5 MG TABCR PO SCH (08:09)
--- NOTE | 2023-08-17 09:03 | Pharmacy Report ---
Pharmacy PK ABX Note - Date of Service August 17, 2023 - Assessment and Plan Assessment 82 year old F receiving vancomycin for treatment of left knee joint infection s/p L TKA on 06/27/23. Vancomycin originally started in hospital on 07/25/23 and patient underwent debridement, antibiotics, and implant retention on 07/26/23. Pertinent microbiologic data includes: left knee (07/24) growing Corynebacterium pseudodiphtheritcum and Coagulase-negative Staphylococcus (not lugdunensis). The latter pathogen sensitive to vancomycin, daptomycin, and tetracycline. Plan is for 6 weeks of IV antibiotics per infectious diseases. Plan Vancomycin * Current regimen: 1000 mg IV every 12 hours * Random level obtained on admission 08/16/23 resulted as 18.8 mcg/mL. This was several hours after a trough level would have been due and this level is predicted to result in supratherapeutic AUC/GEOVANNA > 600 mg/L.hr * Will decrease vancomycin to 750 mg IV q12h and obtain trough level once at steady-state (08/19/23) Pharmacy will continue to follow and will adjust dose/frequency as necessary. Thank you. Pharmacy has transitioned to AUC monitoring for vancomycin. AUC/GEOVANNA is the preferred PK/PD target and is associated with decreased risk of nephrotoxicity compared to traditional trough targets.
--- NOTE | 2023-08-17 10:53 | Electrocardiogram Report ---
Test Reason : Blood Pressure : / mmHG Vent. Rate : 065 BPM Atrial Rate : 065 BPM P-R Int : 182 ms QRS Dur : 086 ms QT Int : 448 ms P-R-T Axes : 050 -02 013 degrees QTc Int : 465 ms Poor data quality, interpretation may be adversely affected Normal sinus rhythm Normal ECG When compared with ECG of 27-JUL-2023 16:54, No significant change was found Confirmed by Driss Coreas ([id number]) on 08/17/2023 10:53:14 AM Referred By: Zeynep Dawn Confirmed By:Driss Coreas
[2023-08-17] MEDS: ACETAMINOPHEN 325 MG TAB PO PRN (12:17)
[2023-08-17] MEDS: VANCOMYCIN HCL 750 MG in SODIUM CHLORIDE 0.9% 250 ML IV SCH (12:18)
--- NOTE | 2023-08-17 13:05 | XCELERA ---
[id number]
--- NOTE | 2023-08-17 16:41 | Hospitalist Progress Note ---
Date of Service August 17, 2023 Assessment & Plan (1) Acute diastolic CHF (congestive heart failure): Plan: ongoing but improved give additional dose of IV lasix today 20mg x 1 now hold PO lasix moving forward likely to need more IV lasix tomorrow BMP am echo findings noted recent hospitalization, PRBCs, IV vanco daily for her left TKR infection, etc likely all to blame for volume overload (2) Pulmonary embolism: Plan: as seen on admission CTA initially was on heparin IV --> now over to Eliquis 10mg BID x 7 days then 5mg BID thereafter this was a provoked event plan at least 3 months of Rx (3) Iron deficiency anemia: Plan: H/H remain low despite taking Fe supplementation for several weeks recheck Fe studies am consider IV Fe no indication for PRBCs at this time (4) Infection of prosthetic left knee joint: Plan: 2nd to coag neg staph & corynebacterium cont IV vanco plan is 6 weeks has RUE PICC in place for such (5) History of total left knee replacement: Plan: 06/27/23 complicated by post-op TKR infection requiring I/D, etc see #4 above (6) Hypertension: Plan: BPs controlled cont home meds (7) Depression: Plan: cont celexa (8) Acid reflux: Plan: cont PPI twice daily (9) Acute hypoxic respiratory failure: Plan: 2nd to acute diastolic CHF + PEs improving I removed her o2 during the visit - sats stayed ~90% in RA hopefully we can wean her O2 off fully by discharge Plan daughter updated at bedside PT, OT while here progressing Admission and Anticipated Discharge Date Admission Date: August 16, 2023 Subjective patient resting in bed she reports feeling better - breathing is much better today less dyspnea on exertion no cough no fevers no chills appetite is good mild left knee pain only continues with edema no family h/o DVT/PEs prior to [facility] had never been on lasix tele - wnl overnight Review of Systems Review of Systems: CV - no orthopnea, no chest pain pulm - no cough, no wheezing GI - no abd pain or N/V Physical Exam Physical Exam: gen - looks well, NAD, lying comfortably in bed neck - JVD present 2/3 way up neck mouth - MMM heart - RRR, s1 s2 lungs - b/l basilar rales, no wheeze, no increased work of breathing abd - soft NT ND BS+ ext - 2+ edema most of left leg, 1+ on right, pulses 2+ b/l musculo - left knee incision c/d/i; christina intact; no erythema; mild L knee effusion Results & Data Results & Data Vital Signs (Past 12 Hours) Vital Signs Temp Pulse Pulse Resp BP Pulse Ox O2 Del Method 08/17/23 16:38 36.4 C L 63 16 131/68 93 Nasal Cannula 08/17/23 14:08 66 08/17/23 11:43 36.7 C 18 119/73 96 Nasal Cannula 08/17/23 10:21 Nasal Cannula 08/17/23 07:51 67 08/17/23 07:30 36.8 C 70 18 138/74 94 Nasal Cannula O2 Flow Rate 08/17/23 16:38 2 08/17/23 14:08 08/17/23 11:43 2 08/17/23 10:21 2 08/17/23 07:51 08/17/23 07:30 2 Laboratory Results Laboratory Results - last 48 hr 08/16/23 08/16/23 08/16/23 15:05 19:20 21:36 WBC 4.68 L RBC 3.38 L Hgb 8.9 L Hct 30.2 L MCV 89.3 MCH 26.3 MCHC 29.5 L RDW Std Deviation 53.3 H RDW Coeff of [place] 16.3 H Plt Count 217 MPV 9.8 Immature Gran % (Auto) 0.2 Neut % (Auto) 58.3 Lymph % (Auto) 21.4 [place] % (Auto) 13.5 Eos % (Auto) 6.0 Baso % (Auto) 0.6 Neut # (Auto) 2.73 Lymph # (Auto) 1.00 L [place] # (Auto) 0.63 H Eos # (Auto) 0.28 Baso # (Auto) 0.03 Immature Gran # (Auto) 0.01 Heparin Anti-Xa, Unfract Sodium 140 Potassium 3.8 Chloride 102 Carbon Dioxide 32 Anion Gap 6 BUN 21 Creatinine 1.18 Est Cr Clr Drug Dosing Not Reportable Est GFR ( Amer) 50.4 Est GFR (Non-Af Amer) 43.5 BUN/Creatinine Ratio 17.8 Glucose 94 Calcium 8.5 L Iron TIBC Unsaturated IBC Transferrin % Sat Ferritin Total Bilirubin 0.4 AST 15 ALT 7 Alkaline Phosphatase 55 B-Natriuretic Peptide 373 H Total Protein 5.9 L Albumin 3.4 Globulin 2.5 Albumin/Globulin Ratio 1.4 Vitamin B12 Folate Urine Color Yellow Urine Appearance Clear Urine pH 6.5 Ur Specific [place] 1.010 Urine Protein Negative Urine Glucose (UA) Negative Urine Ketones Negative Urine Blood 3+ H Urine Nitrite Negative Urine Bilirubin Negative Urine Urobilinogen Negative Ur Leukocyte Esterase Negative Urine WBC (Auto) 0-5 Urine RBC (Auto) >20 H U Hyaline Cast (Auto) 0-2 U Epithel Cells (Auto) 0-2 Urine Bacteria (Auto) None Seen Random Vancomycin 08/16/23 08/17/23 21:50 01:47 WBC 3.82 L RBC 3.03 L Hgb 8.2 L Hct 27.8 L MCV 91.7 MCH 27.1 MCHC 29.5 L RDW Std Deviation 54.9 H RDW Coeff of [place] 16.3 H Plt Count 178 MPV 9.6 Immature Gran % (Auto) 0.5 Neut % (Auto) 54.4 Lymph % (Auto) 21.5 [place] % (Auto) 15.7 Eos % (Auto) 7.1 Baso % (Auto) 0.8 Neut # (Auto) 2.08 Lymph # (Auto) 0.82 L [place] # (Auto) 0.60 H Eos # (Auto) 0.27 Baso # (Auto) 0.03 Immature Gran # (Auto) 0.02 Heparin Anti-Xa, Unfract 0.45 Sodium 142 Potassium 3.5 Chloride 104 Carbon Dioxide 35 H Anion Gap 3 BUN 20 Creatinine 1.20 Est Cr Clr Drug Dosing 36.7 Est GFR ( Amer) 49.4 Est GFR (Non-Af Amer) 42.7 BUN/Creatinine Ratio 16.7 Glucose 119 H Calcium 8.2 L Iron TIBC Unsaturated IBC Transferrin % Sat Ferritin Total Bilirubin AST ALT Alkaline Phosphatase B-Natriuretic Peptide Total Protein Albumin Globulin Albumin/Globulin Ratio Vitamin B12 Folate Urine Color Urine Appearance Urine pH Ur Specific [place] Urine Protein Urine Glucose (UA) Urine Ketones Urine Blood Urine Nitrite Urine Bilirubin Urine Urobilinogen Ur Leukocyte Esterase Urine WBC (Auto) Urine RBC (Auto) U Hyaline Cast (Auto) U Epithel Cells (Auto) Urine Bacteria (Auto) Random Vancomycin 18.8 Diagnostic Findings echo - EF 60-65%, mild MR, nl RV function PG Care Time/CCT Total # of Minutes Spent Total Time Spent with Patient: Total time spent is greater than 50% in coordination of care (as documented) at patient's floor/unit and/or counseling patient: Coding Level of Care Code 28737 SUB INP/OBS CARE 3/50MIN Diagnoses Acute diastolic CHF (congestive heart failure) I50.31 Pulmonary embolism I26.99 Acute cor pulmonale presence: unspecified Chronicity: unspecified Pulmonary embolism type: unspecified Iron deficiency anemia D50.9 Infection associated with internal left knee prosthesis, initial encounter T84.54XA Encounter type: initial encounter History of total left knee replacement Z96.652 Hypertension I10 Depression F32.9 Acid reflux K21.9 Acute hypoxic respiratory failure J96.01 (2) Pulmonary embolism Acute cor pulmonale presence: unspecified Chronicity: unspecified Pulmonary embolism type: unspecified Qualified Code(s): I26.99 - Other pulmonary embolism without acute cor pulmonale (4) Infection of prosthetic left knee joint Encounter type: initial encounter Qualified Code(s): T84.54XA - Infection and inflammatory reaction due to internal left knee prosthesis, initial encounter
[2023-08-17] MEDS: FUROSEMIDE INJ 20 MG/2 ML VIAL IV ONE (17:22)
[2023-08-17] MEDS: POTASSIUM CHLORIDE CRTAB 20 MEQ TABCR PO STA (17:22)
[2023-08-18 07:47] LABS: Basophils # (auto) 0.02 K/uL (0.00-0.20); Basophils % (auto) 0.6 %; Eosinophils # (auto) 0.21 K/uL (0.00-0.50); Eosinophils % (auto) 6.6 %; Hematocrit (blood only) 28.6 % (37.0-47.0); Hemoglobin 8.2 g/dl (12.0-16.0); Immature Granulocytes # (auto) 0.02 K/uL (0.01-0.20); Immature Granulocytes % (auto) 0.6 %; Lymphocytes # (auto) 0.84 K/uL (1.20-3.40); Lymphocytes % (auto) 26.4 %; Mean Corpuscular Hemoglobin 26.5 pg (25.0-34.0); Mean Corpuscular Hgb Conc 28.7 g/dL (32.0-36.0); Mean Corpuscular Volume 92.6 fL (80.0-100.0); Mean Platelet Volume 9.8 fL (9.4-12.4); Monocytes # (auto) 0.51 K/uL (0.11-0.59); Neutrophils # (auto) 1.58 K/uL (1.40-6.50); Neutrophils % (auto) 49.8 %; Platelet Count 170 K/uL (130-400); RDW Coefficient of Variation 16.1 % (11.5-14.5); RDW Standard Deviation 55.1 fL (36.4-46.3); Red Blood Count 3.09 M/uL (4.20-5.40); White Blood Count 3.18 K/ul (4.8-10.8)
[2023-08-18 07:55] LABS: Calcium 8.5 mg/dl (8.6-10.3); Creatinine Clr Calc Pharmacy 42.1 ml/min; Est GFR (African American) 58.1 ml/min; Est GFR (Non-African American) 50.1 ml/min; Potassium 4.1 mmol/L (3.5-5.1)
[2023-08-18 08:15] LABS: Ferritin 35.7 ng/ml (8-388)
[2023-08-18 08:18] LABS: Folate (Folic Acid),Ser orPlas 16.35 ng/ml (>5.38)
[2023-08-18] MEDS: FUROSEMIDE 40 MG/4 ML VIAL IV ONE (09:31)
[2023-08-18] MEDS: CYANOCOBALAMIN (B-12) 500 MCG TABLET PO SCH (09:32)
[2023-08-18] MEDS: IRON SUCROSE 300 MG in SODIUM CHLORIDE 0.9% 250 ML IV ONE (09:40)
--- NOTE | 2023-08-18 15:21 | Hospitalist Progress Note ---
Date of Service August 18, 2023 Assessment & Plan (1) Acute diastolic CHF (congestive heart failure): Plan: cont to improve cont to hold PO lasix give lasix 40mg IV x 1 this am if BMP is stable tomorrow will repeat the 40mg again tomorrow echo findings noted - EF 60-65%, normal RV function recent hospitalization, PRBCs, IV vanco daily for her left TKR infection, etc likely all to blame for volume overload (2) Pulmonary embolism: Plan: as seen on admission CTA initially was on heparin IV --> now over to Eliquis 10mg BID x 7 days then 5mg BID thereafter this was a provoked event plan at least 3 months of Rx (3) Iron deficiency anemia: Plan: H/H remain low despite taking Fe supplementation for several weeks Fe studies today c/w Fe Deficiency anemia IV venofer 300mg x 1 today plan to repeat tomorrow no indication for PRBCs at this time (4) Infection of prosthetic left knee joint: Plan: 2nd to coag neg staph & corynebacterium cont IV vanco plan is 6 weeks has RUE PICC in place for such (5) History of total left knee replacement: Plan: 06/27/23 complicated by post-op TKR infection requiring I/D, etc see #4 above (6) Hypertension: Plan: BPs controlled cont home meds (7) Depression: Plan: cont celexa (8) Acid reflux: Plan: cont PPI twice daily (9) Acute hypoxic respiratory failure: Plan: 2nd to acute diastolic CHF + PEs improving wean as tolerated (10) B12 deficiency: Plan: B12 level 195 folate wnl start B12 supplementation - 1000mcg po daily x 6 months (11) Stasis dermatitis: Plan: LLE triamcinolone cream 0.1% - BID in thin amounts of L negron rash Plan daughter updated at bedside late in afternoon progressing nicely PT, OT Admission and Anticipated Discharge Date Admission Date: August 16, 2023 Subjective patient feeling better breathing continues to improve she is still having some minor MORRISON and is still requiring some NC O2 tele overnight wnl no significant pain in left knee +stools eating ok Review of Systems Review of Systems: CV - no chest pain, no orthopnea; edema improving pulm - improved dyspnea GI - no abd pain or N/V Physical Exam Physical Exam: gen - looks well, NAD, sitting in chair neck - JVD still present but improved today mouth - MMM heart - RRR, s1 s2, 1-2/6 DORCAS LSB lungs - b/l basilar rales much improved, no wheeze, no increased work of breathing abd - soft NT ND BS+ ext - 1-2+ edema left leg, <1+ on right, pulses 2+ b/l musculo - left knee incision c/d/i; christina intact; no erythema; mild L knee effusion skin - mild stasis dermatitis/erythema left negron; generalized pallor Results & Data Results & Data Vital Signs (Past 12 Hours) Vital Signs Temp Pulse Pulse Resp BP Pulse Ox O2 Del Method 08/18/23 13:56 69 08/18/23 11:59 36.7 C 118 H 16 136/71 91 Nasal Cannula 08/18/23 07:41 36.7 C 69 16 146/72 H 92 Nasal Cannula 08/18/23 07:35 Nasal Cannula 08/18/23 07:35 71 O2 Flow Rate 08/18/23 13:56 08/18/23 11:59 2 08/18/23 07:41 2 08/18/23 07:35 2 08/18/23 07:35 Laboratory Results Laboratory Results - last 24 hr 08/18/23 08/18/23 06:59 14:00 WBC 3.18 L RBC 3.09 L Hgb 8.2 L Hct 28.6 L MCV 92.6 MCH 26.5 MCHC 28.7 L RDW Std Deviation 55.1 H RDW Coeff of [place] 16.1 H Plt Count 170 MPV 9.8 Immature Gran % (Auto) 0.6 Neut % (Auto) 49.8 Lymph % (Auto) 26.4 Whitman % (Auto) 16.0 Eos % (Auto) 6.6 Baso % (Auto) 0.6 Neut # (Auto) 1.58 Lymph # (Auto) 0.84 L Whitman # (Auto) 0.51 Eos # (Auto) 0.21 Baso # (Auto) 0.02 Immature Gran # (Auto) 0.02 Sodium 145 Potassium 4.1 Chloride 106 Carbon Dioxide 37 H Anion Gap 2 L BUN 20 Creatinine 1.05 Est Cr Clr Drug Dosing 42.1 Est GFR ( Amer) 58.1 Est GFR (Non-Af Amer) 50.1 BUN/Creatinine Ratio 19.0 Glucose 97 Calcium 8.5 L Iron 27 L TIBC 277 Unsaturated IBC 250 Transferrin % Sat 10 L Ferritin 35.7 Vitamin B12 195 Folate 16.35 Stool Occult Bld Scrn Negative PG Care Time/CCT Total # of Minutes Spent Total Time Spent with Patient: Total time spent is greater than 50% in coordination of care (as documented) at patient's floor/unit and/or counseling patient: Coding Level of Care Code 69085 SUB INP/OBS CARE 3/50MIN Diagnoses Acute diastolic CHF (congestive heart failure) I50.31 Pulmonary embolism I26.99 Acute cor pulmonale presence: unspecified Chronicity: unspecified Pulmonary embolism type: unspecified Iron deficiency anemia D50.9 Infection associated with internal left knee prosthesis, initial encounter T84.54XA Encounter type: initial encounter History of total left knee replacement Z96.652 Hypertension I10 Depression F32.9 Acid reflux K21.9 Acute hypoxic respiratory failure J96.01 B12 deficiency E53.8 Stasis dermatitis I87.2 (2) Pulmonary embolism Acute cor pulmonale presence: unspecified Chronicity: unspecified Pulmonary embolism type: unspecified Qualified Code(s): I26.99 - Other pulmonary embolism without acute cor pulmonale (4) Infection of prosthetic left knee joint Encounter type: initial encounter Qualified Code(s): T84.54XA - Infection and inflammatory reaction due to internal left knee prosthesis, initial encounter
[2023-08-18] MEDS: TRIAMCINOLONE ACET 0.1% CR 80 GM TUBE EXT SCH (16:26)
[2023-08-19 06:20] LABS: Basophils # (auto) 0.02 K/uL (0.00-0.20); Basophils % (auto) 0.6 %; Eosinophils # (auto) 0.25 K/uL (0.00-0.50); Eosinophils % (auto) 7.4 %; Hematocrit (blood only) 30.1 % (37.0-47.0); Hemoglobin 8.8 g/dl (12.0-16.0); Immature Granulocytes # (auto) 0.01 K/uL (0.01-0.20); Immature Granulocytes % (auto) 0.3 %; Lymphocytes # (auto) 0.67 K/uL (1.20-3.40); Lymphocytes % (auto) 19.7 %; Mean Corpuscular Hemoglobin 27.1 pg (25.0-34.0); Mean Corpuscular Hgb Conc 29.2 g/dL (32.0-36.0); Mean Corpuscular Volume 92.6 fL (80.0-100.0); Mean Platelet Volume 9.7 fL (9.4-12.4); Monocytes % (auto) 14.7 %; Neutrophils # (auto) 1.95 K/uL (1.40-6.50); Neutrophils % (auto) 57.3 %; Platelet Count 171 K/uL (130-400); RDW Coefficient of Variation 15.8 % (11.5-14.5); RDW Standard Deviation 53.7 fL (36.4-46.3); Red Blood Count 3.25 M/uL (4.20-5.40)
[2023-08-19 06:33] LABS: BUN Creatinine Ratio 17.2 (10-20); Calcium 8.5 mg/dl (8.6-10.3); Creatinine Clr Calc Pharmacy 44.6 ml/min; Est GFR (African American) 62.4 ml/min; Est GFR (Non-African American) 53.8 ml/min; Magnesium 1.9 mg/dl (1.7-2.4)
[2023-08-19] MEDS: FUROSEMIDE 40 MG/4 ML VIAL IV ONE (08:30)
[2023-08-19] MEDS: IRON SUCROSE 300 MG in SODIUM CHLORIDE 0.9% 250 ML IV ONE (08:32)
[2023-08-19] MEDS: VANCOMYCIN LEVEL ONE (12:40)
--- NOTE | 2023-08-19 13:30 | Pharmacy Report ---
Pharmacy PK ABX Note - Date of Service August 19, 2023 - Assessment and Plan Assessment 08/18: * Day #4 of abx. * Afebrile. No white count. SCr improving. 08/16: 82 year old F receiving vancomycin for treatment of left knee joint infection s/p L TKA on 06/27/23. Vancomycin originally started in hospital on 07/25/23 and patient underwent debridement, antibiotics, and implant retention on 07/26/23. Pertinent microbiologic data includes: left knee (07/24) growing Corynebacterium pseudodiphtheritcum and Coagulase-negative Staphylococcus (not lugdunensis). The latter pathogen sensitive to vancomycin, daptomycin, and tetracycline. Plan is for 6 weeks of IV antibiotics per infectious diseases. Plan Vancomycin * Current regimen: 750 mg IV every 12 hours * Trough level obtained 08/19/23 resulted as 20.9 mcg/mL. This is supratherapeutic. * Change to 750 mg IV every 18 hours. Predicted AUC at steady state: 480 mg/L.hr * Repeat random level ordered for: 08/22/23 Pharmacy will continue to follow and will adjust dose/frequency as necessary. Thank you. Pharmacy has transitioned to AUC monitoring for vancomycin. AUC/GEOVANNA is the preferred PK/PD target and is associated with decreased risk of nephrotoxicity compared to traditional trough targets.
--- NOTE | 2023-08-19 19:09 | Hospitalist Progress Note ---
Date of Service August 19, 2023 Assessment & Plan (1) Acute diastolic CHF (congestive heart failure): Plan: approaching euvolemia gave lasix 40mg IV x 1 again this am echo findings noted - EF 60-65%, normal RV function recent hospitalization, PRBCs, IV vanco daily for her left TKR infection, etc likely all to blame for volume overload recheck labs in am (2) Pulmonary embolism: Plan: as seen on admission CTA initially was on heparin IV --> now over to Eliquis 10mg BID x 7 days then 5mg BID thereafter; day #3 of Eliquis 10's this was a provoked event plan at least 3 months of Rx (3) Iron deficiency anemia: Plan: H/H remain low despite taking Fe supplementation for several weeks Fe studies this admission c/w Fe Deficiency anemia IV venofer 300mg x 1 08/17 will give another 300mg today, 08/18 consider a 3rd dose tomorrow no indication for PRBCs at this time (4) Infection of prosthetic left knee joint: Plan: 2nd to coag neg staph & corynebacterium cont IV vanco plan is 6 weeks has RUE PICC in place for such (5) History of total left knee replacement: Plan: 06/27/23 complicated by post-op TKR infection requiring I/D, etc see #4 above (6) Hypertension: Plan: BPs controlled cont home meds (7) Depression: Plan: cont celexa (8) Acid reflux: Plan: cont PPI twice daily (9) Acute hypoxic respiratory failure: Plan: 2nd to acute diastolic CHF + PEs improving hopefully will be able to wean off the NC O2 prior to discharge (10) B12 deficiency: Plan: B12 level 195 folate wnl cont B12 supplementation - 1000mcg po daily x 6 months (11) Stasis dermatitis: Plan: LLE triamcinolone cream 0.1% - BID in thin amounts of L negron rash Plan daughter updated at bedside yesterday progressing nicely PT, OT hopefully home with HH next 48 hours Admission and Anticipated Discharge Date Admission Date: August 16, 2023 Subjective patient continues to feel better denies any dyspnea or MORRISON denies orthopnea, cp, abd pain eating well no pain in legs Review of Systems Review of Systems: gen - no fevers or chills GI - no diarrhea, no constipation pulm - no cough CV - no chest pain, no PND Physical Exam Physical Exam: gen - looks well, NAD, lying flat in bed without orthopnea neck - minimal JVD today mouth - MMM heart - RRR, s1 s2, 1-2/6 DORCAS LSB lungs - no rales, improved airation bases, no wheezes abd - soft NT ND BS+ ext - <1+ edema right leg, 1-2+ edema on left, pulses 2+ b/l musculo - left knee incision c/d/i; christina intact; no erythema of knee; mild L knee effusion skin - mild stasis dermatitis/erythema left negron; generalized pallor; no cellulitis of Left negron Results & Data Results & Data Vital Signs (Past 12 Hours) Vital Signs Temp Pulse Pulse Resp BP Pulse Ox O2 Del Method 08/19/23 16:31 36.9 C 75 16 159/70 H 91 Nasal Cannula 08/19/23 14:18 79 08/19/23 11:38 36.7 C 64 16 147/73 H 95 Nasal Cannula 08/19/23 09:08 75 08/19/23 07:43 36.8 C 55 L 16 152/55 H 94 Nasal Cannula 08/19/23 07:26 Nasal Cannula O2 Flow Rate 08/19/23 16:31 2 08/19/23 14:18 08/19/23 11:38 2 08/19/23 09:08 08/19/23 07:43 2 08/19/23 07:26 2 Laboratory Results Laboratory Results - last 24 hr 08/19/23 08/19/23 05:35 11:10 WBC 3.40 L RBC 3.25 L Hgb 8.8 L Hct 30.1 L MCV 92.6 MCH 27.1 MCHC 29.2 L RDW Std Deviation 53.7 H RDW Coeff of [place] 15.8 H Plt Count 171 MPV 9.7 Immature Gran % (Auto) 0.3 Neut % (Auto) 57.3 Lymph % (Auto) 19.7 [place] % (Auto) 14.7 Eos % (Auto) 7.4 Baso % (Auto) 0.6 Neut # (Auto) 1.95 Lymph # (Auto) 0.67 L [place] # (Auto) 0.50 Eos # (Auto) 0.25 Baso # (Auto) 0.02 Immature Gran # (Auto) 0.01 Sodium 142 Potassium 4.0 Chloride 103 Carbon Dioxide 38 H Anion Gap 1 L BUN 17 Creatinine 0.99 Est Cr Clr Drug Dosing 44.6 Est GFR ( Amer) 62.4 Est GFR (Non-Af Amer) 53.8 BUN/Creatinine Ratio 17.2 Glucose 91 Calcium 8.5 L Magnesium 1.9 Random Vancomycin 20.9 H PG Care Time/CCT Total # of Minutes Spent Total Time Spent with Patient: Total time spent is greater than 50% in coordination of care (as documented) at patient's floor/unit and/or counseling patient: Coding Level of Care Code 96801 SUB INP/OBS CARE 235MIN Diagnoses Acute diastolic CHF (congestive heart failure) I50.31 Pulmonary embolism I26.99 Acute cor pulmonale presence: unspecified Chronicity: unspecified Pulmonary embolism type: unspecified Iron deficiency anemia D50.9 Infection associated with internal left knee prosthesis, initial encounter T84.54XA Encounter type: initial encounter History of total left knee replacement Z96.652 Hypertension I10 Depression F32.9 Acid reflux K21.9 Acute hypoxic respiratory failure J96.01 B12 deficiency E53.8 Stasis dermatitis I87.2 (2) Pulmonary embolism Acute cor pulmonale presence: unspecified Chronicity: unspecified Pulmonary embolism type: unspecified Qualified Code(s): I26.99 - Other pulmonary embolism without acute cor pulmonale (4) Infection of prosthetic left knee joint Encounter type: initial encounter Qualified Code(s): T84.54XA - Infection and inflammatory reaction due to internal left knee prosthesis, initial encounter
[2023-08-20 06:33] LABS: Basophils # (auto) 0.03 K/uL (0.00-0.20); Basophils % (auto) 0.9 %; Eosinophils # (auto) 0.22 K/uL (0.00-0.50); Hematocrit (blood only) 29.6 % (37.0-47.0); Hemoglobin 8.7 g/dl (12.0-16.0); Immature Granulocytes # (auto) 0.01 K/uL (0.01-0.20); Immature Granulocytes % (auto) 0.3 %; Lymphocytes % (auto) 22.2 %; Mean Corpuscular Hemoglobin 26.9 pg (25.0-34.0); Mean Corpuscular Hgb Conc 29.4 g/dL (32.0-36.0); Mean Corpuscular Volume 91.6 fL (80.0-100.0); Mean Platelet Volume 10.1 fL (9.4-12.4); Neutrophils % (auto) 50.6 %; Platelet Count 156 K/uL (130-400); RDW Coefficient of Variation 15.6 % (11.5-14.5); Red Blood Count 3.23 M/uL (4.20-5.40); White Blood Count 3.16 K/ul (4.8-10.8)
[2023-08-20 06:56] LABS: BUN Creatinine Ratio 13.9 (10-20); Calcium 8.7 mg/dl (8.6-10.3); Creatinine Clr Calc Pharmacy 40.1 ml/min; Est GFR (African American) 56.1 ml/min; Est GFR (Non-African American) 48.4 ml/min; Potassium 3.9 mmol/L (3.5-5.1)
[2023-08-20] MEDS: VANCOMYCIN HCL 750 MG in SODIUM CHLORIDE 0.9% 250 ML IV SCH (06:57)
[2023-08-20] MEDS: IRON SUCROSE 300 MG in SODIUM CHLORIDE 0.9% 250 ML IV ONE (08:33)
[2023-08-20] MEDS: POTASSIUM CHLORIDE CRTAB 20 MEQ TABCR PO STA (09:05)
[2023-08-20] MEDS: FUROSEMIDE INJ 20 MG/2 ML VIAL IV ONE ×2 (09:06→17:26)
--- NOTE | 2023-08-20 17:11 | Hospitalist Progress Note ---
Date of Service August 20, 2023 Assessment & Plan (1) Acute diastolic CHF (congestive heart failure): Plan: approaching euvolemia gave lasix 20mg IV this am and repeated 20mg this afternoon repeat labs and exam tomorrow weight today is just 3-4 pounds above her weight in early June 2023 echo findings noted - EF 60-65%, normal RV function recent hospitalization, PRBCs, IV vanco daily for her left TKR infection, etc likely all to blame for volume overload (2) Pulmonary embolism: Plan: as seen on admission CTA initially was on heparin IV --> now over to Eliquis 10mg BID x 7 days then 5mg BID thereafter; day #4 of Eliquis 10's this was a provoked event plan at least 3 months of Rx (3) Iron deficiency anemia: Plan: H/H remain low despite taking Fe supplementation for several weeks Fe studies this admission c/w Fe Deficiency anemia IV venofer 300mg given 08/17, 08/18, and will repeat today for total 3 doses can stop PO Fe supplement at discharge no indication for PRBCs at this time (4) Infection of prosthetic left knee joint: Plan: 2nd to coag neg staph & corynebacterium cont IV vanco plan is 6 weeks of Rx last day of Rx -- September 05, September 06 or so has RUE PICC in place for such trough level (20) noted pharmacy adjusted the dosing - now q18h (5) History of total left knee replacement: Plan: 06/27/23 complicated by post-op TKR infection requiring I/D, etc see #4 above (6) Hypertension: Plan: BPs controlled cont home meds (7) Depression: Plan: cont celexa (8) Acid reflux: Plan: cont PPI twice daily (9) Acute hypoxic respiratory failure: Plan: 2nd to acute diastolic CHF + PEs improving hopefully will be able to wean off the NC O2 prior to discharge would perform a 2-step prior to d/c home as well (10) B12 deficiency: Plan: B12 level 195 folate wnl cont B12 supplementation - 1000mcg po daily x 6 months (11) Stasis dermatitis: Plan: LLE triamcinolone cream 0.1% - BID in thin amounts of L negron rash Plan daughter updated at bedside again today progressing nicely cont PT, OT hopefully home with HH next 48 hours Admission and Anticipated Discharge Date Admission Date: August 16, 2023 Subjective patient feeling well still requiring 2 L NC O2 I took O2 off during the visit - was about 89% in RA with good waveform this was 10 min after removing the O2 she has minimal to no dyspnea no orthopnea edema b/l legs -- especially on right -- much improved tele overnight wnl daughter at bedside and questions answered Review of Systems Review of Systems: cv - no chest pain, no PND, no orthopnea pulm - minimal MORRISON; none at rest; no cough GI - no abd pain or N/V/D Physical Exam Physical Exam: gen - looks well, NAD, sitting in chair neck - minimal-mild JVD mouth - MMM heart - RRR, s1 s2, 1-2/6 DORCAS LSB lungs - scant/faint/minimal rales bases, improved airation bases, no wheezes abd - soft NT ND BS+ ext - trace edema right leg, 1-2+ edema on left, pulses 2+ b/l musculo - left knee incision c/d/i; christina intact; no erythema of knee; mild L knee effusion skin - mild stasis dermatitis/erythema left negron - improving; generalized pallor; no cellulitis of Left negron Results & Data Results & Data Vital Signs (Past 12 Hours) Vital Signs Temp Pulse Pulse Resp BP Pulse Ox O2 Del Method 08/20/23 15:20 36.9 C 70 20 129/84 96 Nasal Cannula 08/20/23 15:01 64 08/20/23 11:32 36.8 C 62 20 125/64 94 Nasal Cannula 08/20/23 07:54 36.9 C 70 20 150/73 H 90 Room Air 08/20/23 07:23 71 08/20/23 07:07 Nasal Cannula O2 Flow Rate 08/20/23 15:20 2 08/20/23 15:01 08/20/23 11:32 2 08/20/23 07:54 08/20/23 07:23 08/20/23 07:07 2 Laboratory Results Laboratory Results - last 24 hr 08/20/23 05:20 WBC 3.16 L RBC 3.23 L Hgb 8.7 L Hct 29.6 L MCV 91.6 MCH 26.9 MCHC 29.4 L RDW Std Deviation 53.0 H RDW Coeff of [place] 15.6 H Plt Count 156 MPV 10.1 Immature Gran % (Auto) 0.3 Neut % (Auto) 50.6 Lymph % (Auto) 22.2 Allen % (Auto) 19.0 Eos % (Auto) 7.0 Baso % (Auto) 0.9 Neut # (Auto) 1.60 Lymph # (Auto) 0.70 L Allen # (Auto) 0.60 H Eos # (Auto) 0.22 Baso # (Auto) 0.03 Immature Gran # (Auto) 0.01 Sodium 142 Potassium 3.9 Chloride 101 Carbon Dioxide 38 H Anion Gap 3 BUN 15 Creatinine 1.08 Est Cr Clr Drug Dosing 40.1 Est GFR ( Amer) 56.1 Est GFR (Non-Af Amer) 48.4 BUN/Creatinine Ratio 13.9 Glucose 86 Calcium 8.7 PG Care Time/CCT Total # of Minutes Spent Total Time Spent with Patient: Total time spent is greater than 50% in coordination of care (as documented) at patient's floor/unit and/or counseling patient: Coding Level of Care Code 47711 SUB INP/OBS CARE 2/35MIN Diagnoses Acute diastolic CHF (congestive heart failure) I50.31 Pulmonary embolism I26.99 Acute cor pulmonale presence: unspecified Chronicity: unspecified Pulmonary embolism type: unspecified Iron deficiency anemia D50.9 Infection associated with internal left knee prosthesis, initial encounter T84.54XA Encounter type: initial encounter History of total left knee replacement Z96.652 Hypertension I10 Depression F32.9 Acid reflux K21.9 Acute hypoxic respiratory failure J96.01 B12 deficiency E53.8 Stasis dermatitis I87.2 (2) Pulmonary embolism Acute cor pulmonale presence: unspecified Chronicity: unspecified Pulmonary embolism type: unspecified Qualified Code(s): I26.99 - Other pulmonary embolism without acute cor pulmonale (4) Infection of prosthetic left knee joint Encounter type: initial encounter Qualified Code(s): T84.54XA - Infection and inflammatory reaction due to internal left knee prosthesis, initial encounter
[2023-08-21 07:22] LABS: Calcium 8.6 mg/dl (8.6-10.3); Creatinine Clr Calc Pharmacy 43.2 ml/min; Est GFR (African American) 61.6 ml/min; Est GFR (Non-African American) 53.2 ml/min
[2023-08-21 07:23] LABS: Basophils # (auto) 0.03 K/uL (0.00-0.20); Eosinophils # (auto) 0.21 K/uL (0.00-0.50); Eosinophils % (auto) 7.1 %; Hematocrit (blood only) 31.3 % (37.0-47.0); Hemoglobin 9.1 g/dl (12.0-16.0); Immature Granulocytes # (auto) 0.01 K/uL (0.01-0.20); Immature Granulocytes % (auto) 0.3 %; Lymphocytes # (auto) 0.62 K/uL (1.20-3.40); Mean Corpuscular Hemoglobin 26.7 pg (25.0-34.0); Mean Corpuscular Hgb Conc 29.1 g/dL (32.0-36.0); Mean Corpuscular Volume 91.8 fL (80.0-100.0); Mean Platelet Volume 10.1 fL (9.4-12.4); Monocytes # (auto) 0.51 K/uL (0.11-0.59); Monocytes % (auto) 17.3 %; Neutrophils # (auto) 1.57 K/uL (1.40-6.50); Neutrophils % (auto) 53.3 %; Platelet Count 145 K/uL (130-400); RDW Coefficient of Variation 15.5 % (11.5-14.5); Red Blood Count 3.41 M/uL (4.20-5.40); White Blood Count 2.95 K/ul (4.8-10.8)
[2023-08-21] MEDS ORDERED: VANCOMYCIN HCL 500 MG in NSS 100mL IV SCH (12:00)
--- NOTE | 2023-08-21 12:06 | Pharmacy Report ---
Pharmacy PK ABX Note - Date of Service August 21, 2023 - Assessment and Plan Assessment 08/20: Received phone call from provider, patient is ready for discharge. Every 18 hours hard to adhere to outpatient, requests change to Q12H or Q24H if able. Will proceed with 1000mg Q24H, dose now so she can discharge. She already has 1000mg ready at home so this works well. 08/18: * Day #4 of abx. * Afebrile. No white count. SCr improving. 08/16: 82 year old F receiving vancomycin for treatment of left knee joint infection s/p L TKA on 06/27/23. Vancomycin originally started in hospital on 07/25/23 and patient underwent debridement, antibiotics, and implant retention on 07/26/23. Pertinent microbiologic data includes: left knee (07/24) growing Corynebacterium pseudodiphtheritcum and Coagulase-negative Staphylococcus (not lugdunensis). T he latter pathogen sensitive to vancomycin, daptomycin, and tetracycline. Plan is for 6 weeks of IV antibiotics per infectious diseases. Plan Vancomycin * Current regimen: 750 mg IV every 18 hours * Change to 1000 mg IV every 24 hours for ease at discharge. Predicted AUC at steady state: 486 mg/L.hr * Repeat random level if discharge cancelled or later this week with home ealt. Pharmacy will continue to follow and will adjust dose/frequency as necessary. Thank you. Pharmacy has transitioned to AUC monitoring for vancomycin. AUC/GEOVANNA is the preferred PK/PD target and is associated with decreased risk of nephrotoxicity compared to traditional trough targets.
--- NOTE | 2023-08-21 12:28 | Discharge Summary ---
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 Pt states that she came into the hospital today because she has been having progressively worsening shortness of breath with activity and at rest for the last few weeks. She states she really started to notice it right after her last knee surgery on 07/25 but did not think too much about it. She states she did n ote swelling in her legs that started around that time as well that was worse the last week or two but has been a little bit better today on exam. She states she had a DVT maybe 60 years ago when she was on control but otherwise no history of clots or any issues with bleeding in the past. She was not on any anticoagulation at that time, she states they just stopped her control. She states she saw a doctor a few days ago at [facility] who prescribes her lasix for her leg swelling and she did not take her dose prior to coming in today because she was going to see her PCP and planned to take her dose after but then she ended up here. Daughter states she was helping her bathe today and she was sitting on a towel on the edge of the tub and slid off and her butt hit the floor, no injury to head, no LOC, feels okay now. Pt notes she had a scan last year that showed a brain tumor and then a PET scan was done that showed breast cancer, and both tumors were resected August 2022 and no treatments since. Overall today feeling a little better from a breathing standpoint now. Principal Diagnosis Pulmonary emboli Discharge Exam General: A&Ox3. NAD. Cooperative. Appears euvolemic. No JVD today HEENT: Atraumatic, normocephalic. Pulm: CTAB A&P. -wheezes, -rales, -rhonchi. Symmetrical chest rise. No increased work of breathing. No respiratory distress. Cardiac: RRR, +sm. Radial pulses intact and symmetrical. Abdominal: Nontender, nondistended, soft. BS present. Right upper extremity PICC in place. No erythema/warmth/tenderness Discharge Data Allergies Allergy/AdvReac Type Severity Reaction Status Date / Time Cephalosporins Allergy Mild rash Verified 08/16/23 13:23 codeine Allergy Mild Rash Verified 08/16/23 13:23 erythromycin base Allergy Mild Rash Verified 08/16/23 13:23 nitrofurantoin Allergy Mild rash Verified 08/16/23 13:23 tetracycline Allergy Mild rash Verified 08/16/23 13:23 tramadol Allergy Mild Itching Verified 08/16/23 13:23 hydromorphone [From Dilaudid] AdvReac Intermediate mental Verified 08/16/23 13:23 change morphine AdvReac Mild SICK TO Verified 08/16/23 13:23 STOMACH Consultations 08/16/23 17:14 ED Decision to Admit Stat Ordered Studies 08/16/23 16:06 CT angio chest PE protocol Stat 08/16/23 19:11 US venous duplex leg [US venous doppler LE BI] Urgent Hospital Course (1) Acute diastolic CHF (congestive heart failure): 82-year-old female presents with bilateral PE, provoked. No saddle. Was transitioned from heparin to Eliquis. Slightly hypervolemic responded well to 2 doses of diuresis. She was recently hospitalized and is on IV vancomycin for left total knee replacement infection. To do as outpatient: Continue vancomycin IV through PICC line for L knee prosthetic joint infection. This was dose changed to 1 g daily due to her trough levels. Repeat trough levels were ordered for Wednesday 08/23 to be followed up on by PCP who she believes normally monitors her lab work which was drawn by home health Continue anticoagulation. Eliquis 10 mg twice daily until August 25, then 5 mg twice daily thereafter - Euvolemic at discharge (2) Pulmonary embolism: as seen on admission CTA Treated with heparin, transition to Eliquis as above (3) Iron deficiency anemia: H/H remain low despite taking Fe supplementation for several weeks Fe studies this admission c/w Fe Deficiency anemia IV venofer 300mg given 08/17, 08/18, and will repeat today for total 3 doses can stop PO Fe supplement no indication for PRBCs at this time (4) Infection of prosthetic left knee joint: 2nd to coag neg staph & corynebacterium cont IV vanco plan is 6 weeks of Rx last day of Rx -- September 06 or so has RUE PICC in place for such trough level (20) noted pharmacy adjusted the dosing - now q18h On discharge was recommended for 1 g daily with follow-up blood work in the coming week as noted (5) 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 complicated by post-op TKR infection requiring I/D, etc (6) Hypertension: BPs controlled cont home meds (7) Depression: cont celexa (8) Acid reflux: cont PPI twice daily (9) Acute hypoxic respiratory failure: 2nd to acute diastolic CHF + PEs improving Patient was able to ambulate in the hallway with o2>90% on room air and good recovery prior to discharge (10) B12 deficiency: B12 level 195 folate wnl cont B12 supplementation - 1000mcg po daily x 6 months Total Time Total Time Spent Total Time Spent (In Minutes): Time spend day of discharge 60 minutes including direct patient care, documentation, review of labs and images, and coordination of care. Discharge Plan Discharge Items Patient Disposition: Home - Self-Care Reason For Visit: PULMONARY EMBOLI Discharge Diagnosis: CHF PE, provoked Activity: Resume your previous activity Non-emergency contact: Primary Care Provider Call non-emergency contact if: you have any medication questions and your symptoms worsen Follow-up/Referrals: Zeynep Dawn MD [Primary Care Provider] - Diet: Heart Healthy Addtl Attending Provider Instructions: You are seen in the hospital for acute pulmonary emboli and some CHF. You are placed on blood thinners and your CHF improved greatly with Lasix. At day of discharge you are to ambulate around the unit without an oxygen requirement and while maintaining oxygen levels greater than 90%. You are seen by physical therapy who felt your strength was good and that you are appropriate for return home with your home services. Please continue to take Eliquis twice daily. He will take Eliquis 10 mg twice daily by mouth through 08/25, and then decrease the dose thereafter to 5 mg by mouth twice daily Your celebrex has been held as this can incrase the risk of bleeding on eliquis. Please discuss this with your PCP prior to restarting. Your vancomycin dosing needed to be adjusted during admission. Please continue vancomycin 1000mg DAILY. You have been provided a script for blood work and a vancomycin level. Please have this drawn on Wednesday 08/23 BEFORE TAKING YOUR VANCOMYCIN by home health and discuss the result with Dr. Dawn. If you develop any new or worsening symptoms including fever, chills, sweats, chest pain, chest pressure, difficulty breathing, uncontrolled nausea/vomiting, rash, wheezing, passing out or nearly passing out, bleeding, black/bloody bowel movements, or other new or concerning symptoms please call your primary care physician at, or call 911 for re-evaluation in the emergency department if you are very concerned. Pending Studies at Discharge: No Stand-Alone Forms: My [facility], Smoking Cessation Medications and DC Order Prescriptions: New Eliquis 5 mg tablet 10 mg PO BID Qty: 82 0RF Rx Instructions: take 10mg twice daily through 08/25, then starting 08/26 take 5mg twice daily Continued amlodipine 10 mg tablet 10 mg PO QAM cholecalciferol (vitamin D3) 25 mcg (1,000 unit) Capsule 1,000 unit PO QAM Qty: 30 0RF lisinopril 20 mg tablet 20 mg PO BID multivitamin Tablet 1 tab PO QAM gabapentin 600 mg tablet 600 mg PO TID Rx Instructions: TAKE 1 TABLET THREE TIMES DAILY citalopram 40 mg tablet 40 mg PO QAM Rx Instructions: TAKE 1 TABLET EVERY MORNING trazodone 50 mg tablet 50 mg PO HS Rx Instructions: TAKE 1 TABLET AT BEDTIME NEEDED FOR INSOMNIA- pt stated takes one every evening omeprazole 40 mg capsule,delayed release(DR/EC) 40 mg PO BID Rx Instructions: TAKE 1 CAPSULE TWICE DAILY metoprolol tartrate 25 mg Tablet 25 mg PO BID Qty: 60 0RF aspirin 81 mg Tablet,Delayed Release (Dr/Ec) 81 mg PO BID Qty: 60 0RF vancomycin 1,000 mg recon soln 1,000 mg IV Q12H 36 Days Qty: 72 0RF furosemide 40 mg tablet 40 mg PO QAM fesoterodine [Toviaz] 4 mg tablet extended release 24 hr 4 mg PO QAM Held celecoxib 200 mg capsule 200 mg PO BID Hold Instructions: Resume on 08/27/23. discuss w PCP prior Rx Instructions: TAKE 1 CAPSULE TWICE DAILY Discharge Orders: Discharge Order (Routine); Ordered 08/21/23 Ordered By: Ata Yeung Admission Data Admit Date/Time: 08/16/23 19:10 Attending Provider: Ata Yeung Admit Provider: Nae Centeno Primary Care Provider: Zeynep Dawn Other Providers: [facility]; [facility] Fax Coding Level of Care Code 33104 INP/OBS DISCH >30 MIN Diagnoses Acute diastolic CHF (congestive heart failure) I50.31 Pulmonary embolism I26.99 Acute cor pulmonale presence: unspecified Chronicity: unspecified Pulmonary embolism type: unspecified Iron deficiency anemia D50.9 Infection associated with internal left knee prosthesis, initial encounter T84.54XA Encounter type: initial encounter History of total left knee replacement Z96.652 Hypertension I10 Depression F32.9 Acid reflux K21.9 Acute hypoxic respiratory failure J96.01 B12 deficiency E53.8
[2023-08-21] MEDS: VANCOMYCIN HCL 1,000 MG in SODIUM CHLORIDE 0.9% 250 ML IV SCH (12:46)
== END 2023-08-21 14:35 | disposition home health service (06) | DRG 175 ==
LOC: ED 14:36 → EDINP 19:10 → SUATTDRO 19:10 → EDINP 21:05 → 2N 21:09

== ENCOUNTER 2023-11-26 22:14 | Inpatient (IN) ==
[2023-11-26] MEDS ORDERED: SODIUM CHLORIDE 0.9% 250 ML IV PRN (22:23)
--- NOTE | 2023-11-26 22:27 | Emergency Department Note ---
Impression & Plan Acute GI bleeding, Lower abdominal pain, Colitis, Leukocytosis, Elevated lactic acid level ED Provider Note NAME: PADMINI PALACIO AGE: 83 SEX: F : 1940 ARRIVES VIA: Ambulance INFORMANT: [Patient][nursing] ED PROVIDER(S): [Joe Ladd MD] CHIEF COMPLAINT: Abdominal pain, GI bleeding HISTORY OF PRESENT ILLNESS: The patient is an 83-year-old female who takes Eliquis for previous clotting. She has had some crampy abdominal discomfort for a few days but tonight, several hours ago, the pain became severe in the lower abdomen. She presents by ambulance. Upon arrival, she had a large bloody bowel movement. I was called emergently to see the patient in room C4. The patient currently feels a bit better, the pain is less intense than before. The patient denies shortness of breath or chest pain. She was feeling weak and dizzy though prior to arrival. No syncope. The patient does take Eliquis but did not take her evening dose today. PMHx/PSHx/Social Hx: See Below PHYSICAL EXAM: GENERAL: Patient is in no acute distress. HEENT: No acute trauma, normocephalic atraumatic, mucous membranes moist, no nasal congestion. NECK: No stridor, no adenopathy, no meningismus, trachea is midline. LUNGS: Clear to auscultation bilaterally, no wheeze, no rhonchi, breath sounds equal. HEART: Without murmurs gallops or rubs, regular rate and rhythm. ABDOMEN: Soft, mildly tender in the lower abdomen, no distention or peritonitis. EXTREMITIES: No cyanosis, full range of motion of all the joints without pain or difficulty. NEUROLOGIC: Oriented x 3, no acute motor or sensory deficits, no focal weakness. SKIN: No jaundice, no diaphoresis. Rectal: There is a large amount of maroon-colored stool on the bed and on her clothing. DIFFERENTIAL DIAGNOSIS: Upper GI bleeding, lower GI bleeding, coagulopathy, bowel ischemia, colitis, diverticulitis, anemia, among others. EMERGENCY DEPARTMENT PROCEDURES: MEDICAL DECISION MAKING: There is a moderate leukocytosis, this would be consistent with the stress of her presentation or potentially infection. Initial hemoglobin was over 13, repeat a few hours later showed a drop of about 2 points to 11--an emergent transfusion was not felt warranted. There was a normal platelet count. INR slightly elevated, likely from her Eliquis use. Creatinine was elevated at 1.9. No electrolyte abnormality in need of emergent correction. Lactic acid level was elevated over 4, this is consistent with her presentation and potentially bowel ischemia. No coagulopathy. ECG showed a normal sinus rhythm, no ischemia. Cardiac enzyme testing x 1 was not consistent with acute cardiac injury. Lipase was slightly elevated at 104, not high enough to truly diagnose pancreatitis. TSH was elevated however, the T4 was normal. Chest film did not show pneumonia or CHF. Abdominal and pelvis that shows a diffuse colitis without active extravasation. On exam, the patient had significant maroon rectal bleeding noted. I was called emergently to the patient in the room. Patient was given 1.5 L of IV saline. She received IV Pepcid, IV Protonix. She was given IV Zofran. The patient has had recurrent bloody stools here in the ED. She appears to have a lower GI bleed. She is going to need hospitalization, she may require a transfusion if her hemoglobin drops further. I did speak with the patient, I spoke with case management, the on-call hospitalist was consulted. Prior/Outside records/notes reviewed: Today's EMS notes describing her presentation and transport to this hospital. ECG per my interpretation: Indication was abdominal pain. ECG shows a normal sinus rhythm with a rate of 74. There is some baseline artifact, there is no acute ST elevation, no PVCs. QTc is 486. Continuous Cardiac Monitoring per my interpretation: An order was placed for continuous cardiac monitoring. The monitor shows a rate of 97 with normal sinus rhythm. Imaging/x-ray results per my interpretation: Chest x-ray shows right diaphragm elevation, this is chronic. There was no CHF or pneumonia. Chronic Medical/Social conditions affecting care: Advanced age, chronic Eliquis use. Care/Management discussed with: Case management, the on-call hospitalist. Level of care consideration(s): After review of the information above and other included data: --I believe the patient requires escalation of care to admission Critical Care Note: I have personally spent 61 minutes of critical care time in the direct management of this patient. This includes bedside care, interpretation of diagnostic studies, and testing, discussion with consultants, patient, and family members, and other required patient management activities. This 61 minutes is in excess of all separately billable procedures. 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, estrogen receptor positive (Chronic 08/02/22) Lumbar facet joint syndrome Urge incontinence Carpal tunnel syndrome of right wrist Anxiety with depression Sacral insufficiency fracture Status post kyphoplasty 02/01/2021 Compression fracture of L2 Status post kyphoplasty 02/01/2021 Low back pain (Acute) CMC arthritis Rotator cuff tear, left Impingement syndrome of left shoulder Foraminal stenosis of lumbar region (Chronic) Arthritis (Chronic) 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 Liver lesion, left lobe MRI 06/07/23 showed liver to be unremarkable; probable liver cyst (4mm hyperintense lesion (too small to characterize) History of back surgery RIGHT SI JOINT FUSION= 03/09/17= GRADE VIEW 1, MAC 3, ETT 7.0 AT [facility] 2 TOTAL BACK SURGERIES 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) Overactive bladder (Chronic) Insomnia (Chronic) Hypertension (Chronic) Depression (Chronic) Acid reflux (Chronic) Well controlled and stable Medical History CHF (congestive heart failure) Postoperative infection of knee Arthritis of knee, left Hiatal hernia Anxiety Torn rotator cuff left; steroid injection Q 3 mos, last one 04/2023 w/ Dr Laws Meningioma determined by biopsy of brain Symptomatic small atypical meningioma (s/p craniotomy- 07/2022) Last seen by neuro surgery 02/2023 (stable at that time- no evidence of recurrence of operated tumor) Headache significantly improved History of DVT (deep vein thrombosis) LLE (CALF) 40+ YEARS AGO (WAS TAKING CONTROL PILLS) Polio During childhood 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 History of vertebral compression fracture Around - s/p kyphoplasty Surgical History History of partial mastectomy of right breast (09/15/22) 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(Right) - Gladys Woods DO S/P craniotomy 07/2022- STEFANIE Mercer History of kyphoplasty L2 and S1 02/01/2021 H/O hand surgery left History of cataract surgery RT/LEFT History of bilateral tubal ligation History of dilatation and curettage History of breast biopsy left negative > right/ reason for up coming procedure History of carpal tunnel release bilat History of esophagogastroduodenoscopy (EGD) History of tooth extraction History of cardiac cath OVER 14 YEARS AGO/NO STENTS History of colonoscopy History of laminectomy X 2 (LUMBAR REGION) History of right shoulder replacement History of total right knee replacement Family History Mother Family history of pancreatic cancer Alcohol abuse Depression Father Family history of Hodgkin's lymphoma Hypertension Grandfather (Paternal) Myocardial infarction Sister Depression Hypertension Grandfather (Maternal) Myocardial infarction Denies family history of Ovarian cancer Prostate cancer Breast cancer Colorectal cancer Social History Smoking Status: Never smoker Second Hand Exposure: Yes (as child); Do You Dip or Chew Tobacco: No; Hx Alcohol Use: No Hx Substance Use: No Preferred Language: American Communication Ability: Effective Visual Impairment: No Limitations Hearing Ability: Normal Field Reimbursement Manager Required: No Beliefs That Will Affect Care: None marital status: / Current Living Situation: Family current occupational status: retired Feels Safe at Home: Yes Childhood Exposure to Second-Hand Smoke: Yes Diet: regular Dental Care, Regularly: No Physical Activity Frequency: Does not Exercise Seatbelt Use: sometimes Sunscreen Use: No Assistive Devices: Cane and Walker Allergies Allergies Allergy/AdvReac Type Severity Reaction Status Date / Time Cephalosporins Allergy Mild rash Verified 11/15/23 10:45 codeine Allergy Mild Rash Verified 11/15/23 10:45 erythromycin base Allergy Mild Rash Verified 11/15/23 10:45 nitrofurantoin Allergy Mild rash Verified 11/15/23 10:45 tetracycline Allergy Mild rash Verified 11/15/23 10:45 tramadol Allergy Mild Itching Verified 11/15/23 10:45 hydromorphone [From Dilaudid] AdvReac Intermediate mental Verified 11/15/23 10:45 change morphine AdvReac Mild SICK TO Verified 11/15/23 10:45 STOMACH Home Meds Home Medications Medication Instructions Recorded Confirmed lisinopril 20 mg tablet 20 mg PO BID 09/15/22 11/26/23 trazodone 50 mg tablet 50 mg PO HS Insomnia 07/18/23 11/26/23 Previous Rx's Medication Instructions Recorded amlodipine 10 mg tablet 10 mg PO QAM #90 tabs 09/17/23 furosemide 40 mg tablet 40 mg PO QAM #90 tabs 09/17/23 metoprolol tartrate 25 mg tablet 25 mg PO BID 90 days #180 tabs 09/17/23 gabapentin 600 mg tablet 600 mg PO TID #270 tabs 09/20/23 apixaban 5 mg tablet (Eliquis) 5 mg PO BID #180 tabs 10/15/23 oxycodone 5 mg tablet 5 mg PO Q6H PRN pain #40 tabs 10/15/23 omeprazole 40 mg capsule,delayed 40 mg PO BID #180 caps 10/31/23 release Results & Data (ED) Vital Signs Vital Signs - 24 hr 11/26/23 22:15 11/26/23 23:00 11/26/23 23:03 Temperature 36.4 C L Temperature Source Oral Pulse Rate 97 H 73 Pulse Rate [Radial] Respiratory Rate 18 Respiratory Effort / Characteristics Respiratory Depth Respiratory Pattern Blood Pressure 100/63 Blood Pressure [Right Arm] Blood Pressure Mean 75 Blood Pressure Mean [Right Arm] Pulse Oximetry 90 86 L Oxygen Delivery Method Room Air Room Air Nasal Cannula Oxygen Flow Rate 0 Sepsis Recent Fever Within 48 Hours No Sepsis New/Unexplained Change in Mental Status No Sepsis Action Taken by Nursing No Action Required Oxygen Flow Rate - Titration 2 Pulse Oximetry Post Tiitration 92 11/26/23 23:55 11/27/23 00:36 11/27/23 01:00 Temperature Temperature Source Pulse Rate 71 Pulse Rate [Radial] 74 73 Respiratory Rate 18 17 Respiratory Effort / Characteristics Non-Labored Spontaneous Non-Labored Spontaneous Respiratory Depth Normal Normal Respiratory Pattern Regular Regular Blood Pressure Blood Pressure [Right Arm] 132/70 89/53 L Blood Pressure Mean Blood Pressure Mean [Right Arm] 90 65 Pulse Oximetry 98 95 Oxygen Delivery Method Nasal Cannula Room Air Oxygen Flow Rate 2 Sepsis Recent Fever Within 48 Hours Sepsis New/Unexplained Change in Mental Status Sepsis Action Taken by Nursing Oxygen Flow Rate - Titration Pulse Oximetry Post Tiitration 11/27/23 01:07 Temperature Temperature Source Pulse Rate Pulse Rate [Radial] Respiratory Rate Respiratory Effort / Characteristics Respiratory Depth Respiratory Pattern Blood Pressure Blood Pressure [Right Arm] 98/52 L Blood Pressure Mean Blood Pressure Mean [Right Arm] 67 Pulse Oximetry Oxygen Delivery Method Oxygen Flow Rate Sepsis Recent Fever Within 48 Hours Sepsis New/Unexplained Change in Mental Status Sepsis Action Taken by Nursing Oxygen Flow Rate - Titration Pulse Oximetry Post Tiitration Home Medications Current Medication List: was personally reviewed by me Laboratory Data Attestation: I reviewed the patient's lab results. 11/27/23 00:26 11/26/23 22:32 Lab Results 11/26/23 11/26/23 11/27/23 Range/Units 22:32 22:40 00:26 WBC 18.84 H (4.8-10.8) K/ul RBC 4.89 (4.20-5.40) M/uL Hgb 13.4 11.9 L (12.0-16.0) g/dl POC Hgb 15.3 (12.0-16.0) g/dl Hct 43.1 (37.0-47.0) % POC Hct 45 (37-47) % MCV 88.1 (80.0-100.0) fL MCH 27.4 (25.0-34.0) pg MCHC 31.1 L (32.0-36.0) g/dL RDW Std Deviation 49.5 H (36.4-46.3) fL RDW Coeff of [place] 15.4 H (11.5-14.5) % Plt Count 288 (130-400) K/uL MPV 10.1 (9.4-12.4) fL Immature Gran % (Auto) 1.0 % Neut % (Auto) 87.1 % Lymph % (Auto) 10.0 % Green % (Auto) 1.4 % Eos % (Auto) 0.2 % Baso % (Auto) 0.3 % Neut # (Auto) 16.41 H (1.40-6.50) K/uL Lymph # (Auto) 1.89 (1.20-3.40) K/uL Green # (Auto) 0.26 (0.11-0.59) K/uL Eos # (Auto) 0.03 (0.00-0.50) K/uL Baso # (Auto) 0.06 (0.00-0.20) K/uL Immature Gran # (Auto) 0.19 (0.01-0.20) K/uL PT 12.4 H (9.0-12.0) Seconds INR 1.2 H (0.9-1.1) APTT 30 (21-31) Seconds PTT Ratio 1.1 POC Sodium 137 (135-144) mmol/L Sodium 138 (136-145) mmol/L POC Potassium 4.5 (3.3-5.0) mmol/L Potassium 4.4 (3.5-5.1) mmol/L POC Chloride 104 (101-112) mmol/L Chloride 104 (98-107) mmol/L Carbon Dioxide 22 (21-32) mmol/L POC Total CO2 24 (24-31) mmol/L Anion Gap 12 H (3-11) POC Anion Gap 15.0 L (16-25) mmol/L POC BUN 50 H (7-18) mg/dl BUN 44 H (6-23) mg/dl Creatinine 1.90 H (0.6-1.2) mg/dl POC Creatinine 1.0 (0.6-1.3) mg/dl Est Cr Clr Drug Dosing 21.9 ml/min Est GFR ( Amer) 28.2 ml/min Est GFR (Non-Af Amer) 24.3 ml/min BUN/Creatinine Ratio 23.2 H (10-20) Glucose 213 H (70-99(Fasting)) mg/dl POC Glucose (other) 206 H (70-99) mg/dl Lactate 4.8 H* 3.6 H* (0.4-2.0) mmol/L Calcium 8.9 (8.6-10.3) mg/dl POC Ioniz Calcium Gianfranco 1.17 (1.12-1.32) mmol/l Magnesium 2.2 (1.7-2.4) mg/dl Total Bilirubin 0.6 (0.2-1.0) mg/dl AST 51 H (13-39) U/L ALT 20 (7-52) U/L Alkaline Phosphatase 88 (34-104) U/L Troponin I High Sens 12.1 (0-14) pg/ml Total Protein 6.2 (6.0-8.3) gm/dl Albumin 3.5 (3.4-5.0) gm/dl Globulin 2.7 (2.5-4.0) gm/dl Albumin/Globulin Ratio 1.3 (0.9-2) Lipase 104 H (11-82) U/L TSH 10.183 H (0.300-4.500) uIu/ml Free T4 0.94 (0.61-1.60) ng/dl Blood Type A Positive Antibody Screen NEGATIVE Crossmatch See Detail Administered Medications Discontinued Medications Sodium Chloride (Nss) 1,000 mls @ 999 mls/hr IV .Q1H1M RANJANA Stop: 11/26/23 23:30 Last Infusion: 11/26/23 23:30 Dose: Infused Documented By: Admin: 11/26/23 22:32 Dose: 999 mls/hr Documented By: KAPIL Famotidine (Pepcid 20mg Iv Push) 20 mg in 5 mls @ 2.5 mls/min IV NOW STA Stop: 11/26/23 22:24 Last Admin: 11/26/23 22:41 Dose: 2.5 mls/min Documented By: KAPIL Pantoprazole Sodium 80 mg/ (Dextrose) 120 mls @ 400 mls/hr IV NOW ONE Stop: 11/26/23 22:40 Last Infusion: 11/26/23 23:15 Dose: Infused Documented By: Admin: 11/26/23 22:53 Dose: 400 mls/hr Documented By: LUKE Sodium Chloride (Nss) 500 mls @ 999 mls/hr IV .Q31M ONE Stop: 11/27/23 00:28 Last Admin: 11/27/23 00:53 Dose: 999 mls/hr Documented By: GOSIA Ioversol (Optiray 320 100ml) 91 ml IV ONCE ONE Stop: 11/26/23 23:25 Last Admin: 11/26/23 23:24 Dose: 91 ml Documented By: LUX Ondansetron HCl (Ondansetron Inj 2 Mg/Ml 2 Ml Vial) 4 mg IV ONE STA Stop: 11/26/23 22:24 Last Admin: 11/26/23 22:41 Dose: 4 mg Documented By: Imaging Data Radiologist's Impression: Abdomen/Pelvis CT 11/26/23 22:23 Exam(s): CT ABDOMEN + PELVIS With Contrast IV Amt: 91 cc otpi 320 EXAM: CT Abdomen and Pelvis With Intravenous Contrast CLINICAL HISTORY: Reason for exam: gi bleed. TECHNIQUE: Axial computed tomography images of the abdomen and pelvis with intravenous contrast. CTDI is 27.32 mGy and DLP is 1264.67 mGy-cm. Automated exposure control was utilized for the study. A dose lowering technique was utilized adhering to the principles of ALARA. CONTRAST: Patient received 91 cc otpi 320 of IV contrast COMPARISON: 06/29/2022 FINDINGS: Mediastinum: Moderate hiatal hernia. ABDOMEN: Liver: Unremarkable. Gallbladder and bile ducts: Unremarkable. Pancreas: Unremarkable. Spleen: Unremarkable. Adrenals: Unremarkable. Kidneys and ureters: Unremarkable. No obstructing stones. No hydronephrosis. Stomach and bowel: Acute colitis of the descending and sigmoid colon. No grossly evident active hemorrhage. No perforation or abscess. Sigmoid colonic diverticulosis without acute diverticulitis. PELVIS: Appendix: No findings to suggest acute appendicitis. Bladder: Unremarkable. Reproductive: Unremarkable as visualized. ABDOMEN and PELVIS: Intraperitoneal space: Unremarkable. No free air. No significant fluid collection. Bones/joints: Right SI joint arthrodesis screws. Osteopenia. No acute fracture. Vertebral augmentation in the L2 vertebral body. Cement also present in the left sacrum. Soft tissues: Unremarkable. Vasculature: Unremarkable. Lymph nodes: Unremarkable. IMPRESSION: 1. Acute colitis of the descending and sigmoid colon. No grossly evident active hemorrhage. No perforation or abscess. 2. Moderate hiatal hernia. Electronically signed by: Marques Carbone MD 11/26/23 23:55 PM Discharge Plan Visit Data Chief Complaint: Abdominal Pain Stated Complaint: LOWER ABDOMINAL PAIN ED Provider: Joe Ladd Discharge Problem: Acute GI bleeding, Lower abdominal pain, Colitis, Leukocytosis, Elevated lactic acid level Patient Disposition: Admitted As Inpatient Condition: Serious Forms Stand Alone Forms: [id number] Prescriptions Prescriptions: No Action amlodipine 10 mg tablet 10 mg PO QAM Qty: 90 3RF furosemide 40 mg tablet 40 mg PO QAM Qty: 90 3RF metoprolol tartrate 25 mg tablet 25 mg PO BID 90 Days Qty: 180 3RF gabapentin 600 mg tablet 600 mg PO TID Qty: 270 1RF Rx Instructions: TAKE 1 TABLET THREE TIMES DAILY Eliquis 5 mg tablet 5 mg PO BID Qty: 180 3RF oxycodone 5 mg tablet 5 mg PO Q6H PRN (Reason: pain) Qty: 40 0RF omeprazole 40 mg capsule,delayed release(DR/EC) 40 mg PO BID Qty: 180 1RF Rx Instructions: TAKE 1 CAPSULE TWICE DAILY lisinopril 20 mg tablet 20 mg PO BID trazodone 50 mg tablet 50 mg PO HS Rx Instructions: TAKE 1 TABLET AT BEDTIME NEEDED FOR INSOMNIA- pt stated takes one every evening Referrals Referrals: Zeynep Dawn MD [Primary Care Provider] - Discharge Problem: Leukocytosis Qualifiers: Leukocytosis type: unspecified Qualified Code(s): D72.829 - Elevated white blood cell count, unspecified
[2023-11-26] MEDS: SODIUM CHLORIDE 0.9% 1,000 ML IV SCH (22:32)
[2023-11-26] MEDS: FAMOTIDINE 20MG IV PUSH 20 MG/5 ML SYR IV STA (22:41)
[2023-11-26] MEDS: ONDANSETRON INJ 2 MG/ML 2 ML VIAL IV STA (22:41)
[2023-11-26 22:44] LABS: iSTAT Hemoglobin 15.3 g/dl (12.0-16.0); iSTAT Ionized Calcium 1.17 mmol/l (1.12-1.32); iSTAT Potassium 4.5 mmol/L (3.3-5.0)
[2023-11-26] MEDS: PANTOprazole 80 MG in DEXTROSE 5% 100 ML IV ONE (22:53)
[2023-11-26 23:03] LABS: Basophils # (auto) 0.06 K/uL (0.00-0.20); Basophils % (auto) 0.3 %; Eosinophils # (auto) 0.03 K/uL (0.00-0.50); Eosinophils % (auto) 0.2 %; Hematocrit (blood only) 43.1 % (37.0-47.0); Hemoglobin 13.4 g/dl (12.0-16.0); Immature Granulocytes # (auto) 0.19 K/uL (0.01-0.20); Lymphocytes # (auto) 1.89 K/uL (1.20-3.40); Mean Corpuscular Hemoglobin 27.4 pg (25.0-34.0); Mean Corpuscular Hgb Conc 31.1 g/dL (32.0-36.0); Mean Corpuscular Volume 88.1 fL (80.0-100.0); Mean Platelet Volume 10.1 fL (9.4-12.4); Monocytes # (auto) 0.26 K/uL (0.11-0.59); Monocytes % (auto) 1.4 %; Neutrophils # (auto) 16.41 K/uL (1.40-6.50); Neutrophils % (auto) 87.1 %; Platelet Count 288 K/uL (130-400); RDW Coefficient of Variation 15.4 % (11.5-14.5); RDW Standard Deviation 49.5 fL (36.4-46.3); Red Blood Count 4.89 M/uL (4.20-5.40); White Blood Count 18.84 K/ul (4.8-10.8)
[2023-11-26 23:19] LABS: Alanine Aminotransferase 20 U/L (7-52); Albumin Globulin Ratio 1.3 (0.9-2); Albumin Level 3.5 gm/dl (3.4-5.0); Alkaline Phosphatase 88 U/L (34-104); Anion Gap 12 (3-11); Aspartate Aminotransferase 51 U/L (13-39); BUN Creatinine Ratio 23.2 (10-20); Bilirubin,Total 0.6 mg/dl (0.2-1.0); Blood Urea Nitrogen 44 mg/dl (6-23); Calcium 8.9 mg/dl (8.6-10.3); Carbon Dioxide 22 mmol/L (21-32); Chloride 104 mmol/L (98-107); Creatinine Clr Calc Pharmacy 21.9 ml/min; Est GFR (African American) 28.2 ml/min; Est GFR (Non-African American) 24.3 ml/min; Globulin 2.7 gm/dl (2.5-4.0); Glucose 213 mg/dl (70-99(Fasting)); Lipase 104 U/L (11-82); Magnesium 2.2 mg/dl (1.7-2.4); Potassium 4.4 mmol/L (3.5-5.1); Sodium 138 mmol/L (136-145); Total Protein 6.2 gm/dl (6.0-8.3)
[2023-11-26] MEDS: OPTIRAY 320 100ml IV ONE (23:24)
[2023-11-26 23:26] LABS: Troponin I High Sensitivity 12.1 pg/ml (0-14)
[2023-11-26 23:35] LABS: Thyroid Stimulating Hormone 10.183 uIu/ml (0.300-4.500)
--- NOTE | 2023-11-26 23:56 | CT Scan Report ---
Exam(s): CT ABDOMEN + PELVIS With Contrast IV Amt: 91 cc otpi 320 EXAM: CT Abdomen and Pelvis With Intravenous Contrast CLINICAL HISTORY: Reason for exam: gi bleed. TECHNIQUE: Axial computed tomography images of the abdomen and pelvis with intravenous contrast. CTDI is 27.32 mGy and DLP is 1264.67 mGy-cm. Automated exposure control was utilized for the study. A dose lowering technique was utilized adhering to the principles of ALARA. CONTRAST: Patient received 91 cc otpi 320 of IV contrast COMPARISON: 06/29/2022 FINDINGS: Mediastinum: Moderate hiatal hernia. ABDOMEN: Liver: Unremarkable. Gallbladder and bile ducts: Unremarkable. Pancreas: Unremarkable. Spleen: Unremarkable. Adrenals: Unremarkable. Kidneys and ureters: Unremarkable. No obstructing stones. No hydronephrosis. Stomach and bowel: Acute colitis of the descending and sigmoid colon. No grossly evident active hemorrhage. No perforation or abscess. Sigmoid colonic diverticulosis without acute diverticulitis. PELVIS: Appendix: No findings to suggest acute appendicitis. Bladder: Unremarkable. Reproductive: Unremarkable as visualized. ABDOMEN and PELVIS: Intraperitoneal space: Unremarkable. No free air. No significant fluid collection. Bones/joints: Right SI joint arthrodesis screws. Osteopenia. No acute fracture. Vertebral augmentation in the L2 vertebral body. Cement also present in the left sacrum. Soft tissues: Unremarkable. Vasculature: Unremarkable. Lymph nodes: Unremarkable. IMPRESSION: 1. Acute colitis of the descending and sigmoid colon. No grossly evident active hemorrhage. No perforation or abscess. 2. Moderate hiatal hernia. Electronically signed by: Marques Carbone MD 11/26/23 23:55 PM
[2023-11-27 00:02] LABS: INR 1.2 (0.9-1.1); Partial Thromboplastin Ratio 1.1; Partial Thromboplastin Time 30 Seconds (21-31); Prothrombin Time 12.4 Seconds (9.0-12.0)
[2023-11-27 00:11] LABS: T4 Free Thyroxine 0.94 ng/dl (0.61-1.60)
--- NOTE | 2023-11-27 00:41 | History & Physical Report ---
Date of Service November 27, 2023 Assessment & Plan (1) Acute GI bleeding: Plan: 83yo female with history of PE on Eliquis anticoagulation (last dose 11/25 at 07:30) presenting with three days of left sided abdominal cramping, bloody BM x 3 tonight. Hemodynamically stable. Patient with Hgb 13.4 --> 11.9, Platelets are WNL. INR mildly elevated at 1.2. Lactate has improved 4.8 --> 3.[address] as above with acute colitis. Infections vs ischemic vs inflammatory. Patient has been on antibiotics for management of knee infection. -Admit to PCU -Maintain two large bore PIVs -CBC q 6 hours - transfuse PRBCs for active bleeding, symptomatic anemia or Hgb < 7 -Protonix 40mg IV BID -GI consultation appreciated -Hold Eliquis in setting of active bleed -Hold anti-hypertensives - Amlodipine, Lisinopril, Metoprolol -Hold Lasix (2) Colitis: Plan: Patient with left sided abdominal pain, corresponds with findings of acute colitis on CT imaging. Lactate has improved slightly following IVF. Colitis infectious vs inflammatory vs ischemic. Patient has been on antibiotics for prosthetic joint infection. WBC=18.8, Cr increased from baseline. -Stool PCR and C. diff sent -Check CRP -Repeat Lactate in AM -Will initiate treatment with PO Vancomycin 250mg po q 6 hours -GI Consultation appreciated -Tylenol PRN pain -Oxycodone PRN pain -Zofran PRN nausea (3) Pulmonary emboli: Plan: Patient with remote history of VTE while on OCPs. On Eliquis for recent PE -Hold Eliquis in setting of active GIB -Will need to re-evaluate need for continued anticoagulation on discharge Plan -Decrease Gabapentin from 600mg po TID to 300mg po TID in setting of renal insufficiency F/E/N - LR at 100mL/hr x 1L, electrolytes WNL, NPO for now Ppx - Protonix 40mg IV BID Code - DNR/DNI Dispo - Admit to PCU for ongoing management of acute LGIB and colitis History of Present Illness Chief Complaint: Abdominal pain, LGIB Primary Care Provider: Zeynep Dawn MD Patti Brown is an 83yo female presenting with abdominal cramping and LGIB. Patient with history of HTN, s/p right TKA on 5/1/24 with subsequent post-op infection, s/p revision surgery 07/26/23 s/p acute hypoxic respiratory failure secondary to multiple segmental and subsegmental PE. She is on Eliquis therapy - last taken 11/26/23 at 07:30. Patient has had progressive weakness x 3 days as well as intermittent left sided lower abdominal cramping. She has been constipated for at least the last week and has been passing small hard pellets of stool. This evening she developed severe lower abdominal cramping after eating dinner. She had an episode of nausea with non-bloody/non-bilious vomiting and passed a small, hard stool. Her pain persisted and patient was having difficulty getting up from the commode due to weakness so EMS was called. Patient had a large, bloody BM en route to the hospital. VSS upon arrival. In the ER she had two additional bloody BMs. Patient was on IV Vancomycin for treatment of her prosthetic joint infection until 09/06/23. Currently on Doxycycline. She denies chest pain, palpitations, SOB or dizziness. No additional complaints at this time. ER Course: NSS x 1.5L Zofran 4mg IV Pepcid 20mg IV Protonix gtt Allergies Allergy/AdvReac Type Severity Reaction Status Date / Time Cephalosporins Allergy Mild rash Verified 11/15/23 10:45 codeine Allergy Mild Rash Verified 11/15/23 10:45 erythromycin base Allergy Mild Rash Verified 11/15/23 10:45 nitrofurantoin Allergy Mild rash Verified 11/15/23 10:45 tetracycline Allergy Mild rash Verified 11/15/23 10:45 tramadol Allergy Mild Itching Verified 11/15/23 10:45 hydromorphone [From Dilaudid] AdvReac Intermediate mental Verified 11/15/23 10:45 change morphine AdvReac Mild SICK TO Verified 11/15/23 10:45 STOMACH Home Medications Medication Instructions Recorded Confirmed Type lisinopril 20 mg tablet 20 mg PO BID 09/15/22 11/26/23 History trazodone 50 mg tablet 50 mg PO HS Insomnia 07/18/23 11/26/23 History amlodipine 10 mg tablet 10 mg PO QAM #90 tabs 09/17/23 11/26/23 Rx furosemide 40 mg tablet 40 mg PO QAM #90 tabs 09/17/23 11/26/23 Rx metoprolol tartrate 25 mg tablet 25 mg PO BID 90 days #180 tabs 09/17/23 11/26/23 Rx gabapentin 600 mg tablet 600 mg PO TID #270 tabs 09/20/23 11/26/23 Rx apixaban 5 mg tablet (Eliquis) 5 mg PO BID #180 tabs 10/15/23 11/26/23 Rx oxycodone 5 mg tablet 5 mg PO Q6H PRN pain #40 tabs 10/15/23 11/26/23 Rx omeprazole 40 mg capsule,delayed 40 mg PO BID #180 caps 10/31/23 11/26/23 Rx release Past Med/Surg History Problem List Elevated lactic acid level (Acute) Leukocytosis (Acute) Colitis (Acute) Lower abdominal pain (Acute) Acute GI bleeding (Acute) Stasis dermatitis B12 deficiency Acute hypoxic respiratory failure Acute diastolic CHF (congestive heart failure) Hypoxia (Acute) Pulmonary embolism (Acute) Pulmonary emboli Iron deficiency anemia Infection of prosthetic left knee joint Wound cellulitis after surgery 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, estrogen receptor positive (Chronic 08/02/22) Lumbar facet joint syndrome Urge incontinence Carpal tunnel syndrome of right wrist Anxiety with depression Sacral insufficiency fracture Status post kyphoplasty 02/01/2021 Compression fracture of L2 Status post kyphoplasty 02/01/2021 Low back pain (Acute) CMC arthritis Rotator cuff tear, left Impingement syndrome of left shoulder Foraminal stenosis of lumbar region (Chronic) Arthritis (Chronic) 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 Liver lesion, left lobe MRI 06/07/23 showed liver to be unremarkable; probable liver cyst (4mm hyperintense lesion (too small to characterize) History of back surgery RIGHT SI JOINT FUSION= 03/09/17= [facility] 1, MAC 3, ETT 7.0 AT [facility] 2 TOTAL BACK SURGERIES 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) Overactive bladder (Chronic) Insomnia (Chronic) Hypertension (Chronic) Depression (Chronic) Acid reflux (Chronic) Well controlled and stable Medical History CHF (congestive heart failure) Postoperative infection of knee Arthritis of knee, left Hiatal hernia Anxiety Torn rotator cuff left; steroid injection Q 3 mos, last one 04/2023 w/ Dr Laws Meningioma determined by biopsy of brain Symptomatic small atypical meningioma (s/p craniotomy- 07/2022) Last seen by neuro surgery 02/2023 (stable at that time- no evidence of recurrence of operated tumor) Headache significantly improved History of DVT (deep vein thrombosis) LLE (CALF) 40+ YEARS AGO (WAS TAKING CONTROL PILLS) Polio During childhood 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 History of vertebral compression fracture Around - s/p kyphoplasty Surgical History History of partial mastectomy of right breast (09/15/22) Right Breast Partial Mastectomy with [employer] Localization(Right) - Gladys Woods DO S/P craniotomy 07/2022- STEFANIE Mercer History of kyphoplasty L2 and S1 02/01/2021 H/O hand surgery left History of cataract surgery RT/LEFT History of bilateral tubal ligation History of dilatation and curettage History of breast biopsy left negative > right/ reason for up coming procedure History of carpal tunnel release bilat History of esophagogastroduodenoscopy (EGD) History of tooth extraction History of cardiac cath OVER 14 YEARS AGO/NO STENTS History of colonoscopy History of laminectomy X 2 (LUMBAR REGION) History of right shoulder replacement History of total right knee replacement Family History Mother Family history of pancreatic cancer Alcohol abuse Depression Father Family history of Hodgkin's lymphoma Hypertension Grandfather (Paternal) Myocardial infarction Sister Depression Hypertension Grandfather (Maternal) Myocardial infarction Denies family history of Ovarian cancer Prostate cancer Breast cancer Colorectal cancer Social History Smoking Status: Never smoker Second Hand Exposure: Yes (as child); Do You Dip or Chew Tobacco: No; Hx Alcohol Use: No Hx Substance Use: No Preferred Language: Afghan Communication Ability: Effective Visual Impairment: No Limitations Hearing Ability: Normal Field Investigator Required: No Beliefs That Will Affect Care: None marital status: / Current Living Situation: Family current occupational status: retired Feels Safe at Home: Yes Childhood Exposure to Second-Hand Smoke: Yes Diet: regular Dental Care, Regularly: No Physical Activity Frequency: Does not Exercise Seatbelt Use: sometimes Sunscreen Use: No Assistive Devices: Cane and Walker Review of Systems Review of Systems: All systems reviewed & are unremarkable except as noted in HPI & below Physical Exam Physical Exam: General: patient appears ill, answering questions and following commands, oriented x 4 HEENT: NC/AT, PERRL, EOMI, anicteric sclera, conjunctiva without injection, external ear normal to inspection and nontender, nares patent, moist mucus membranes, dentition intact, no oropharyngeal lesions, neck supple, trachea midline, no LAD, no thyromegaly, no JVD Heart: +S1/S2, regular, no m/r/g Lungs: equal air entry bilaterally, no rales/rhonchi/wheezes Abd: diminished bowel sounds, soft, tender in the LLQ/LUQ without rebound/guarding, no distention Ext: warm, 2+ pulses in UE/LE bilaterally, no clubbing/cyanosis or edema Neuro: nonfocal, patient AA&O x 4, speech intact, no facial droop, moving all extremities on command with equal strength 5/5 18G right antecubital PIV x 2 LUE Results & Data Results & Data Vital Signs (Past 12 Hours) Vital Signs Temp Pulse Pulse Resp BP BP Pulse Ox 11/27/23 00:36 71 11/26/23 23:55 74 18 132/70 98 11/26/23 23:03 73 11/26/23 23:00 86 L 11/26/23 22:15 36.4 C L 97 H 18 100/63 90 O2 Del Method O2 Flow Rate 11/27/23 00:36 11/26/23 23:55 Nasal Cannula 2 11/26/23 23:03 11/26/23 23:00 Room Air, Nasal Cannula 0 11/26/23 22:15 Room Air Laboratory Results Laboratory Results WBC 18.84 K/ul (4.8-10.8) H 11/26/23 22:32 RBC 4.89 M/uL (4.20-5.40) 11/26/23 22:32 Hgb 11.9 g/dl (12.0-16.0) L 11/27/23 00:26 POC Hgb 15.3 g/dl (12.0-16.0) 11/26/23 22: Hct 43.1 % (37.0-47.0) 11/26/23 22: POC Hct 45 % (37-47) 11/26/23 22: MCV 88.1 fL (80.0-100.0) 11/26/23 22: MCH 27.4 pg (25.0-34.0) 11/26/23 22: MCHC 31.1 g/dL (32.0-36.0) L 11/26/23: RDW Std Deviation 49.5 fL (36.4-46.3) H 11/26/23: RDW Coeff of [place] 15.4 % (11.5-14.5) H 11/26/23: Plt Count 288 K/uL (130-400) 11/26/23 22: MPV 10.1 fL (9.4-12.4) 11/26/23 22: Immature Gran % (Auto) 1.0 % 11/26/23: Neut % (Auto) 87.1 % 11/26/23 22: Lymph % (Auto) 10.0 % 11/26/23 22:32 [place] % (Auto) 1.4 % 11/26/23:32 Eos % (Auto) 0.2 % 11/26/23: Baso % (Auto) 0.3 % 11/26/23: Neut # (Auto) 16.41 K/uL (1.40-6.50) H 11/26/23: Lymph # (Auto) 1.89 K/uL (1.20-3.40) 11/26/23: [place] # (Auto) 0.26 K/uL (0.11-0.59) 11/26/23: Eos # (Auto) 0.03 K/uL (0.00-0.50) 11/26/23: Baso # (Auto) 0.06 K/uL (0.00-0.20) 09/30/24 22:32 Immature Gran # (Auto) 0.19 K/uL (0.01-0.20) 11/26/23 22:32 PT 12.4 Seconds (9.0-12.0) H 11/26/23 22:32 INR 1.2 (0.9-1.1) H 11/26/23 22:32 APTT 30 Seconds (21-31) 11/26/23 22:32 PTT Ratio 1.1 11/26/23 22:32 POC Sodium 137 mmol/L (135-144) 11/26/23 22:32 Sodium 138 mmol/L (136-145) 11/26/23 22:32 POC Potassium 4.5 mmol/L (3.3-5.0) 11/26/23 22:32 Potassium 4.4 mmol/L (3.5-5.1) 11/26/23 22:32 POC Chloride 104 mmol/L (101-112) 11/26/23 22:32 Chloride 104 mmol/L (98-107) 11/26/23 22:32 Carbon Dioxide 22 mmol/L (21-32) 11/26/23 22:32 POC Total CO2 24 mmol/L (24-31) 11/26/23 22:32 Anion Gap 12 (3-11) H 11/26/23 22:32 POC Anion Gap 15.0 mmol/L (16-25) L 11/26/23 22:32 POC BUN 50 mg/dl (7-18) H 11/26/23 22:32 BUN 44 mg/dl (6-23) H 11/26/23 22:32 Creatinine 1.90 mg/dl (0.6-1.2) H 11/26/23 22:32 POC Creatinine 1.0 mg/dl (0.6-1.3) 11/26/23 22:32 Est Cr Clr Drug Dosing 21.9 ml/min 11/26/23 22:32 Est GFR ( Amer) 28.2 ml/min 11/26/23 22:32 Est GFR (Non-Af Amer) 24.3 ml/min 11/26/23 22:32 BUN/Creatinine Ratio 23.2 (10-20) H 11/26/23 22:32 Glucose 213 mg/dl (70-99(Fasting)) H 11/26/23 22:32 POC Glucose (other) 206 mg/dl (70-99) H 11/26/23 22:32 Lactate 3.6 mmol/L (0.4-2.0) H* 11/27/23 00:26 Calcium 8.9 mg/dl (8.6-10.3) 11/26/23 22:32 POC Ioniz Calcium Gianfranco 1.17 mmol/l (1.12-1.32) 11/26/23 22:32 Magnesium 2.2 mg/dl (1.7-2.4) 11/26/23 22:32 Total Bilirubin 0.6 mg/dl (0.2-1.0) 11/26/23 22:32 AST 51 U/L (13-39) H 11/26/23 22:32 ALT 20 U/L (7-52) 11/26/23 22:32 Alkaline Phosphatase 88 U/L (34-104) 11/26/23 22:32 Troponin I High Sens 12.1 pg/ml (0-14) 11/26/23 22:32 Total Protein 6.2 gm/dl (6.0-8.3) 11/26/23 22:32 Albumin 3.5 gm/dl (3.4-5.0) 11/26/23 22:32 Globulin 2.7 gm/dl (2.5-4.0) 11/26/23 22:32 Albumin/Globulin Ratio 1.3 (0.9-2) 11/26/23 22:32 Lipase 104 U/L (11-82) H 11/26/23 22:32 TSH 10.183 uIu/ml (0.300-4.500) H 11/26/23 22:32 Free T4 0.94 ng/dl (0.61-1.60) 11/26/23 22:32 Blood Type A Positive 11/26/23 22:32 Antibody Screen NEGATIVE 11/26/23 22:32 Crossmatch See Detail 11/26/23 22:32 Impressions Abdomen/Pelvis CT 11/26/23 22:23 Exam(s): CT ABDOMEN + PELVIS With Contrast IV Amt: 91 cc otpi 320 EXAM: CT Abdomen and Pelvis With Intravenous Contrast CLINICAL HISTORY: Reason for exam: gi bleed. TECHNIQUE: Axial computed tomography images of the abdomen and pelvis with intravenous contrast. CTDI is 27.32 mGy and DLP is 1264.67 mGy-cm. Automated exposure control was utilized for the study. A dose lowering technique was utilized adhering to the principles of ALARA. CONTRAST: Patient received 91 cc otpi 320 of IV contrast COMPARISON: 06/29/2022 FINDINGS: Mediastinum: Moderate hiatal hernia. ABDOMEN: Liver: Unremarkable. Gallbladder and bile ducts: Unremarkable. Pancreas: Unremarkable. Spleen: Unremarkable. Adrenals: Unremarkable. Kidneys and ureters: Unremarkable. No obstructing stones. No hydronephrosis. Stomach and bowel: Acute colitis of the descending and sigmoid colon. No grossly evident active hemorrhage. No perforation or abscess. Sigmoid colonic diverticulosis without acute diverticulitis. PELVIS: Appendix: No findings to suggest acute appendicitis. Bladder: Unremarkable. Reproductive: Unremarkable as visualized. ABDOMEN and PELVIS: Intraperitoneal space: Unremarkable. No free air. No significant fluid collection. Bones/joints: Right SI joint arthrodesis screws. Osteopenia. No acute fracture. Vertebral augmentation in the L2 vertebral body. Cement also present in the left sacrum. Soft tissues: Unremarkable. Vasculature: Unremarkable. Lymph nodes: Unremarkable. IMPRESSION: 1. Acute colitis of the descending and sigmoid colon. No grossly evident active hemorrhage. No perforation or abscess. 2. Moderate hiatal hernia. Electronically signed by: Marques Carbone MD 11/26/23 23:55 PM Diagnostic Findings CXR per my interpretation with elevation of the right hemidiaphragm, prosthetic right shoulder in place ECG Additional Comments: EKG per my interpretation with NSR at 74bpm, TB=479, QRS=98,. ,FPp=852, no acute ischemic changes Code Status & VTE Plan VTE Prophylaxis Plan VTE Prophylaxis will be ordered: Yes PG Care Time/CCT Total # of Minutes Spent Total Time Spent with Patient: Total time spent is greater than 50% in coordination of care (as documented) at patient's floor/unit and/or counseling patient: Coding Level of Care Code 81636 INT INP/OBS CARE 375MIN Diagnoses Acute GI bleeding K92.2 Colitis K52.9 Pulmonary emboli I26.99
[2023-11-27] MEDS: SODIUM CHLORIDE 0.9% 500 ML IV ONE (00:53)
[2023-11-27 02:18] LABS: C Reactive Protein < 0.50 mg/dl (0-0.5)
[2023-11-27] MEDS: ACETAMINOPHEN 325 MG TAB PO PRN (02:20)
[2023-11-27] MEDS: LACTATED RINGER'S 1,000 ML IV SCH (02:24)
[2023-11-27] MEDS: CHERRY SYRUP 5 ML UDP PO SCH (03:17)
[2023-11-27] MEDS: VANCOMYCIN HCL 250 MG/5 ML SOLN PO SCH (03:18)
[2023-11-27] MEDS: LACTATED RINGER'S 500 ML IV ONE (04:10)
[2023-11-27 06:35] LABS: Hematocrit (blood only) 35.5 % (37.0-47.0); Hemoglobin 11.3 g/dl (12.0-16.0); Mean Corpuscular Hemoglobin 27.8 pg (25.0-34.0); Mean Corpuscular Hgb Conc 31.8 g/dL (32.0-36.0); Mean Corpuscular Volume 87.4 fL (80.0-100.0); Mean Platelet Volume 10.3 fL (9.4-12.4); Platelet Count 193 K/uL (130-400); RDW Coefficient of Variation 15.5 % (11.5-14.5); RDW Standard Deviation 49.5 fL (36.4-46.3); Red Blood Count 4.06 M/uL (4.20-5.40); White Blood Count 16.08 K/ul (4.8-10.8)
--- NOTE | 2023-11-27 07:09 | XRay Report ---
XR chest 1V portable CLINICAL HISTORY: Shortness of breath. COMPARISON STUDY: Chest radiograph and chest CT August 16, 2023. FINDINGS: Elevation of the right hemidiaphragm is unchanged. A right shoulder arthroplasty is inciden tally noted. There is severe osteoarthritis of the left glenohumeral joint. No pneumothorax or pleura l effusion is present. Right basilar opacity represents atelectasis. No consolidation to suggest pneu monia. Large hiatal hernia is again noted. IMPRESSION: No acute cardiopulmonary findings. No change in appearance of the chest. ACT 112: Negative or not required by law. Electronically signed by: Mauricio Rodrigues M.D. 11/27/2023 7:08 AM
[2023-11-27 07:25] LABS: Adenovirus F 40/41 PCR Not Detected (NotDetected); Astrovirus PCR Not Detected (NotDetected); Campylobacter PCR Not Detected (NotDetected); Cryptosporidium PCR Not Detected (NotDetected); Cyclospora cayetanensis PCR Not Detected (NotDetected); Entamoeba histolytica PCR Not Detected (NotDetected); Enteroaggregative E.coli(EAEC) Not Detected (NotDetected); Enteropathogenic E.coli (EPEC) Not Detected (NotDetected); Enterotoxigenic E.coli (ETEC) Not Detected (NotDetected); Giardia lamblia PCR Not Detected (NotDetected); Norovirus GI/GII PCR Not Detected (NotDetected); Plesiomonas shigelloides PCR Not Detected (NotDetected); Rotavirus A PCR Not Detected (NotDetected); Salmonella PCR Not Detected (NotDetected); Sapovirus PCR Not Detected (NotDetected); Shiga-like Toxin E.coli (STEC) Not Detected (NotDetected); Shigella/Enteroinvasive E.coli Not Detected (NotDetected); Vibrio cholerae PCR Not Detected (NotDetected); Vibrio species PCR Not Detected (NotDetected); Yersinia enterocolitica PCR Not Detected (NotDetected)
[2023-11-27] MEDS ORDERED: PANTOprazole 40 MG in SYRINGE 0 ML IV SCH (09:00)
--- NOTE | 2023-11-27 09:26 | Gastrointestinal Consultation ---
Date of Consultation November 27, 2023 Assessment & Plan (1) Colitis: 83 year old female with history of HTN, s/p right TKA on 06/27/23 with subsequent post-op infection, s/p revision surgery 07/26/23 s/p acute hypoxic respiratory failure secondary to multiple segmental and subsegmental PE on Eliquis therapy admitted through the ED w/ progressive weakness, abd pain, constipation followed by episodes of bloody bowel movements. She has had intermittent hypotension, HGB 11.3, Ct imaging with sigmoid/descend ing colitis, stool studies including c.diff negative, lactate 2.0 this AM. Last colonoscopy in 2006 concerning for a recent episode of ischemic colitis. DDX discussed: ischemic vs infectious vs other Conservative measures today IV fluid hydration Support hemodynamics Trend H&H Monitor and document GI output Transfuse PRN per primary service Can continue clear liquids today Hold AC I spent a total of 60 minutes on the date of service in review of patient's record, and previously obtained information in person and appropriate medical visit, discussion and education of plan, with patient and/or caregiver, placing orders for tests/referral/procedures as medically necessary and documentation of pertinent clinical information in patient's medical records for their visit today. Supervising Physician Co-Signing Physician Notes I examined the patient and reviewed patient's chart , laboratory data and imaging studies. I agree with with assessment and plan of care as suggested by advanced practice provider. Symptoms and clinical studies are suggestive of acute ischemic colitis. Continue supportive measures. History of Present Illness Reason for Consultation: GI bleeding Requesting Physician: Diogenes Salamanca MD Attending Physician: Diogenes Salamanca MD History of Present Illness 83 year old female with history of HTN, s/p right TKA on 06/27/23 with subsequent post-op infection, s/p revision surgery 07/26/23 s/p acute hypoxic respiratory failure secondary to multiple segmental and subsegmental PE on Eliquis therapy admitted through the ED w/ progressive weakness, abd pain, constipation followed by episodes of bloody bowel movements - GI was asked to evaluate. Pt was seen and evaluated, chart reviewed. She endorsees constipation for a few weeks, Developed abd pain yesterday, passed stool and noted large amount of BRBPR, followed by 3-4 smaller episodes fo bloody stools. Since arrival to [facility] she has had two addition bloody, loose BMs. Denies nausea/vomiting today but has had ongoing abd pain. 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 No grossly evident active hemorrhage. No perforation or abscess. Sigmoid colonic diverticulosis without acute diverticulitis. Colonoscopy 2006: Diverticulosis. Exam suggestive of prior episode of ischemic colitis. Allergies Allergy/AdvReac Type Severity Reaction Status Date / Time Cephalosporins Allergy Mild rash Verified 11/15/23 10:45 codeine Allergy Mild Rash Verified 11/15/23 10:45 erythromycin base Allergy Mild Rash Verified 11/15/23 10:45 nitrofurantoin Allergy Mild rash Verified 11/15/23 10:45 tetracycline Allergy Mild rash Verified 11/15/23 10:45 tramadol Allergy Mild Itching Verified 11/15/23 10:45 hydromorphone [From Dilaudid] AdvReac Intermediate mental Verified 11/15/23 10:45 change morphine AdvReac Mild SICK TO Verified 11/15/23 10:45 STOMACH Home Medications Medication Instructions Recorded Confirmed Type lisinopril 20 mg tablet 20 mg PO BID 09/15/22 11/26/23 History trazodone 50 mg tablet 50 mg PO HS Insomnia 07/18/23 11/26/23 History amlodipine 10 mg tablet 10 mg PO QAM #90 tabs 09/17/23 11/26/23 Rx furosemide 40 mg tablet 40 mg PO QAM #90 tabs 09/17/23 11/26/23 Rx metoprolol tartrate 25 mg tablet 25 mg PO BID 90 days #180 tabs 09/17/23 11/26/23 Rx gabapentin 600 mg tablet 600 mg PO TID #270 tabs 09/20/23 11/26/23 Rx apixaban 5 mg tablet (Eliquis) 5 mg PO BID #180 tabs 10/15/23 11/26/23 Rx oxycodone 5 mg tablet 5 mg PO Q6H PRN pain #40 tabs 10/15/23 11/26/23 Rx omeprazole 40 mg capsule,delayed 40 mg PO BID #180 caps 09/04/24 09/30/24 Rx release Patient History Medical History CHF (congestive heart failure) Postoperative infection of knee Arthritis of knee, left Hiatal hernia Anxiety Torn rotator cuff left; steroid injection Q 3 mos, last one 04/2023 w/ Dr Laws Meningioma determined by biopsy of brain Symptomatic small atypical meningioma (s/p craniotomy- 07/2022) Last seen by neuro surgery 02/2023 (stable at that time- no evidence of recu rrence of operated tumor) Headache significantly improved History of DVT (deep vein thrombosis) LLE (CALF) 40+ YEARS AGO (WAS TAKING CONTROL PILLS) Polio During childhood 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 History of vertebral compression fracture Around - s/p kyphoplasty Surgical History History of partial mastectomy of right breast (09/15/22) Right Breast Partial Mastectomy with [employer] Localization(Right) - Gladys Woods DO S/P craniotomy 07/2022- STEFANIE Mercer History of kyphoplasty L2 and S1 02/01/2021 H/O hand surgery left History of cataract surgery RT/LEFT History of bilateral tubal ligation History of dilatation and curettage History of breast biopsy left negative > right/ reason for up coming procedure History of carpal tunnel release bilat History of esophagogastroduodenoscopy (EGD) History of tooth extraction History of cardiac cath OVER 14 YEARS AGO/NO STENTS History of colonoscopy History of laminectomy X 2 (LUMBAR REGION) History of right shoulder replacement History of total right knee replacement Family History Mother Family history of pancreatic cancer Alcohol abuse Depression Father Family history of Hodgkin's lymphoma Hypertension Grandfather (Paternal) Myocardial infarction Sister Depression Hypertension Grandfather (Maternal) Myocardial infarction Denies family history of Ovarian cancer Prostate cancer Breast cancer Colorectal cancer Social History Smoking Status: Never smoker Second Hand Exposure: Yes (as child); Do You Dip or Chew Tobacco: No; Hx Alcohol Use: No Hx Substance Use: No Preferred Language: Lao Communication Ability: Effective Visual Impairment: No Limitations Hearing Ability: Normal School Social Worker Required: No Beliefs That Will Affect Care: None marital status: / Current Living Situation: Family current occupational status: retired Feels Safe at Home: Yes Safety Concerns: Feels Safe At This Time Childhood Exposure to Second-Hand Smoke: Yes Diet: regular Dental Care, Regularly: No Physical Activity Frequency: Does not Exercise Seatbelt Use: sometimes Sunscreen Use: No Assistive Devices: Cane and Walker Review of Systems Review of Systems: All other findings negative except as noted in HPI. Physical Exam Constitutional: WD/WN, vitals as above Respiratory: normal respiratory effort, lungs clear to auscultation Cardiovascular: Rate/Rhythm: regular rate and regular rhythm Gastrointestinal (Abdomen): Inspection/Auscultation: normal bowel sounds Percussion/Palpation: + abdomen tender and abdomen soft; no guarding and abdomen not rigid Skin: no rashes, warm and dry Results & Data Vital Signs (Past 12 Hours) Vital Signs Temp Pulse Pulse Pulse Resp BP BP 11/27/23 09:11 81 11/27/23 07:40 37.4 C 90 19 98/53 L 11/27/23 04:44 81 17 103/63 11/27/23 03:51 36.4 C L 81 18 85/47 L 11/27/23 02:48 11/27/23 02:15 36.3 C L 75 18 101/62 11/27/23 01:54 34.8 C L 75 16 101/62 11/27/23 01:50 34.8 C L 75 18 101/62 11/27/23 01:07 98/52 L 11/27/23 01:00 73 17 89/53 L 11/27/23 00:36 71 11/26/23 23:55 74 18 132/70 11/26/23 23:03 73 11/26/23 23:00 11/26/23 22:15 36.4 C L 97 H 18 100/63 Pulse Ox O2 Del Method O2 Flow Rate 11/27/23 09:11 11/27/23 07:40 97 Nasal Cannula 4 11/27/23 04:44 98 Nasal Cannula 4 11/27/23 03:51 96 Nasal Cannula 4 11/27/23 02:48 Nasal Cannula 4 11/27/23 02:15 94 Nasal Cannula 4 11/27/23 01:54 94 Nasal Cannula 4 11/27/23 01:50 94 Nasal Cannula 4 11/27/23 01:07 11/27/23 01:00 95 Room Air 11/27/23 00:36 11/26/23 23:55 98 Nasal Cannula 2 11/26/23 23:03 11/26/23 23:00 86 L Room Air, Nasal Cannula 0 11/26/23 22:15 90 Room Air Laboratory Results 11/27/23 11/27/23 11/27/23 Range/Units 06:12 05:53 00:26 WBC 16.08 H (4.8-10.8) K/ul RBC 4.06 L (4.20-5.40) M/uL Hgb 11.3 L 11.9 L (12.0-16.0) g/dl POC Hgb (12.0-16.0) g/dl Hct 35.5 L (37.0-47.0) % POC Hct (37-47) % MCV 87.4 (80.0-100.0) fL MCH 27.8 (25.0-34.0) pg MCHC 31.8 L (32.0-36.0) g/dL RDW Std Deviation 49.5 H (36.4-46.3) fL RDW Coeff of [place] 15.5 H (11.5-14.5) % Plt Count 193 (130-400) K/uL MPV 10.3 (9.4-12.4) fL Immature Gran % (Auto) % Neut % (Auto) % Lymph % (Auto) % Bertie % (Auto) % Eos % (Auto) % Baso % (Auto) % Neut # (Auto) (1.40-6.50) K/uL Lymph # (Auto) (1.20-3.40) K/uL Bertie # (Auto) (0.11-0.59) K/uL Eos # (Auto) (0.00-0.50) K/uL Baso # (Auto) (0.00-0.20) K/uL Immature Gran # (Auto) (0.01-0.20) K/uL PT (9.0-12.0) Seconds INR (0.9-1.1) APTT (21-31) Seconds PTT Ratio POC Sodium (135-144) mmol/L Sodium (136-145) mmol/L POC Potassium (3.3-5.0) mmol/L Potassium (3.5-5.1) mmol/L POC Chloride (101-112) mmol/L Chloride (98-107) mmol/L Carbon Dioxide (21-32) mmol/L POC Total CO2 (24-31) mmol/L Anion Gap (3-11) POC Anion Gap (16-25) mmol/L POC BUN (7-18) mg/dl BUN (6-23) mg/dl Creatinine (0.6-1.2) mg/dl POC Creatinine (0.6-1.3) mg/dl Est Cr Clr Drug Dosing ml/min Est GFR ( Amer) ml/min Est GFR (Non-Af Amer) ml/min BUN/Creatinine Ratio (10-20) Glucose (70-99(Fasting)) mg/dl POC Glucose (other) (70-99) mg/dl Lactate 2.0 3.6 H* (0.4-2.0) mmol/L Calcium (8.6-10.3) mg/dl POC Ioniz Calcium Gianfranco (1.12-1.32) mmol/l Magnesium (1.7-2.4) mg/dl Total Bilirubin (0.2-1.0) mg/dl AST (13-39) U/L ALT (7-52) U/L Alkaline Phosphatase (34-104) U/L Troponin I High Sens (0-14) pg/ml C-Reactive Protein (0-0.5) mg/dl Total Protein (6.0-8.3) gm/dl Albumin (3.4-5.0) gm/dl Globulin (2.5-4.0) gm/dl Albumin/Globulin Ratio (0.9-2) Lipase (11-82) U/L TSH (0.300-4.500) uIu/ml Free T4 (0.61-1.60) ng/dl Stl C. cayetanensis PCR Not Detected (NotDetected) Stool Rotavirus A PCR Not Detected (NotDetected) Stl Adenov F 40/41 PCR Not Detected (NotDetected) Stool Astrovirus (PCR) Not Detected (NotDetected) Stool Campylobacter PCR Not Detected (NotDetected) Stl C. diff Tox B Gene Negative Cdiff Gene (Neg) Stool Cryptosporidium PCR Not Detected (NotDetected) Stl E.coli Shiga Tox PCR Not Detected (NotDetected) Stl Enterotoxigenic E PCR Not Detected (NotDetected) Stool EPEC (PCR) Not Detected (NotDetected) Stool EAEC (PCR) Not Detected (NotDetected) Stl E. histolytica PCR Not Detected (NotDetected) Stool Giardia Lamblia PCR Not Detected (NotDetected) Stool Salmonella PCR Not Detected (NotDetected) Stool Sapovirus (PCR) Not Detected (NotDetected) Stl P. shigelloides PCR Not Detected (NotDetected) Stl Shigella/EIEC PCR Not Detected (NotDetected) St Y.enterocolitica PCR Not Detected (NotDetected) Stool Vibrio (PCR) Not Detected (NotDetected) Stl Vibrio cholerae PCR Not Detected (NotDetected) Stl Norovirus GI/GII PCR Not Detected (NotDetected) Blood Type Antibody Screen Crossmatch 11/26/23 11/26/23 Range/Units 22:40 22:32 WBC 18.84 H (4.8-10.8) K/ul RBC 4.89 (4.20-5.40) M/uL Hgb 13.4 (12.0-16.0) g/dl POC Hgb 15.3 (12.0-16.0) g/dl Hct 43.1 (37.0-47.0) % POC Hct 45 (37-47) % MCV 88.1 (80.0-100.0) fL MCH 27.4 (25.0-34.0) pg MCHC 31.1 L (32.0-36.0) g/dL RDW Std Deviation 49.5 H (36.4-46.3) fL RDW Coeff of [place] 15.4 H (11.5-14.5) % Plt Count 288 (130-400) K/uL MPV 10.1 (9.4-12.4) fL Immature Gran % (Auto) 1.0 % Neut % (Auto) 87.1 % Lymph % (Auto) 10.0 % Bertie % (Auto) 1.4 % Eos % (Auto) 0.2 % Baso % (Auto) 0.3 % Neut # (Auto) 16.41 H (1.40-6.50) K/uL Lymph # (Auto) 1.89 (1.20-3.40) K/uL Bertie # (Auto) 0.26 (0.11-0.59) K/uL Eos # (Auto) 0.03 (0.00-0.50) K/uL Baso # (Auto) 0.06 (0.00-0.20) K/uL Immature Gran # (Auto) 0.19 (0.01-0.20) K/uL PT 12.4 H (9.0-12.0) Seconds INR 1.2 H (0.9-1.1) APTT 30 (21-31) Seconds PTT Ratio 1.1 POC Sodium 137 (135-144) mmol/L Sodium 138 (136-145) mmol/L POC Potassium 4.5 (3.3-5.0) mmol/L Potassium 4.4 (3.5-5.1) mmol/L POC Chloride 104 (101-112) mmol/L Chloride 104 (98-107) mmol/L Carbon Dioxide 22 (21-32) mmol/L POC Total CO2 24 (24-31) mmol/L Anion Gap 12 H (3-11) POC Anion Gap 15.0 L (16-25) mmol/L POC BUN 50 H (7-18) mg/dl BUN 44 H (6-23) mg/dl Creatinine 1.90 H (0.6-1.2) mg/dl POC Creatinine 1.0 (0.6-1.3) mg/dl Est Cr Clr Drug Dosing 21.9 ml/min Est GFR ( Amer) 28.2 ml/min Est GFR (Non-Af Amer) 24.3 ml/min BUN/Creatinine Ratio 23.2 H (10-20) Glucose 213 H (70-99(Fasting)) mg/dl POC Glucose (other) 206 H (70-99) mg/dl Lactate 4.8 H* (0.4-2.0) mmol/L Calcium 8.9 (8.6-10.3) mg/dl POC Ioniz Calcium Gianfranco 1.17 (1.12-1.32) mmol/l Magnesium 2.2 (1.7-2.4) mg/dl Total Bilirubin 0.6 (0.2-1.0) mg/dl AST 51 H (13-39) U/L ALT 20 (7-52) U/L Alkaline Phosphatase 88 (34-104) U/L Troponin I High Sens 12.1 (0-14) pg/ml C-Reactive Protein < 0.50 (0-0.5) mg/dl Total Protein 6.2 (6.0-8.3) gm/dl Albumin 3.5 (3.4-5.0) gm/dl Globulin 2.7 (2.5-4.0) gm/dl Albumin/Globulin Ratio 1.3 (0.9-2) Lipase 104 H (11-82) U/L TSH 10.183 H (0.300-4.500) uIu/ml Free T4 0.94 (0.61-1.60) ng/dl Stl C. cayetanensis PCR (NotDetected) Stool Rotavirus A PCR (NotDetected) Stl Adenov F 40/41 PCR (NotDetected) Stool Astrovirus (PCR) (NotDetected) Stool Campylobacter PCR (NotDetected) Stl C. diff Tox B Gene (Neg) Stool Cryptosporidium PCR (NotDetected) Stl E.coli Shiga Tox PCR (NotDetected) Stl Enterotoxigenic E PCR (NotDetected) Stool EPEC (PCR) (NotDetected) Stool EAEC (PCR) (NotDetected) Stl E. histolytica PCR (NotDetected) Stool Giardia Lamblia PCR (NotDetected) Stool Salmonella PCR (NotDetected) Stool Sapovirus (PCR) (NotDetected) Stl P. shigelloides PCR (NotDetected) Stl Shigella/EIEC PCR (NotDetected) St Y.enterocolitica PCR (NotDetected) Stool Vibrio (PCR) (NotDetected) Stl Vibrio cholerae PCR (NotDetected) Stl Norovirus GI/GII PCR (NotDetected) Blood Type A Positive Antibody Screen NEGATIVE Crossmatch See Detail PG Care Time/CCT Total # of Minutes Spent Total Time Spent with Patient: Total time spent is greater than 50% in coordination of care (as documented) at patient's floor/unit and/or counseling patient: Coding Level of Care Code 57375 IN/OBS CONSULT LVL 4,60M Diagnoses Colitis K52.9
[2023-11-27] MEDS: METOPROLOL TARTRATE 25 MG TAB PO SCH (09:27)
[2023-11-27] MEDS: PANTOprazole 40 MG TAB PO SCH (09:32)
[2023-11-27] MEDS: GABAPENTIN 300 MG CAP PO SCH (09:32)
[2023-11-27] MEDS: oxyCODONE HCL IR 5 MG TAB (IMMEDIATE RELEASE) PO PRN (09:34)
--- NOTE | 2023-11-27 10:55 | Electrocardiogram Report ---
Test Reason : Blood Pressure : */* mmHG Vent. Rate : 74 BPM Atrial Rate : 74 BPM P-R Int : 180 ms QRS Dur : 98 ms QT Int : 438 ms P-R-T Axes : 64 12 32 degrees QTcB Int : 486 ms Normal sinus rhythm When compared with ECG of 16-Aug-2023 15:04, T wave amplitude has increased in Anterior leads Confirmed by Thomas Cabral [id number]) on 11/27/2023 10:54:41 AM Referred By: REFERRED SELF Confirmed By: Thomas Cabral
--- NOTE | 2023-11-27 12:09 | Hospitalist Progress Note ---
Date of Service November 27, 2023 Assessment & Plan (1) Acute GI bleeding: Plan: Lower GI bleeding from colitis. Hemoglobin is stable. Serial labs. Eliquis is on hold. (2) Colitis: Plan: Stool BioFire is negative. Bowel sounds are active so this does not support a diagnosis of ischemic gut. Pain control measures in place. Will allow clear liquids for now. (3) Pulmonary emboli: Plan: Eliquis is currently on hold. (4) Chronic respiratory failure with hypoxia: Plan: Stable. Due to recent PE. Oxygen per nasal cannula to maintain saturation greater than 90% Plan Hopeful discharge to home later this week Admission and Anticipated Discharge Date Admission Date: November 27, 2023 Subjective Alert and oriented. GI consultation noted. I would expect her to have an ileus if she had ischemic gut but she has active bowel sounds at this time. She is tender on examination however. Metoprolol has been restarted for cardiac protection but amlodipine and lisinopril remain on hold. Eliquis is also on hold and Lasix is on hold. Stool BioFire is negative and C. difficile gene is negative. Oral vancomycin has been discontinued. She takes doxycycline chronically for knee infection suppression. This will be restarted on an IV basis for now then eventually switch back to oral dosing. Clear liquids will be allowed. IV fluid rate tapered down. Repeat hemoglobin level at 4 PM and then daily thereafter. Review of Systems 2 Review of Systems: Constitutionalno fever or chills ENTno blurred vision, no double vision, no epistaxis, no sore throat Respiratoryno cough, no wheezing, no shortness of breath Cardiacno palpitations, no chest pain, no syncope GIsome nausea. No vomiting. Mid abdominal discomfort. Bloody stool noted. No melena GUno urinary retention, no urinary incontinence, no dysuria, no hematuria Musculoskeletalno joint pain, no muscle tenderness Skinno bruising, no rashes, no pruritus Neurono isolated weakness, no paresthesia, no weakness Psychno depression, no anxiety Physical Exam 2 Physical Exam: General-alert and oriented x3, no fever, no chills HEENT-head atraumatic and normocephalic, pupils equal and reactive to light, extraocular muscles intact Neck-no lymphadenopathy or thyromegaly, trachea midline Chest-clear to auscultation. No rales, wheezing or rhonchi Cardiac-regular rate and rhythm, normal S1 and S2 Abdomen-normal bowel sounds, no hepatosplenomegaly. Mid abdominal tenderness to palpation. No masses. No rebound or guarding Extremities-no cyanosis, clubbing, or edema Neuro-cranial nerves II through XII intact, motor and sensory function within normal limits, strength symmetrical, no focal deficits Psych-normal affect, normal mood Results & Data Results & Data Vital Signs (Past 12 Hours) Vital Signs Temp Pulse Pulse Pulse Resp BP Pulse Ox 11/27/23 10:54 11/27/23 09:11 81 11/27/23 07:40 37.4 C 90 19 98/53 L 97 11/27/23 04:44 81 17 103/63 98 11/27/23 03:51 36.4 C L 81 18 85/47 L 96 11/27/23 02:48 11/27/23 02:15 36.3 C L 75 18 101/62 94 11/27/23 01:54 34.8 C L 75 16 101/62 94 11/27/23 01:50 34.8 C L 75 18 101/62 94 11/27/23 01:07 98/52 L 11/27/23 01:00 73 17 89/53 L 95 11/27/23 00:36 71 O2 Del Method O2 Flow Rate 11/27/23 10:54 Nasal Cannula 4 11/27/23 09:11 11/27/23 07:40 Nasal Cannula 4 11/27/23 04:44 Nasal Cannula 4 11/27/23 03:51 Nasal Cannula 4 11/27/23 02:48 Nasal Cannula 4 11/27/23 02:15 Nasal Cannula 4 11/27/23 01:54 Nasal Cannula 4 11/27/23 01:50 Nasal Cannula 4 11/27/23 01:07 11/27/23 01:00 Room Air 11/27/23 00:36 Laboratory Results 11/27/23 06:12 11/26/23 22:32 PG Care Time/CCT Total # of Minutes Spent Total Time Spent with Patient: Total time spent is greater than 50% in coordination of care (as documented) at patient's floor/unit and/or counseling patient: Coding Level of Care Code 55403 SUB INP/OBS CARE 3/50MIN Diagnoses Acute GI bleeding K92.2 Colitis K52.9 Pulmonary emboli I26.99 Chronic respiratory failure with hypoxia J96.11
[2023-11-27] MEDS: DOXYCYCLINE HYCLATE 100 MG in DEXTROSE 5% MINI-B 100 ML IV SCH (13:24)
[2023-11-27] MEDS: MoRPHine SULFATE 2 MG/ML CARP IV PRN (14:38)
[2023-11-27] MEDS: ONDANSETRON INJ 2 MG/ML 2 ML VIAL IV PRN ×2 (14:38→19:14)
[2023-11-27 16:13] LABS: Hematocrit (blood only) 32.3 % (37.0-47.0); Hemoglobin 9.9 g/dl (12.0-16.0)
[2023-11-27] MEDS ORDERED: fentaNYL citrate PF 100 MCG/2 ML VIAL ONE (22:20)
[2023-11-27] MEDS ORDERED: ONDANSETRON INJ 2 MG/ML 2 ML VIAL ONE (22:20)
[2023-11-28 08:23] LABS: Basophils # (auto) 0.02 K/uL (0.00-0.20); Basophils % (auto) 0.2 %; Eosinophils # (auto) 0.02 K/uL (0.00-0.50); Eosinophils % (auto) 0.2 %; Hematocrit (blood only) 29.3 % (37.0-47.0); Hemoglobin 9.5 g/dl (12.0-16.0); Immature Granulocytes # (auto) 0.03 K/uL (0.01-0.20); Immature Granulocytes % (auto) 0.3 %; Lymphocytes # (auto) 1.02 K/uL (1.20-3.40); Lymphocytes % (auto) 10.8 %; Mean Corpuscular Hemoglobin 27.8 pg (25.0-34.0); Mean Corpuscular Hgb Conc 32.4 g/dL (32.0-36.0); Mean Corpuscular Volume 85.7 fL (80.0-100.0); Mean Platelet Volume 10.2 fL (9.4-12.4); Monocytes # (auto) 0.96 K/uL (0.11-0.59); Monocytes % (auto) 10.2 %; Neutrophils # (auto) 7.37 K/uL (1.40-6.50); Neutrophils % (auto) 78.3 %; Platelet Count 149 K/uL (130-400); RDW Coefficient of Variation 15.8 % (11.5-14.5); RDW Standard Deviation 49.9 fL (36.4-46.3); Red Blood Count 3.42 M/uL (4.20-5.40); White Blood Count 9.42 K/ul (4.8-10.8)
[2023-11-28 08:38] LABS: BUN Creatinine Ratio 29.2 (10-20); Calcium 8.4 mg/dl (8.6-10.3); Creatinine Clr Calc Pharmacy 34.3 ml/min; Est GFR (African American) 49.1 ml/min; Est GFR (Non-African American) 42.4 ml/min; Potassium 4.1 mmol/L (3.5-5.1)
--- NOTE | 2023-11-28 09:47 | Gastroenterology Progress Note ---
Date of Service November 28, 2023 Assessment & Plan (1) Colitis: Plan: 83 year old female with history of HTN, s/p right TKA on 06/27/23 with subsequent post-op infection, s/p revision surgery 07/26/23 s/p acute hypoxic respiratory failure secondary to multiple segmental and subsegmental PE on Eliquis therapy admitted through the ED w/ progressive weakness, abd pain, constipation followed by episodes of bloody bowel movements. She has had intermittent hypotension, HGB 11.3, Ct imaging with sigmoid/descending colitis, stool studies including c.diff negative, lactate 2.0 this AM. Last colonoscopy in 2006 concerning for a recent episode of ischemic colitis. DDX discussed: ischemic vs infectious vs other. Suspect ischemic colitis - she is clinically improving w/ less abd pain, less bowel movements and less bloody output Conservative measures IV fluid hydration, Support hemodynamics Trend H&H Monitor and document GI output Transfuse PRN per primary service May advance diet as tolerated Hold AC I spent a total of 40 minutes on the date of service in review of patient's record, and previously obtained information in person and appropriate medical visit, discussion and education of plan, with patient and/or caregiver, placing orders for tests/referral/procedures as medically necessary and documentation of pertinent clinical information in patient's medical records for their visit today. Admission and Anticipated Discharge Date Admission Date: November 27, 2023 Supervising Physician Co-Signing Physician Notes I examined the patient and reviewed patient's chart , laboratory data and imaging studies. I agree with with assessment and plan of care as suggested by advanced practice provider. Improving ischemic colitis. Abdominal pain and diarrhea resolving. Will sign off and follow-up as needed. Subjective Pt was seen and evaluated, chart reviewed. Feeling improved. Less abd pain. Bowels moving less often. She also reports the blood in stools have decreased. Most recent stool is documented as brown. Hungry. No nausea or vomimting. Review of Systems Review of Systems: All other findings negative except as noted in HPI. Physical Exam Constitutional: WD/WN, vitals as above Respiratory: normal respiratory effort, lungs clear to auscultation Cardiovascular: Rate/Rhythm: regular rate and regular rhythm Gastrointestinal (Abdomen): normal bowel sounds, soft, nontender, no hepatosplenomegaly Skin: no rashes, warm and dry Results & Data Results & Data Vital Signs (Past 12 Hours) Vital Signs Temp Pulse Pulse Resp BP Pulse Ox O2 Del Method 11/28/23 07:34 36.8 C 98 H 16 115/60 94 Room Air 11/28/23 05:22 101 H 103/54 L 11/28/23 03:32 36.9 C 114 H 18 136/61 92 Room Air 11/28/23 00:18 102 H 108/56 L 11/27/23 22:49 36.8 C 109 H 18 115/62 96 Room Air 11/27/23 22:28 103 H Laboratory Results 11/28/23 11/27/23 11/26/23 Range/Units 07:44 15:38 22:32 WBC 9.42 (4.8-10.8) K/ul RBC 3.42 L (4.20-5.40) M/uL Hgb 9.5 L 9.9 L (12.0-16.0) g/dl Hct 29.3 L 32.3 L (37.0-47.0) % MCV 85.7 (80.0-100.0) fL MCH 27.8 (25.0-34.0) pg MCHC 32.4 (32.0-36.0) g/dL RDW Std Deviation 49.9 H (36.4-46.3) fL RDW Coeff of [place] 15.8 H (11.5-14.5) % Plt Count 149 (130-400) K/uL MPV 10.2 (9.4-12.4) fL Immature Gran % (Auto) 0.3 % Neut % (Auto) 78.3 % Lymph % (Auto) 10.8 % Cocke % (Auto) 10.2 % Eos % (Auto) 0.2 % Baso % (Auto) 0.2 % Neut # (Auto) 7.37 H (1.40-6.50) K/uL Lymph # (Auto) 1.02 L (1.20-3.40) K/uL [place] # (Auto) 0.96 H (0.11-0.59) K/uL Eos # (Auto) 0.02 (0.00-0.50) K/uL Baso # (Auto) 0.02 (0.00-0.20) K/uL Immature Gran # (Auto) 0.03 (0.01-0.20) K/uL Sodium 134 L (136-145) mmol/L Potassium 4.1 (3.5-5.1) mmol/L Chloride 105 (98-107) mmol/L Carbon Dioxide 24 (21-32) mmol/L Anion Gap 5 (3-11) BUN 35 H (6-23) mg/dl Creatinine 1.20 D (0.6-1.2) mg/dl Est Cr Clr Drug Dosing 34.3 ml/min Est GFR ( Amer) 49.1 ml/min Est GFR (Non-Af Amer) 42.4 ml/min BUN/Creatinine Ratio 29.2 H (10-20) Glucose 86 (70-99(Fasting)) mg/dl Calcium 8.4 L (8.6-10.3) mg/dl Crossmatch See Detail PG Care Time/CCT Total # of Minutes Spent Total Time Spent with Patient: Total time spent is greater than 50% in coordination of care (as documented) at patient's floor/unit and/or counseling patient: Coding Level of Care Code 55016 SUB INP/OBS CARE 2/35MIN Diagnoses Colitis K52.9
[2023-11-28] MEDS: SODIUM CHLORIDE 0.9% 1,000 ML IV SCH (12:27)
--- NOTE | 2023-11-28 14:51 | Hospitalist Progress Note ---
Date of Service November 28, 2023 Assessment & Plan (1) Acute GI bleeding: Plan: Lower GI bleeding from colitis. Hemoglobin is slightly lower but no indication for transfusion. No overt GI bleeding at this time. Serial labs. Shahnazquis is on hold. (2) Colitis: Plan: Stool BioFire is negative. Bowel sounds remain active so this does not support a diagnosis of ischemic gut. She has asked that her diet be advanced from clear liquids to full liquids. Pain control measures in place. IV fluids tapered down (3) Pulmonary emboli: Plan: Eliquis is currently on hold. (4) Chronic respiratory failure with hypoxia: Plan: Stable. Due to recent PE. Oxygen per nasal cannula to maintain saturation greater than 90% Plan Hopeful discharge later this week. OT and PT assessments requested to see if she will need transient SNF placement Admission and Anticipated Discharge Date Admission Date: November 27, 2023 Subjective Alert and oriented. She looks better. She still has epigastric and mid abdominal tenderness though. Bowel sounds are active however. Hemoglobin is down a little more to 9.5 but no indication for transfusion at this time. Will follow. No overt GI bleeding. Creatinine now normalized at 1.2. Morphine sulfate parenteral is discontinued. Will use Tylenol 3 as needed which she takes at home. Carafate suspension ordered. Diet advanced to full liquids. OT and PT assessments requested Review of Systems 2 Review of Systems: Constitutionalno fever or chills ENTno blurred vision, no double vision, no epistaxis, no sore throat Respiratoryno cough, no wheezing, no shortness of breath Cardiacno palpitations, no chest pain, no syncope GIsome nausea. No vomiting. Mid abdominal discomfort. No recurrent bloody stool. No melena GUno urinary retention, no urinary incontinence, no dysuria, no hematuria Musculoskeletalno joint pain, no muscle tenderness Skinno bruising, no rashes, no pruritus Neurono isolated weakness, no paresthesia, no weakness Psychno depression, no anxiety Physical Exam 2 Physical Exam: General-alert and oriented x3, no fever, no chills HEENT-head atraumatic and normocephalic, pupils equal and reactive to light, extraocular muscles intact Neck-no lymphadenopathy or thyromegaly, trachea midline Chest-clear to auscultation. No rales, wheezing or rhonchi Cardiac-regular rate and rhythm, normal S1 and S2 Abdomen-normal bowel sounds, no hepatosplenomegaly. Mid abdominal tenderness to palpation. No masses. No rebound or guarding Extremities-no cyanosis, clubbing, or edema Neuro-cranial nerves II through XII intact, motor and sensory function within normal limits, strength symmetrical, no focal deficits Psych-normal affect, normal mood Results & Data Results & Data Vital Signs (Past 12 Hours) Vital Signs Temp Pulse Pulse Resp BP Pulse Ox O2 Del Method 11/28/23 14:14 84 11/28/23 12:12 110 H 11/28/23 11:00 36.6 C 97 H 18 122/58 L 95 Room Air 11/28/23 10:41 Nasal Cannula 11/28/23 07:34 36.8 C 98 H 16 115/60 94 Room Air 11/28/23 05:22 101 H 103/54 L 11/28/23 03:32 36.9 C 114 H 18 136/61 92 Room Air O2 Flow Rate 11/28/23 14:14 11/28/23 12:12 11/28/23 11:00 11/28/23 10:41 2 11/28/23 07:34 11/28/23 05:22 11/28/23 03:32 Laboratory Results 11/28/23 07:44 11/28/23 07:44 PG Care Time/CCT Total # of Minutes Spent Total Time Spent with Patient: Total time spent is greater than 50% in coordination of care (as documented) at patient's floor/unit and/or counseling patient: Coding Level of Care Code 80183 SUB INP/OBS CARE 3/50MIN Diagnoses Acute GI bleeding K92.2 Colitis K52.9 Pulmonary emboli I26.99 Chronic respiratory failure with hypoxia J96.11
[2023-11-28] MEDS: SUCRALFATE 1 GM/10 ML UDC PO SCH (17:05)
[2023-11-28 17:47] LABS: Hematocrit (blood only) 31.6 % (37.0-47.0); Hemoglobin 9.9 g/dl (12.0-16.0)
[2023-11-28] MEDS: ACETAMINOPHEN W/CODEINE #3 1 TAB PO PRN (20:30)
[2023-11-29 07:22] LABS: Basophils # (auto) 0.02 K/uL (0.00-0.20); Basophils % (auto) 0.2 %; Eosinophils # (auto) 0.03 K/uL (0.00-0.50); Eosinophils % (auto) 0.4 %; Hematocrit (blood only) 27.4 % (37.0-47.0); Hemoglobin 8.8 g/dl (12.0-16.0); Immature Granulocytes # (auto) 0.07 K/uL (0.01-0.20); Immature Granulocytes % (auto) 0.9 %; Lymphocytes # (auto) 0.84 K/uL (1.20-3.40); Lymphocytes % (auto) 10.3 %; Mean Corpuscular Hemoglobin 27.8 pg (25.0-34.0); Mean Corpuscular Hgb Conc 32.1 g/dL (32.0-36.0); Mean Corpuscular Volume 86.4 fL (80.0-100.0); Mean Platelet Volume 10.4 fL (9.4-12.4); Monocytes # (auto) 1.01 K/uL (0.11-0.59); Monocytes % (auto) 12.3 %; Neutrophils # (auto) 6.22 K/uL (1.40-6.50); Neutrophils % (auto) 75.9 %; Platelet Count 143 K/uL (130-400); RDW Coefficient of Variation 15.9 % (11.5-14.5); RDW Standard Deviation 50.8 fL (36.4-46.3); Red Blood Count 3.17 M/uL (4.20-5.40); White Blood Count 8.19 K/ul (4.8-10.8)
[2023-11-29 07:40] LABS: BUN Creatinine Ratio 26.5 (10-20); Calcium 8.4 mg/dl (8.6-10.3); Creatinine Clr Calc Pharmacy 31.7 ml/min; Potassium 4.1 mmol/L (3.5-5.1)
[2023-11-29] MEDS: DOXYCYCLINE HYCLATE 100 MG CAP PO SCH (11:29)
--- NOTE | 2023-11-29 12:59 | Hospitalist Progress Note ---
Date of Service November 29, 2023 Assessment & Plan (1) Acute GI bleeding: Plan: Lower GI bleeding from colitis. Hemoglobin is slightly lower but no indication for transfusion. No overt GI bleeding at this time. Serial labs. Eliquis remains on hold. (2) Orthostatic hypotension: Plan: Occurred today, November 28, when the patient was out of bed and attempting to ambulate. IV fluids have been uptitrated. Midodrine has been added. Will follow (3) Colitis: Plan: Stool BioFire is negative. Bowel sounds remain active so this does not support a diagnosis of ischemic gut. She is tolerating her full liquid diet. IV fluids have been increased due to orthostatic hypotension. (4) Pulmonary emboli: Plan: Eliquis is currently on hold. (5) Chronic respiratory failure with hypoxia: Plan: Stable. Due to recent PE. Oxygen per nasal cannula to maintain saturation greater than 90% Plan It appears she will need temporary SNF placement at the time of discharge once stabilized. Hopefully in the next 2 to 3 days Admission and Anticipated Discharge Date Admission Date: November 27, 2023 Subjective Alert and oriented. She has less abdominal pain but unfortunately she had orthostatic hypotension this morning. IV fluids have been increased and midodrine has been added. IV doxycycline switched to oral dosing route. Amlodipine, lisinopril, Lasix remain on hold. Eliquis has been discontinued previously. She is tolerating the full liquid diet. Hemoglobin is down slightly to 8.8. Will follow. Review of Systems 2 Review of Systems: Constitutionalno fever or chills ENTno blurred vision, no double vision, no epistaxis, no sore throat Respiratoryno cough, no wheezing, no shortness of breath Cardiacno palpitations, no chest pain, no syncope GIsome nausea. No vomiting. Mid abdominal discomfort has lessened. No recurrent bloody stool. No melena GUno urinary retention, no urinary incontinence, no dysuria, no hematuria Musculoskeletalno joint pain, no muscle tenderness Skinno bruising, no rashes, no pruritus Neurono isolated weakness, no paresthesia, no weakness Psychno depression, no anxiety Physical Exam 2 Physical Exam: General-alert and oriented x3, no fever, no chills HEENT-head atraumatic and normocephalic, pupils equal and reactive to light, extraocular muscles intact Neck-no lymphadenopathy or thyromegaly, trachea midline Chest-clear to auscultation. No rales, wheezing or rhonchi Cardiac-regular rate and rhythm, normal S1 and S2 Abdomen-normal bowel sounds, no hepatosplenomegaly. Mid abdominal tenderness has lessened. No masses. No rebound or guarding Extremities-no cyanosis, clubbing, or edema Neuro-cranial nerves II through XII intact, motor and sensory function within normal limits, strength symmetrical, no focal deficits Psych-normal affect, normal mood Results & Data Results & Data Vital Signs (Past 12 Hours) Vital Signs Temp Pulse Resp BP Pulse Ox O2 Del Method O2 Flow Rate 11/29/23 10:00 36.5 C 79 20 130/68 93 Nasal Cannula 2 11/29/23 08:00 36.7 C 77 18 121/56 L 92 Nasal Cannula 2 11/29/23 07:44 Nasal Cannula 3 11/29/23 03:15 36.8 C 86 17 116/76 91 Room Air, Nasal Cannula 2 Laboratory Results 11/29/23 06:14 11/29/23 06:14 PG Care Time/CCT Total # of Minutes Spent Total Time Spent with Patient: Total time spent is greater than 50% in coordination of care (as documented) at patient's floor/unit and/or counseling patient: Coding Level of Care Code 08745 SUB INP/OBS CARE 3/50MIN Diagnoses Acute GI bleeding K92.2 Orthostatic hypotension I95.1 Colitis K52.9 Pulmonary emboli I26.99 Chronic respiratory failure with hypoxia J96.11
[2023-11-29] MEDS: MIDODRINE HCL 2.5 MG TAB PO SCH (14:39)
[2023-11-30 07:15] LABS: Basophils # (auto) 0.03 K/uL (0.00-0.20); Basophils % (auto) 0.4 %; Eosinophils # (auto) 0.05 K/uL (0.00-0.50); Eosinophils % (auto) 0.7 %; Hemoglobin 9.1 g/dl (12.0-16.0); Immature Granulocytes # (auto) 0.04 K/uL (0.01-0.20); Immature Granulocytes % (auto) 0.6 %; Lymphocytes # (auto) 0.67 K/uL (1.20-3.40); Mean Corpuscular Hemoglobin 27.2 pg (25.0-34.0); Mean Corpuscular Hgb Conc 30.3 g/dL (32.0-36.0); Mean Corpuscular Volume 89.6 fL (80.0-100.0); Mean Platelet Volume 10.2 fL (9.4-12.4); Monocytes # (auto) 0.74 K/uL (0.11-0.59); Neutrophils # (auto) 5.17 K/uL (1.40-6.50); Neutrophils % (auto) 77.3 %; Platelet Count 141 K/uL (130-400); RDW Coefficient of Variation 16.1 % (11.5-14.5); RDW Standard Deviation 52.7 fL (36.4-46.3); Red Blood Count 3.35 M/uL (4.20-5.40)
[2023-11-30 07:26] LABS: Calcium 8.6 mg/dl (8.6-10.3); Potassium 4.1 mmol/L (3.5-5.1)
--- NOTE | 2023-11-30 12:47 | Hospitalist Progress Note ---
Date of Service November 30, 2023 Assessment & Plan (1) Acute GI bleeding: Plan: Lower GI bleeding from colitis. Hemoglobin is slightly lower than usual but no indication for transfusion. No overt GI bleeding at this time. Serial labs. Eliquis remains on hold. (2) Orthostatic hypotension: Plan: Occurred on November 28, when the patient was out of bed and attempting to ambulate. Midodrine was started and now blood pressure appears stable. Amlodipine and lisinopril remain on hold. Will follow (3) Colitis: Plan: Most likely infectious etiology. Stool BioFire however is negative. Bowel sounds remain active so this does not support a diagnosis of ischemic gut. She is now on a regular diet. IV fluids have been tapered down today, November 29. (4) Pulmonary emboli: Plan: Previous history. Eliquis is currently on hold. (5) Chronic respiratory failure with hypoxia: Plan: Stable. Due to recent PE. Oxygen per nasal cannula to maintain saturation greater than 90% (6) Acute blood loss anemia: Plan: Hemoglobin decreased to 8.8 and now 9.1 today, November 29. No transfusion needed at this time. (7) Acute kidney injury: Plan: Creatinine was up to 1.9 and now down to 0.8. Monitor intake and output. Serial labs Plan Hopeful discharge to [facility] early next week Admission and Anticipated Discharge Date Admission Date: November 27, 2023 Subjective Alert and oriented. No distress. Blood pressure has stabilized with addition of midodrine. Amlodipine and lisinopril were held on admission. She remains on metoprolol hopefully to prevent cardiac dysrhythmia. IV fluids tapered down. Diet advanced. Mid abdominal discomfort is minimal and certainly improved. She is agreeable to go to [facility] for rehab, probably early next week. Hemoglobin is stable. No overt GI bleeding. Creatinine continues to improve, now down to 0.8. Eliquis remains on hold. Review of Systems 2 Review of Systems: Constitutionalno fever or chills ENTno blurred vision, no double vision, no epistaxis, no sore throat Respiratoryno cough, no wheezing, no shortness of breath Cardiacno palpitations, no chest pain, no syncope GIsome nausea. No vomiting. Mid abdominal discomfort has lessened. No recurrent bloody stool. No melena GUno urinary retention, no urinary incontinence, no dysuria, no hematuria Musculoskeletalno joint pain, no muscle tenderness Skinno bruising, no rashes, no pruritus Neurono isolated weakness, no paresthesia, no weakness Psychno depression, no anxiety Physical Exam 2 Physical Exam: General-alert and oriented x3, no fever, no chills HEENT-head atraumatic and normocephalic, pupils equal and reactive to light, extraocular muscles intact Neck-no lymphadenopathy or thyromegaly, trachea midline Chest-clear to auscultation. No rales, wheezing or rhonchi Cardiac-regular rate and rhythm, normal S1 and S2 Abdomen-normal bowel sounds, no hepatosplenomegaly. Mid abdominal tenderness has lessened. No masses. No rebound or guarding Extremities-no cyanosis, clubbing, or edema Neuro-cranial nerves II through XII intact, motor and sensory function within normal limits, strength symmetrical, no focal deficits Psych-normal affect, normal mood Results & Data Results & Data Vital Signs (Past 12 Hours) Vital Signs Temp Pulse Pulse Resp BP Pulse Ox O2 Del Method 11/30/23 11:36 37.2 C 69 18 120/62 90 Room Air 11/30/23 08:08 36.6 C 93 H 18 135/64 90 Room Air 11/30/23 07:38 91 H 11/30/23 07:29 Nasal Cannula 11/30/23 02:47 36.6 C 84 16 142/70 H 94 Nasal Cannula O2 Flow Rate 11/30/23 11:36 11/30/23 08:08 11/30/23 07:38 11/30/23 07:29 3 11/30/23 02:47 3.5 Laboratory Results 11/30/23 06:14 11/30/23 06:14 PG Care Time/CCT Total # of Minutes Spent Total Time Spent with Patient: Total time spent is greater than 50% in coordination of care (as documented) at patient's floor/unit and/or counseling patient: Coding Level of Care Code 63821 SUB INP/OBS CARE 3/50MIN Diagnoses Acute GI bleeding K92.2 Orthostatic hypotension I95.1 Colitis K52.9 Pulmonary emboli I26.99 Chronic respiratory failure with hypoxia J96.11 Acute blood loss anemia D62 Acute kidney injury N17.9
[2023-12-01 06:34] LABS: Basophils # (auto) 0.02 K/uL (0.00-0.20); Basophils % (auto) 0.4 %; Eosinophils # (auto) 0.07 K/uL (0.00-0.50); Eosinophils % (auto) 1.2 %; Hematocrit (blood only) 28.3 % (37.0-47.0); Immature Granulocytes # (auto) 0.04 K/uL (0.01-0.20); Immature Granulocytes % (auto) 0.7 %; Lymphocytes # (auto) 0.68 K/uL (1.20-3.40); Lymphocytes % (auto) 12.1 %; Mean Corpuscular Hemoglobin 27.8 pg (25.0-34.0); Mean Corpuscular Hgb Conc 31.8 g/dL (32.0-36.0); Mean Corpuscular Volume 87.3 fL (80.0-100.0); Mean Platelet Volume 9.6 fL (9.4-12.4); Monocytes % (auto) 10.7 %; Neutrophils % (auto) 74.9 %; Platelet Count 149 K/uL (130-400); RDW Coefficient of Variation 15.7 % (11.5-14.5); RDW Standard Deviation 49.9 fL (36.4-46.3); Red Blood Count 3.24 M/uL (4.20-5.40); White Blood Count 5.61 K/ul (4.8-10.8)
[2023-12-01 06:53] LABS: BUN Creatinine Ratio 19.4 (10-20); Calcium 8.6 mg/dl (8.6-10.3); Creatinine Clr Calc Pharmacy 67.5 ml/min; Potassium 3.6 mmol/L (3.5-5.1)
[2023-12-01] MEDS ORDERED: Nursing to Pharmacy Communication SCH (10:00)
[2023-12-01] MEDS: amLODIPine BESYLATE 5 MG TAB PO SCH (12:52)
--- NOTE | 2023-12-01 14:03 | Hospitalist Progress Note ---
Date of Service December 01, 2023 Assessment & Plan (1) Acute GI bleeding: Plan: Lower GI bleeding from colitis. Hemoglobin is slightly lower than usual but no indication for transfusion. No overt GI bleeding at this time. Serial labs. Eliquis was discontinued on admission. (2) Orthostatic hypotension: Plan: Occurred on November 28, when the patient was out of bed and attempting to ambulate. Midodrine was started and blood pressure stabilized and midodrine was then discontinued. Blood pressure is now slightly elevated and amlodipine has been restarted. I doubt if she will need lisinopril restarted. Will follow (3) Colitis: Plan: Most likely infectious etiology. Stool BioFire however is negative. Bowel sounds remain active so this does not support a diagnosis of ischemic gut. She is now on a regular diet. IV fluids discontinued today, November 30. (4) Pulmonary emboli: Plan: Previous history. Eliquis has not been discontinued (5) Chronic respiratory failure with hypoxia: Plan: Ruled out. She does not use home oxygen. She is now on room air (6) Acute blood loss anemia: Plan: Hemoglobin decreased to 8.8 and now 9.0 today, November 30. No transfusion needed at this time. (7) Acute kidney injury: Plan: Creatinine was up to 1.9 and now down to 0.6. Monitor intake and output. Serial labs Plan Hopeful discharge to [facility] early this week Admission and Anticipated Discharge Date Admission Date: November 27, 2023 Subjective Alert and oriented. No new problems. Blood pressure has recovered to 156/70. Will restart amlodipine. She will be allowed to be up and about as tolerated. OT and PT reordered. Hemoglobin stable at 9.0. Eliquis has been discontinued. Creatinine now down to 0.6. Review of Systems 2 Review of Systems: Constitutionalno fever or chills ENTno blurred vision, no double vision, no epistaxis, no sore throat Respiratoryno cough, no wheezing, no shortness of breath Cardiacno palpitations, no chest pain, no syncope GIsome nausea. No vomiting. Mid abdominal discomfort has lessened. No recurrent bloody stool. No melena GUno urinary retention, no urinary incontinence, no dysuria, no hematuria Musculoskeletalno joint pain, no muscle tenderness Skinno bruising, no rashes, no pruritus Neurono isolated weakness, no paresthesia, no weakness Psychno depression, no anxiety Physical Exam 2 Physical Exam: General-alert and oriented x3, no fever, no chills HEENT-head atraumatic and normocephalic, pupils equal and reactive to light, extraocular muscles intact Neck-no lymphadenopathy or thyromegaly, trachea midline Chest-clear to auscultation. No rales, wheezing or rhonchi Cardiac-regular rate and rhythm, normal S1 and S2 Abdomen-normal bowel sounds, no hepatosplenomegaly. Mid abdominal tenderness has lessened. No masses. No rebound or guarding Extremities-no cyanosis, clubbing, or edema Neuro-cranial nerves II through XII intact, motor and sensory function within normal limits, strength symmetrical, no focal deficits Psych-normal affect, normal mood Results & Data Results & Data Vital Signs (Past 12 Hours) Vital Signs Temp Pulse Pulse Resp BP BP Pulse Ox 12/01/23 11:51 36.7 C 91 H 16 135/72 91 12/01/23 09:26 95 H 156/70 H 92 12/01/23 07:33 92 H 12/01/23 07:15 37.1 C 94 H 18 152/62 H 92 12/01/23 04:38 36.9 C 91 H 18 111/54 L 93 O2 Del Method 12/01/23 11:51 Room Air 12/01/23 09:26 Room Air 12/01/23 07:33 12/01/23 07:15 Room Air 12/01/23 04:38 Room Air Laboratory Results 12/01/23 06:13 12/01/23 06:13 PG Care Time/CCT Total # of Minutes Spent Total Time Spent with Patient: Total time spent is greater than 50% in coordination of care (as documented) at patient's floor/unit and/or counseling patient: Coding Level of Care Code 90457 SUB INP/OBS CARE 3/50MIN Diagnoses Acute GI bleeding K92.2 Orthostatic hypotension I95.1 Colitis K52.9 Pulmonary emboli I26.99 Chronic respiratory failure with hypoxia J96.11 Acute blood loss anemia D62 Acute kidney injury N17.9
[2023-12-01 18:24] LABS: Appearance Urine Cloudy (Clear); Bacteria Urine Automated None Seen (None Seen); Bilirubin Urine Negative (Negative); Blood Urine 3+ (Negative); Color Urine Yellow; Glucose Urine UA Negative (Negative); Hyaline Casts Urine Present /lpf (None Presnt); Ketones Urine Negative (Negative); Leukocyte Esterase Urine Trace (Negative); Nitrite Urine Negative (Negative); Protein Urine 1+ (Negative); Specific Gravity Urine 1.015 (1.000-1.030); Urobilinogen Urine Negative (Negative); WBC Urine Automated 0-5 /hpf (0-5); pH Urine 5.5 (4.5-7.5)
[2023-12-02 07:32] LABS: Basophils # (auto) 0.02 K/uL (0.00-0.20); Basophils % (auto) 0.4 %; Hematocrit (blood only) 30.8 % (37.0-47.0); Hemoglobin 9.7 g/dl (12.0-16.0); Lymphocytes # (auto) 0.88 K/uL (1.20-3.40); Lymphocytes % (auto) 17.3 %; Mean Corpuscular Hemoglobin 27.9 pg (25.0-34.0); Mean Corpuscular Hgb Conc 31.5 g/dL (32.0-36.0); Mean Corpuscular Volume 88.5 fL (80.0-100.0); Mean Platelet Volume 9.4 fL (9.4-12.4); Monocytes % (auto) 11.8 %; Neutrophils # (auto) 3.39 K/uL (1.40-6.50); Neutrophils % (auto) 66.5 %; Platelet Count 158 K/uL (130-400); RDW Coefficient of Variation 15.9 % (11.5-14.5); RDW Standard Deviation 50.9 fL (36.4-46.3); Red Blood Count 3.48 M/uL (4.20-5.40); White Blood Count 5.09 K/ul (4.8-10.8)
[2023-12-02 07:47] LABS: BUN Creatinine Ratio 19.7 (10-20); Calcium 9.2 mg/dl (8.6-10.3); Creatinine Clr Calc Pharmacy 64.5 ml/min; Potassium 3.9 mmol/L (3.5-5.1)
--- NOTE | 2023-12-02 12:23 | Hospitalist Progress Note ---
Date of Service December 02, 2023 Assessment & Plan (1) Acute GI bleeding: Plan: Lower GI bleeding from colitis. Now resolved. Hemoglobin is slightly lower than usual but no indication for transfusion. Serial labs. Eliquis was discontinued on admission. (2) Orthostatic hypotension: Plan: Occurred on November 28, when the patient was out of bed and attempting to ambulate. Midodrine was started and blood pressure stabilized and midodrine was then discontinued on November 29. Amlodipine was restarted on November 30. Blood pressure is acceptable. I doubt if she will need lisinopril restarted. Will follow (3) Colitis: Plan: Most likely infectious etiology. Stool BioFire however is negative. Bowel sounds remain active so this does not support a diagnosis of ischemic gut. She is now on a regular diet. IV fluids have been discontinued. (4) Pulmonary emboli: Plan: Previous history. Nothing acute. Eliquis has been discontinued (5) Chronic respiratory failure with hypoxia: Plan: Ruled out. She does not use home oxygen. She is now on room air (6) Acute blood loss anemia: Plan: Hemoglobin decreased to 8.8 and now uptrending. Eliquis has been discontinued. No transfusion needed at this time. (7) Acute kidney injury: Plan: Creatinine was up to 1.9 and now down to 0.6. Monitor intake and output. Serial labs Plan Hopeful discharge to [facility] or SNF within the next day or 2 Admission and Anticipated Discharge Date Admission Date: November 27, 2023 Subjective Alert and oriented. No distress. Blood pressure is stable. Midodrine was discontinued on November 29 and amlodipine has been restarted. She remains on metoprolol. I do not feel that she needs the lisinopril restarted. She was on Eliquis for her history of pulmonary emboli in the past. This has been discontinued. Urine analysis reveals some red blood cells and other findings but no bacteria. No evidence of overt UTI. She becomes tearful when discussing SNF placement but I think she needs this for a short time before she returns home so she does not come back to the hospital quickly. Hopefully she can be discharged within the next day or 2. Review of Systems 2 Review of Systems: Constitutionalno fever or chills ENTno blurred vision, no double vision, no epistaxis, no sore throat Respiratoryno cough, no wheezing, no shortness of breath Cardiacno palpitations, no chest pain, no syncope GIsome nausea. No vomiting. Mid abdominal discomfort has lessened. No recurrent bloody stool. No melena GUno urinary retention, no urinary incontinence, no dysuria, no hematuria Musculoskeletalno joint pain, no muscle tenderness Skinno bruising, no rashes, no pruritus Neurono isolated weakness, no paresthesia, no weakness Psychno depression, no anxiety Physical Exam 2 Physical Exam: General-alert and oriented x3, no fever, no chills HEENT-head atraumatic and normocephalic, pupils equal and reactive to light, extraocular muscles intact Neck-no lymphadenopathy or thyromegaly, trachea midline Chest-clear to auscultation. No rales, wheezing or rhonchi Cardiac-regular rate and rhythm, normal S1 and S2 Abdomen-normal bowel sounds, no hepatosplenomegaly. Mid abdominal tenderness has lessened. No masses. No rebound or guarding Extremities-no cyanosis, clubbing, or edema Neuro-cranial nerves II through XII intact, motor and sensory function within normal limits, strength symmetrical, no focal deficits Psych-normal affect, normal mood Results & Data Results & Data Vital Signs (Past 12 Hours) Vital Signs Temp Pulse Pulse Resp BP Pulse Ox O2 Del Method 12/02/23 11:07 37.2 C 74 18 139/83 95 Room Air 12/02/23 07:34 36.5 C 87 18 139/67 92 Room Air 12/02/23 07:33 81 12/02/23 03:48 36.4 C L 79 16 135/66 94 Room Air Laboratory Results 12/02/23 06:46 12/02/23 06:46 PG Care Time/CCT Total # of Minutes Spent Total Time Spent with Patient: Total time spent is greater than 50% in coordination of care (as documented) at patient's floor/unit and/or counseling patient: Coding Level of Care Code 08305 SUB INP/OBS CARE 2/35MIN Diagnoses Acute GI bleeding K92.2 Orthostatic hypotension I95.1 Colitis K52.9 Pulmonary emboli I26.99 Chronic respiratory failure with hypoxia J96.11 Acute blood loss anemia D62 Acute kidney injury N17.9
[2023-12-03 07:03] LABS: Basophils # (auto) 0.03 K/uL (0.00-0.20); Basophils % (auto) 0.5 %; Eosinophils # (auto) 0.08 K/uL (0.00-0.50); Eosinophils % (auto) 1.4 %; Hematocrit (blood only) 29.3 % (37.0-47.0); Hemoglobin 9.4 g/dl (12.0-16.0); Immature Granulocytes # (auto) 0.12 K/uL (0.01-0.20); Immature Granulocytes % (auto) 2.1 %; Lymphocytes # (auto) 0.94 K/uL (1.20-3.40); Lymphocytes % (auto) 16.8 %; Mean Corpuscular Hemoglobin 27.7 pg (25.0-34.0); Mean Corpuscular Hgb Conc 32.1 g/dL (32.0-36.0); Mean Corpuscular Volume 86.4 fL (80.0-100.0); Mean Platelet Volume 8.9 fL (9.4-12.4); Monocytes # (auto) 0.55 K/uL (0.11-0.59); Monocytes % (auto) 9.8 %; Neutrophils # (auto) 3.88 K/uL (1.40-6.50); Neutrophils % (auto) 69.4 %; Platelet Count 174 K/uL (130-400); RDW Coefficient of Variation 15.6 % (11.5-14.5); RDW Standard Deviation 49.3 fL (36.4-46.3); Red Blood Count 3.39 M/uL (4.20-5.40)
[2023-12-03 07:23] LABS: BUN Creatinine Ratio 15.4 (10-20); Creatinine Clr Calc Pharmacy 81.8 ml/min; Potassium 4.1 mmol/L (3.5-5.1)
--- NOTE | 2023-12-03 17:57 | Hospitalist Progress Note ---
Date of Service December 03, 2023 Assessment & Plan (1) Acute GI bleeding: Plan: P/w lower GI bleeding and acute blood loss anemia from ischemic colitis. Now resolved. Hemoglobin trended from 13 down to 9.4 but has hit rena the last 2 days Eliquis was discontinued on admission-continue to hold Follow CBC APpreciate GI consult-no need for scopes (2) Colitis: Plan: Most likely ischemic colitis, appreciate GI consult Bleeding and pain have resolved, diarrhea is ongoing Stool BioFire and C. diff negative on admission but will repeat C. diff now given 6 days of ongoing diarrhea although most likely from gut wall edema from colitis/poor absorption or fluid Have stopped IVFs and now on regular diet (3) Orthostatic hypotension: Plan: Occurred on November 28, when the patient was out of bed and attempting to ambulate. Midodrine was started and blood pressure stabilized and midodrine was then discontinued on November 29. Amlodipine was restarted on November 30. Blood pressures are now becoming elevated Continues on metoprolol Consider resuming lisinopril 20mg daily tomorrow (4) Pulmonary emboli: Plan: Diagnosed in 07/2023 with PE, on ELiquis. 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 Monitor intake and output. 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 No abd pain. No CP, SOB. No urinary symptoms. Tele with NSR, PACs, rates 80-90s Physical Exam Constitutional: WD/WN, vitals as above Respiratory: normal respiratory effort, lungs clear to auscultation Cardiovascular: RRR, no murmur, no edema Gastrointestinal (Abdomen): Inspection/Auscultation: abdomen normal to inspection and normal bowel sounds; abdomen not distended Percussion/Palpation: + abdomen tender (mid abdomen without guarding or rebound) and abdomen soft Psychiatric: A+Ox3, euthymic affect Results & Data Results & Data Vital Signs (Past 12 Hours) Vital Signs Temp Pulse Pulse Resp BP Pulse Ox O2 Del Method 12/03/23 16:49 36.6 C 90 18 157/89 H 95 Room Air 12/03/23 14:37 90 12/03/23 10:47 37.1 C 77 16 128/73 97 Room Air 12/03/23 07:50 36.7 C 73 17 164/66 H 94 Room Air 12/03/23 07:45 Room Air 12/03/23 07:20 86 Laboratory Results CBC, BMP reviewed Urine cx reviewed PG Care Time/CCT Total # of Minutes Spent Total Time Spent with Patient: Total time spent is greater than 50% in coordination of care (as documented) at patient's floor/unit and/or counseling patient: Coding Level of Care Code 17693 SUB INP/OBS CARE 2/35MIN Diagnoses Acute GI bleeding K92.2 Colitis K52.9 Orthostatic hypotension I95.1 Pulmonary emboli I26.99 Acute kidney injury N17.9 Abnormal urinalysis R82.90 Infection associated with internal left knee prosthesis, initial encounter T84.54XA Encounter type: initial encounter Acid reflux K21.9 (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
[2023-12-04 07:40] LABS: Basophils # (auto) 0.02 K/uL (0.00-0.20); Basophils % (auto) 0.4 %; Eosinophils # (auto) 0.07 K/uL (0.00-0.50); Eosinophils % (auto) 1.5 %; Hematocrit (blood only) 28.4 % (37.0-47.0); Hemoglobin 9.4 g/dl (12.0-16.0); Immature Granulocytes # (auto) 0.18 K/uL (0.01-0.20); Immature Granulocytes % (auto) 3.8 %; Lymphocytes % (auto) 18.9 %; Mean Corpuscular Hemoglobin 27.8 pg (25.0-34.0); Mean Corpuscular Hgb Conc 33.1 g/dL (32.0-36.0); Mean Platelet Volume 9.4 fL (9.4-12.4); Monocytes # (auto) 0.38 K/uL (0.11-0.59); Neutrophils # (auto) 3.21 K/uL (1.40-6.50); Neutrophils % (auto) 67.4 %; Platelet Count 211 K/uL (130-400); RDW Coefficient of Variation 15.6 % (11.5-14.5); RDW Standard Deviation 47.7 fL (36.4-46.3); Red Blood Count 3.38 M/uL (4.20-5.40); White Blood Count 4.76 K/ul (4.8-10.8)
[2023-12-04 07:50] LABS: BUN Creatinine Ratio 14.9 (10-20); Calcium 8.7 mg/dl (8.6-10.3); Creatinine Clr Calc Pharmacy 90.5 ml/min; Magnesium 1.5 mg/dl (1.7-2.4); Potassium 3.3 mmol/L (3.5-5.1)
[2023-12-04] MEDS: POTASSIUM CHLORIDE CRTAB 20 MEQ TABCR PO STA (12:19)
[2023-12-04] MEDS: MAGNESIUM SULFATE / D5W 1 GM/100 ML BAG IV SCH (12:19)
[2023-12-04] MEDS: lisinopril 10 MG TAB PO SCH (12:56)
--- NOTE | 2023-12-04 17:28 | Hospitalist Progress Note ---
Date of Service December 04, 2023 Assessment & Plan (1) Acute GI bleeding: Plan: P/w lower GI bleeding and acute blood loss anemia from ischemic colitis. Now resolved. Hemoglobin trended from 13 down to 9.4 but has hit rena and stayed stable the last 3 days Eliquis was discontinued on admission-continue to hold Follow CBC APpreciate GI consult-no need for scopes (2) Colitis: Plan: Most likely ischemic colitis, appreciate GI consult Bleeding and pain have resolved, diarrhea is finally improved on 12/03 Stool BioFire and C. diff negative on admission -repeat C. diff 12/03 given 6 days of ongoing diarrhea again negative Diarrhea most likely from gut wall edema from colitis/poor absorption or fluid Have stopped IVFs and now on regular diet Diarrhea now resolved Hypomagnesemia and hypokalemia-secondary to poor po intake and GI losses--> replace with IV magnesium and po KCl FOllow BMP, mag in AM (3) Orthostatic hypotension: Plan: Occurred on November 28, when the patient was out of bed and attempting to ambulate. Midodrine was started and blood pressure stabilized and midodrine was then discontinued on November 29. Amlodipine was restarted on November 30. Blood pressures are now becoming elevated Continues on metoprolol Will resume lisinopril 20mg daily today (4) Pulmonary emboli: Plan: Diagnosed in 07/2023 with PE, on ELiquis. 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 Monitor intake and output. 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 Physical Exam Constitutional: WD/WN, vitals as above Respiratory: normal respiratory effort, lungs clear to auscultation Cardiovascular: RRR, no murmur, no edema Gastrointestinal (Abdomen): normal bowel sounds, soft, nontender, no hepatosplenomegaly Psychiatric: A+Ox3, euthymic affect Results & Data Results & Data Vital Signs (Past 12 Hours) Vital Signs Temp Pulse Resp BP Pulse Ox O2 Del Method 12/04/23 14:25 36.6 C 79 16 119/65 93 Room Air 12/04/23 07:47 36.5 C 83 16 147/65 H 93 Room Air Laboratory Results CBC. BMP. 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
[2023-12-05 06:10] LABS: Basophils # (auto) 0.03 K/uL (0.00-0.20); Basophils % (auto) 0.5 %; Eosinophils # (auto) 0.09 K/uL (0.00-0.50); Eosinophils % (auto) 1.4 %; Hematocrit (blood only) 26.7 % (37.0-47.0); Hemoglobin 8.6 g/dl (12.0-16.0); Immature Granulocytes # (auto) 0.14 K/uL (0.01-0.20); Immature Granulocytes % (auto) 2.2 %; Lymphocytes # (auto) 1.03 K/uL (1.20-3.40); Lymphocytes % (auto) 16.3 %; Mean Corpuscular Hemoglobin 27.6 pg (25.0-34.0); Mean Corpuscular Hgb Conc 32.2 g/dL (32.0-36.0); Mean Corpuscular Volume 85.6 fL (80.0-100.0); Monocytes # (auto) 0.43 K/uL (0.11-0.59); Monocytes % (auto) 6.8 %; Neutrophils # (auto) 4.58 K/uL (1.40-6.50); Neutrophils % (auto) 72.8 %; Platelet Count 228 K/uL (130-400); RDW Coefficient of Variation 15.8 % (11.5-14.5); RDW Standard Deviation 48.8 fL (36.4-46.3); Red Blood Count 3.12 M/uL (4.20-5.40)
[2023-12-05 06:19] LABS: BUN Creatinine Ratio 18.9 (10-20); Calcium 8.5 mg/dl (8.6-10.3); Creatinine Clr Calc Pharmacy 80.6 ml/min; Magnesium 1.9 mg/dl (1.7-2.4); Potassium 3.8 mmol/L (3.5-5.1)
--- NOTE | 2023-12-05 18:32 | Hospitalist Progress Note ---
Date of Service December 05, 2023 Assessment & Plan (1) Acute GI bleeding: Plan: P/w lower GI bleeding and acute blood loss anemia from ischemic colitis. Now resolved. Hemoglobin trended from 13 down to 9.4--> slightly lower today at 8.6 but may be lab error-fairly stable for many days and no further gross bleeding Eliquis was discontinued on admission-continue to hold Follow CBC Appreciate GI consult-no need for scopes (2) Colitis: Plan: Most likely ischemic colitis, appreciate GI consult Bleeding and pain have resolved, diarrhea is finally resolved since 12/03 Stool BioFire and C. diff negative on admission -repeated C. diff 12/03 given ongoing diarrhea-was once again negative Diarrhea most likely from gut wall edema from colitis/poor absorption or fluid Have stopped IVFs and now on regular diet Hypomagnesemia and hypokalemia-secondary to poor po intake and GI losses--> replaced and now resolved Follow BMP, mag in AM (3) Orthostatic hypotension: Plan: Occurred on November 28, when the patient was out of bed and attempting to ambulate. Midodrine was started and blood pressure stabilized and midodrine was then discontinued on November 29. Amlodipine was restarted on November 30. Blood pressures were then becoming elevated Continues on metoprolol Resumed lisinopril 20mg daily and now BPs normal (4) Pulmonary emboli: Plan: Diagnosed in 07/2023 with PE, on ELiquis. 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 Monitor intake and output. 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 Only one loose stool today, no bleeding. Is eating. Physical Exam Constitutional: WD/WN, vitals as above Respiratory: normal respiratory effort, lungs clear to auscultation Cardiovascular: RRR, no murmur, no edema Gastrointestinal (Abdomen): normal bowel sounds, soft, nontender, no hepatosplenomegaly Psychiatric: A+Ox3, euthymic affect Results & Data Results & Data Vital Signs (Past 12 Hours) Vital Signs Temp Pulse Resp BP Pulse Ox O2 Del Method 12/05/23 15:22 36.6 C 75 18 135/76 94 Room Air 12/05/23 08:03 36.8 C 76 16 136/73 92 Room Air Laboratory Results CBC, BMP, magnesium reviewed PG Care Time/CCT Total # of Minutes Spent Total Time Spent with Patient: Total time spent is greater than 50% in coordination of care (as documented) at patient's floor/unit and/or counseling patient: Coding Level of Care Code 12838 SUB INP/OBS CARE 03/22MIN Diagnoses Acute GI bleeding K92.2 Colitis K52.9 Orthostatic hypotension I95.1 Pulmonary emboli I26.99 Acute kidney injury N17.9 Abnormal urinalysis R82.90 Infection associated with internal left knee prosthesis, initial encounter T84.54XA Encounter type: initial encounter Acid reflux K21.9 (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
[2023-12-05 20:56] VITALS: RESP 16
[2023-12-06 07:13] VITALS: BP 161/76; PULSE 73; TEMP 98.1; O2SAT 94
[2023-12-06 07:57] LABS: Basophils # (auto) 0.02 K/uL (0.00-0.20); Basophils % (auto) 0.4 %; Eosinophils # (auto) 0.09 K/uL (0.00-0.50); Eosinophils % (auto) 1.9 %; Hematocrit (blood only) 28.3 % (37.0-47.0); Hemoglobin 8.7 g/dl (12.0-16.0); Immature Granulocytes # (auto) 0.13 K/uL (0.01-0.20); Immature Granulocytes % (auto) 2.7 %; Lymphocytes # (auto) 0.85 K/uL (1.20-3.40); Lymphocytes % (auto) 17.7 %; Mean Corpuscular Hemoglobin 26.9 pg (25.0-34.0); Mean Corpuscular Hgb Conc 30.7 g/dL (32.0-36.0); Mean Corpuscular Volume 87.6 fL (80.0-100.0); Mean Platelet Volume 8.9 fL (9.4-12.4); Monocytes # (auto) 0.35 K/uL (0.11-0.59); Monocytes % (auto) 7.3 %; Neutrophils # (auto) 3.37 K/uL (1.40-6.50); Platelet Count 229 K/uL (130-400); RDW Coefficient of Variation 15.9 % (11.5-14.5); RDW Standard Deviation 50.4 fL (36.4-46.3); Red Blood Count 3.23 M/uL (4.20-5.40); White Blood Count 4.81 K/ul (4.8-10.8)
[2023-12-06 08:12] LABS: BUN Creatinine Ratio 18.5 (10-20); Calcium 8.3 mg/dl (8.6-10.3); Creatinine Clr Calc Pharmacy 79.1 ml/min; Magnesium 1.8 mg/dl (1.7-2.4); Potassium 3.9 mmol/L (3.5-5.1)
[2023-12-06] MEDS: lisinopril 10 MG TAB PO ONE (11:30)
--- NOTE | 2023-12-06 13:33 | Discharge Summary ---
Discharge Summary Date of Service December 06, 2023 Principal Dx & Hospital Course #1 = Principal Diagnosis (1) Acute GI bleeding: P/w lower GI bleeding and acute blood loss anemia from ischemic colitis. Now resolved. Hemoglobin trended from 13 down to 8.7-fairly stable for many days and no further gross bleeding Eliquis was discontinued on admission-no need to resume Follow CBC in 1 week at rehab Appreciate GI consult-no need for scopes (2) Colitis: Most likely ischemic colitis, appreciate GI consult Bleeding and pain have resolved, diarrhea is finally resolved since 12/03 Stool BioFire and C. diff negative on admission -repeated C. diff 12/03 given ongoing diarrhea-was once again negative Diarrhea most likely from gut wall edema from colitis/poor absorption or fluid- has now completely resolved Have stopped IVFs and now on regular diet Hypomagnesemia and hypokalemia-secondary to poor po intake and GI losses--> replaced and now resolved (3) Orthostatic hypotension: Occurred on November 28, when the patient was out of bed and attempting to ambulate. Midodrine was started and blood pressure stabilized and midodrine was then discontinued on November 29. Amlodipine was restarted on November 30. Blood pressures were then becoming elevated Continues on metoprolol Resumed lisinopril 20mg daily and now BPs normal Can resume home lasix on discharge as well (4) Pulmonary emboli: Diagnosed in 07/2023 with PE, on ELiquis. 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, she should be on lifetime anticoagulation, but will continue to hold for now as she received 4-5 months of therapy prior to this GI bleed Defer to her outpt Oncologist as to whether or not to resume low dose prophylaxis AC in the future (5) Acute kidney injury: Creatinine was up to 1.9 and now down to 0.5 (6) Abnormal urinalysis: UA checked on 11/30 due to having dark urine as per patient and there are zero WBCs, but with epis and Ur cx growing Pseudomonas and Klebsiella-> this is contamination and she is asymptomatic--> no need to treat with abx (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 Patient with history of HTN, s/p right TKA on 06/27/23 with subsequent post-op infection, s/p revision surgery 07/26/23 s/p acute hypoxic respiratory failure secondary to multiple segmental and subsegmental PE. She is on Eliquis therapy - last taken 11/26/23 at 07:30. Patient has had progressive weakness x 3 days as well as intermittent left sided lower abdominal cramping. She has been constipated for at least the last week and has been passing small hard pellets of stool. This evening she developed severe lower abdominal cramping after eating dinner. She had an episode of nausea with non-bloody/non-bilious vomiting and passed a small, hard stool. Her pain persisted and patient was having difficulty getting up from the commode due to weakness so EMS was called. Patient had a large, bloody BM en route to the hospital. VSS upon arrival. In the ER she had two additional bloody BMs. Patient was on IV Vancomycin for treatment of her prosthetic joint infection until 09/06/23. Currently on Doxycycline. She denies chest pain, palpitations, SOB or dizziness. No additional complaints at this time. ER Course: NSS x 1.5L Zofran 4mg IV Pepcid 20mg IV Protonix gtt Discharge Exam Constitutional WD/WN, vitals as above Respiratory normal respiratory effort, lungs clear to auscultation Cardiovascular RRR, no murmur, no edema Gastrointestinal (Abdomen) normal bowel sounds, soft, nontender, no hepatosplenomegaly Psychiatric A+Ox3, euthymic affect Discharge Plan Discharge Items Patient Disposition: Transfer Inpatient Rehab Fac Reason For Visit: LWR GIB Discharge Diagnosis: Ischemic colitis Lowered gastrointestinal bleeding Acute blood loss anemia Acute kidney injury-resolved Asymptomatic bacteriuria-no need for treatment Condition on Discharge: Good Activity: As commented below Lifting: Gradually increase as tolerated Bathing: No limitations Exercise/Sports: Gradually increase as tolerated Exercise Comment: With PT/OT Non-emergency contact: Primary Care Provider Call non-emergency contact if: you have any medication questions and your symptoms worsen Follow-up/Referrals: Zeynep Dawn MD [Primary Care Provider] - (Follow-up within 2 weeks after discharge from rehab) Diet: Regular Addtl Attending Provider Instructions: You were admitted with ischemic colitis and bleeding in the stool. This has greatly improved. Your Eliquis has been discontinued and you do not need to resume this as you were treated for your blood clots for 3 to 4 months already. Please discuss with your oncologist as an outpatient about whether you should go on low-dose blood thinners in the future to prevent blood clots given your history of breast cancer. Because your blood pressures initially were lower, your lisinopril dose was decreased and is at 20 mg once a day rather than twice a day. Because of your blood loss, you are anemic. Please check your blood count at the rehab and 1 week to ensure it is improving. You can take iron pills to help increase your blood count. Pending Studies at Discharge: No Stand-Alone Forms: My [facility] Skilled Items Patient informed of condition?: Yes DNR: Yes Discharge Level of Care: Acute rehab Communicable Disease: No Discharge Prognosis: Improving Lines: None Urinary Catheter: No Medications and DC Order Prescriptions: New doxycycline hyclate 100 mg Capsule 100 mg PO Q12H Qty: 60 0RF acetaminophen-codeine 300-30 mg Tablet 1 tab PO Q4H PRN (Reason: moderate pain (scale score 5-6)) Qty: 6 0RF Continued amlodipine 10 mg tablet 10 mg PO QAM Qty: 90 3RF furosemide 40 mg tablet 40 mg PO QAM Qty: 90 3RF metoprolol tartrate 25 mg tablet 25 mg PO BID 90 Days Qty: 180 3RF gabapentin 600 mg tablet 600 mg PO TID Qty: 270 1RF Rx Instructions: TAKE 1 TABLET THREE TIMES DAILY Changed omeprazole 40 mg capsule,delayed release(DR/EC) 40 mg PO QAM Qty: 180 1RF Rx Instructions: TAKE 1 CAPSULE TWICE DAILY lisinopril 20 mg tablet 20 mg PO QAM Qty: 30 0RF Discontinued Eliquis 5 mg tablet 5 mg PO BID Qty: 180 3RF oxycodone 5 mg tablet 5 mg PO Q6H PRN (Reason: pain) Qty: 40 0RF trazodone 50 mg tablet 50 mg PO HS Rx Instructions: TAKE 1 TABLET AT BEDTIME NEEDED FOR INSOMNIA- pt stated takes one every evening Discharge Orders: Discharge Order (Routine); Ordered 12/06/23 Ordered By: Faviola Tong Admission Data Admit Date/Time: 11/27/23 00:40 Attending Provider: Faviola Tong Admit Provider: Amara Nicole Primary Care Provider: Zeynep Dawn Other Providers: [facility]; Amara Nicole; [facility] Stay Data Consultations 11/27/23 00:00 ED Decision to Admit Stat 11/27/23 00:40 Consult Gastroenterology Routine Diagnostic Imagining Performed 11/26/23 22:23 CT abd pelvis IV con only Stat Pending Results Patient Have Any Pending Studies at Discharge: No Discharge Instructions Given to Patient (Per Discharging Provider) You were admitted with ischemic colitis and bleeding in the stool. This has greatly improved. Your Eliquis has been discontinued and you do not need to resume this as you were treated for your blood clots for 3 to 4 months already. Please discuss with your oncologist as an outpatient about whether you should go on low-dose blood thinners in the future to prevent blood clots given your history of breast cancer. Because your blood pressures initially were lower, your lisinopril dose was decreased and is at 20 mg once a day rather than twice a day. Because of your blood loss, you are anemic. Please check your blood count at the rehab and 1 week to ensure it is improving. You can take iron pills to help increase your blood count. Total Time Total Time Spent Total Time Spent (In Minutes): 35 min Total Time Includes: Examination of the Patient, Discharge Planning and Medication Reconciliation Coding Level of Care Code 90398 INP/OBS DISCH >30 MIN Diagnoses Acute GI bleeding K92.2 Colitis K52.9 Orthostatic hypotension I95.1 Pulmonary emboli I26.99 Acute kidney injury N17.9 Abnormal urinalysis R82.90 Infection associated with internal left knee prosthesis, initial encounter T84.54XA Encounter type: initial encounter Acid reflux K21.9
[2023-12-07] MEDS ORDERED: lisinopril 20 MG TAB PO SCH (09:00)
== END 2023-12-06 14:47 | DRG 394 ==
LOC: ED 22:14 → SUATTDRO 11-27 00:40 → 2S 11-27 00:40 → 3N 12-03 22:00

== ENCOUNTER 2025-02-06 11:11 | Inpatient (IN) ==
--- NOTE | 2025-02-06 11:22 | Emergency Department Note ---
Impression & Plan Periprosthetic fracture of knee, Fall, Leukopenia ED Provider Note NAME: PADMINI PLAACIO AGE: 84 SEX: F : 1940 ARRIVES VIA: Ambulance INFORMANT: Patient ED PROVIDER(S): Gold Hart DO CHIEF COMPLAINT: Left knee pain HPI: Patient patient is an 84-year-old female with a past medical history chronic respiratory failure, back pain and depression who presents to the ER for left knee pain. Patient was trying to get something out of the cupboard in her sink and lost her balance when she was bending over and fell onto her knee. She denies hitting her head or neck. No blood thinners. Admits to severe pain over the medial aspect of the right knee. No chest pain or shortness of breath. No other complaints at this time. She lives at home alone. ADDITIONAL HISTORY OBTAINED: Per HPI Chronic Medical/Social Conditions Affecting Care: Per HPI PAST MEDICAL HISTORY:See Below PAST SURGICAL HISTORY:See Below FAMILY HISTORY:See Below SOCIAL HISTORY:See Below HOME MEDICATIONS:See Below ALLERGIES:See Below VITALS:See Below PHYSICAL EXAMINATION: GENERAL: Sitting up in bed, alert, well appearing, well nourished, no distress, non-toxic EYE EXAM: normal conjunctiva. PERRL and EOM's grossly intact. OROPHARYNX: no exudate, no erythema, lips, buccal mucosa, and tongue normal and mucous membranes are moist NECK: supple, no nuchal rigidity, no adenopathy, non-tender LUNGS: Clear to auscultation. Normal chest wall mechanics HEART: no murmurs, S1 normal and S2 normal ABDOMEN: abdomen soft, non-tender, normo-active bowel sounds, no masses, no rebound or guarding. UPPER EXTREMITIES: upper extremities are grossly normal. LOWER EXTREMITIES: No pitting edema. NEURO EXAM: Normal sensorium, cranial nerves II-XII grossly intact, normal speech, no gross weakness of arms, no gross weakness of legs. MEDICAL DECISION MAKING: Patient is an 84-year-old female who presents ER following mechanical fall onto her left knee. IV was established blood work is obtained. Labs show mild leukopenia 4000. Notes no anemia. BMP was unremarkable. X-rays and knee show no acute fracture. Discussed and reviewed with Dr. Ata Coburn who recommended admission to the hospitalist and nonoperative. Patient declined pain medications other than Tylenol but was offered narcotics. Updated bedside and admitted for further workup. Consults/Care Managements Discussions: Per MDM Triage Nursing notes reviewed. Limited review of prior medical records performed Vital Signs: reviewed and remarkable for no significant abnormalities Differential diagnosis: Fracture, subluxation, dislocation, contusion, ligamentous injury, neurovascular, compartment syndrome, rhabdomyolysis, as well as other pathologies. ER treatment provided: See below Diagnostics interpreted by me include EKG and cardiac monitoring as listed below: -Cardiac Monitoring: An order was placed for continuous cardiac monitoring. The monitor shows a rate of 60 with sinus rhythm. -ECG: none -Laboratory studies:Interpreted by me as stated above in MDM and shown below. 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 Lumbar facet joint syndrome Urge incontinence Carpal tunnel syndrome of right wrist Anxiety with depression Sacral insufficiency fracture (~01/2021) Status post kyphoplasty 02/01/2021 Low back pain (Acute) CMC arthritis Rotator cuff tear, left Impingement syndrome of left shoulder Foraminal stenosis of lumbar region (Chronic) Arthritis (Chronic) Liver lesion, left lobe MRI 06/07/23 showed liver to be unremarkable; probable liver cyst (4mm hyperintense lesion (too small to characterize) History of back surgery RIGHT SI JOINT FUSION= 03/09/17= GRADE VIEW 1, MAC 3, ETT 7.0 AT [facility] 2 TOTAL BACK SURGERIES 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) Overactive bladder (Chronic) Insomnia (Chronic) Hypertension (Chronic) Depression (Chronic) Acid reflux (Chronic) Well controlled and stable Medical History History of malignant meningioma of brain 08/03/22 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 Compression fracture of T8 vertebra (~12/14/23) Mild acute T8 compression fracture without retropulsion, acute mildly angulated sternal manubrial fracture with acute nondisplaced mid sternal body fracture and an acute minimally displaced anterior left second rib fracture Closed fracture of a rib (~12/14/23) Mild acute T8 compression fracture without retropulsion, acute mildly angulated sternal manubrial fracture with acute nondisplaced mid sternal body fracture and an acute minimally displaced anterior left second rib fracture Closed fracture sternum (~12/14/23) Mild acute T8 compression fracture without retropulsion, acute mildly angulated sternal manubrial fracture with acute nondisplaced mid sternal body fracture and an acute minimally displaced anterior left second rib fracture Compression fracture of L2 (~01/2021) Status post kyphoplasty 02/01/2021 Colitis CHF (congestive heart failure) Postoperative infection of knee Arthritis of knee, left Hiatal hernia Anxiety Meningioma determined by biopsy of brain Symptomatic small atypical meningioma (s/p craniotomy- 07/2022) Last seen by neuro surgery 02/2023 (stable at that time- no evidence of recurrence of operated tumor) Headache significantly improved History of DVT (deep vein thrombosis) LLE (CALF) 40+ YEARS AGO (WAS TAKING CONTROL PILLS) Polio During childhood 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 History of vertebral compression fracture Around - s/p kyphoplasty Surgical History History of partial mastectomy of right breast (09/15/22) Right Breast Partial Mastectomy with [facility] [employer] Localization(Right) - Gladys Woods DO S/P craniotomy 07/2022- STEFANIE Mercer History of kyphoplasty L2 and S1 02/01/2021 H/O hand surgery left History of cataract surgery RT/LEFT History of bilateral tubal ligation History of dilatation and curettage History of breast biopsy left negative > right/ reason for up coming procedure History of carpal tunnel release bilat History of esophagogastroduodenoscopy (EGD) History of tooth extraction History of cardiac cath OVER 14 YEARS AGO/NO STENTS History of colonoscopy History of laminectomy X 2 (LUMBAR REGION) History of right shoulder replacement History of total right knee replacement Family History Mother Family history of pancreatic cancer Alcohol abuse Depression Father Family history of Hodgkin's lymphoma Hypertension Grandfather (Paternal) Myocardial infarction Sister Depression Hypertension Grandfather (Maternal) Myocardial infarction Denies family history of Ovarian cancer Prostate cancer Breast cancer Colorectal cancer Social History Smoking Status: Never smoker Second Hand Exposure: Yes (as child); Do You Dip or Chew Tobacco: No; Hx Alcohol Use: No Hx Substance Use: No Preferred Language: Pashto Communication Ability: Effective Visual Impairment: No Limitations Hearing Ability: Normal Engineering Director Required: No Beliefs That Will Affect Care: None marital status: / Current Living Situation: Family current occupational status: retired Feels Safe at Home: Yes Childhood Exposure to Second-Hand Smoke: Yes Diet: regular Dental Care, Regularly: No Physical Activity Frequency: Does not Exercise Seatbelt Use: sometimes Sunscreen Use: No Assistive Devices: Cane, Raised Toilet Seat, Walker and Wheelchair Allergies Allergies Allergy/AdvReac Type Severity Reaction Status Date / Time Cephalosporins Allergy Mild rash Verified 11/05/24 10:14 codeine Allergy Mild Rash Verified 11/05/24 10:14 erythromycin base Allergy Mild Rash Verified 11/05/24 10:14 nitrofurantoin Allergy Mild rash Verified 11/05/24 10:14 tetracycline Allergy Mild rash Verified 11/05/24 10:14 tramadol Allergy Mild Itching Verified 11/05/24 10:14 hydromorphone [From Dilaudid] AdvReac Intermediate mental Verified 11/05/24 10:14 change morphine AdvReac Mild SICK TO Verified 11/05/24 10:14 STOMACH Home Meds Home Medications Medication Instructions Recorded Confirmed polyethylene glycol 3350 17 17 g PO DAILY 07/16/24 02/06/25 gram/dose oral powder (Miralax) Previous Rx's Medication Instructions Recorded omeprazole 40 mg capsule,delayed 40 mg PO BID #180 caps 05/07/24 release trazodone 50 mg tablet 50 mg PO HS PRN insomnia #90 tabs 05/27/24 duloxetine 60 mg capsule,delayed 60 mg PO HS #90 caps 07/17/24 release pregabalin 100 mg capsule (Lyrica) 100 mg PO BID #60 caps 09/01/24 metoprolol tartrate 25 mg tablet 25 mg PO BID 90 days #180 tabs 10/29/24 potassium chloride 10 mEq 10 meq PO DAILY #90 caps 11/05/24 capsule,extended release furosemide 40 mg tablet 20 mg (1/2 x 40 mg) PO QAM #30 tabs 11/06/24 celecoxib 100 mg capsule (Celebrex) 100 mg PO BID #60 caps 01/26/25 Results & Data (ED) Vital Signs Vital Signs - 24 hr 02/06/25 11:30 02/06/25 11:30 02/06/25 11:30 Temperature 36.6 C Temperature Source Oral Pulse Rate 60 60 Pulse Rate [Apical] 60 Respiratory Rate 16 16 16 Respiratory Effort / Characteristics Non-Labored Spontaneous Non-Labored Spontaneous Respiratory Depth Normal Normal Respiratory Pattern Regular Regular Blood Pressure 163/76 H Blood Pressure [Right Arm] 163/76 H Blood Pressure Mean 105 Blood Pressure Mean [Right Arm] 105 Blood Pressure Position [Right Arm] Pulse Oximetry 95 95 95 Oxygen Delivery Method Room Air Room Air Room Air Oxygen Flow Rate Sepsis Recent Fever Within 48 Hours No Sepsis New/Unexplained Change in Mental Status No Sepsis Action Taken by Nursing No Action Required 02/06/25 12:32 02/06/25 14:00 02/06/25 15:00 Temperature Temperature Source Pulse Rate Pulse Rate [Apical] 57 L 58 L 59 L Respiratory Rate 16 16 25 H Respiratory Effort / Characteristics Non-Labored Spontaneous Non-Labored Spontaneous Respiratory Depth Normal Normal Respiratory Pattern Regular Regular Blood Pressure Blood Pressure [Right Arm] 143/93 H 157/68 H 167/79 H Blood Pressure Mean Blood Pressure Mean [Right Arm] 109 97 108 Blood Pressure Position [Right Arm] Lying Pulse Oximetry 99 91 96 Oxygen Delivery Method Room Air Nasal Cannula Oxygen Flow Rate 2 Sepsis Recent Fever Within 48 Hours Sepsis New/Unexplained Change in Mental Status Sepsis Action Taken by Nursing Laboratory Data 02/06/25 11:24 02/06/25 11:24 Lab Results 02/06/25 Range/Units 11:24 WBC 4.08 L (4.8-10.8) K/ul RBC 4.83 (4.20-5.40) M/uL Hgb 14.0 (12.0-16.0) g/dL Hct 44.5 (37.0-47.0) % MCV 92.1 (80.0-100.0) fL MCH 29.0 (25.0-34.0) pg MCHC 31.5 L (32.0-36.0) g/dL RDW Std Deviation 45.8 (36.4-46.3) fL RDW Coeff of [place] 13.7 (11.5-14.5) % Plt Count 139 (130-400) K/uL MPV 10.6 (9.4-12.4) fL Immature Gran % (Auto) 0.5 % Neut % (Auto) 65.9 % Lymph % (Auto) 21.8 % [place] % (Auto) 9.6 % Eos % (Auto) 1.7 % Baso % (Auto) 0.5 % Neut # (Auto) 2.69 (1.40-6.50) K/uL Lymph # (Auto) 0.89 L (1.20-3.40) K/uL Hopkins # (Auto) 0.39 (0.11-0.59) K/uL Eos # (Auto) 0.07 (0.00-0.50) K/uL Baso # (Auto) 0.02 (0.00-0.20) K/uL Immature Gran # (Auto) 0.02 (0.01-0.20) K/uL Sodium 140 (136-145) mmol/L Potassium 4.6 (3.5-5.1) mmol/L Chloride 104 (98-107) mmol/L Carbon Dioxide 32 (21-32) mmol/L Anion Gap 4 (3-11) BUN 16 (6-23) mg/dl Creatinine 0.70 (0.6-1.2) mg/dl Est Cr Clr Drug Dosing 57.3 ml/min eGFR 86.30 BUN/Creatinine Ratio 22.9 H (10-20) Glucose 86 (70-99(Fasting)) mg/dl Calcium 8.8 (8.6-10.3) mg/dl Administered Medications Discontinued Medications Acetaminophen (Acetaminophen 325 Mg Tab) 650 mg PO NOW STA Stop: 02/06/25 11:18 Last Admin: 02/06/25 11:41 Dose: 650 mg Documented By: LYNDA Enoxaparin Sodium (Enoxaparin Inj 40 Mg/0.4 Ml Syr) 40 mg SQ ONE ONE Stop: 02/06/25 15:01 Last Admin: 02/06/25 16:42 Dose: 40 mg Documented By: jaqui Imaging Data Radiologist's Impression: Knee X-Ray 02/06/25 11:17 XR knee LT 3V CLINICAL HISTORY: Left knee pain following fall. COMPARISON: Left knee radiographs July 26, 2023. FINDINGS: Alignment of the left knee arthroplasty is anatomic. A lucency within the distal left femur on lateral projection is highly suggestive of an acute nondisplaced distal left femoral periprosthetic fracture. This extends to the metadiaphysis. There is an associated moderate-sized joint effusion with lipohemarthrosis. No additional fractures. IMPRESSION: 1. Acute nondisplaced distal left femoral periprosthetic fracture. 2. Associated moderate-sized joint effusion with lipohemarthrosis. 3. Status post total left knee arthroplasty. ACT 112: Negative or not required by law. Electronically signed by: Mauricio Rodrigues M.D. 02/06/2025 12:43 PM Discharge Plan Visit Data Chief Complaint: Knee Injury/Pain Stated Complaint: FALL, KNEE PAIN ED Provider: Gold Hart Discharge Problem: Periprosthetic fracture of knee, Fall, Leukopenia Condition: Fair Forms Stand Alone Forms: ReferralMD Prescriptions Prescriptions: No Action polyethylene glycol 3350 [Miralax] 17 gram/dose powder 17 g PO DAILY pregabalin [Lyrica] 100 mg capsule 100 mg PO BID Qty: 60 0RF omeprazole 40 mg capsule,delayed release(DR/EC) 40 mg PO BID Qty: 180 1RF Rx Instructions: TAKE 1 CAPSULE TWICE DAILY trazodone 50 mg tablet 50 mg PO HS PRN (Reason: insomnia) Qty: 90 3RF metoprolol tartrate 25 mg tablet 25 mg PO BID 90 Days Qty: 180 3RF furosemide 40 mg tablet 20 mg PO QAM Qty: 30 2RF celecoxib [Celebrex] 100 mg capsule 100 mg PO BID Qty: 60 2RF duloxetine 60 mg capsule,delayed release(DR/EC) 60 mg PO HS Qty: 90 2RF potassium chloride 10 mEq capsule, extended release 10 meq PO DAILY Qty: 90 3RF Rx Instructions: Take with lasix. Referrals Referrals: Zeynep Dawn MD [Primary Care Provider] - Discharge Problem: Fall Qualifiers: Encounter type: initial encounter Qualified Code(s): W19.XXXA - Unspecified fall, initial encounter Leukopenia Qualifiers: Leukopenia type: unspecified Qualified Code(s): D72.819 - Decreased white blood cell count, unspecified
[2025-02-06] MEDS: ACETAMINOPHEN 325 MG TAB PO STA (11:41)
[2025-02-06 11:57] LABS: Hematocrit (blood only) 44.5 % (37.0-47.0); Hemoglobin 14.0 g/dL (12.0-16.0); Immature Granulocytes # (auto) 0.02 K/uL (0.01-0.20); Immature Granulocytes % (auto) 0.5 %; Mean Corpuscular Hemoglobin 29.0 pg (25.0-34.0); Mean Corpuscular Volume 92.1 fL (80.0-100.0); Platelet Count 139 K/uL (130-400); RDW Standard Deviation 45.8 fL (36.4-46.3); Red Blood Count 4.83 M/uL (4.20-5.40); White Blood Count 4.08 K/ul (4.8-10.8)
[2025-02-06 12:20] LABS: Anion Gap 4.0 (3-11); Calcium 8.8 mg/dl (8.6-10.3); Carbon Dioxide 32.0 mmol/L (21-32); Chloride 104.0 mmol/L (98-107); Potassium 4.6 mmol/L (3.5-5.1); Sodium 140.0 mmol/L (136-145)
[2025-02-06 12:26] LABS: Blood Urea Nitrogen 16.0 mg/dl (6-23); Creatinine Clr Calc Pharmacy 57.3 ml/min; Glucose 86.0 mg/dl (70-99(Fasting))
--- NOTE | 2025-02-06 12:45 | XRay Report ---
XR knee LT 3V CLINICAL HISTORY: Left knee pain following fall. COMPARISON: Left knee radiographs July 26, 2023. FINDINGS: Alignment of the left knee arthroplasty is anatomic. A lucency within the distal left femu r on lateral projection is highly suggestive of an acute nondisplaced distal left femoral periprosthe tic fracture. This extends to the metadiaphysis. There is an associated moderate-sized joint effusion with lipohemarthrosis. No additional fractures. IMPRESSION: 1. Acute nondisplaced distal left femoral periprosthetic fracture. 2. Associated moderate-sized joint effusion with lipohemarthrosis. 3. Status post total left knee arthroplasty. ACT 112: Negative or not required by law. Electronically signed by: Mauricio Rodrigues M.D. 02/06/2025 12:43 PM
--- NOTE | 2025-02-06 15:59 | History & Physical Report ---
Date of Service February 06, 2025 Assessment & Plan (1) Periprosthetic fracture of knee: Plan Acute right periprosthetic fracture of her right knee in an 84 yo female with arthritis Patient will be admitted to medical Will consult ortho Likely non surgical and non weight bearing will consult PT/OT as patient lives alone and would benefit from short term rehab Pain meds ordered. Chronic lower back pain resume her pregabalin Depression Resume home meds DVT: lovenox History of Present Illness Chief Complaint: fall Primary Care Provider: Zeynep Dawn MD 84 yo female with PMH of anemia, anxiety, hx breast cancer with met to brain s/p resection in August 2022, and HTN presents to the ED after sustaining a fall. Patient was trying to get something out of a drawer when she fell onto her knees. She reported significant pain especially over her right knee and was unable to stand up. Patient did nothit her head or neck. She is not on any blood thinners. In the ED, patient was fond to have a periprosthetic fracture of her right knee. Allergies Allergy/AdvReac Type Severity Reaction Status Date / Time Cephalosporins Allergy Mild rash Verified 11/05/24 10:14 codeine Allergy Mild Rash Verified 11/05/24 10:14 erythromycin base Allergy Mild Rash Verified 11/05/24 10:14 nitrofurantoin Allergy Mild rash Verified 11/05/24 10:14 tetracycline Allergy Mild rash Verified 11/05/24 10:14 tramadol Allergy Mild Itching Verified 11/05/24 10:14 hydromorphone [From Dilaudid] AdvReac Intermediate mental Verified 11/05/24 10:14 change morphine AdvReac Mild SICK TO Verified 11/05/24 10:14 STOMACH Home Medications Medication Instructions Recorded Confirmed Type omeprazole 40 mg capsule,delayed 40 mg PO BID #180 caps 05/07/24 02/06/25 Rx release trazodone 50 mg tablet 50 mg PO HS PRN insomnia #90 tabs 05/27/24 02/06/25 Rx polyethylene glycol 3350 17 17 g PO DAILY 07/16/24 02/06/25 History gram/dose oral powder (Miralax) duloxetine 60 mg capsule,delayed 60 mg PO HS #90 caps 07/17/24 02/06/25 Rx release pregabalin 100 mg capsule (Lyrica) 100 mg PO BID #60 caps 09/01/24 02/06/25 Rx metoprolol tartrate 25 mg tablet 25 mg PO BID 90 days #180 tabs 10/29/24 02/06/25 Rx potassium chloride 10 mEq 10 meq PO DAILY #90 caps 11/05/24 02/06/25 Rx capsule,extended release furosemide 40 mg tablet 20 mg (1/2 x 40 mg) PO QAM #30 tabs 11/06/24 02/06/25 Rx celecoxib 100 mg capsule (Celebrex) 100 mg PO BID #60 caps 01/26/25 02/06/25 Rx Past Med/Surg History Problem List Leukopenia (Acute) Fall (Acute) Periprosthetic fracture of knee (Acute) Edema Pulmonary emboli 07/2023 Torn rotator cuff left; steroid injection Q 3 mos History of breast cancer Chronic respiratory failure with hypoxia Stasis dermatitis B12 deficiency Pulmonary embolism (Acute) Iron deficiency anemia 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 Lumbar facet joint syndrome Urge incontinence Carpal tunnel syndrome of right wrist Anxiety with depression Sacral insufficiency fracture (~01/2021) Status post kyphoplasty 02/01/2021 Low back pain (Acute) CMC arthritis Rotator cuff tear, left Impingement syndrome of left shoulder Foraminal stenosis of lumbar region (Chronic) Arthritis (Chronic) Liver lesion, left lobe MRI 06/07/23 showed liver to be unremarkable; probable liver cyst (4mm hyperintense lesion (too small to characterize) History of back surgery RIGHT SI JOINT FUSION= 03/09/17= GRADE VIEW 1, MAC 3, ETT 7.0 AT [facility] 2 TOTAL BACK SURGERIES 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) Overactive bladder (Chronic) Insomnia (Chronic) Hypertension (Chronic) Depression (Chronic) Acid reflux (Chronic) Well controlled and stable Medical History History of malignant meningioma of brain 08/03/22 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 Compression fracture of T8 vertebra (~12/14/23) Mild acute T8 compression fracture without retropulsion, acute mildly angulated sternal manubrial fracture with acute nondisplaced mid sternal body fracture and an acute minimally displaced anterior left second rib fracture Closed fracture of a rib (~12/14/23) Mild acute T8 compression fracture without retropulsion, acute mildly angulated sternal manubrial fracture with acute nondisplaced mid sternal body fracture and an acute minimally displaced anterior left second rib fracture Closed fracture sternum (~12/14/23) Mild acute T8 compression fracture without retropulsion, acute mildly angulated sternal manubrial fracture with acute nondisplaced mid sternal body fracture and an acute minimally displaced anterior left second rib fracture Compression fracture of L2 (~01/2021) Status post kyphoplasty 02/01/2021 Colitis CHF (congestive heart failure) Postoperative infection of knee Arthritis of knee, left Hiatal hernia Anxiety Meningioma determined by biopsy of brain Symptomatic small atypical meningioma (s/p craniotomy- 07/2022) Last seen by neuro surgery 02/2023 (stable at that time- no evidence of recurrence of operated tumor) Headache significantly improved History of DVT (deep vein thrombosis) LLE (CALF) 40+ YEARS AGO (WAS TAKING CONTROL PILLS) Polio During childhood 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 History of vertebral compression fracture Around - s/p kyphoplasty Surgical History History of partial mastectomy of right breast (09/15/22) Right Breast Partial Mastectomy with [employer] Localization(Right) - Gladys Woods DO S/P craniotomy 07/2022- STEFANIE Mercer History of kyphoplasty L2 and S1 02/01/2021 H/O hand surgery left History of cataract surgery RT/LEFT History of bilateral tubal ligation History of dilatation and curettage History of breast biopsy left negative > right/ reason for up coming procedure History of carpal tunnel release bilat History of esophagogastroduodenoscopy (EGD) History of tooth extraction History of cardiac cath OVER 14 YEARS AGO/NO STENTS History of colonoscopy History of laminectomy X 2 (LUMBAR REGION) History of right shoulder replacement History of total right knee replacement Family History Mother Family history of pancreatic cancer Alcohol abuse Depression Father Family history of Hodgkin's lymphoma Hypertension Grandfather (Paternal) Myocardial infarction Sister Depression Hypertension Grandfather (Maternal) Myocardial infarction Denies family history of Ovarian cancer Prostate cancer Breast cancer Colorectal cancer Social History Smoking Status: Never smoker Second Hand Exposure: No; Do You Dip or Chew Tobacco: No; Tobacco Cessation Education Requested by Patient: No Hx Alcohol Use: No Hx Substance Use: No Preferred Language: Japanese Communication Ability: Effective Visual Impairment: No Limitations Hearing Ability: Normal Assisted Living Housekeeper Required: No Beliefs That Will Affect Care: None marital status: / Current Living Situation: Alone Current Living Situation Comment: home alone current occupational status: retired Other Information That Helps Us Care for You: No Feels Safe at Home: Yes Safety Concerns: Feels Safe At This Time Childhood Exposure to Second-Hand Smoke: Yes Diet: regular Dental Care, Regularly: No Physical Activity Frequency: Does not Exercise Seatbelt Use: sometimes Sunscreen Use: No Assistive Devices: Cane, Stair Lift and Walker Review of Systems Review of Systems: All systems reviewed & are unremarkable except as noted in HPI & below Physical Exam Constitutional: WD/WN, vitals as above Neck: trachea midline, no thyromegaly Respiratory: normal respiratory effort, lungs clear to auscultation Cardiovascular: RRR, no murmur, no edema Gastrointestinal (Abdomen): normal bowel sounds, soft, nontender, no hepatosplenomegaly Skin: no rashes, warm and dry Psychiatric: A+Ox3, euthymic affect Lymphatic: no cervical or axillary lymphadenopathy Results & Data Results & Data Vital Signs (Past 12 Hours) Vital Signs Temp Pulse Pulse Resp BP BP Pulse Ox 02/06/25 15:00 59 L 25 H 167/79 H 96 02/06/25 14:00 58 L 16 157/68 H 91 02/06/25 12:32 57 L 16 143/93 H 99 02/06/25 11:30 60 16 163/76 H 95 02/06/25 11:30 60 16 95 02/06/25 11:30 36.6 C 60 16 163/76 H 95 O2 Del Method O2 Flow Rate 02/06/25 15:00 Nasal Cannula 2 02/06/25 14:00 Room Air 02/06/25 12:32 02/06/25 11:30 Room Air 02/06/25 11:30 Room Air 02/06/25 11:30 Room Air Code Status & VTE Plan VTE Prophylaxis Plan VTE Prophylaxis will be ordered: Yes PG Care Time/CCT Total # of Minutes Spent Total Time Spent with Patient: Total time spent is greater than 50% in coordination of care (as documented) at patient's floor/unit and/or counseling patient: Coding Level of Care Code 29937 INT INP/OBS CARE MIN Diagnoses Periprosthetic fracture of knee M97.9XXA
[2025-02-06] MEDS: ENOXAPARIN INJ 40 MG/0.4 ML SYR SQ ONE (16:42)
--- NOTE | 2025-02-06 17:11 | Orthopedic Consultation ---
Date of Consultation February 06, 2025 Assessment & Plan (1) Periprosthetic fracture of knee: 84-year-old female with an acute, traumatic left periprosthetic distal femur fracture, nondisplaced X-rays and plan was discussed with the patient and her daughters in the room with her. No surgical intervention necessary recommend conservative management. She will be nonweightbearing, brace locked in extension, may be able to in a couple weeks start range of motion. She likely will benefit from going to a rehab facility where they can help assist her in normal daily activities as well as provide her therapy for her since it will be difficult for her to get around with her nonweightbearing status and being that she lives alone. I notified the nurse that she was desatting down to 79 at one point. She was able to take some deep breaths and bring it back up to 91-92. She denied having any symptoms i ncluding chest pains, shortness of breath, dizziness. She will be admitted to medicine service. Pain control and DVT prophylaxis per medicine. She does have a history of blood clots after her total knee replacement and had to be on Eliquis for a couple months they were unsure exactly how long but she is currently not on any blood thinners. She is able to eat. She stated that she does not do well on any pain medication because it causes her severe mental disturbances. She in the past has done okay with Tylenol and codeine. All of their questions and concerns were addressed. She has requested to not follow-up with Dr. Eubanks or his practice and prefers to follow-up with us. Supervising Physician Co-Signing Physician Notes I saw and examined the patient, reviewed her x-rays, formulated the plan, and performed the substantive portion of the visit. Patient has a nondisplaced periprosthetic left distal femur fracture. So long as the fracture does not move she can be treated without surgery. Will immobilize her and a hinged knee brace locked in full extension for the next 2 weeks. Follow-up in 2 weeks with repeat x-rays to be done out of the brace. Will need to maintain strict nonweightbearing on that left lower extremity with a wheelchair for mobility. She can transfer from bed to a chair while maintaining nonweightbearing. DVT prophylaxis per the primary team. Any questions feel free to call orthopedics. History of Present Illness History of Present Illness Patti is a 84-year-old female who fell this morning when she was going to get something out of her drawer. She says she did not trip or get dizzy she simply just fell. She did not lose consciousness. She landed on her knee. She was unable to get up or put weight on her leg. She has a history of a left total knee arthroplasty done by Dr. Raimundo Velasco of last year. She unfortunately had an infection and had to have a second surgery in August. She also consequently got blood clots and then had to be on Eliquis for a couple months that she recalls. She says most of the pain in her knee is in the back. She lives alone and is ambulatory on her own. She denies any numbness or tingling down her leg. Allergies Allergy/AdvReac Type Severity Reaction Status Date / Time Cephalosporins Allergy Mild rash Verified 11/05/24 10:14 codeine Allergy Mild Rash Verified 11/05/24 10:14 erythromycin base Allergy Mild Rash Verified 11/05/24 10:14 nitrofurantoin Allergy Mild rash Verified 11/05/24 10:14 tetracycline Allergy Mild rash Verified 11/05/24 10:14 tramadol Allergy Mild Itching Verified 11/05/24 10:14 hydromorphone [From Dilaudid] AdvReac Intermediate mental Verified 11/05/24 10:14 change morphine AdvReac Mild SICK TO Verified 11/05/24 10:14 STOMACH Home Medications Medication Instructions Recorded Confirmed Type omeprazole 40 mg capsule,delayed 40 mg PO BID #180 caps 05/07/24 02/06/25 Rx release trazodone 50 mg tablet 50 mg PO HS PRN insomnia #90 tabs 05/27/24 02/06/25 Rx polyethylene glycol 3350 17 17 g PO DAILY 07/16/24 02/06/25 History gram/dose oral powder (Miralax) duloxetine 60 mg capsule,delayed 60 mg PO HS #90 caps 07/17/24 02/06/25 Rx release pregabalin 100 mg capsule (Lyrica) 100 mg PO BID #60 caps 09/01/24 02/06/25 Rx metoprolol tartrate 25 mg tablet 25 mg PO BID 90 days #180 tabs 10/29/24 02/06/25 Rx potassium chloride 10 mEq 10 meq PO DAILY #90 caps 11/05/24 02/06/25 Rx capsule,extended release furosemide 40 mg tablet 20 mg (1/2 x 40 mg) PO QAM #30 tabs 11/06/24 02/06/25 Rx celecoxib 100 mg capsule (Celebrex) 100 mg PO BID #60 caps 01/26/25 02/06/25 Rx Patient History Medical History History of malignant meningioma of brain 08/03/22 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 Compression fracture of T8 vertebra (~12/14/23) Mild acute T8 compression fracture without retropulsion, acute mildly angulated sternal manubrial fracture with acute nondisplaced mid sternal body fracture and an acute minimally displaced anterior left second rib fracture Closed fracture of a rib (~12/14/23) Mild acute T8 compression fracture without retropulsion, acute mildly angulated sternal manubrial fracture with acute nondisplaced mid sternal body fracture and an acute minimally displaced anterior left second rib fracture Closed fracture sternum (~12/14/23) Mild acute T8 compression fracture without retropulsion, acute mildly angulated sternal manubrial fracture with acute nondisplaced mid sternal body fracture and an acute minimally displaced anterior left second rib fracture Compression fracture of L2 (~01/2021) Status post kyphoplasty 02/01/2021 Colitis CHF (congestive heart failure) Postoperative infection of knee Arthritis of knee, left Hiatal hernia Anxiety Meningioma determined by biopsy of brain Symptomatic small atypical meningioma (s/p craniotomy- 07/2022) Last seen by neuro surgery 02/2023 (stable at that time- no evidence of recurrence of operated tumor) Headache significantly improved History of DVT (deep vein thrombosis) LLE (CALF) 40+ YEARS AGO (WAS TAKING CONTROL PILLS) Polio During childhood 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 History of vertebral compression fracture Around - s/p kyphoplasty Surgical History History of partial mastectomy of right breast (09/15/22) Right Breast Partial Mastectomy with [employer] Localization(Right) - Gladys Woods DO S/P craniotomy 07/2022- [facility] History of kyphoplasty L2 and S1 02/01/2021 H/O hand surgery left History of cataract surgery RT/LEFT History of bilateral tubal ligation History of dilatation and curettage History of breast biopsy left negative > right/ reason for up coming procedure History of carpal tunnel release bilat History of esophagogastroduodenoscopy (EGD) History of tooth extraction History of cardiac cath OVER 14 YEARS AGO/NO STENTS History of colonoscopy History of laminectomy X 2 (LUMBAR REGION) History of right shoulder replacement History of total right knee replacement Family History Mother Family history of pancreatic cancer Alcohol abuse Depression Father Family history of Hodgkin's lymphoma Hypertension Grandfather (Paternal) Myocardial infarction Sister Depression Hypertension Grandfather (Maternal) Myocardial infarction Denies family history of Ovarian cancer Prostate cancer Breast cancer Colorectal cancer Social History Smoking Status: Never smoker Second Hand Exposure: No; Do You Dip or Chew Tobacco: No; Tobacco Cessation Education Requested by Patient: No Hx Alcohol Use: No Hx Substance Use: No Preferred Language: Syriac Communication Ability: Effective Visual Impairment: No Limitations Hearing Ability: Normal Optical Designer Required: No Beliefs That Will Affect Care: None marital status: / Current Living Situation: Alone Current Living Situation Comment: home alone current occupational status: retired Other Information That Helps Us Care for You: No Feels Safe at Home: Yes Safety Concerns: Feels Safe At This Time Childhood Exposure to Second-Hand Smoke: Yes Diet: regular Dental Care, Regularly: No Physical Activity Frequency: Does not Exercise Seatbelt Use: sometimes Sunscreen Use: No Assistive Devices: Cane, Stair Lift and Walker Physical Exam Physical Exam: Left lower extremity: There is no breaks in her skin. She has a mild knee effusion noted. She has no tenderness over her kneecap. No tenderness over her knee including the medial lateral joint line. The medial or lateral tibia nor the distal femur. I am able to freely move her patella laterally and medially with no pain. She is tender in the popliteal space. She has no pain over her thigh or hip nor her lower leg and ankle. She is able to freely wiggle all of her toes. She can dorsiflex and plantarflex her ankle but does have some pain in doing this in the knee. Other testing was deferred due to injury. Her leg was wrapped with Webril and an Williams wrap and I placed a hinged knee brace on her and she reported comfort after this. Results & Data Vital Signs (Past 12 Hours) Vital Signs Temp Pulse Pulse Resp BP BP Pulse Ox 02/06/25 15:00 59 L 25 H 167/79 H 96 02/06/25 14:00 58 L 16 157/68 H 91 02/06/25 12:32 57 L 16 143/93 H 99 02/06/25 11:30 60 16 163/76 H 95 02/06/25 11:30 60 16 95 02/06/25 11:30 36.6 C 60 16 163/76 H 95 O2 Del Method O2 Flow Rate 02/06/25 15:00 Nasal Cannula 2 02/06/25 14:00 Room Air 02/06/25 12:32 02/06/25 11:30 Room Air 02/06/25 11:30 Room Air 02/06/25 11:30 Room Air Diagnostic Findings Knee X-Ray 02/06/25 11:17 XR knee LT 3V CLINICAL HISTORY: Left knee pain following fall. COMPARISON: Left knee radiographs July 26, 2023. FINDINGS: Alignment of the left knee arthroplasty is anatomic. A lucency within the distal left femur on lateral projection is highly suggestive of an acute nondisplaced distal left femoral periprosthetic fracture. This extends to the metadiaphysis. There is an associated moderate-sized joint effusion with lipohemarthrosis. No additional fractures. IMPRESSION: 1. Acute nondisplaced distal left femoral periprosthetic fracture. 2. Associated moderate-sized joint effusion with lipohemarthrosis. 3. Status post total left knee arthroplasty. ACT 112: Negative or not required by law. Electronically signed by: Mauricio Rodrigues M.D. 02/06/2025 12:43 PM
[2025-02-06] MEDS: ACETAMINOPHEN 325 MG TAB PO SCH (18:03)
[2025-02-06] MEDS: METOPROLOL TARTRATE 25 MG TAB PO SCH (21:06)
[2025-02-06] MEDS: PREGABALIN 100 MG CAP PO SCH (21:07)
[2025-02-07 06:20] LABS: Hematocrit (blood only) 39.0 % (37.0-47.0); Hemoglobin 12.2 g/dL (12.0-16.0); Mean Corpuscular Hemoglobin 28.8 pg (25.0-34.0); Mean Corpuscular Volume 92.0 fL (80.0-100.0); Platelet Count 119 K/uL (130-400); RDW Standard Deviation 46.5 fL (36.4-46.3); Red Blood Count 4.24 M/uL (4.20-5.40); White Blood Count 3.83 K/ul (4.8-10.8)
[2025-02-07 06:37] LABS: Anion Gap 5.0 (3-11); Blood Urea Nitrogen 16.0 mg/dl (6-23); Calcium 8.7 mg/dl (8.6-10.3); Carbon Dioxide 33.0 mmol/L (21-32); Chloride 103.0 mmol/L (98-107); Creatinine Clr Calc Pharmacy 46.1 ml/min; Glucose 96.0 mg/dl (70-99(Fasting)); Potassium 4.4 mmol/L (3.5-5.1); Sodium 141.0 mmol/L (136-145)
[2025-02-07] MEDS: POLYETHYLENE (MIRALAX) 17 GM PACK PO SCH (08:25)
[2025-02-07] MEDS: POTASSIUM CHLORIDE 10 MEQ TABCR PO SCH (08:25)
[2025-02-07] MEDS: FUROSEMIDE 20 MG TAB PO SCH (08:26)
[2025-02-07] MEDS: PNEUMOCOCCAL VACCINE (PCV20) 20-VAL CONJ-DIP CRM/PF 0.5 ML SYR IM ONE (12:50)
[2025-02-07] MEDS: INFLUENZA VACC TS2025-26(65y+)/PF (IIV3) 0.5mL Syr IM ONE (12:52)
--- NOTE | 2025-02-07 15:13 | Orthopedic Progress Note ---
Date of Service February 07, 2025 Assessment & Plan (1) Periprosthetic fracture of knee: Plan: 84-year-old female with an acute, traumatic left periprosthetic distal femur fracture, nondisplaced Plan was discussed with the patient and her daughters in the room with her. No surgical intervention necessary recommend conservative management. She will be nonweightbearing brace locked in extension, in two weeks may be able to start progressing range of motion. She likely will benefit from going to a rehab facility where they can help assist her in normal daily activities as well as provide her therapy for her since it will be difficult for her to get around with her nonweightbearing status and being that she lives alone. She was admitted to medicine service. Pain control and DVT prophylaxis per medicine. She stated that she does not do well on any pain medication because it causes her severe mental disturbances. She in the past has done okay with Tylenol and codeine. All of their questions and concerns were addressed. She has requested to not follow-up with Dr. Eubanks or his practice and prefers to follow-up with us. We will facilitate getting her appointment with us on Sunday. Admission and Anticipated Discharge Date Admission Date: February 06, 2025 Shaheen Armstrong was seen and examined at bedside today. Her daughters are with her this morning. She reports that overall she is doing well. Her pain is controlled. Her brace is otherwise fitting appropriately. She says that it is not bothering her. Denies any numbness or tingling. She was able to get up and sit in a chair. Physical Exam Physical Exam: Left lower extremity: 02/06/2025: There is no breaks in her skin. She has a mild knee effusion noted. She has no tenderness over her kneecap. No tenderness over her knee including the medial lateral joint line. The medial or lateral tibia nor the distal femur. I am able to freely move her patella laterally and medially with no pain. She is tender in the popliteal space. She has no pain over her thigh or hip nor her lower leg and ankle. She is able to freely wiggle all of her toes. She can dorsiflex and plantarflex her ankle but does have some pain in doing this in the knee. Other testing was deferred due to injury. Her leg was wrapped with Webril and an Williams wrap and I placed a hinged knee brace on her and she reported comfort after this. 02/07/2025: Brace fitting appropriately. Left in place today. She is able to fully move her ankle. She has sensation intact distally to light touch. Results & Data Vital Signs (Past 12 Hours) Vital Signs Temp Pulse Resp BP Pulse Ox O2 Del Method 02/07/25 07:39 36.4 C L 64 16 168/73 H 91 Room Air
[2025-02-07] MEDS: ENOXAPARIN INJ 40 MG/0.4 ML SYR SQ SCH (16:14)
--- NOTE | 2025-02-07 23:44 | Hospitalist Progress Note ---
Date of Service February 07, 2025 Assessment & Plan (1) Periprosthetic fracture of knee: Plan Acute right periprosthetic fracture of her right knee in an 84 yo female with arthritis Patient will be admitted to medical appreciate input from ortho. Likely non surgical and non weight bearing will consult PT/OT as patient lives alone and would benefit from short term rehab Pain meds ordered. Chronic lower back pain resume her pregabalin Depression Resume home meds DVT: lovenox Admission and Anticipated Discharge Date Admission Date: February 06, 2025 Subjective 84 yo female reports her pain is controlled. She has no new complaints. Physical Exam Constitutional: WD/WN, vitals as above Neck: trachea midline, no thyromegaly Respiratory: normal respiratory effort, lungs clear to auscultation Cardiovascular: RRR, no murmur, no edema Gastrointestinal (Abdomen): normal bowel sounds, soft, nontender, no hepatosplenomegaly Skin: no rashes, warm and dry Psychiatric: A+Ox3, euthymic affect Lymphatic: no cervical or axillary lymphadenopathy Results & Data Results & Data Vital Signs (Past 12 Hours) Vital Signs Temp Pulse Resp BP BP Pulse Ox O2 Del Method 02/07/25 21:41 93 Room Air 02/07/25 21:03 36.7 C 74 16 163/74 H 90 Room Air 02/07/25 15:40 36.6 C 66 17 164/74 H 92 Room Air PG Care Time/CCT Total # of Minutes Spent Total Time Spent with Patient: Total time spent is greater than 50% in coordination of care (as documented) at patient's floor/unit and/or counseling patient: Coding Level of Care Code 37737 SUB INP/OBS CARE 2/35MIN Diagnoses Periprosthetic fracture of knee M97.9XXA
[2025-02-08] MEDS: KETOROLAC TROMETHAMINE 15 MG/ML VIAL IV ONE (00:51)
[2025-02-08] MEDS ORDERED: LIDOCAINE 5% 1 PATCH TD PRN (04:54)
[2025-02-08] MEDS: ACETAMINOPHEN W/CODEINE #3 1 TAB PO ONE (05:05)
[2025-02-08 06:11] LABS: Hematocrit (blood only) 39.6 % (37.0-47.0); Hemoglobin 12.8 g/dL (12.0-16.0); Mean Corpuscular Hemoglobin 29.0 pg (25.0-34.0); Mean Corpuscular Volume 89.8 fL (80.0-100.0); Platelet Count 112 K/uL (130-400); RDW Standard Deviation 44.2 fL (36.4-46.3); Red Blood Count 4.41 M/uL (4.20-5.40); White Blood Count 3.69 K/ul (4.8-10.8)
[2025-02-08 06:30] LABS: Anion Gap 6.0 (3-11); Blood Urea Nitrogen 19.0 mg/dl (6-23); Calcium 8.7 mg/dl (8.6-10.3); Carbon Dioxide 30.0 mmol/L (21-32); Chloride 104.0 mmol/L (98-107); Creatinine Clr Calc Pharmacy 51.5 ml/min; Glucose 92.0 mg/dl (70-99(Fasting)); Potassium 4.2 mmol/L (3.5-5.1); Sodium 140.0 mmol/L (136-145)
--- NOTE | 2025-02-08 14:30 | Orthopedic Progress Note ---
Date of Service February 08, 2025 Assessment & Plan (1) Periprosthetic fracture of knee: Plan: 84-year-old female with an acute, traumatic left periprosthetic distal femur fracture, nondisplaced PT OT. Brace to remain locked in full extension at all times. Strict nonweightbearing on the left lower extremity DVT prophylaxis per the primary team. Follow-up in the orthopedic clinic as an outpatient 2 weeks after discharge with Dr. Chavez with x-rays to be done out of the brace at that time. Admission and Anticipated Discharge Date Admission Date: February 06, 2025 Shaheen Armstrong was seen and examined on afternoon rounds. She reports that overall she is doing well. She reports minimal pain in her knee. She reports her brace is fitting appropriately. Denies any numbness or tingling. She was able to get up and sit in a chair. Physical Exam Physical Exam: Resting comfortably in bed no acute distress. Hinged knee brace locked in full extension underneath the cotton dressing in good position. She is sensory intact moving light touch over the entirety of her foot. Fires EHL FHL tib ant gastrocsoleus. Results & Data Vital Signs (Past 12 Hours) Vital Signs Temp Pulse Resp BP Pulse Ox O2 Del Method 02/08/25 07:31 36.4 C L 67 16 156/89 H 91 Room Air
[2025-02-08 15:13] VITALS: O2SAT 92
[2025-02-08] MEDS: REMOVE LIDODERM PATCH SCH (20:15)
--- NOTE | 2025-02-08 23:18 | Hospitalist Progress Note ---
Date of Service February 08, 2025 Assessment & Plan (1) Periprosthetic fracture of knee: Plan Acute right periprosthetic fracture of her right knee in an 84 yo female with arthritis Patient will be admitted to medical appreciate input from ortho. Likely non surgical and non weight bearing PT/OT recommends rehab. Pain meds ordered. Patient with metabolic encpahlopathy in the AM from narcotic, will limit this. Chronic lower back pain resume her pregabalin Depression Resume home meds DVT: lovenox Admission and Anticipated Discharge Date Admission Date: February 06, 2025 Subjective Patient reports no new symptoms. Physical Exam Constitutional: WD/WN, vitals as above Neck: trachea midline, no thyromegaly Respiratory: normal respiratory effort, lungs clear to auscultation Cardiovascular: RRR, no murmur, no edema Gastrointestinal (Abdomen): normal bowel sounds, soft, nontender, no hepatosplenomegaly Skin: no rashes, warm and dry Psychiatric: A+Ox3, euthymic affect Lymphatic: no cervical or axillary lymphadenopathy Results & Data Results & Data Vital Signs (Past 12 Hours) Vital Signs Temp Pulse Resp BP BP Pulse Ox O2 Del Method 02/08/25 20:17 36.9 C 75 16 160/81 H 92 Room Air 02/08/25 15:11 36.5 C 67 16 160/81 H 92 Room Air PG Care Time/CCT Total # of Minutes Spent Total Time Spent with Patient: Total time spent is greater than 50% in coordination of care (as documented) at patient's floor/unit and/or counseling patient: Coding Level of Care Code 16022 SUB INP/OBS CARE 2/35MIN Diagnoses Periprosthetic fracture of knee M97.9XXA
[2025-02-09 06:50] LABS: Hematocrit (blood only) 40.9 % (37.0-47.0); Hemoglobin 13.2 g/dL (12.0-16.0); Mean Corpuscular Hemoglobin 29.2 pg (25.0-34.0); Mean Corpuscular Volume 90.5 fL (80.0-100.0); Platelet Count 116 K/uL (130-400); RDW Standard Deviation 44.9 fL (36.4-46.3); Red Blood Count 4.52 M/uL (4.20-5.40); White Blood Count 2.92 K/ul (4.8-10.8)
[2025-02-09 07:25] VITALS: BP 158/72; RESP 17; TEMP 97.5
[2025-02-09 07:25] LABS: Anion Gap 4.0 (3-11); Blood Urea Nitrogen 16.0 mg/dl (6-23); Calcium 8.8 mg/dl (8.6-10.3); Carbon Dioxide 32.0 mmol/L (21-32); Chloride 104.0 mmol/L (98-107); Creatinine Clr Calc Pharmacy 56.8 ml/min; Glucose 92.0 mg/dl (70-99(Fasting)); Potassium 4.4 mmol/L (3.5-5.1); Sodium 140.0 mmol/L (136-145)
--- NOTE | 2025-02-09 09:27 | Orthopedic Progress Note ---
Date of Service February 09, 2025 Assessment & Plan (1) Periprosthetic fracture of knee: Plan: 84-year-old female with an acute, traumatic left periprosthetic distal femur fracture, nondisplaced She will be nonweightbearing brace locked in extension at all times. She can do bed to chair transfers. Continue PT/OT. She likely will benefit from going to a rehab facility where they can help assist her in normal daily activities as well as provide her therapy for her since it will be difficult for her to get around with her nonweightbearing status and being that she lives alone. Pain control and DVT prophylaxis per medicine. She is currently just taking Tylenol. All of their questions and concerns were addressed. She has requested to not follow-up with Dr. Eubanks or his practice and prefers to follow-up with us. We will facilitate getting her appointment with us today and put this in her discharge instructions. Follow-up 2 weeks after discharge with Dr. Chavez with x-rays to be done out of the brace at that time. Admission and Anticipated Discharge Date Admission Date: February 06, 2025 Shaheen Armstrong was seen and examined bedside this morning. She reports that overall she is doing well. She was able to shower and sit in a chair and does not report any pain. Physical Exam Physical Exam: Left lower extremity: 02/06/2025: There is no breaks in her skin. She has a mild knee effusion noted. She has no tenderness over her kneecap. No tenderness over her knee including the medial lateral joint line. The medial or lateral tibia nor the distal femur. I am able to freely move her patella laterally and medially with no pain. She is tender in the popliteal space. She has no pain over her thigh or hip nor her lower leg and ankle. She is able to freely wiggle all of her toes. She can dorsiflex and plantarflex her ankle but does have some pain in doing this in the knee. Other testing was deferred due to injury. Her leg was wrapped with Webril and an Williams wrap and I placed a hinged knee brace on her and she reported comfort after this. 02/07/2025: Brace fitting appropriately. Left in place today. She is able to fully move her ankle. She has sensation intact distally to light touch. 02/09/2025: Brace Was slightly loose at the bottom part and I adjusted this for her today and she said that it was more comfortable. Otherwise brace is fitting appropriately and is not bothering her in any areas. This was left in place today. She is able to freely wiggle all of her toes and move her ankle in dorsiflexion and plantarflexion. Sensation intact distally to light touch. No pain in her thigh. Results & Data Vital Signs (Past 12 Hours) Vital Signs Temp Pulse Resp BP Pulse Ox O2 Del Method 02/09/25 07:25 36.4 C L 66 17 158/72 H 92 Room Air
[2025-02-09 13:16] VITALS: PULSE 59
--- NOTE | 2025-02-09 13:38 | Discharge Summary ---
Discharge Summary Date of Service February 09, 2025 Principal Dx & Hospital Course #1 = Principal Diagnosis (1) Periprosthetic fracture of knee: Plan Acute right periprosthetic fracture of her right knee in an 84 yo female with arthritis Patient will be admitted to medical appreciate input from ortho. Likely non surgical and non weight bearing PT/OT recommends rehab. Pain meds ordered. Patient with metabolic encpahlopathy in the AM from narcotic, will limit this. 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 Patient was trying to get something out of a drawer when she fell onto her knees. She reported significant pain especially over her right knee and was unable to stand up. Patient did nothit her head or neck. She is not on any blood thinners. In the ED, patient was fond to have a periprosthetic fracture of her right knee. Discharge Plan Discharge Items Patient Disposition: Transfer Inpatient Rehab Fac Reason For Visit: FALL, KNEE FRACTURE Discharge Diagnosis: fall Condition on Discharge: Fair Activity: Resume your previous activity Non-emergency contact: Primary Care Provider Call non-emergency contact if: you have any medication questions Follow-up/Referrals: Zeynep Dawn MD [Primary Care Provider] - Ata Chavez MD [Physician] - 02/24/25 10:30 am Diet: Regular Addtl Attending Provider Instructions: Follow-up 2 weeks after discharge with Dr. Chavez with x-rays to be done out of the brace at that time. 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 You may remove the brace for hygiene purposes. Please follow-up in our office as scheduled in 2 weeks and we will obtain x-rays out of the splint Continue with Tylenol for pain control Continue icing as needed DVT prophylaxis per medicine team Physical therapy will be discussed at your appointment in our office. Please contact our office with any questions or concerns Pending Studies at Discharge: No Stand-Alone Forms: My [employer], Smoking Cessation Skilled Items Patient informed of condition?: Yes DNR: Yes Discharge Level of Care: Acute rehab Communicable Disease: No Discharge Prognosis: Stable Lines: None Urinary Catheter: No Medications and DC Order Prescriptions: New enoxaparin [Lovenox] 40 mg/0.4 mL Syringe 40 mg subcut Q24H Qty: 10 0RF acetaminophen [Tylenol] 325 mg tablet 650 mg PO QID Qty: 90 0RF Continued polyethylene glycol 3350 [Miralax] 17 gram/dose powder 17 g PO DAILY pregabalin [Lyrica] 100 mg capsule 100 mg PO BID Qty: 60 0RF omeprazole 40 mg capsule,delayed release(DR/EC) 40 mg PO BID Qty: 180 1RF Rx Instructions: TAKE 1 CAPSULE TWICE DAILY trazodone 50 mg tablet 50 mg PO HS PRN (Reason: insomnia) Qty: 90 3RF metoprolol tartrate 25 mg tablet 25 mg PO BID 90 Days Qty: 180 3RF furosemide 40 mg tablet 20 mg PO QAM Qty: 30 2RF celecoxib [Celebrex] 100 mg capsule 100 mg PO BID Qty: 60 2RF duloxetine 60 mg capsule,delayed release(DR/EC) 60 mg PO HS Qty: 90 2RF potassium chloride 10 mEq capsule, extended release 10 meq PO DAILY Qty: 90 3RF Rx Instructions: Take with lasix. Discharge Orders: Discharge Order (Routine); Ordered 02/09/25 Ordered By: Rober Cummings Admission Data Admit Date/Time: 02/06/25 14:39 Attending Provider: Rober Cummings Admit Provider: Rober Cummings Primary Care Provider: Zeynep Dawn Other Providers: Rober Cummings; Varghese Mzea; Jose Antonio Thurston; David Medel; Bisi Christensen Wayne J; Pradeep Rodriguez; Ata Cotton Paul K; Alicia Chris; Lucina Ochoa; Laura Candelaria; Earl Ford; Areli Diaz; Dmitry Mccabe; Rey Flores; [facility] Other Interventions: Discharge Summary Assessment (RN) Last Done: 02/09/25 13:14 Hospital Stay Data Consultations 02/06/25 13:09 ED Decision to Admit Stat 02/06/25 14:39 Consult Orthopedic Surgery Routine Pending Results Patient Have Any Pending Studies at Discharge: No Discharge Instructions Given to Patient (Per Discharging Provider) Follow-up 2 weeks after discharge with Dr. Chavez with x-rays to be done out of the brace at that time. Followup with PCP in 1-2 weeks Coding Diagnoses Periprosthetic fracture of knee M97.9XXA
== END 2025-02-09 14:47 | DRG 533 ==
LOC: SUATTDRO → ED 11:11 → 3N 14:39